=== PATIENT | male | born 1960 | race Caucasian/White ===

== ENCOUNTER 2018-11-06 14:12 | Inpatient (IN) | payer MEDICARE ==
[~2018-11-06] VITALS: Ht 177.8 cm; Wt 264.1 kg
[~2018-11-06 14:12] MED LIST: ACET650S PEG; ASPI-630 PEG; ATORVASTATIN CA80 MG PO; CEFEPIME HCL IVP; CHOL10003 PEG; DIPH25CA58 PO; FAMO20TA5 PO; FURO40TA4 PO; GABA250S6 PO; INSU500I SQ; IPRA3AMP29 NEB; LINE600I IV; MAG30ORA PO; METO25TA4 PO; MORP-16 PO; OXYC5TAB4 PO; TIZA4TAB2 PO; VENL37.56 PEG; WARF-31 PEG; WARF-78 PEG; WARF10TA45 PEG
--- NOTE | 2018-11-06 14:37 | PHYS DOC ---
Past Medical History Past Medical History: A-Fib, Cancer, Diabetes-Type I, Hypertension Additional Past Surgical Histo: TRACHEOSTOMY Alcohol Use: None Drug Use: None Adult General Chief Complaint Chief Complaint: SHORTNESS OF BREATH HPI HPI Patient is a 57-year-old male who presents to the emergency department for evalu ation of generalized weakness. The patient has a tracheostomy, and was hospitalized here for pneumonia, being discharged about a month ago. He was sent to [facility], [facility], and reportedly did very well there, and the day before yesterday was transferred to a nursing facility that was supposedly had capa bilities, including a bariatric bed, to help accommodate the patient. However, the patient states that the care at the facility was inadequate, so about a day after he arrived at the facility he signed himself out. He went home yesterday, but after walking into the house, was unable to continue to ambulate. He denies any pain, or any worsening shortness of breath compared to his baseline. He has not had any fevers or chills. He has had slightly more mucus production and he normally has in the past. However he has not had any fevers, or any new painful areas. There are no alleviating or exacerbating factors to his symptoms otherwise. Review of Systems Review of Systems Constitutional: Denies fever or chills [] Eyes: Denies change in visual acuity, redness, or eye pain [] HENT: Denies nasal congestion or sore throat [] Respiratory: Denies pleuritic pain or shortness of breath [] Cardiovascular: The patient denies any shortness of breath, chest pain, palpitations, or orthopnea [] GI: Denies abdominal pain, nausea, vomiting, bloody stools or diarrhea [] : Denies dysuria or hematuria [] Musculoskeletal: Denies back pain or joint pain [] Integument: Denies rash or skin lesions [] Neurologic: Denies headache, focal weakness or sensory changes . Reports generalized weakness.[] Endocrine: Denies polyuria or polydipsia [] All other systems were reviewed and found to be within normal limits, except as documented in this note. Current Medications Current Medications Current Medications Medications (Trade) Dose Ordered Sig/Cathy Start Time Stop Time Status Last Admin Dose Admin Ondansetron HCl (Zofran) 4 mg 1X ONCE 11/06/18 16:30 11/06/18 16:31 DC 11/06/18 16:37 4 MG Allergies Allergies Allergies Coded Allergies Type Severity Reaction Last Updated Verified Penicillins Allergy Intermediate 09/26/18 Yes allopurinol Allergy Intermediate 09/26/18 Yes azithromycin Allergy Intermediate 09/26/18 Yes I S O L A T I O N *CONTACT* Allergy Unknown 10/02/18 Yes Physical Exam Physical Exam PHYSICAL EXAM: CONSTITUTIONAL: Well developed, well nourished HEAD: normocephalic, atraumatic EENT: PERRL, EOMI. Conjunctivae normal color, sclerae non-icteric; moist mucous membranes. NECK: Supple, non-tender; no meningismus. There is a tracheostomy present. LUNGS: Lungs CTA, breathing even and unlabored. Normal air movement. HEART: Irregularly irregular rhythm, no murmur CHEST: No deformity; non-tender ABDOMEN: The abdomen is soft, and non-tender, no masses or bruits. EXTREM: Normal ROM; no deformity, no calf tenderness. Normal pulses palpable in all extremities. There is mild bilateral pedal edema. SKIN: No rash; no diaphoresis NEURO: Alert; normal speech and cognition; CN's grossly intact; strength grossly intact without focal deficit. BACK: No CVA TTP. Current Patient Data Vital Signs Vital Signs Date Time Temp Pulse Resp B/P (MAP) Pulse Ox O2 Delivery O2 Flow Rate FiO2 11/06/18 14:35 98.2 69 20 119/71 (87) Tracheal Collar 15.0 98.2 Lab Values Laboratory Tests Test 11/06/18 15:50 White Blood Count 5.2 x10^3/uL (4.0-11.0) Red Blood Count 3.70 x10^6/uL (4.30-5.70) L Hemoglobin 10.4 g/dL (13.0-17.5) L Hematocrit 31.2 % (39.0-53.0) L Mean Corpuscular Volume 84 fL (79-100) Mean Corpuscular Hemoglobin 28 pg (25-35) Mean Corpuscular Hemoglobin Concent 33 g/dL (31-37) Red Cell Distribution Width 15.6 % (11.5-14.5) H Platelet Count 219 x10^3/uL (140-400) Neutrophils (%) (Auto) 68 % (31-73) Lymphocytes (%) (Auto) 19 % (24-48) L Monocytes (%) (Auto) 8 % (0-9) Eosinophils (%) (Auto) 4 % (0-3) H Basophils (%) (Auto) 1 % (0-3) Neutrophils # (Auto) 3.5 x10^3/uL (1.8-7.7) Lymphocytes # (Auto) 1.0 x10^3/uL (1.0-4.8) Monocytes # (Auto) 0.4 x10^3/uL (0.0-1.1) Eosinophils # (Auto) 0.2 x10^3/uL (0.0-0.7) Basophils # (Auto) 0.0 x10^3/uL (0.0-0.2) Prothrombin Time 22.5 SEC (11.7-14.0) H Prothrombin Time INR 2.0 (0.8-1.1) H Sodium Level 143 mmol/L (136-145) Potassium Level 4.1 mmol/L (3.5-5.1) Chloride Level 103 mmol/L (98-107) Carbon Dioxide Level 32 mmol/L (21-32) Anion Gap 8 (6-14) Blood Urea Nitrogen 19 mg/dL (8-26) Creatinine 1.3 mg/dL (0.7-1.3) Estimated GFR (Cockcroft-Gault) 56.7 BUN/Creatinine Ratio 15 (6-20) Glucose Level 165 mg/dL (70-99) H Lactic Acid Level 1.5 mmol/L (0.4-2.0) Calcium Level 9.7 mg/dL (8.5-10.1) Magnesium Level 1.7 mg/dL (1.8-2.4) L Total Bilirubin 1.0 mg/dL (0.2-1.0) Aspartate Amino Transferase (AST) 16 U/L (15-37) Alanine Aminotransferase (ALT) 18 U/L (16-63) Alkaline Phosphatase 85 U/L (46-116) Troponin I Quantitative < 0.017 ng/mL (0.000-0.055) ZX-Dpn-F-Type Natriuretic Peptide 2580 pg/mL (0-124) H Total Protein 6.9 g/dL (6.4-8.2) Albumin 3.5 g/dL (3.4-5.0) Albumin/Globulin Ratio 1.0 (1.0-1.7) Laboratory Tests 11/06/18 15:50 Laboratory Tests 11/06/18 15:50 EKG EKG []Atrial fibrillation at a rate of 68 bpm, normal axis, normal intervals, low voltage, there are no acute ischemic ST/T changes noted. Radiology/Procedures Radiology/Procedures [PROCEDURE: PORTABLE CHEST 1V PORTABLE CHEST 1V History: Weakness Comparison: September 28, 2018 Findings: Cardiomegaly, unchanged. Low lung volumes. Unchanged tracheostomy tube. Patchy bibasilar opacities. Possible small right pleural effusion. Postop changes left lower neck. Impression: 1. Low lung volumes with patchy bibasilar opacities, may represent atelectasis or consolidations. PA and lateral view of the chest can better assess if clinically indicated. 2. Possible small right pleural effusion. 3. Cardiomegaly, unchanged. 4. Unchanged tracheostomy tube. ] Course & Med Decision Making Course & Med Decision Making Pertinent Labs and Imaging studies reviewed. (See chart for details) []3:00 PM: RT reported that after suctioning the patient, they did not remove any significant amount of sputum, but the patient did begin having some hemoptysis after the procedure, possibly related to local airway trauma from the suctioning, and anticoagulant use. The patient will continue to be monitored. 5:30 PM:The patient's condition remains stable. I spoke with the hospitalist, who accepted the patient to the hospital for further evaluation and treatment. The patient has not had any worsening dyspnea, or hemoptysis after her initial episode. Dragon Disclaimer Dragon Disclaimer This electronic medical record was generated, in whole or in part, using a voice recognition dictation system. Departure Departure Impression: Primary Impression: Weakness Additional Impression: Morbid obesity with BMI of 70 and over, adult Disposition: ADMITTED INPATIENT Admitting Physician: HIMS Condition: STABLE Referrals: PATRICK MALHOTRA MD (PCP) Problem Qualifiers BEE RANGEL MD Nov 06, 2018 14:37
--- NOTE | 2018-11-06 15:17 | RAD ---
PORTABLE CHEST 1V History: Weakness Comparison: September 28, 2018 Findings: Cardiomegaly, unchanged. Low lung volumes. Unchanged tracheostomy tube. Patchy bibasilar opacities. Possible small right pleural effusion. Postop changes left lower neck. Impression: 1. Low lung volumes with patchy bibasilar opacities, may represent atelectasis or consolidations. PA and lateral view of the chest can better assess if clinically indicated. 2. Possible small right pleural effusion. 3. Cardiomegaly, unchanged. 4. Unchanged tracheostomy tube. Electronically signed by: Anton Rosa DO (11/06/2018 3:15 PM) [id number]
[2018-11-06 16:07] LABS: BASO % 1 % (0-3); EOS # 0.2 x10^3/uL (0.0-0.7); EOS % 4 % (0-3); HEMATOCRIT 31.2 % (39.0-53.0); HEMOGLOBIN 10.4 g/dL (13.0-17.5); LYMPH % 19 % (24-48); MEAN CORPUSCULAR HEMOGLOBIN 28 pg (25-35); MEAN CORPUSCULAR HGB CONC 33 g/dL (31-37); MEAN CORPUSCULAR VOLUME 84 fL (79-100); MONO # 0.4 x10^3/uL (0.0-1.1); MONO % 8 % (0-9); NEUT # 3.5 x10^3/uL (1.8-7.7); NEUT % 68 % (31-73); PLATELET COUNT 219 x10^3/uL (140-400); RED CELL DISTRIBUTION WIDTH 15.6 % (11.5-14.5); WHITE BLOOD COUNT 5.2 x10^3/uL (4.0-11.0)
[2018-11-06 16:17] LABS: PROTHROMBIN TIME PATIENT 22.5 SEC (11.7-14.0)
[2018-11-06 16:21] LABS: CALCIUM 9.7 mg/dL (8.5-10.1); CREATININE 1.3 mg/dL (0.7-1.3); GFR 56.7; POTASSIUM 4.1 mmol/L (3.5-5.1)
[2018-11-06 16:25] LABS: ALBUMIN 3.5 g/dL (3.4-5.0); MAGNESIUM 1.7 mg/dL (1.8-2.4); TOTAL PROTEIN 6.9 g/dL (6.4-8.2)
[2018-11-06] MEDS ORDERED: ONDANSETRON PF 4 MG/2 ML VIAL. IV ONE (16:30)
[2018-11-06] MEDS ORDERED: oxyCODONE/APAP 10/325 1 TAB TABLET PO ONE (18:15)
--- NOTE | 2018-11-06 21:51 | PDOC1 ---
History and Physical Date of Admission Date of Admission DATE: 11/06/18 TIME: 21:51 Identification/Chief Complaint Chief Complaint back pain, no sleep, cant walk Source Source: Chart review, Patient History of Present Illness History of Present Illness Mr. Butler, is a 57-year-old male admit for back pain, and generalized weakness. The patient has a tracheostomy, and was hospitalized here for pneumonia, being discharged to [facility] about a month ago. DC from [facility] to SNU 3 days ago, he was not given a bariatric bed there, given a mattress, and was in severe pain, could not sleep, left AMA this Afternoon from SNU, and then at home was short of breath and chest and back pain. He was able to take his wifes car home, but EMS called to the home to bring him to the hospital. Mr. Butler, states that the care at the facility was inadequate, so about a day after he arrived at the facility he signed himself out. He has not had any fevers or chills. He has had slightly more mucus production and he normally has in the past. However he has not had any fevers, or any new painful areas. There are no alleviating or exacerbating factors to his symptoms otherwise. Past Medical History Heme/Onc: Anemia NOS, Cancer Past Surgical History Past Surgical History: Other Family History Family History: No Significant Social History ALCOHOL: none Drugs: None Current Problem List Problem List Problems Medical Problems: (1) Morbid obesity with BMI of 70 and over, adult Status: Chronic (2) Weakness Status: Acute Current Medications Current Medications Current Medications Ondansetron HCl (Zofran) 4 mg 1X ONCE IV Last administered on 11/06/18at 16:37; Start 11/06/18 at 16:30; Stop 11/06/18 at 16:31; Status DC Oxycodone/ Acetaminophen (Percocet 10/325) 1 tab 1X ONCE PO Last administered on 11/06/18at 17:59; Start 11/06/18 at 18:15; Stop 11/06/18 at 18:16; Status DC Acetaminophen (Tylenol) 1,000 mg PRN Q8HRS PRN PEG MILD PAIN / TEMP; Start 11/06/18 at 22:00; Status UNV Aspirin (Children'S Aspirin) 81 mg DAILY PEG ; Start 11/07/18 at 09:00; Status UNV Vitamin D (Vitamin D3) 2,000 unit DAILY PEG ; Start 11/07/18 at 09:00; Status UNV Diphenhydramine HCl (Benadryl) 25 mg PRN QHS PRN PO INSOMNIA; Start 11/06/18 at 22:00; Status UNV Famotidine (Pepcid) 20 mg BID PEG ; Start 11/07/18 at 09:00; Status UNV Furosemide (Lasix) 40 mg DAILY PEG ; Start 11/07/18 at 09:00; Status UNV Gabapentin (Neurontin Oral Soln) 600 mg TID PO ; Start 11/07/18 at 09:00; Status UNV Albuterol/ Ipratropium (Duoneb) 3 ml RTQID NEB ; Start 11/07/18 at 08:00; Status UNV Linezolid/Dextrose (Zyvox Premix) 600 mg BID IV ; Start 11/07/18 at 09:00; Status UNV Metoprolol Tartrate (Lopressor) 25 mg BID PO ; Start 11/07/18 at 09:00; Status UNV Oxycodone HCl (Roxicodone) 5 mg PRN Q3HRS PRN PO MODERATE TO SEVERE PAIN; Start 11/06/18 at 22:00; Status UNV Tizanidine HCl (Zanaflex) 4 mg Q8HRS PO ; Start 11/06/18 at 22:00; Status UNV Warfarin Sodium (Coumadin) 5 mg QM PEG ; Start 11/13/18 at 16:00; Status UNV Warfarin Sodium (Coumadin) 5 mg QWE PEG ; Start 11/08/18 at 16:00; Status UNV Non-Formulary Medication (Atorvastatin Calcium ) 1 tab DAILY PEG ; Start 11/07/18 at 09:00; Status UNV Non-Formulary Medication (Insulin Regular, Human (Humulin R U-500 Kwikpen)) 50 unit BID SQ ; Start 11/07/18 at 09:00; Status UNV Non-Formulary Medication (Mag Hydrox/Al Hydrox/Simeth (Mag-Al Plus Suspension)) 30 ml PRN Q4HRS PRN PO NAUSEA; Start 11/06/18 at 22:00; Status UNV Non-Formulary Medication (Venlafaxine Hcl ) 1 tab BID PEG ; Start 11/07/18 at 09:00; Status UNV Oxycodone/ Acetaminophen (Percocet 7.5/ 325) 1 tab PRN Q4HRS PRN PO PAIN; Start 11/06/18 at 22:00; Status UNV Fentanyl Citrate (Fentanyl 2ml Vial) 50 mcg PRN Q2HR PRN IV PAIN; Start 11/06/18 at 22:00; Status UNV Active Scripts Active Zyvox (Linezolid) 600 Mg/300 Ml Iv.soln 600 Mg IV BID 10 Days Oxycodone Hcl Immed.release (Oxycodone Hcl) 5 Mg Tablet 5 Mg PO PRN Q3HRS PRN Benadryl (Diphenhydramine Hcl) 25 Mg Capsule 25 Mg PO PRN QHS PRN Duoneb 0.5-3(2.5) Mg/3 Ml (Albuterol/Ipratropium) 3 Ml Ampul.neb 3 Ml NEB RTQID 30 Days [Cefepime Hcl] 1 GM Vial 1 Gm IVP Q12HR 10 Days Reported Metoprolol Tartrate 25 Mg Tablet 1 Tab PO BID Humulin R U-500 Kwikpen (Insulin Regular, Human) 500 Unit/1 Ml Insuln.pen 50 Unit SQ BID Mag-Al Plus Suspension (Mag Hydrox/Al Hydrox/Simeth) 30 Ml Oral.susp 30 Ml PO PRN Q4HRS PRN Coumadin (Warfarin Sodium) 10 Mg Tablet 1 Tab PEG QSASU Coumadin (Warfarin Sodium) 10 Mg Tablet 1 Tab PEG QFR Coumadin (Warfarin Sodium) 10 Mg Tablet 1 Tab PEG QTH Coumadin (Warfarin Sodium) 5 Mg Tablet 5 Mg PEG QWE Coumadin (Warfarin Sodium) 10 Mg Tablet 1 Tab PEG QTU Warfarin Sodium 5 Mg Tablet 5 Mg PEG QM Venlafaxine Hcl 37.5 Mg Tablet 1 Tab PEG BID Tizanidine Hcl 4 Mg Tablet 1 Tab PO Q8HRS Gabapentin Oral Solution (Gabapentin) 250 Mg/5 Ml Solution 12 Ml PO TID Furosemide 40 Mg Tablet 1 Tab PEG DAILY Famotidine 20 Mg Tablet 20 Mg PEG BID Vitamin D3 (Cholecalciferol (Vitamin D3)) 1,000 Unit Tablet 2 Tab PEG DAILY Atorvastatin Calcium 80 Mg Tablet 1 Tab PEG DAILY Aspirin 81 Mg Tab.chew 1 Tab PEG DAILY Acetaminophen Oral Liquid (Acetaminophen) 650 Mg/20.3 Ml Solution 1,000 Mg PEG PRN Q8HRS PRN Allergies Allergies: Coded Allergies: Penicillins (Verified Allergy, Intermediate, 09/26/18) allopurinol (Verified Allergy, Intermediate, 09/26/18) azithromycin (Verified Allergy, Intermediate, 09/26/18) I S O L A T I O N *CONTACT* (Verified Allergy, Unknown, 10/02/18) mrsa ROS General: No: Chills, Night Sweats, Fatigue, Malaise, Appetite, Other PSYCHOLOGICAL ROS: YES: Irritablity, Sleep disturbances; No: Anxiety, Behavioral Disorder, Concentration difficultie, Decreased libido, Depression, Disorientation, Hallucinations, Hostility, Memory difficulties, Mood Swings, Obsessive thoughts, Physical abuse, Sexual abuse, Suicidal ideation, Other Eyes: No Blurry vision, No Decreased vision, No Double vision, No Dry eyes, No Excessive tearing, No Eye Pain, No Itchy Eyes, No Loss of vision, No Photophobia, No Scotomata, No Uses contacts, No Uses glasses, No Other HEENT: No: Heacaches, Visual Changes, Hearing change, Nasal congestion, Nasal discharge, Oral lesions, Sinus pain, Sore Throat, Epistaxis, Sneezing, Snoring, Tinnitus, Vertigo, Vocal changes, Other Respiratory: No: Cough, Hemoptysis, Orthopnea, Pleuritic Pain, Shortness of breath, SOB with excertion, Sputum Changes, Stridor, Tachypnea, Wheezing, Other Cardiovascular: No Chest Pain, No Palpitations, No Orthopnea, No Paroxysmal Noc. Dyspnea, No Edema, No Lt Headedness, No Other Gastrointestinal: No Nausea, No Vomiting, No Abdominal Pain, No Diarrhea, No Constipation, No Melena, No Hematochezia, No Other Genitourinary: No Dysuria, No Frequency, No Incontinence, No Hematuria, No Retention, No Discharge, No Urgency, No Pain, No Flank Pain, No Other, No , No , No , No , No , No , No Musculoskeletal: Yes Gait Disturbance, Yes Joint Pain, Yes Joint Stiffness, Yes Muscle Pain, Yes Muscular Weakness, Yes Pain In: Neurological: Yes Gait Disturbance; No Behavorial Changes, No Bowel/Bladder ControlChng, No Confusion, No Dizziness, No Headaches, No Impaired Coord/balance, No Memory Loss, No Numbness/Tingling, No Seizures, No Speech Problems, No Tremors, No Visual Changes, No Weakness, No Other Skin: No Dry Skin, No Eczema, No Hair Changes, No Lumps, No Mole Changes, No Mottling, No Nail Changes, No Pruritus, No Rash, No Skin Lesion Changes, No Other, No Acne Physical Exam General: Alert, Oriented X3, Cooperative, moderate distress HEENT: EOMI Lungs: Clear to auscultation, Normal air movement Heart: no gallops, no murmurs Abdomen: Normal bowel sounds (very obese), Soft Extremities: No clubbing Skin: No breakdown Neuro: Normal speech, Sensation intact Psych/Mental Status: Mental status NL Vitals Vitals Vital Signs Date Time Temp Pulse Resp B/P (MAP) Pulse Ox O2 Delivery O2 Flow Rate FiO2 11/06/18 17:59 16 100 Room Air 11/06/18 14:35 98.2 69 119/71 (87) 15.0 98.2 Labs Labs Laboratory Tests Test 11/06/18 15:50 White Blood Count 5.2 x10^3/uL (4.0-11.0) Red Blood Count 3.70 x10^6/uL (4.30-5.70) Hemoglobin 10.4 g/dL (13.0-17.5) Hematocrit 31.2 % (39.0-53.0) Mean Corpuscular Volume 84 fL (79-100) Mean Corpuscular Hemoglobin 28 pg (25-35) Mean Corpuscular Hemoglobin Concent 33 g/dL (31-37) Red Cell Distribution Width 15.6 % (11.5-14.5) Platelet Count 219 x10^3/uL (140-400) Neutrophils (%) (Auto) 68 % (31-73) Lymphocytes (%) (Auto) 19 % (24-48) Monocytes (%) (Auto) 8 % (0-9) Eosinophils (%) (Auto) 4 % (0-3) Basophils (%) (Auto) 1 % (0-3) Neutrophils # (Auto) 3.5 x10^3/uL (1.8-7.7) Lymphocytes # (Auto) 1.0 x10^3/uL (1.0-4.8) Monocytes # (Auto) 0.4 x10^3/uL (0.0-1.1) Eosinophils # (Auto) 0.2 x10^3/uL (0.0-0.7) Basophils # (Auto) 0.0 x10^3/uL (0.0-0.2) Prothrombin Time 22.5 SEC (11.7-14.0) Prothromb Time International Ratio 2.0 (0.8-1.1) Sodium Level 143 mmol/L (136-145) Potassium Level 4.1 mmol/L (3.5-5.1) Chloride Level 103 mmol/L (98-107) Carbon Dioxide Level 32 mmol/L (21-32) Anion Gap 8 (6-14) Blood Urea Nitrogen 19 mg/dL (8-26) Creatinine 1.3 mg/dL (0.7-1.3) Estimated GFR (Cockcroft-Gault) 56.7 BUN/Creatinine Ratio 15 (6-20) Glucose Level 165 mg/dL (70-99) Lactic Acid Level 1.5 mmol/L (0.4-2.0) Calcium Level 9.7 mg/dL (8.5-10.1) Magnesium Level 1.7 mg/dL (1.8-2.4) Total Bilirubin 1.0 mg/dL (0.2-1.0) Aspartate Amino Transf (AST/SGOT) 16 U/L (15-37) Alanine Aminotransferase (ALT/SGPT) 18 U/L (16-63) Alkaline Phosphatase 85 U/L (46-116) Troponin I Quantitative < 0.017 ng/mL (0.000-0.055) FG-Uvb-S-Type Natriuretic Peptide 2580 pg/mL (0-124) Total Protein 6.9 g/dL (6.4-8.2) Albumin 3.5 g/dL (3.4-5.0) Albumin/Globulin Ratio 1.0 (1.0-1.7) Laboratory Tests Test 11/06/18 15:50 White Blood Count 5.2 x10^3/uL (4.0-11.0) Red Blood Count 3.70 x10^6/uL (4.30-5.70) Hemoglobin 10.4 g/dL (13.0-17.5) Hematocrit 31.2 % (39.0-53.0) Mean Corpuscular Volume 84 fL (79-100) Mean Corpuscular Hemoglobin 28 pg (25-35) Mean Corpuscular Hemoglobin Concent 33 g/dL (31-37) Red Cell Distribution Width 15.6 % (11.5-14.5) Platelet Count 219 x10^3/uL (140-400) Neutrophils (%) (Auto) 68 % (31-73) Lymphocytes (%) (Auto) 19 % (24-48) Monocytes (%) (Auto) 8 % (0-9) Eosinophils (%) (Auto) 4 % (0-3) Basophils (%) (Auto) 1 % (0-3) Neutrophils # (Auto) 3.5 x10^3/uL (1.8-7.7) Lymphocytes # (Auto) 1.0 x10^3/uL (1.0-4.8) Monocytes # (Auto) 0.4 x10^3/uL (0.0-1.1) Eosinophils # (Auto) 0.2 x10^3/uL (0.0-0.7) Basophils # (Auto) 0.0 x10^3/uL (0.0-0.2) Prothrombin Time 22.5 SEC (11.7-14.0) Prothromb Time International Ratio 2.0 (0.8-1.1) Sodium Level 143 mmol/L (136-145) Potassium Level 4.1 mmol/L (3.5-5.1) Chloride Level 103 mmol/L (98-107) Carbon Dioxide Level 32 mmol/L (21-32) Anion Gap 8 (6-14) Blood Urea Nitrogen 19 mg/dL (8-26) Creatinine 1.3 mg/dL (0.7-1.3) Estimated GFR (Cockcroft-Gault) 56.7 BUN/Creatinine Ratio 15 (6-20) Glucose Level 165 mg/dL (70-99) Lactic Acid Level 1.5 mmol/L (0.4-2.0) Calcium Level 9.7 mg/dL (8.5-10.1) Magnesium Level 1.7 mg/dL (1.8-2.4) Total Bilirubin 1.0 mg/dL (0.2-1.0) Aspartate Amino Transf (AST/SGOT) 16 U/L (15-37) Alanine Aminotransferase (ALT/SGPT) 18 U/L (16-63) Alkaline Phosphatase 85 U/L (46-116) Troponin I Quantitative < 0.017 ng/mL (0.000-0.055) IR-Ekj-T-Type Natriuretic Peptide 2580 pg/mL (0-124) Total Protein 6.9 g/dL (6.4-8.2) Albumin 3.5 g/dL (3.4-5.0) Albumin/Globulin Ratio 1.0 (1.0-1.7) VTE Prophylaxis Ordered VTE Prophylaxis Devices: Yes VTE Pharmacological Prophylaxi: Yes Assessment/Plan Assessment/Plan acute back pain, no bariatric bed given to him at SNU, just DC from LTAC 3 days ago Oropharyngeal cancer, recent reconstructive surgery KU-flap on the left side chest - just this week recent sepsis with HCAP and resp failure Hyperkalemia with no EKG changes Penicillin and erythromycin allergy - tolerated cefepime fine at ER Super morbidly obese BMI 83 still has trach weakness and debility, ICU myopathy PENG AVINA MD Nov 06, 2018 21:51
[2018-11-06] MEDS ORDERED: ANTI-COAG MONITOR BY PHARMACY. MC PRN (22:00)
[2018-11-06] MEDS ORDERED: MAG HYDROX/ALUMINUM HYD/SIMETH 30 ML ORAL.SUSP PO PRN (22:00)
[2018-11-06] MEDS ORDERED: oxyCODONE IR 5 MG TABLET PO PRN (22:00)
[2018-11-06] MEDS ORDERED: ACETAMINOPHEN 650 MG/20.3 ML SOLUTION. PEG PRN (22:00)
[2018-11-06] MEDS ORDERED: FAMOTIDINE 20 MG TABLET. PEG SCH (22:30)
[2018-11-06] MEDS ORDERED: ATORVASTATIN CALCIUM 40 MG TABLET. PEG SCH (22:30)
[2018-11-06] MEDS ORDERED: GABAPENTIN 250 MG/5 ML ORAL SOLUTION. PO SCH (22:30)
[2018-11-06] MEDS ORDERED: VENLAFAXINE 75 MG TABLET. PEG SCH (22:30)
[2018-11-06] MEDS ORDERED: fentaNYL PF VIAL 100 MCG/2 ML VIAL IV PRN (22:30)
[2018-11-06 23:10] VITALS: BP 122/69
[2018-11-07] MEDS ORDERED: ACETAMINOPHEN 650 MG/20.3 ML SOLUTION. PO PRN (00:17)
[2018-11-07] MEDS ORDERED: FAMOTIDINE 20 MG TABLET. PO SCH (00:19)
[2018-11-07] MEDS ORDERED: WARFARIN 5 MG TABLET. PO ONE (00:30)
[2018-11-07] MEDS ORDERED: ACET500T68 PO (00:36)
[2018-11-07] MEDS ORDERED: DULO60CA6 PO (00:36)
[2018-11-07] MEDS ORDERED: DICL100G18 TD (00:36)
[2018-11-07] MEDS ORDERED: OXYC5CAP PO (00:36)
[2018-11-07] MEDS ORDERED: GABA600T7 PO (00:36)
[2018-11-07] MEDS ORDERED: ASPI-630 PO (00:36)
[2018-11-07] MEDS ORDERED: INSU100V SQ (00:36)
[2018-11-07] MEDS ORDERED: FENT1PAT13 TD (00:36)
[2018-11-07] MEDS: GABAPENTIN 300 MG CAPSULE. PO SCH ×4 (01:01→21:44)
[2018-11-07] MEDS: tiZANidine 4 MG TABLET. PO SCH ×2 (01:01→06:53)
[2018-11-07] MEDS: METOPROLOL TART IMMED RELEASE 25 MG TABLET. PO SCH ×4 (01:02→21:39)
[2018-11-07] MEDS: diphenhydrAMINE HCL 25 MG CAPSULE PO PRN (01:12)
[2018-11-07] MEDS: oxyCODONE IR 5 MG TABLET PO PRN ×3 (01:14→11:23)
[2018-11-07 03:00] VITALS: BP 103/53
--- NOTE | 2018-11-07 03:40 | NUR ---
Pharmacy Warfarin Dosing Note S:Pharmacy consulted to assist with anticoagulation therapy started 11/06/18 with target INR: 2 -3 O:CANDE NELSON is a 57 year old M with DVT LABS: Last INR: 2.0 Last HGB: 10.4 Last HCT: 31.2 Last PLT: 219 Last dose of given on Tuesday10/29/18 PER SPEAKING WITH PATIENTS RN Previous Regimen: WARFARIN (SEE HOME LIST) Vitamin K given: Drug Interaction Changes: Ongoing Drug Interactions: A:INR of 2.0 is within desired range. Target range for this patient is: 2 -3 P: Warfarin dose: 11/07/18 0030 5MG X 1 DOSE Bridge Therapy: Next INR due 11/07/18 0500 Pharmacy anticoagulation service will continue to follow. RAIZA VASQUEZ RPH, 11/07/18 0340 Signed: 11/07/18 at 0344 by RAIZA VASQUEZ RPH PHA
--- NOTE | 2018-11-07 05:29 | EKG ---
[facility] [address] [place] [address] Test Date: 2018-11-06 Test Time: 15:33:01 Pat Name: CANDE NELSON Department: Room: Gender: M [employer]: : 1960 Requested By: BEE RANGEL Order Number: [id number] Reading MD: Measurements Intervals Dillon Rate: 68 P: [place]: QRS: 1 QRSD: 82 T: 12 QT: 424 QTc: 456 Interpretive Statements IRREGULAR RHYTHM, NO P-WAVE FOUND LOW LIMB LEAD VOLTAGE NO SPECIFIC ECG ABNORMALITIES RI6.01 Unconfirmed report No previous ECG available for comparison
[2018-11-07 07:00] VITALS: BP 110/60
[2018-11-07] MEDS ORDERED: ASPIRIN CHEWABLE 81 MG TABLET. PO SCH (08:00)
[2018-11-07 08:26] LABS: PROTHROMBIN TIME PATIENT 20.3 SEC (11.7-14.0)
[2018-11-07 08:27] LABS: BASO % 1 % (0-3); EOS # 0.4 x10^3/uL (0.0-0.7); EOS % 8 % (0-3); HEMOGLOBIN 9.3 g/dL (13.0-17.5); LYMPH # 1.2 x10^3/uL (1.0-4.8); LYMPH % 24 % (24-48); MEAN CORPUSCULAR HEMOGLOBIN 28 pg (25-35); MEAN CORPUSCULAR HGB CONC 33 g/dL (31-37); MEAN CORPUSCULAR VOLUME 85 fL (79-100); MONO # 0.5 x10^3/uL (0.0-1.1); MONO % 10 % (0-9); NEUT # 2.8 x10^3/uL (1.8-7.7); NEUT % 58 % (31-73); PLATELET COUNT 194 x10^3/uL (140-400); RED BLOOD COUNT 3.31 x10^6/uL (4.30-5.70); RED CELL DISTRIBUTION WIDTH 15.8 % (11.5-14.5); WHITE BLOOD COUNT 4.9 x10^3/uL (4.0-11.0)
[2018-11-07] MEDS: IPRATRPIUM/ALBUTEROL 0.5/2.5MG 3 ML NEBU. NEB SCH ×4 (08:27→19:10)
[2018-11-07 08:41] LABS: ALBUMIN 2.9 g/dL (3.4-5.0); ALBUMIN/GLOBULIN RATIO 0.8 (1.0-1.7); CALCIUM 9.4 mg/dL (8.5-10.1); CREATININE 1.3 mg/dL (0.7-1.3); GFR 56.7; TOTAL BILIRUBIN 0.9 mg/dL (0.2-1.0); TOTAL PROTEIN 6.4 g/dL (6.4-8.2)
[2018-11-07] MEDS ORDERED: DEXTROSE 50% 25 GM / 50ML DISP.SYRIN. IV PRN (08:45)
[2018-11-07] MEDS ORDERED: IV DEXTROSE 5% 250 ML BAG. IV PRN (08:45)
[2018-11-07] MEDS: FUROSEMIDE 40 MG TABLET. PO SCH (09:00)
[2018-11-07] MEDS: CHOLECALCIFEROL (VITAMIN D3) 1,000 UNIT TABLET PO SCH (09:00)
[2018-11-07] MEDS: ATORVASTATIN CALCIUM 40 MG TABLET. PO SCH (09:00)
[2018-11-07] MEDS ORDERED: INSULIN LISPRO 300 UNITS/3 ML VIAL. SQ SCH (09:00)
[2018-11-07] MEDS: VENLAFAXINE 75 MG TABLET. PO SCH ×2 (09:00→21:40)
[2018-11-07] MEDS ORDERED: LINEZOLID PREMIX 600 MG/300 ML BAG IV SCH (09:00)
[2018-11-07 09:28] LABS: POTASSIUM 3.7 mmol/L (3.5-5.1)
[2018-11-07 11:00] VITALS: BP 101/43
--- NOTE | 2018-11-07 11:07 | NUR ---
IP: Pt has a recent hx of + mrsa in sputum on 09/28/18. Pt to be in contact precautions until there are 2 negative screens and/or sputum cultures. Recommend Nozin/CHG decolonization post screen.
[2018-11-07 11:18] LABS: BILIRUBIN,URINE NEGATIVE (NEG); CLARITY,URINE CLEAR; COLOR,URINE YELLOW; NITRITE,URINE NEGATIVE (NEG); PH,URINE 7.5; PROTEIN,URINE NEGATIVE (NEG-TRACE)
[2018-11-07 11:31] LABS: SQUAMOUS EPITHELIAL CELL,UR OCC /LPF
[2018-11-07 11:32] LABS: BACTERIA,URINE FEW /HPF (0-FEW); RBC,URINE >40 /HPF (0-2)
[2018-11-07] MEDS: INSULIN LISPRO 300 UNITS/3 ML VIAL. SQ SCH ×3 (11:48→17:27)
--- NOTE | 2018-11-07 12:04 | PDOC ---
PROGRESS NOTES Chief Complaint Chief Complaint Oropharyngeal cancer, recent reconstructive surgery KU-flap on the left side chest - just this week recent sepsis with HCAP and resp failure Hyperkalemia with no EKG changes Penicillin and erythromycin allergy - tolerated cefepime fine at ER Super morbidly obese BMI 83 still has trach weakness and debility, ICU myopathy History of Present Illness History of Present Illness hated the SNU so came back to ER Was just dcd form [facility] 3 days ago CXR not impressive - no need for abx HE also looks good clinically INR therapeutic on warf NEeds updated home meds - dw RN Jaxson, on pureed diet at [facility] Good speaking voice unable to care for him at home PLAN: Ok to cont all UPDATED home meds Pureed diet SW NEw SNU dc zyvox pt/ot Vitals Vitals Vital Signs Date Time Temp Pulse Resp B/P (MAP) Pulse Ox O2 Delivery O2 Flow Rate FiO2 11/07/18 11:23 99 12.0 11/07/18 11:22 Tracheal Collar 11/07/18 11:00 97.9 63 18 101/43 (62) 97.9 Physical Exam General: Alert, Oriented X3, Cooperative, moderate distress Lungs: Crackles Abdomen: Normal bowel sounds (very obese), Soft Extremities: No clubbing Skin: No breakdown Labs LABS Laboratory Tests Test 11/06/18 15:50 11/07/18 07:35 11/07/18 08:20 11/07/18 10:58 White Blood Count 5.2 x10^3/uL (4.0-11.0) 4.9 x10^3/uL (4.0-11.0) Red Blood Count 3.70 x10^6/uL (4.30-5.70) 3.31 x10^6/uL (4.30-5.70) Hemoglobin 10.4 g/dL (13.0-17.5) 9.3 g/dL (13.0-17.5) Hematocrit 31.2 % (39.0-53.0) 28.0 % (39.0-53.0) Mean Corpuscular Volume 84 fL (79-100) 85 fL (79-100) Mean Corpuscular Hemoglobin 28 pg (25-35) 28 pg (25-35) Mean Corpuscular Hemoglobin Concent 33 g/dL (31-37) 33 g/dL (31-37) Red Cell Distribution Width 15.6 % (11.5-14.5) 15.8 % (11.5-14.5) Platelet Count 219 x10^3/uL (140-400) 194 x10^3/uL (140-400) Neutrophils (%) (Auto) 68 % (31-73) 58 % (31-73) Lymphocytes (%) (Auto) 19 % (24-48) 24 % (24-48) Monocytes (%) (Auto) 8 % (0-9) 10 % (0-9) Eosinophils (%) (Auto) 4 % (0-3) 8 % (0-3) Basophils (%) (Auto) 1 % (0-3) 1 % (0-3) Neutrophils # (Auto) 3.5 x10^3/uL (1.8-7.7) 2.8 x10^3/uL (1.8-7.7) Lymphocytes # (Auto) 1.0 x10^3/uL (1.0-4.8) 1.2 x10^3/uL (1.0-4.8) Monocytes # (Auto) 0.4 x10^3/uL (0.0-1.1) 0.5 x10^3/uL (0.0-1.1) Eosinophils # (Auto) 0.2 x10^3/uL (0.0-0.7) 0.4 x10^3/uL (0.0-0.7) Basophils # (Auto) 0.0 x10^3/uL (0.0-0.2) 0.0 x10^3/uL (0.0-0.2) Prothrombin Time 22.5 SEC (11.7-14.0) 20.3 SEC (11.7-14.0) Prothromb Time International Ratio 2.0 (0.8-1.1) 1.8 (0.8-1.1) Sodium Level 143 mmol/L (136-145) 142 mmol/L (136-145) Potassium Level 4.1 mmol/L (3.5-5.1) 3.7 mmol/L (3.5-5.1) Chloride Level 103 mmol/L (98-107) 103 mmol/L (98-107) Carbon Dioxide Level 32 mmol/L (21-32) 31 mmol/L (21-32) Anion Gap 8 (6-14) 8 (6-14) Blood Urea Nitrogen 19 mg/dL (8-26) 17 mg/dL (8-26) Creatinine 1.3 mg/dL (0.7-1.3) 1.3 mg/dL (0.7-1.3) Estimated GFR (Cockcroft-Gault) 56.7 56.7 BUN/Creatinine Ratio 15 (6-20) 13 (6-20) Glucose Level 165 mg/dL (70-99) 153 mg/dL (70-99) Lactic Acid Level 1.5 mmol/L (0.4-2.0) Calcium Level 9.7 mg/dL (8.5-10.1) 9.4 mg/dL (8.5-10.1) Magnesium Level 1.7 mg/dL (1.8-2.4) Total Bilirubin 1.0 mg/dL (0.2-1.0) 0.9 mg/dL (0.2-1.0) Aspartate Amino Transf (AST/SGOT) 16 U/L (15-37) 20 U/L (15-37) Alanine Aminotransferase (ALT/SGPT) 18 U/L (16-63) 18 U/L (16-63) Alkaline Phosphatase 85 U/L (46-116) 68 U/L (46-116) Troponin I Quantitative < 0.017 ng/mL (0.000-0.055) KM-Ooc-M-Type Natriuretic Peptide 2580 pg/mL (0-124) Total Protein 6.9 g/dL (6.4-8.2) 6.4 g/dL (6.4-8.2) Albumin 3.5 g/dL (3.4-5.0) 2.9 g/dL (3.4-5.0) Albumin/Globulin Ratio 1.0 (1.0-1.7) 0.8 (1.0-1.7) Glucose (Fingerstick) 148 mg/dL (70-99) 153 mg/dL (70-99) Test 11/07/18 11:00 Urine Collection Type Unknown Urine Color Yellow Urine Clarity Clear Urine pH 7.5 Urine Specific [place] 1.020 Urine Protein Negative mg/dL (NEG-TRACE) Urine Glucose (UA) Negative mg/dL (NEG) Urine Ketones (Stick) Trace mg/dL (NEG) Urine Blood Large (NEG) Urine Nitrite Negative (NEG) Urine Bilirubin Negative (NEG) Urine Urobilinogen Dipstick 1.0 mg/dL (0.2 mg/dL) Urine Leukocyte Esterase Small (NEG) Urine RBC >40 /HPF (0-2) Urine WBC 1-4 /HPF (0-4) Urine Squamous Epithelial Cells Occ /LPF Urine Bacteria Few /HPF (0-FEW) Review of Systems Review of Systems weak, cough chronic, no soa, no fevers, no cp, no depression Assessment and Plan Assessmemt and Plan Problems Medical Problems: (1) Morbid obesity with BMI of 70 and over, adult Status: Chronic (2) Weakness Status: Acute Comment Review of Relevant I have reviewed the following items bar (where applicable) has been applied. Labs Laboratory Tests Test 11/06/18 15:50 11/07/18 07:35 11/07/18 08:20 11/07/18 10:58 White Blood Count 5.2 x10^3/uL (4.0-11.0) 4.9 x10^3/uL (4.0-11.0) Red Blood Count 3.70 x10^6/uL (4.30-5.70) 3.31 x10^6/uL (4.30-5.70) Hemoglobin 10.4 g/dL (13.0-17.5) 9.3 g/dL (13.0-17.5) Hematocrit 31.2 % (39.0-53.0) 28.0 % (39.0-53.0) Mean Corpuscular Volume 84 fL (79-100) 85 fL (79-100) Mean Corpuscular Hemoglobin 28 pg (25-35) 28 pg (25-35) Mean Corpuscular Hemoglobin Concent 33 g/dL (31-37) 33 g/dL (31-37) Red Cell Distribution Width 15.6 % (11.5-14.5) 15.8 % (11.5-14.5) Platelet Count 219 x10^3/uL (140-400) 194 x10^3/uL (140-400) Neutrophils (%) (Auto) 68 % (31-73) 58 % (31-73) Lymphocytes (%) (Auto) 19 % (24-48) 24 % (24-48) Monocytes (%) (Auto) 8 % (0-9) 10 % (0-9) Eosinophils (%) (Auto) 4 % (0-3) 8 % (0-3) Basophils (%) (Auto) 1 % (0-3) 1 % (0-3) Neutrophils # (Auto) 3.5 x10^3/uL (1.8-7.7) 2.8 x10^3/uL (1.8-7.7) Lymphocytes # (Auto) 1.0 x10^3/uL (1.0-4.8) 1.2 x10^3/uL (1.0-4.8) Monocytes # (Auto) 0.4 x10^3/uL (0.0-1.1) 0.5 x10^3/uL (0.0-1.1) Eosinophils # (Auto) 0.2 x10^3/uL (0.0-0.7) 0.4 x10^3/uL (0.0-0.7) Basophils # (Auto) 0.0 x10^3/uL (0.0-0.2) 0.0 x10^3/uL (0.0-0.2) Prothrombin Time 22.5 SEC (11.7-14.0) 20.3 SEC (11.7-14.0) Prothromb Time International Ratio 2.0 (0.8-1.1) 1.8 (0.8-1.1) Sodium Level 143 mmol/L (136-145) 142 mmol/L (136-145) Potassium Level 4.1 mmol/L (3.5-5.1) 3.7 mmol/L (3.5-5.1) Chloride Level 103 mmol/L (98-107) 103 mmol/L (98-107) Carbon Dioxide Level 32 mmol/L (21-32) 31 mmol/L (21-32) Anion Gap 8 (6-14) 8 (6-14) Blood Urea Nitrogen 19 mg/dL (8-26) 17 mg/dL (8-26) Creatinine 1.3 mg/dL (0.7-1.3) 1.3 mg/dL (0.7-1.3) Estimated GFR (Cockcroft-Gault) 56.7 56.7 BUN/Creatinine Ratio 15 (6-20) 13 (6-20) Glucose Level 165 mg/dL (70-99) 153 mg/dL (70-99) Lactic Acid Level 1.5 mmol/L (0.4-2.0) Calcium Level 9.7 mg/dL (8.5-10.1) 9.4 mg/dL (8.5-10.1) Magnesium Level 1.7 mg/dL (1.8-2.4) Total Bilirubin 1.0 mg/dL (0.2-1.0) 0.9 mg/dL (0.2-1.0) Aspartate Amino Transf (AST/SGOT) 16 U/L (15-37) 20 U/L (15-37) Alanine Aminotransferase (ALT/SGPT) 18 U/L (16-63) 18 U/L (16-63) Alkaline Phosphatase 85 U/L (46-116) 68 U/L (46-116) Troponin I Quantitative < 0.017 ng/mL (0.000-0.055) NV-Kny-H-Type Natriuretic Peptide 2580 pg/mL (0-124) Total Protein 6.9 g/dL (6.4-8.2) 6.4 g/dL (6.4-8.2) Albumin 3.5 g/dL (3.4-5.0) 2.9 g/dL (3.4-5.0) Albumin/Globulin Ratio 1.0 (1.0-1.7) 0.8 (1.0-1.7) Glucose (Fingerstick) 148 mg/dL (70-99) 153 mg/dL (70-99) Test 11/07/18 11:00 Urine Collection Type Unknown Urine Color Yellow Urine Clarity Clear Urine pH 7.5 Urine Specific [place] 1.020 Urine Protein Negative mg/dL (NEG-TRACE) Urine Glucose (UA) Negative mg/dL (NEG) Urine Ketones (Stick) Trace mg/dL (NEG) Urine Blood Large (NEG) Urine Nitrite Negative (NEG) Urine Bilirubin Negative (NEG) Urine Urobilinogen Dipstick 1.0 mg/dL (0.2 mg/dL) Urine Leukocyte Esterase Small (NEG) Urine RBC >40 /HPF (0-2) Urine WBC 1-4 /HPF (0-4) Urine Squamous Epithelial Cells Occ /LPF Urine Bacteria Few /HPF (0-FEW) Laboratory Tests Test 11/06/18 15:50 11/07/18 07:35 11/07/18 08:20 11/07/18 10:58 White Blood Count 5.2 x10^3/uL (4.0-11.0) 4.9 x10^3/uL (4.0-11.0) Red Blood Count 3.70 x10^6/uL (4.30-5.70) 3.31 x10^6/uL (4.30-5.70) Hemoglobin 10.4 g/dL (13.0-17.5) 9.3 g/dL (13.0-17.5) Hematocrit 31.2 % (39.0-53.0) 28.0 % (39.0-53.0) Mean Corpuscular Volume 84 fL (79-100) 85 fL (79-100) Mean Corpuscular Hemoglobin 28 pg (25-35) 28 pg (25-35) Mean Corpuscular Hemoglobin Concent 33 g/dL (31-37) 33 g/dL (31-37) Red Cell Distribution Width 15.6 % (11.5-14.5) 15.8 % (11.5-14.5) Platelet Count 219 x10^3/uL (140-400) 194 x10^3/uL (140-400) Neutrophils (%) (Auto) 68 % (31-73) 58 % (31-73) Lymphocytes (%) (Auto) 19 % (24-48) 24 % (24-48) Monocytes (%) (Auto) 8 % (0-9) 10 % (0-9) Eosinophils (%) (Auto) 4 % (0-3) 8 % (0-3) Basophils (%) (Auto) 1 % (0-3) 1 % (0-3) Neutrophils # (Auto) 3.5 x10^3/uL (1.8-7.7) 2.8 x10^3/uL (1.8-7.7) Lymphocytes # (Auto) 1.0 x10^3/uL (1.0-4.8) 1.2 x10^3/uL (1.0-4.8) Monocytes # (Auto) 0.4 x10^3/uL (0.0-1.1) 0.5 x10^3/uL (0.0-1.1) Eosinophils # (Auto) 0.2 x10^3/uL (0.0-0.7) 0.4 x10^3/uL (0.0-0.7) Basophils # (Auto) 0.0 x10^3/uL (0.0-0.2) 0.0 x10^3/uL (0.0-0.2) Prothrombin Time 22.5 SEC (11.7-14.0) 20.3 SEC (11.7-14.0) Prothromb Time International Ratio 2.0 (0.8-1.1) 1.8 (0.8-1.1) Sodium Level 143 mmol/L (136-145) 142 mmol/L (136-145) Potassium Level 4.1 mmol/L (3.5-5.1) 3.7 mmol/L (3.5-5.1) Chloride Level 103 mmol/L (98-107) 103 mmol/L (98-107) Carbon Dioxide Level 32 mmol/L (21-32) 31 mmol/L (21-32) Anion Gap 8 (6-14) 8 (6-14) Blood Urea Nitrogen 19 mg/dL (8-26) 17 mg/dL (8-26) Creatinine 1.3 mg/dL (0.7-1.3) 1.3 mg/dL (0.7-1.3) Estimated GFR (Cockcroft-Gault) 56.7 56.7 BUN/Creatinine Ratio 15 (6-20) 13 (6-20) Glucose Level 165 mg/dL (70-99) 153 mg/dL (70-99) Lactic Acid Level 1.5 mmol/L (0.4-2.0) Calcium Level 9.7 mg/dL (8.5-10.1) 9.4 mg/dL (8.5-10.1) Magnesium Level 1.7 mg/dL (1.8-2.4) Total Bilirubin 1.0 mg/dL (0.2-1.0) 0.9 mg/dL (0.2-1.0) Aspartate Amino Transf (AST/SGOT) 16 U/L (15-37) 20 U/L (15-37) Alanine Aminotransferase (ALT/SGPT) 18 U/L (16-63) 18 U/L (16-63) Alkaline Phosphatase 85 U/L (46-116) 68 U/L (46-116) Troponin I Quantitative < 0.017 ng/mL (0.000-0.055) VR-Sya-I-Type Natriuretic Peptide 2580 pg/mL (0-124) Total Protein 6.9 g/dL (6.4-8.2) 6.4 g/dL (6.4-8.2) Albumin 3.5 g/dL (3.4-5.0) 2.9 g/dL (3.4-5.0) Albumin/Globulin Ratio 1.0 (1.0-1.7) 0.8 (1.0-1.7) Glucose (Fingerstick) 148 mg/dL (70-99) 153 mg/dL (70-99) Test 11/07/18 11:00 Urine Collection Type Unknown Urine Color Yellow Urine Clarity Clear Urine pH 7.5 Urine Specific [place] 1.020 Urine Protein Negative mg/dL (NEG-TRACE) Urine Glucose (UA) Negative mg/dL (NEG) Urine Ketones (Stick) Trace mg/dL (NEG) Urine Blood Large (NEG) Urine Nitrite Negative (NEG) Urine Bilirubin Negative (NEG) Urine Urobilinogen Dipstick 1.0 mg/dL (0.2 mg/dL) Urine Leukocyte Esterase Small (NEG) Urine RBC >40 /HPF (0-2) Urine WBC 1-4 /HPF (0-4) Urine Squamous Epithelial Cells Occ /LPF Urine Bacteria Few /HPF (0-FEW) Medications Current Medications Ondansetron HCl (Zofran) 4 mg 1X ONCE IV Last administered on 11/06/18at 16:37; Start 11/06/18 at 16:30; Stop 11/06/18 at 16:31; Status DC Oxycodone/ Acetaminophen (Percocet 10325) 1 tab 1X ONCE PO Last administered on 11/06/18at 17:59; Start 11/06/18 at 18:15; Stop 11/06/18 at 18:16; Status DC Acetaminophen (Tylenol) 1,000 mg PRN Q8HRS PRN PEG MILD PAIN / TEMP; Start 11/06/18 at 22:00; Stop 11/07/18 at 00:17; Status DC Aspirin (Children'S Aspirin) 81 mg DAILYWBKFT PO Last administered on 11/07/18at 09:13; Start 11/07/18 at 08:00 Vitamin D (Vitamin D3) 2,000 unit DAILY PO Last administered on 11/07/18at 09:13; Start 11/07/18 at 09:00 Diphenhydramine HCl (Benadryl) 25 mg PRN QHS PRN PO INSOMNIA Last administered on 11/07/18at 01:14; Start 11/06/18 at 22:30 Famotidine (Pepcid) 20 mg BID PEG ; Start 11/06/18 at 22:30; Stop 11/07/18 at 00:19; Status DC Furosemide (Lasix) 40 mg DAILY PO Last administered on 11/07/18at 09:13; Start 11/07/18 at 09:00 Gabapentin (Neurontin Oral Soln) 600 mg TID PO ; Start 11/06/18 at 22:30; Status Cancel Albuterol/ Ipratropium (Duoneb) 3 ml RTQID NEB Last administered on 11/07/18at 11:22; Start 11/07/18 at 08:00 Linezolid/Dextrose (Zyvox Premix) 600 mg BID IV ; Start 11/07/18 at 09:00; Status UNV Metoprolol Tartrate (Lopressor) 25 mg BID PO Last administered on 11/07/18at 09:13; Start 11/06/18 at 22:30 Oxycodone HCl (Roxicodone) 5 mg PRN Q3HRS PRN PO MODERATE TO SEVERE PAIN; Start 11/06/18 at 22:00; Stop 11/06/18 at 21:57; Status DC Tizanidine HCl (Zanaflex) 4 mg Q8HRS PO Last administered on 11/07/18at 06:53; Start 11/06/18 at 22:30 Warfarin Sodium (Coumadin) 5 mg QM PEG ; Start 11/13/18 at 16:00; Status UNV Warfarin Sodium (Coumadin) 5 mg QWE PEG ; Start 11/08/18 at 16:00; Status UNV Atorvastatin Calcium (Lipitor) 80 mg DAILY PEG ; Start 11/06/18 at 22:30; Stop 11/07/18 at 00:18; Status DC Insulin Human Lispro (HumaLOG) 50 units BID SQ Last administered on 11/07/18at 09:13; Start 11/07/18 at 09:00 Al Hydroxide/Mg Hydroxide (Mylanta Plus Xs) 30 ml PRN Q4HRS PRN PO NAUSEA; Start 11/06/18 at 22:00 Venlafaxine HCl (Effexor) 37.5 mg BID PEG ; Start 11/06/18 at 22:30; Stop 11/07/18 at 00:19; Status DC Oxycodone/ Acetaminophen (Percocet 7.5/ 325) 1 tab PRN Q4HRS PRN PO PAIN; Start 11/06/18 at 22:30 Fentanyl Citrate (Fentanyl 2ml Vial) 50 mcg PRN Q2HR PRN IV PAIN; Start 11/06/18 at 22:30 Warfarin Sodium (Coumadin Per Pharmacy) 1 each PRN DAILY PRN MC SEE COMMENTS Last administered on 11/07/18at 11:12; Start 11/06/18 at 22:00 Oxycodone HCl (Roxicodone) 10 mg PRN Q3HRS PRN PO MODERATE TO SEVERE PAIN Last administered on 11/07/18at 11:23; Start 11/06/18 at 22:30 Linezolid/Dextrose 300 ml @ 300 mls/hr Q12HR IV Last administered on 11/07/18at 09:13; Start 11/07/18 at 09:00; Stop 11/07/18 at 12:01; Status DC Warfarin Sodium (Coumadin) 5 mg 1X ONCE PO Last administered on 11/07/18at 01:02; Start 11/07/18 at 00:30; Stop 11/07/18 at 00:31; Status DC Acetaminophen (Tylenol) 1,000 mg PRN Q8HRS PRN PO MILD PAIN / TEMP Last administered on 11/07/18at 01:14; Start 11/07/18 at 00:17 Atorvastatin Calcium (Lipitor) 80 mg DAILY PO Last administered on 11/07/18at 09:13; Start 11/07/18 at 00:18 Venlafaxine HCl (Effexor) 37.5 mg BID PO Last administered on 11/07/18at 09:13; Start 11/07/18 at 00:19 Famotidine (Pepcid) 20 mg BID PO Last administered on 11/07/18at 09:13; Start 11/07/18 at 00:19 Gabapentin (Neurontin) 600 mg TID PO Last administered on 11/07/18at 09:13; Start 11/07/18 at 00:45 Info (Anti-Coagulation Monitoring By Pharmacy) 1 each PRN DAILY PRN MC SEE COMMENTS; Start 11/06/18 at 22:00 Insulin Human Lispro (HumaLOG) 0-9 UNITS TIDWMEALS SQ ; Start 11/07/18 at 12:00 Dextrose (Dextrose 50%-Water Syringe) 12.5 gm PRN Q15MIN PRN IV SEE COMMENTS; Start 11/07/18 at 08:45 Dextrose 250 ml PRN Q15MIN PRN IV SEE COMMENTS; Start 11/07/18 at 08:45; Status UNV Warfarin Sodium (Coumadin) 7.5 mg 1X WARF ONCE PO ; Start 11/07/18 at 16:00; Stop 11/07/18 at 16:01 Active Scripts Active Reported Cymbalta (Duloxetine Hcl) 60 Mg Capsule.dr 60 Mg PO DAILY Voltaren (Diclofenac Sodium) 100 Gm Gel..gram. 1 Vonda TD BID Humalog (Insulin Lispro) 100 Unit/1 Ml Vial 50 Unit SQ BID FENTANYL 12mcg/hr (Fentanyl) 1 Each Patch.td72 1 Patch TD Q72H Gabapentin 600 Mg Tablet 600 Mg PO TID Acetaminophen 500 Mg Tablet 500 Mg PO PRN Q8HRS PRN Oxycodone Hcl 5 Mg Capsule 10 Mg PO PRN Q3HRS PRN Aspirin 81 Mg Tab.chew 81 Mg PO DAILY Mag-Al Plus Suspension (Mag Hydrox/Al Hydrox/Simeth) 30 Ml Oral.susp 30 Ml PO PRN Q4HRS PRN Furosemide 40 Mg Tablet 1 Tab PO DAILY Famotidine 20 Mg Tablet 20 Mg PO BID Atorvastatin Calcium 80 Mg Tablet 1 Tab PO HS Vitals/I & O Vital Sign - Last 24 Hours 11/06/18 11/06/18 11/06/1819 14:35 15:30 16:30 17:30 Temp 98.2 98.2 Pulse 69 66 68 66 Resp 20 16 16 15 B/P (MAP) 119/71 (87) 112/52 (72) 131/56 (81) 116/63 (80) Pulse Ox 100 100 100 O2 Delivery Tracheal Collar Tracheal Collar Tracheal Collar Tracheal Collar O2 Flow Rate 15.0 15.0 15.0 15.0 11/06/18 11/06/18 11/06/18 11/06/18 17:59 18:30 19:30 20:30 Pulse 64 70 70 Resp 16 15 16 16 B/P (MAP) 111/67 (82) 131/69 (89) 119/78 (92) Pulse Ox 100 100 100 100 O2 Delivery Room Air Tracheal Collar Tracheal Collar Tracheal Collar O2 Flow Rate 15.0 15.0 15.0 11/06/18 11/06/18 11/07/18 11/07/18 21:30 23:10 00:45 01:02 Temp 97.4 97.4 Pulse 66 72 72 Resp 16 20 B/P (MAP) 126/76 (93) 122/69 (86) 122/69 Pulse Ox 100 100 O2 Delivery Tracheal Collar NonRebreather Mask Trach Collar O2 Flow Rate 15.0 15.0 11/07/18 11/07/18 11/07/18 11/07/18 03:00 06:53 07:00 07:57 Temp 97.9 97.7 97.9 97.7 Pulse 62 61 Resp 20 18 18 18 B/P (MAP) 103/53 (70) 110/60 (77) Pulse Ox 100 100 97 100 O2 Delivery Room Air Tracheal Collar O2 Flow Rate 15.0 10.0 15.0 11/07/18 11/07/18 11/07/18 11/07/18 08:00 08:27 09:13 11:00 Temp 97.9 97.9 Pulse 61 63 Resp 18 B/P (MAP) 110/60 101/43 (62) Pulse Ox 99 99 O2 Delivery Trach Collar Tracheal Collar Tracheal Collar O2 Flow Rate 10.0 12.0 10.0 11/07/18 11/07/18 11:22 11:23 Pulse Ox 99 99 O2 Delivery Tracheal Collar O2 Flow Rate 10.0 12.0 Intake and Output 11/06/18 11/06/18 11/07/18 15:00 23:00 07:00 Intake Total 400 ml Balance 400 ml NISHA NAJERA MD Nov 07, 2018 12:04
[2018-11-07] MEDS ORDERED: CHOL10003 PO (12:14)
[2018-11-07] MEDS ORDERED: LISI-334 PO (12:14)
[2018-11-07] MEDS ORDERED: PROB500T23 PO (12:14)
[2018-11-07] MEDS ORDERED: QUET25TA5 PO (12:14)
[2018-11-07] MEDS ORDERED: METO25TA4 PO (12:14)
[2018-11-07] MEDS ORDERED: INSU100V11 IJ ×2 (12:14)
[2018-11-07] MEDS ORDERED: METF500T16 PO (12:14)
[2018-11-07] MEDS ORDERED: NPH,100V5 SQ (12:14)
[2018-11-07] MEDS ORDERED: FAMO-63 PO (12:14)
[2018-11-07] MEDS ORDERED: SENN-82 PO (12:14)
[2018-11-07] MEDS ORDERED: TIZA4TAB2 PO (12:15)
[2018-11-07] MEDS ORDERED: OXYC1TAB15 PO (12:16)
[2018-11-07] MEDS ORDERED: tiZANidine 4 MG TABLET. PO PRN (12:30)
[2018-11-07] MEDS ORDERED: oxyCODONE/APAP 5/325 1 TAB TABLET PO PRN (12:30)
[2018-11-07] MEDS: ASPIRIN CHEWABLE 81 MG TABLET. PO SCH (12:56)
[2018-11-07] MEDS: FAMOTIDINE 20 MG TABLET. PO SCH ×2 (12:57→21:40)
[2018-11-07] MEDS ORDERED: CHOLECALCIFEROL (VITAMIN D3) 1,000 UNIT TABLET PO SCH (13:00)
[2018-11-07] MEDS: LISINOPRIL 20 MG TABLET PO SCH (13:00)
[2018-11-07] MEDS: DULoxetine HCL 30 MG CAPSULE.DR PO SCH (13:05)
[2018-11-07] MEDS: fentaNYL 12MCG/HR PATCH 1 PATCH PATCH.TD72 TD SCH (14:10)
[2018-11-07 15:00] VITALS: BP 110/51
[2018-11-07] MEDS: oxyCODONE/APAP 7.5/325 1 TAB TABLET PO PRN ×2 (15:38→21:42)
[2018-11-07] MEDS ORDERED: WARFARIN 7.5 MG TABLET. PO ONE (16:00)
[2018-11-07] MEDS: metFORMIN 500 MG TABLET PO SCH (17:18)
[2018-11-07 19:00] VITALS: BP 110/44
[2018-11-07] MEDS: PROBENECID 500 MG TABLET PO SCH (21:00)
[2018-11-07] MEDS: SENNOSIDES/DOCUSATE 8.6/50MG TABLET. PO SCH (21:40)
[2018-11-07] MEDS: QUEtiapine 25 MG TABLET. PO SCH (21:41)
[2018-11-07] MEDS: INSULIN GLARGINE SYRINGE. SQ SCH (21:53)
[2018-11-07 23:00] VITALS: BP 116/45
[2018-11-08 03:00] VITALS: BP 116/44
[2018-11-08 07:00] VITALS: BP 106/42
[2018-11-08] MEDS: IPRATRPIUM/ALBUTEROL 0.5/2.5MG 3 ML NEBU. NEB SCH ×4 (07:27→19:54)
[2018-11-08] MEDS: INSULIN LISPRO 300 UNITS/3 ML VIAL. SQ SCH ×5 (08:00→17:54)
[2018-11-08] MEDS: metFORMIN 500 MG TABLET PO SCH ×2 (08:51→17:23)
[2018-11-08] MEDS: oxyCODONE/APAP 7.5/325 1 TAB TABLET PO PRN ×3 (08:51→20:58)
[2018-11-08] MEDS: FAMOTIDINE 20 MG TABLET. PO SCH ×2 (08:52→20:42)
[2018-11-08] MEDS: QUEtiapine 25 MG TABLET. PO SCH ×2 (08:52→20:42)
[2018-11-08] MEDS: VENLAFAXINE 75 MG TABLET. PO SCH (08:52)
[2018-11-08] MEDS: CHOLECALCIFEROL (VITAMIN D3) 1,000 UNIT TABLET PO SCH (08:52)
[2018-11-08] MEDS: FUROSEMIDE 40 MG TABLET. PO SCH (08:52)
[2018-11-08] MEDS: GABAPENTIN 300 MG CAPSULE. PO SCH ×2 (08:52→20:42)
[2018-11-08] MEDS: ASPIRIN CHEWABLE 81 MG TABLET. PO SCH (08:52)
[2018-11-08] MEDS: DULoxetine HCL 30 MG CAPSULE.DR PO SCH (08:52)
[2018-11-08] MEDS: METOPROLOL TART IMMED RELEASE 25 MG TABLET. PO SCH ×3 (08:53→20:43)
[2018-11-08] MEDS: LISINOPRIL 20 MG TABLET PO SCH (08:53)
[2018-11-08 08:54] LABS: PROTHROMBIN TIME PATIENT 20.1 SEC (11.7-14.0)
[2018-11-08] MEDS: PROBENECID 500 MG TABLET PO SCH ×2 (08:54→20:43)
--- NOTE | 2018-11-08 10:18 | NUR ---
SW consulted for dc planning. Chart reviewed and pt is known to SW from previous admission. Pt has trach. Spoke with pt's , Zena, via phone. She reported she took pt out of SNU due to quality of care and pt was at home for less than 24hrs before coming to [facility]. Pt and reported pt was accepted at [facility] and would like to go there upon dc. Pt's aware about insurance approval process. Plan 1. [facility] phoned and faxed [facility], phone: [phone], fax: [phone]. Pt acceptance and admission pending. 2. SW will f/u for dc planning. D/w RN.
[2018-11-08] MEDS: ATORVASTATIN CALCIUM 40 MG TABLET. PO SCH (10:30)
--- NOTE | 2018-11-08 10:32 | PDOC ---
PROGRESS NOTES Chief Complaint Chief Complaint DC from [facility] to SNU 4 days ago, he was not given a bariatric bed there, given a mattress, and was in severe pain, could not sleep, left AMA from SNU, and then at home was short of breath and chest and back pain Oropharyngeal cancer, recent reconstructive surgery KU-flap on the left side chest - just this week recent sepsis with HCAP and resp failure Low lung volumes with patchy bibasilar opacities, may represent atelectasis or consolidations. PA and lateral view of the chest can better assess if clinically indicated. Hyperkalemia with no EKG changes Penicillin and erythromycin allergy - tolerated cefepime fine at ER Super morbidly obese BMI 83 still has trach weakness and debility, ICU myopathy History of Present Illness History of Present Illness hated the SNU so came back to ER Was just dcd form ltac 3 days ago CXR not impressive - no need for abx HE also looks good clinically INR therapeutic on warf NEeds updated home meds - dw RN Jaxson, on pureed diet at [facility] Good speaking voice unable to care for him at home PLAN: Ok to cont all UPDATED home meds Pureed diet SW NEw SNU dc zyvox pt/ot CT CHEST TODAY 37 MIN PT EXAM, CHART REVIEW, > 50% OF TIME SPENT WITH EXAM, CHART REVIEW, PT CARE COORDINATION Vitals Vitals Vital Signs Date Time Temp Pulse Resp B/P (MAP) Pulse Ox O2 Delivery O2 Flow Rate FiO2 11/08/18 09:02 98 8.0 11/08/18 08:00 Trach Collar 11/08/18 07:00 97.8 58 20 106/42 (63) 97.8 Physical Exam General: Alert, Oriented X3, Cooperative, moderate distress Heart: Regular rate Lungs: Crackles Abdomen: Normal bowel sounds (very obese), Soft Extremities: No clubbing Skin: No breakdown Labs LABS PORTABLE CHEST 1V History: Weakness Comparison: September 28, 2018 Findings: Cardiomegaly, unchanged. Low lung volumes. Unchanged tracheostomy tube. Patchy bibasilar opacities. Possible small right pleural effusion. Postop changes left lower neck. Impression: 1. Low lung volumes with patchy bibasilar opacities, may represent atelectasis or consolidations. PA and lateral view of the chest can better assess if clinically indicated. 2. Possible small right pleural effusion. 3. Cardiomegaly, unchanged. 4. Unchanged tracheostomy tube. Electronically signed by: Anton Rosa DO (11/06/2018 3:15 PM) [id number] Laboratory Tests Test 11/07/18 10:58 11/07/18 11:00 11/07/18 16:52 11/07/18 20:33 Glucose (Fingerstick) 153 mg/dL (70-99) 163 mg/dL (70-99) 136 mg/dL (70-99) Urine Collection Type Unknown Urine Color Yellow Urine Clarity Clear Urine pH 7.5 Urine Specific Kouts 1.020 Urine Protein Negative mg/dL (NEG-TRACE) Urine Glucose (UA) Negative mg/dL (NEG) Urine Ketones (Stick) Trace mg/dL (NEG) Urine Blood Large (NEG) Urine Nitrite Negative (NEG) Urine Bilirubin Negative (NEG) Urine Urobilinogen Dipstick 1.0 mg/dL (0.2 mg/dL) Urine Leukocyte Esterase Small (NEG) Urine RBC >40 /HPF (0-2) Urine WBC 1-4 /HPF (0-4) Urine Squamous Epithelial Cells Occ /LPF Urine Bacteria Few /HPF (0-FEW) Test 11/08/18 07:30 11/08/18 07:43 Glucose (Fingerstick) 95 mg/dL (70-99) Prothrombin Time 20.1 SEC (11.7-14.0) Prothromb Time International Ratio 1.7 (0.8-1.1) Assessment and Plan Assessmemt and Plan Problems Medical Problems: (1) Back pain Status: Acute (2) Morbid obesity with BMI of 70 and over, adult Status: Chronic (3) Weakness Status: Acute Comment Review of Relevant I have reviewed the following items bar (where applicable) has been applied. Labs Laboratory Tests Test 11/06/18 15:50 11/07/18 07:35 11/07/18 08:20 11/07/18 10:58 White Blood Count 5.2 x10^3/uL (4.0-11.0) 4.9 x10^3/uL (4.0-11.0) Red Blood Count 3.70 x10^6/uL (4.30-5.70) 3.31 x10^6/uL (4.30-5.70) Hemoglobin 10.4 g/dL (13.0-17.5) 9.3 g/dL (13.0-17.5) Hematocrit 31.2 % (39.0-53.0) 28.0 % (39.0-53.0) Mean Corpuscular Volume 84 fL (79-100) 85 fL (79-100) Mean Corpuscular Hemoglobin 28 pg (25-35) 28 pg (25-35) Mean Corpuscular Hemoglobin Concent 33 g/dL (31-37) 33 g/dL (31-37) Red Cell Distribution Width 15.6 % (11.5-14.5) 15.8 % (11.5-14.5) Platelet Count 219 x10^3/uL (140-400) 194 x10^3/uL (140-400) Neutrophils (%) (Auto) 68 % (31-73) 58 % (31-73) Lymphocytes (%) (Auto) 19 % (24-48) 24 % (24-48) Monocytes (%) (Auto) 8 % (0-9) 10 % (0-9) Eosinophils (%) (Auto) 4 % (0-3) 8 % (0-3) Basophils (%) (Auto) 1 % (0-3) 1 % (0-3) Neutrophils # (Auto) 3.5 x10^3/uL (1.8-7.7) 2.8 x10^3/uL (1.8-7.7) Lymphocytes # (Auto) 1.0 x10^3/uL (1.0-4.8) 1.2 x10^3/uL (1.0-4.8) Monocytes # (Auto) 0.4 x10^3/uL (0.0-1.1) 0.5 x10^3/uL (0.0-1.1) Eosinophils # (Auto) 0.2 x10^3/uL (0.0-0.7) 0.4 x10^3/uL (0.0-0.7) Basophils # (Auto) 0.0 x10^3/uL (0.0-0.2) 0.0 x10^3/uL (0.0-0.2) Prothrombin Time 22.5 SEC (11.7-14.0) 20.3 SEC (11.7-14.0) Prothromb Time International Ratio 2.0 (0.8-1.1) 1.8 (0.8-1.1) Sodium Level 143 mmol/L (136-145) 142 mmol/L (136-145) Potassium Level 4.1 mmol/L (3.5-5.1) 3.7 mmol/L (3.5-5.1) Chloride Level 103 mmol/L (98-107) 103 mmol/L (98-107) Carbon Dioxide Level 32 mmol/L (21-32) 31 mmol/L (21-32) Anion Gap 8 (6-14) 8 (6-14) Blood Urea Nitrogen 19 mg/dL (8-26) 17 mg/dL (8-26) Creatinine 1.3 mg/dL (0.7-1.3) 1.3 mg/dL (0.7-1.3) Estimated GFR (Cockcroft-Gault) 56.7 56.7 BUN/Creatinine Ratio 15 (6-20) 13 (6-20) Glucose Level 165 mg/dL (70-99) 153 mg/dL (70-99) Lactic Acid Level 1.5 mmol/L (0.4-2.0) Calcium Level 9.7 mg/dL (8.5-10.1) 9.4 mg/dL (8.5-10.1) Magnesium Level 1.7 mg/dL (1.8-2.4) Total Bilirubin 1.0 mg/dL (0.2-1.0) 0.9 mg/dL (0.2-1.0) Aspartate Amino Transf (AST/SGOT) 16 U/L (15-37) 20 U/L (15-37) Alanine Aminotransferase (ALT/SGPT) 18 U/L (16-63) 18 U/L (16-63) Alkaline Phosphatase 85 U/L (46-116) 68 U/L (46-116) Troponin I Quantitative < 0.017 ng/mL (0.000-0.055) [id number] Natriuretic Peptide 2580 pg/mL (0-124) Total Protein 6.9 g/dL (6.4-8.2) 6.4 g/dL (6.4-8.2) Albumin 3.5 g/dL (3.4-5.0) 2.9 g/dL (3.4-5.0) Albumin/Globulin Ratio 1.0 (1.0-1.7) 0.8 (1.0-1.7) Glucose (Fingerstick) 148 mg/dL (70-99) 153 mg/dL (70-99) Test 11/07/18 11:00 11/07/18 16:52 11/07/18 20:33 11/08/18 07:30 Urine Collection Type Unknown Urine Color Yellow Urine Clarity Clear Urine pH 7.5 Urine Specific Kouts 1.020 Urine Protein Negative mg/dL (NEG-TRACE) Urine Glucose (UA) Negative mg/dL (NEG) Urine Ketones (Stick) Trace mg/dL (NEG) Urine Blood Large (NEG) Urine Nitrite Negative (NEG) Urine Bilirubin Negative (NEG) Urine Urobilinogen Dipstick 1.0 mg/dL (0.2 mg/dL) Urine Leukocyte Esterase Small (NEG) Urine RBC >40 /HPF (0-2) Urine WBC 1-4 /HPF (0-4) Urine Squamous Epithelial Cells Occ /LPF Urine Bacteria Few /HPF (0-FEW) Glucose (Fingerstick) 163 mg/dL (70-99) 136 mg/dL (70-99) 95 mg/dL (70-99) Test 11/08/18 07:43 Prothrombin Time 20.1 SEC (11.7-14.0) Prothromb Time International Ratio 1.7 (0.8-1.1) Laboratory Tests Test 11/07/18 10:58 11/07/18 11:00 11/07/18 16:52 11/07/18 20:33 Glucose (Fingerstick) 153 mg/dL (70-99) 163 mg/dL (70-99) 136 mg/dL (70-99) Urine Collection Type Unknown Urine Color Yellow Urine Clarity Clear Urine pH 7.5 Urine Specific Kouts 1.020 Urine Protein Negative mg/dL (NEG-TRACE) Urine Glucose (UA) Negative mg/dL (NEG) Urine Ketones (Stick) Trace mg/dL (NEG) Urine Blood Large (NEG) Urine Nitrite Negative (NEG) Urine Bilirubin Negative (NEG) Urine Urobilinogen Dipstick 1.0 mg/dL (0.2 mg/dL) Urine Leukocyte Esterase Small (NEG) Urine RBC >40 /HPF (0-2) Urine WBC 1-4 /HPF (0-4) Urine Squamous Epithelial Cells Occ /LPF Urine Bacteria Few /HPF (0-FEW) Test 11/08/18 07:30 11/08/18 07:43 Glucose (Fingerstick) 95 mg/dL (70-99) Prothrombin Time 20.1 SEC (11.7-14.0) Prothromb Time International Ratio 1.7 (0.8-1.1) Medications Current Medications Ondansetron HCl (Zofran) 4 mg 1X ONCE IV Last administered on 11/06/18at 16:37; Start 11/06/18 at 16:30; Stop 11/06/18 at 16:31; Status DC Oxycodone/ Acetaminophen (Percocet 10/325) 1 tab 1X ONCE PO Last administered on 11/06/18at 17:59; Start 11/06/18 at 18:15; Stop 11/06/18 at 18:16; Status DC Acetaminophen (Tylenol) 1,000 mg PRN Q8HRS PRN PEG MILD PAIN / TEMP; Start 11/06/18 at 22:00; Stop 11/07/18 at 00:17; Status DC Aspirin (Children'S Aspirin) 81 mg DAILYWBKFT PO Last administered on 11/07/18at 09:13; Start 11/07/18 at 08:00; Stop 11/07/18 at 12:20; Status DC Vitamin D (Vitamin D3) 2,000 unit DAILY PO Last administered on 11/08/18at 09:02; Start 11/07/18 at 09:00 Diphenhydramine HCl (Benadryl) 25 mg PRN QHS PRN PO INSOMNIA Last administered on 11/07/18at 01:14; Start 11/06/18 at 22:30 Famotidine (Pepcid) 20 mg BID PEG ; Start 11/06/18 at 22:30; Stop 11/07/18 at 00:19; Status DC Furosemide (Lasix) 40 mg DAILY PO Last administered on 11/08/18at 09:02; Start 11/07/18 at 09:00 Gabapentin (Neurontin Oral Soln) 600 mg TID PO ; Start 11/06/18 at 22:30; Status Cancel Albuterol/ Ipratropium (Duoneb) 3 ml RTQID NEB Last administered on 11/08/18at 07:27; Start 11/07/18 at 08:00 Linezolid/Dextrose (Zyvox Premix) 600 mg BID IV ; Start 11/07/18 at 09:00; Status UNV Metoprolol Tartrate (Lopressor) 25 mg BID PO Last administered on 11/07/18at 21:39; Start 11/06/18 at 22:30 Oxycodone HCl (Roxicodone) 5 mg PRN Q3HRS PRN PO MODERATE TO SEVERE PAIN; Start 11/06/18 at 22:00; Stop 11/06/18 at 21:57; Status DC Tizanidine HCl (Zanaflex) 4 mg Q8HRS PO Last administered on 11/07/18at 06:53; Start 11/06/18 at 22:30; Stop 11/07/18 at 12:20; Status DC Warfarin Sodium (Coumadin) 5 mg QM PEG ; Start 11/13/18 at 16:00; Status UNV Warfarin Sodium (Coumadin) 5 mg QWE PEG ; Start 11/08/18 at 16:00; Status UNV Atorvastatin Calcium (Lipitor) 80 mg DAILY PEG ; Start 11/06/18 at 22:30; Stop 11/07/18 at 00:18; Status DC Insulin Human Lispro (HumaLOG) 50 units BID SQ Last administered on 11/07/18at 09:13; Start 11/07/18 at 09:00; Stop 11/07/18 at 12:20; Status DC Al Hydroxide/Mg Hydroxide (Mylanta Plus Xs) 30 ml PRN Q4HRS PRN PO NAUSEA; Start 11/06/18 at 22:00 Venlafaxine HCl (Effexor) 37.5 mg BID PEG ; Start 11/06/18 at 22:30; Stop 11/07 at 00:19; Status DC Oxycodone/ Acetaminophen (Percocet 7.5/ 325) 1 tab PRN Q4HRS PRN PO PAIN Last administered on 11/08/18at 09:02; Start 11/06/18 at 22:30 Fentanyl Citrate (Fentanyl 2ml Vial) 50 mcg PRN Q2HR PRN IV PAIN; Start 11/06/18 at 22:30 Warfarin Sodium (Coumadin Per Pharmacy) 1 each PRN DAILY PRN MC SEE COMMENTS Last administered on 11/07/18at 11:12; Start 11/06/18 at 22:00 Oxycodone HCl (Roxicodone) 10 mg PRN Q3HRS PRN PO MODERATE TO SEVERE PAIN Last administered on 11/07/18at 11:23; Start 11/06/18 at 22:30 Linezolid/Dextrose 300 ml @ 300 mls/hr Q12HR IV Last administered on 11/07/18at 09:13; Start 11/07/18 at 09:00; Stop 11/07/18 at 12:01; Status DC Warfarin Sodium (Coumadin) 5 mg 1X ONCE PO Last administered on 11/07/18at 01:02; Start 11/07/18 at 00:30; Stop 11/07/18 at 00:31; Status DC Acetaminophen (Tylenol) 1,000 mg PRN Q8HRS PRN PO MILD PAIN / TEMP Last adminis tered on 11/07/18at 01:14; Start 11/07/18 at 00:17 Atorvastatin Calcium (Lipitor) 80 mg DAILY PO Last administered on 11/08/18at 10:30; Start 11/07/18 at 00:18 Venlafaxine HCl (Effexor) 37.5 mg BID PO Last administered on 11/08/18at 09:02; Start 11/07/18 at 00:19 Famotidine (Pepcid) 20 mg BID PO Last administered on 11/07/18at 09:13; Start 11/07/18 at 00:19; Stop 11/07/18 at 12:20; Status DC Gabapentin (Neurontin) 600 mg TID PO Last administered on 11/07/18at 13:06; Start 11/07/18 at 00:45; Stop 11/07/18 at 16:14; Status DC Info (Anti-Coagulation Monitoring By Pharmacy) 1 each PRN DAILY PRN MC SEE COMMENTS; Start 11/06/18 at 22:00 Insulin Human Lispro (HumaLOG) 0-9 UNITS TIDWMEALS SQ Last administered on 11/07/18at 17:28; Start 11/07/18 at 12:00 Dextrose (Dextrose 50%-Water Syringe) 12.5 gm PRN Q15MIN PRN IV SEE COMMENTS; Start 11/07/18 at 08:45 Dextrose 250 ml PRN Q15MIN PRN IV SEE COMMENTS; Start 11/07/18 at 08:45; Status UNV Warfarin Sodium (Coumadin) 7.5 mg 1X WARF ONCE PO Last administered on at 17:28; Start 11/07/18 at 16:00; Stop 11/07/18 at 16:01; Status DC Aspirin (Children'S Aspirin) 81 mg DAILY PO Last administered on 11/08/18at 09:02; Start 11/07/18 at 13:00 Vitamin D (Vitamin D3) 2,000 unit DAILY PO ; Start 11/07/18 at 13:00; Stop at 16:05; Status DC Famotidine (Pepcid) 20 mg BID PO Last administered on 11/08/18at 09:02; Start 11/07/18 at 13:00 Fentanyl (Duragesic 12mcg/ Hr Patch) 1 patch Q72H TD Last administered on 11/07/18at 14:10; Start 11/07/18 at 12:30 Insulin Human Lispro (HumaLOG) 28 units DAILYWSUP SQ Last administered on 11/07/18at 17:28; Start 11/07/18 at 17:00 Insulin Human Lispro (HumaLOG) 36 units DAILYWBKFT SQ Last administered on 11/08/18at 09:02; Start 11/08/18 at 08:00 Lisinopril (Prinivil) 20 mg DAILY PO ; Start 11/07/18 at 13:00 Metformin HCl (Glucophage) 500 mg BIDWMEALS PO Last administered on 11/08/18at 09:02; Start 11/07/18 at 17:00 Metoprolol Tartrate (Lopressor) 25 mg BID PO ; Start 11/07/18 at 21:00 Oxycodone/ Acetaminophen (Percocet 5/325) 1 tab PRN Q6HRS PRN PO MODERATE TO SEVERE PAIN; Start 11/07/18 at 12:30 Probenecid (Benemid) 500 mg BID PO ; Start 11/07/18 at 21:00; Status UNV Quetiapine Fumarate (SEROquel) 25 mg BID PO Last administered on 11/08/18at 09:02; Start 11/07/18 at 21:00 Senna/Docusate Sodium (Senna Plus) 2 tab HS PO Last administered on 11/07/18at 21:42; Start 11/07/18 at 21:00 Tizanidine HCl (Zanaflex) 2 mg PRN TID PRN PO MUSCLE SPASMS; Start 11/07/18 at 12:30 Duloxetine HCl (Cymbalta) 120 mg DAILY PO Last administered on 11/08/18at 09:02; Start 11/07/18 at 13:00 Gabapentin (Neurontin) 300 mg BID PO Last administered on 11/08/18at 09:02; Start 11/07/18 at 21:00 Insulin Glargine (Lantus Syringe) 50 unit BID SQ Last administered on 11/07/18at 21:53; Start 11/07/18 at 21:00 Active Scripts Active Reported Percocet 5-325 Mg Tablet (Oxycodone/Acetaminophen) 1 Each Tablet 1 Tab PO PRN Q6HRS PRN Tizanidine Hcl 4 Mg Tablet 2 Mg PO PRN TID PRN Novolin R (Insulin Regular, Human) 100 Unit/1 Ml Vial 28 Unit IJ DAILYWSUP Novolin R (Insulin Regular, Human) 100 Unit/1 Ml Vial 36 Unit IJ DAILYWBKFT Novolin N (Nph, Human Insulin Isophane) 100 Unit/1 Ml Vial 50 Unit SQ BID Seroquel (Quetiapine Fumarate) 25 Mg Tablet 25 Mg PO BID Probenecid 500 Mg Tablet 500 Mg PO BID Metoprolol Tartrate 25 Mg Tablet 1 Tab PO BID Metformin Hcl 500 Mg Tablet 500 Mg PO BIDWMEALS Lisinopril 20 Mg Tablet 1 Tab PO DAILY Pepcid (Famotidine) 20 Mg Tablet 20 Mg PO BID Vitamin D3 (Cholecalciferol (Vitamin D3)) 1,000 Unit Tablet 2 Tab PO DAILY Senna S Tablet (Sennosides/Docusate Sodium) 1 Each Tablet 2 Tab PO HS Cymbalta (Duloxetine Hcl) 60 Mg Capsule.dr 120 Mg PO DAILY FENTANYL 12mcg/hr (Fentanyl) 1 Each Patch.td72 1 Patch TD Q72H Gabapentin 600 Mg Tablet 300 Mg PO BID Aspirin 81 Mg Tab.chew 81 Mg PO DAILY Furosemide 40 Mg Tablet 1 Tab PO DAILY Atorvastatin Calcium 80 Mg Tablet 1 Tab PO HS Vitals/I & O Vital Sign - Last 24 Hours 11/07/18 11/07/18 11/07/18 11/07/18 11:00 11:22 11:23 13:06 Temp 97.9 97.9 Pulse 63 63 Resp 18 B/P (MAP) 101/43 (62) 101/43 Pulse Ox 99 99 99 O2 Delivery Tracheal Collar Tracheal Collar O2 Flow Rate 10.0 10.0 12.0 11/07/18 11/07/18 11/07/18 11/07/18 15:00 15:28 19:00 19:11 Temp 97.5 97.9 97.5 97.9 Pulse 65 68 Resp 18 20 B/P (MAP) 110/51 (70) 110/44 (66) Pulse Ox 100 99 100 99 O2 Delivery Tracheal Collar Tracheal Collar Tracheal Collar Tracheal Collar O2 Flow Rate 10.0 8.0 10.0 8.0 11/07/18 11/07/18 11/07/18 11/07/18 20:00 21:39 21:42 23:00 Temp 97.6 97.6 Pulse 68 67 Resp 18 B/P (MAP) 110/44 116/45 (68) Pulse Ox 99 100 O2 Delivery Trach Collar Tracheal Collar O2 Flow Rate 10.0 8.0 10.0 11/08/18 11/08/18 11/08/18 11/08/18 03:00 04:03 07:00 07:29 Temp 97.7 97.8 97.7 97.8 Pulse 65 58 Resp 18 20 B/P (MAP) 116/44 (68) 106/42 (63) Pulse Ox 100 100 94 98 O2 Delivery Tracheal Collar Tracheal Collar Tracheal Collar O2 Flow Rate 10.0 10.0 10.0 8.0 11/08/18 11/08/18 08:00 09:02 Pulse Ox 98 O2 Delivery Trach Collar O2 Flow Rate 10.0 8.0 Intake and Output 11/07/18 11/07/18 11/08/18 15:00 23:00 07:00 Intake Total 300 ml 50 ml 100 ml Output Total 500 ml 200 ml Balance -200 ml 50 ml -100 ml LUIS JACQUES MD Nov 08, 2018 10:32
[2018-11-08 11:00] VITALS: BP 102/33
[2018-11-08] MEDS: INSULIN GLARGINE SYRINGE. SQ SCH ×2 (11:14→20:58)
--- NOTE | 2018-11-08 11:22 | NUR ---
Pharmacy Warfarin Dosing Note S:Pharmacy consulted to assist with anticoagulation therapy started 11/06/18 with target INR: 2 -3 O:CANDE NELSON is a 57 year old M with DVT/PE DVT LABS: Last INR: 1.7 Last HGB: 9.3 Last HCT: 28.0 Last PLT: 194 Last dose of 7.5 mg given on 11/07/18 at 1718 Previous Regimen: WARFARIN (SEE HOME LIST) Vitamin K given: N Drug Interaction Changes: Ongoing Drug Interactions: A:INR of 1.7 is below desired range. Target range for this patient is: 2 -3 P: Warfarin dose: 10 mg Today at 1600. Bridge Therapy: None Next INR due tomorrow. Pharmacy anticoagulation service will continue to follow. Kvng Friedman [facility], 11/08/18 [id number]
[2018-11-08 14:58] VITALS: BP 108/48
[2018-11-08] MEDS ORDERED: WARFARIN 5 MG TABLET. PEG SCH (16:00)
[2018-11-08] MEDS ORDERED: WARFARIN 5 MG TABLET. PO ONE (16:00)
--- NOTE | 2018-11-08 16:09 | NUR ---
CONOR spoke with Zaida at [facility]. She reported she was not in office but will check on referral when she returns to office.
--- NOTE | 2018-11-08 16:46 | RAD ---
Exam: CT of chest without contrast INDICATION: Pneumonia TECHNIQUE: Sequential axial images through the chest obtained without IV contrast. Sagittal and coronal reformatted images were reconstructed from the axial data and reviewed. Comparisons: Chest x-ray 11/06/2018 FINDINGS: Tracheostomy tube in appropriate position. Visualized portions of the thyroid are unremarkable. No enlarged mediastinal lymph nodes. Heart is enlarged. No pericardial effusion. Thoracic aorta has a normal course and caliber. Pulmonary artery is not enlarged. Airways are patent. No consolidation or pneumothorax. Linear bandlike opacities at the lung bases bilaterally likely representing atelectasis or scarring. No suspicious lung nodules. No pleural effusion or thickening. At the posterior inferior right hepatic lobe there is a 3.5 cm hypoattenuating lesion. No suspicious osseous lesions or acute fractures. IMPRESSION: 1. Mild bibasilar atelectasis. Tracheostomy tube in appropriate position. 2. A 3.5 cm hypoattenuating lesion at the inferior posterior right hepatic lobe. Further characterization with nonemergent liver protocol CT or MRI is recommended. MRI would likely be of more diagnostic value given intrinsic patient factors. Exposure: One or more of the following in the visualized dose reduction techniques were utilized for this examination: 1. Automated exposure control 2. Adjustment of the MA and/or KV according to patient size 3. Use of iterative of reconstructive technique Electronically signed by: Laureano Alegria MD (11/08/2018 4:44 PM) [id number]
[2018-11-08 19:00] VITALS: BP 103/59
[2018-11-08] MEDS: SENNOSIDES/DOCUSATE 8.6/50MG TABLET. PO SCH (20:42)
[2018-11-08 23:00] VITALS: BP 121/51
[2018-11-08] MEDS: diphenhydrAMINE HCL 25 MG CAPSULE PO PRN (23:31)
[2018-11-09 03:00] VITALS: BP 117/57
[2018-11-09 07:00] VITALS: BP 136/69
[2018-11-09 07:13] LABS: BASO % 1 % (0-3); EOS # 0.3 x10^3/uL (0.0-0.7); EOS % 7 % (0-3); HEMATOCRIT 29.2 % (39.0-53.0); HEMOGLOBIN 9.4 g/dL (13.0-17.5); LYMPH # 1.3 x10^3/uL (1.0-4.8); LYMPH % 28 % (24-48); MEAN CORPUSCULAR HEMOGLOBIN 28 pg (25-35); MEAN CORPUSCULAR HGB CONC 32 g/dL (31-37); MEAN CORPUSCULAR VOLUME 86 fL (79-100); MONO # 0.4 x10^3/uL (0.0-1.1); MONO % 9 % (0-9); NEUT # 2.7 x10^3/uL (1.8-7.7); NEUT % 56 % (31-73); PLATELET COUNT 200 x10^3/uL (140-400); RED BLOOD COUNT 3.41 x10^6/uL (4.30-5.70); WHITE BLOOD COUNT 4.8 x10^3/uL (4.0-11.0)
[2018-11-09 07:25] LABS: PROTHROMBIN TIME PATIENT 18.5 SEC (11.7-14.0)
[2018-11-09 07:37] LABS: CALCIUM 9.1 mg/dL (8.5-10.1); CREATININE 1.3 mg/dL (0.7-1.3); GFR 56.7
[2018-11-09] MEDS: IPRATRPIUM/ALBUTEROL 0.5/2.5MG 3 ML NEBU. NEB SCH ×4 (07:41→18:27)
[2018-11-09 08:00] LABS: POTASSIUM 3.7 mmol/L (3.5-5.1)
[2018-11-09] MEDS: INSULIN LISPRO 300 UNITS/3 ML VIAL. SQ SCH ×5 (08:00→17:32)
[2018-11-09] MEDS: GABAPENTIN 300 MG CAPSULE. PO SCH ×2 (09:17→20:24)
[2018-11-09] MEDS: FUROSEMIDE 40 MG TABLET. PO SCH (09:18)
[2018-11-09] MEDS: DULoxetine HCL 30 MG CAPSULE.DR PO SCH (09:18)
[2018-11-09] MEDS: oxyCODONE/APAP 7.5/325 1 TAB TABLET PO PRN ×3 (09:18→20:23)
[2018-11-09] MEDS: metFORMIN 500 MG TABLET PO SCH ×2 (09:18→17:25)
[2018-11-09] MEDS: ATORVASTATIN CALCIUM 40 MG TABLET. PO SCH (09:18)
[2018-11-09] MEDS: FAMOTIDINE 20 MG TABLET. PO SCH ×2 (09:19→20:23)
[2018-11-09] MEDS: QUEtiapine 25 MG TABLET. PO SCH ×2 (09:19→20:25)
[2018-11-09] MEDS: LISINOPRIL 20 MG TABLET PO SCH (09:21)
[2018-11-09] MEDS: PROBENECID 500 MG TABLET PO SCH ×2 (09:21→22:00)
[2018-11-09] MEDS: ASPIRIN CHEWABLE 81 MG TABLET. PO SCH (09:27)
[2018-11-09] MEDS: CHOLECALCIFEROL (VITAMIN D3) 1,000 UNIT TABLET PO SCH (09:27)
--- NOTE | 2018-11-09 09:31 | NUR ---
Left a voice mail to Zaida at [facility].
[2018-11-09] MEDS: INSULIN GLARGINE SYRINGE. SQ SCH ×2 (09:50→22:10)
--- NOTE | 2018-11-09 10:58 | PDOC ---
PROGRESS NOTES Chief Complaint Chief Complaint Oropharyngeal cancer, trached, recent reconstructive surgery KU-flap on the left side chest - just this week recent sepsis with HCAP and resp failure - CXR interval stable, off abx atelectasis Hyperkalemia with no EKG changes Penicillin and erythromycin allergy - tolerated cefepime fine at ER Super morbidly obese BMI [address] on [address], incidental weakness and debility, ICU myopathy History of Present Illness History of Present Illness hated the SNU so came back to ER Was just dcd form [facility] 3 days ago CXR not impressive - no need for abx HE also looks good clinically INR therapeutic on warf on pureed diet, tolerating well Good speaking voice unable to care for him at home CT chest ordered by colleage, stable lung findings but incidental hypoattenuating 1.8 cm liver lesion NO weight loss HE might not fit MRI to check that incidental liver lesion PLAN: check AFP Hold off MRI abd - he wont fit anyways Dw SW- might take time to place him (trach, bariatric bed etc) HE request physiatry for bilateral knee injections (last given at [facility]) Consult physiatry KEEP OFF abx Dw RN /Aide at bedside Vitals Vitals Vital Signs Date Time Temp Pulse Resp B/P (MAP) Pulse Ox O2 Delivery O2 Flow Rate FiO2 11/09/18 09:21 59 136/69 11/09/18 07:54 100 Tracheal Collar 8.0 11/09/18 07:00 97.9 17 97.9 Physical Exam General: Alert, Oriented X3, Cooperative, moderate distress Heart: Regular rate Lungs: Crackles Abdomen: Normal bowel sounds (very obese), Soft Extremities: No clubbing Skin: No breakdown Labs LABS Laboratory Tests Test 11/08/18 11:12 11/08/18 17:07 11/08/18 20:52 11/08/18 23:37 Glucose (Fingerstick) 102 mg/dL (70-99) 108 mg/dL (70-99) 74 mg/dL (70-99) 110 mg/dL (70-99) Test 11/09/18 05:40 11/09/18 06:58 White Blood Count 4.8 x10^3/uL (4.0-11.0) Red Blood Count 3.41 x10^6/uL (4.30-5.70) Hemoglobin 9.4 g/dL (13.0-17.5) Hematocrit 29.2 % (39.0-53.0) Mean Corpuscular Volume 86 fL (79-100) Mean Corpuscular Hemoglobin 28 pg (25-35) Mean Corpuscular Hemoglobin Concent 32 g/dL (31-37) Red Cell Distribution Width 16.0 % (11.5-14.5) Platelet Count 200 x10^3/uL (140-400) Neutrophils (%) (Auto) 56 % (31-73) Lymphocytes (%) (Auto) 28 % (24-48) Monocytes (%) (Auto) 9 % (0-9) Eosinophils (%) (Auto) 7 % (0-3) Basophils (%) (Auto) 1 % (0-3) Neutrophils # (Auto) 2.7 x10^3/uL (1.8-7.7) Lymphocytes # (Auto) 1.3 x10^3/uL (1.0-4.8) Monocytes # (Auto) 0.4 x10^3/uL (0.0-1.1) Eosinophils # (Auto) 0.3 x10^3/uL (0.0-0.7) Basophils # (Auto) 0.0 x10^3/uL (0.0-0.2) Prothrombin Time 18.5 SEC (11.7-14.0) Prothromb Time International Ratio 1.6 (0.8-1.1) Sodium Level 144 mmol/L (136-145) Potassium Level 3.7 mmol/L (3.5-5.1) Chloride Level 103 mmol/L (98-107) Carbon Dioxide Level 34 mmol/L (21-32) Anion Gap 7 (6-14) Blood Urea Nitrogen 22 mg/dL (8-26) Creatinine 1.3 mg/dL (0.7-1.3) Estimated GFR (Cockcroft-Gault) 56.7 Glucose Level 104 mg/dL (70-99) Calcium Level 9.1 mg/dL (8.5-10.1) Glucose (Fingerstick) 103 mg/dL (70-99) Review of Systems Review of Systems bilateral knees hurt, otherwise rest of ROS 14 pt neg Assessment and Plan Assessmemt and Plan Problems Medical Problems: (1) Back pain Status: Acute (2) Morbid obesity with BMI of 70 and over, adult Status: Chronic (3) Weakness Status: Acute Comment Review of Relevant I have reviewed the following items bar (where applicable) has been applied. Labs Laboratory Tests Test 11/07/18 10:58 11/07/18 11:00 11/07/18 16:52 11/07/18 20:33 Glucose (Fingerstick) 153 mg/dL (70-99) 163 mg/dL (70-99) 136 mg/dL (70-99) Urine Collection Type Unknown Urine Color Yellow Urine Clarity Clear Urine pH 7.5 Urine Specific Volant 1.020 Urine Protein Negative mg/dL (NEG-TRACE) Urine Glucose (UA) Negative mg/dL (NEG) Urine Ketones (Stick) Trace mg/dL (NEG) Urine Blood Large (NEG) Urine Nitrite Negative (NEG) Urine Bilirubin Negative (NEG) Urine Urobilinogen Dipstick 1.0 mg/dL (0.2 mg/dL) Urine Leukocyte Esterase Small (NEG) Urine RBC >40 /HPF (0-2) Urine WBC 1-4 /HPF (0-4) Urine Squamous Epithelial Cells Occ /LPF Urine Bacteria Few /HPF (0-FEW) Test 11/08/18 07:30 11/08/18 07:43 11/08/18 11:12 11/08/18 17:07 Glucose (Fingerstick) 95 mg/dL (70-99) 102 mg/dL (70-99) 108 mg/dL (70-99) Prothrombin Time 20.1 SEC (11.7-14.0) Prothromb Time International Ratio 1.7 (0.8-1.1) Test 11/08/18 20:52 11/08/18 23:37 11/09/18 05:40 11/09/18 06:58 Glucose (Fingerstick) 74 mg/dL (70-99) 110 mg/dL (70-99) 103 mg/dL (70-99) White Blood Count 4.8 x10^3/uL (4.0-11.0) Red Blood Count 3.41 x10^6/uL (4.30-5.70) Hemoglobin 9.4 g/dL (13.0-17.5) Hematocrit 29.2 % (39.0-53.0) Mean Corpuscular Volume 86 fL (79-100) Mean Corpuscular Hemoglobin 28 pg (25-35) Mean Corpuscular Hemoglobin Concent 32 g/dL (31-37) Red Cell Distribution Width 16.0 % (11.5-14.5) Platelet Count 200 x10^3/uL (140-400) Neutrophils (%) (Auto) 56 % (31-73) Lymphocytes (%) (Auto) 28 % (24-48) Monocytes (%) (Auto) 9 % (0-9) Eosinophils (%) (Auto) 7 % (0-3) Basophils (%) (Auto) 1 % (0-3) Neutrophils # (Auto) 2.7 x10^3/uL (1.8-7.7) Lymphocytes # (Auto) 1.3 x10^3/uL (1.0-4.8) Monocytes # (Auto) 0.4 x10^3/uL (0.0-1.1) Eosinophils # (Auto) 0.3 x10^3/uL (0.0-0.7) Basophils # (Auto) 0.0 x10^3/uL (0.0-0.2) Prothrombin Time 18.5 SEC (11.7-14.0) Prothromb Time International Ratio 1.6 (0.8-1.1) Sodium Level 144 mmol/L (136-145) Potassium Level 3.7 mmol/L (3.5-5.1) Chloride Level 103 mmol/L (98-107) Carbon Dioxide Level 34 mmol/L (21-32) Anion Gap 7 (6-14) Blood Urea Nitrogen 22 mg/dL (8-26) Creatinine 1.3 mg/dL (0.7-1.3) Estimated GFR (Cockcroft-Gault) 56.7 Glucose Level 104 mg/dL (70-99) Calcium Level 9.1 mg/dL (8.5-10.1) Laboratory Tests Test 11/08/18 11:12 11/08/18 17:07 11/08/18 20:52 11/08/18 23:37 Glucose (Fingerstick) 102 mg/dL (70-99) 108 mg/dL (70-99) 74 mg/dL (70-99) 110 mg/dL (70-99) Test 11/09/18 05:40 11/09/18 06:58 White Blood Count 4.8 x10^3/uL (4.0-11.0) Red Blood Count 3.41 x10^6/uL (4.30-5.70) Hemoglobin 9.4 g/dL (13.0-17.5) Hematocrit 29.2 % (39.0-53.0) Mean Corpuscular Volume 86 fL (79-100) Mean Corpuscular Hemoglobin 28 pg (25-35) Mean Corpuscular Hemoglobin Concent 32 g/dL (31-37) Red Cell Distribution Width 16.0 % (11.5-14.5) Platelet Count 200 x10^3/uL (140-400) Neutrophils (%) (Auto) 56 % (31-73) Lymphocytes (%) (Auto) 28 % (24-48) Monocytes (%) (Auto) 9 % (0-9) Eosinophils (%) (Auto) 7 % (0-3) Basophils (%) (Auto) 1 % (0-3) Neutrophils # (Auto) 2.7 x10^3/uL (1.8-7.7) Lymphocytes # (Auto) 1.3 x10^3/uL (1.0-4.8) Monocytes # (Auto) 0.4 x10^3/uL (0.0-1.1) Eosinophils # (Auto) 0.3 x10^3/uL (0.0-0.7) Basophils # (Auto) 0.0 x10^3/uL (0.0-0.2) Prothrombin Time 18.5 SEC (11.7-14.0) Prothromb Time International Ratio 1.6 (0.8-1.1) Sodium Level 144 mmol/L (136-145) Potassium Level 3.7 mmol/L (3.5-5.1) Chloride Level 103 mmol/L (98-107) Carbon Dioxide Level 34 mmol/L (21-32) Anion Gap 7 (6-14) Blood Urea Nitrogen 22 mg/dL (8-26) Creatinine 1.3 mg/dL (0.7-1.3) Estimated GFR (Cockcroft-Gault) 56.7 Glucose Level 104 mg/dL (70-99) Calcium Level 9.1 mg/dL (8.5-10.1) Glucose (Fingerstick) 103 mg/dL (70-99) Medications Current Medications Ondansetron HCl (Zofran) 4 mg 1X ONCE IV Last administered on 11/06/18at 16:37; Start 11/06/18 at 16:30; Stop 11/06/18 at 16:31; Status DC Oxycodone/ Acetaminophen (Percocet 10/325) 1 tab 1X ONCE PO Last administered on 11/06/18at 17:59; Start 11/06/18 at 18:15; Stop 11/06/18 at 18:16; Status DC Acetaminophen (Tylenol) 1,000 mg PRN Q8HRS PRN PEG MILD PAIN / TEMP; Start 11/06/18 at 22:00; Stop 11/07/18 at 00:17; Status DC Aspirin (Children'S Aspirin) 81 mg DAILYWBKFT PO Last administered on 11/07/18at 09:13; Start 11/07/18 at 08:00; Stop 11/07/18 at 12:20; Status DC Vitamin D (Vitamin D3) 2,000 unit DAILY PO Last administered on 11/09/18at 09:35; Start 11/07/18 at 09:00 Diphenhydramine HCl (Benadryl) 25 mg PRN QHS PRN PO INSOMNIA Last administered on 11/08/18at 23:31; Start 11/06/18 at 22:30 Famotidine (Pepcid) 20 mg BID PEG ; Start 11/06/18 at 22:30; Stop 11/07/18 at 00:19; Status DC Furosemide (Lasix) 40 mg DAILY PO Last administered on 11/09/18at 09:21; Start 11/07/18 at 09:00 Gabapentin (Neurontin Oral Soln) 600 mg TID PO ; Start 11/06/18 at 22:30; Status Cancel Albuterol/ Ipratropium (Duoneb) 3 ml RTQID NEB Last administered on 11/09/18at 07:41; Start 11/07/18 at 08:00 Linezolid/Dextrose (Zyvox Premix) 600 mg BID IV ; Start 11/07/18 at 09:00; Status UNV Metoprolol Tartrate (Lopressor) 25 mg BID PO Last administered on 11/07/18at 21:39; Start 11/06/18 at 22:30 Oxycodone HCl (Roxicodone) 5 mg PRN Q3HRS PRN PO MODERATE TO SEVERE PAIN; Start 11/06/18 at 22:00; Stop 11/06/18 at 21:57; Status DC Tizanidine HCl (Zanaflex) 4 mg Q8HRS PO Last administered on 11/07/18at 06:53; Start 11/06/18 at 22:30; Stop 11/07/18 at 12:20; Status DC Warfarin Sodium (Coumadin) 5 mg QM PEG ; Start 11/13/18 at 16:00; Status UNV Warfarin Sodium (Coumadin) 5 mg QWE PEG ; Start 11/08/18 at 16:00; Status UNV Atorvastatin Calcium (Lipitor) 80 mg DAILY PEG ; Start 11/06/18 at 22:30; Stop 11/07/18 at 00:18; Status DC Insulin Human Lispro (HumaLOG) 50 units BID SQ Last administered on 11/07/18at 09:13; Start 11/07/18 at 09:00; Stop 11/07/18 at 12:20; Status DC Al Hydroxide/Mg Hydroxide (Mylanta Plus Xs) 30 ml PRN Q4HRS PRN PO NAUSEA; Start 11/06/18 at 22:00 Venlafaxine HCl (Effexor) 37.5 mg BID PEG ; Start 11/06/18 at 22:30; Stop 11/07/18 at 00:19; Status DC Oxycodone/ Acetaminophen (Percocet 7.5/ 325) 1 tab PRN Q4HRS PRN PO SEVERE PAIN Last administered on 11/09/18at 09:21; Start 11/06/18 at 22:30 Fentanyl Citrate (Fentanyl 2ml Vial) 50 mcg PRN Q2HR PRN IV PAIN; Start 11/06/18 at 22:30 Warfarin Sodium (Coumadin Per Pharmacy) 1 each PRN DAILY PRN MC SEE COMMENTS Last administered on 11/08/18at 11:19; Start 11/06/18 at 22:00 Oxycodone HCl (Roxicodone) 10 mg PRN Q3HRS PRN PO SEVERE PAIN (2nd Choice) Last administered on 11/07/18at 11:23; Start 11/06/18 at 22:30 Linezolid/Dextrose 300 ml @ 300 mls/hr Q12HR IV Last administered on 11/07/18at 09:13; Start 11/07/18 at 09:00; Stop 11/07/18 at 12:01; Status DC Warfarin Sodium (Coumadin) 5 mg 1X ONCE PO Last administered on 11/07/18at 01:02; Start 11/07/18 at 00:30; Stop 11/07/18 at 00:31; Status DC Acetaminophen (Tylenol) 1,000 mg PRN Q8HRS PRN PO MILD PAIN / TEMP Last administered on 11/07/18at 01:14; Start 11/07/18 at 00:17 Atorvastatin Calcium (Lipitor) 80 mg DAILY PO Last administered on 11/09/18at 09:21; Start 11/07/18 at 00:18 Venlafaxine HCl (Effexor) 37.5 mg BID PO Last administered on 11/08/18at 09:02; Start 11/07/18 at 00:19; Stop 11/08/18 at 15:03; Status DC Famotidine (Pepcid) 20 mg BID PO Last administered on 11/07/18at 09:13; Start 11/07/18 at 00:19; Stop 11/07/18 at 12:20; Status DC Gabapentin (Neurontin) 600 mg TID PO Last administered on 11/07/18at 13:06; Start 11/07/18 at 00:45; Stop 11/07/18 at 16:14; Status DC Info (Anti-Coagulation Monitoring By Pharmacy) 1 each PRN DAILY PRN MC SEE COMMENTS; Start 11/06/18 at 22:00; Stop 11/08/18 at 13:12; Status DC Insulin Human Lispro (HumaLOG) 0-9 UNITS TIDWMEALS SQ Last administered on 11/07/18at 17:28; Start 11/07/18 at 12:00 Dextrose (Dextrose 50%-Water Syringe) 12.5 gm PRN Q15MIN PRN IV SEE COMMENTS; Start 11/07/18 at 08:45 Dextrose 250 ml PRN Q15MIN PRN IV SEE COMMENTS; Start 11/07/18 at 08:45; Status UNV Warfarin Sodium (Coumadin) 7.5 mg 1X WARF ONCE PO Last administered on 10/29 17:28; Start 11/07/18 at 16:00; Stop 11/07/18 at 16:01; Status DC Aspirin (Children'S Aspirin) 81 mg DAILY PO Last administered on 11/09/18 09:35; Start 11/07/18 at 13:00 Vitamin D (Vitamin D3) 2,000 unit DAILY PO ; Start 11/07/18 at 13:00; Stop 11/07/18 at 16:05; Status DC Famotidine (Pepcid) 20 mg BID PO Last administered on 11/09/18 09:21; Start 11/07/18 at 13:00 Fentanyl (Duragesic 12mcg/ Hr Patch) 1 patch Q72H TD Last administered on 11/07/18 14:10; Start 11/07/18 at 12:30 Insulin Human Lispro (HumaLOG) 28 units DAILYWSUP SQ Last administered on 11/08/18 17:54; Start 11/07/18 at 17:00 Insulin Human Lispro (HumaLOG) 36 units DAILYWBKFT SQ Last administered on 11/09/18 09:35; Start 11/08/18 at 08:00 Lisinopril (Prinivil) 20 mg DAILY PO Last administered on 11/09/18 09:21; Start 11/07/18 at 13:00 Metformin HCl (Glucophage) 500 mg BIDWMEALS PO Last administered on 11/09/18 09:21; Start 11/07/18 at 17:00 Metoprolol Tartrate (Lopressor) 25 mg BID PO ; Start 11/07/18 at 21:00; Stop 11/08/18 at 11:51; Status DC Oxycodone/ Acetaminophen (Percocet 5/325) 1 tab PRN Q6HRS PRN PO MODERATE PAIN; Start 11/07/18 at 12:30 Probenecid (Benemid) 500 mg BID PO Last administered on 11/09/18 09:21; Start 11/07/18 at 21:00 Quetiapine Fumarate (SEROquel) 25 mg BID PO Last administered on 11/09/18 09:21; Start 11/07/18 at 21:00 Senna/Docusate Sodium (Senna Plus) 2 tab HS PO Last administered on 11/08/18 20:44; Start 11/07/18 at 21:00 Tizanidine HCl (Zanaflex) 2 mg PRN TID PRN PO MUSCLE SPASMS Last administered on 11/08/18 23:31; Start 11/07/18 at 12:30 Duloxetine HCl (Cymbalta) 120 mg DAILY PO Last administered on 11/09/18 09:21; Start 11/07/18 at 13:00 Gabapentin (Neurontin) 300 mg BID PO Last administered on 11/09/18 09:21; Start 11/07/18 at 21:00 Insulin Glargine (Lantus Syringe) 50 unit BID SQ Last administered on 11/09/18 09:50; Start 11/07/18 at 21:00 Warfarin Sodium (Coumadin) 10 mg 1X WARF ONCE PO Last administered on 11/08/18 17:54; Start 11/08/18 at 16:00; Stop 11/08/18 at 16:01; Status DC Linezolid/Dextrose 300 ml @ 300 mls/hr Q12HR IV Last administered on 11/08/18 17:54; Start 11/08/18 at 16:00; Stop 11/08/18 at 20:43; Status DC Active Scripts Active Reported Percocet 5-325 Mg Tablet (Oxycodone/Acetaminophen) 1 Each Tablet 1 Tab PO PRN Q6HRS PRN Tizanidine Hcl 4 Mg Tablet 2 Mg PO PRN TID PRN Novolin R (Insulin Regular, Human) 100 Unit/1 Ml Vial 28 Unit IJ DAILYWSUP Novolin R (Insulin Regular, Human) 100 Unit/1 Ml Vial 36 Unit IJ DAILYWBKFT Novolin N (Nph, Human Insulin Isophane) 100 Unit/1 Ml Vial 50 Unit SQ BID Seroquel (Quetiapine Fumarate) 25 Mg Tablet 25 Mg PO BID Probenecid 500 Mg Tablet 500 Mg PO BID Metoprolol Tartrate 25 Mg Tablet 1 Tab PO BID Metformin Hcl 500 Mg Tablet 500 Mg PO BIDWMEALS Lisinopril 20 Mg Tablet 1 Tab PO DAILY Pepcid (Famotidine) 20 Mg Tablet 20 Mg PO BID Vitamin D3 (Cholecalciferol (Vitamin D3)) 1,000 Unit Tablet 2 Tab PO DAILY Senna S Tablet (Sennosides/Docusate Sodium) 1 Each Tablet 2 Tab PO HS Cymbalta (Duloxetine Hcl) 60 Mg Capsule.dr 120 Mg PO DAILY FENTANYL 12mcg/hr (Fentanyl) 1 Each Patch.td72 1 Patch TD Q72H Gabapentin 600 Mg Tablet 300 Mg PO BID Aspirin 81 Mg Tab.chew 81 Mg PO DAILY Furosemide 40 Mg Tablet 1 Tab PO DAILY Atorvastatin Calcium 80 Mg Tablet 1 Tab PO HS Vitals/I & O Vital Sign - Last 24 Hours 11/08/18 11/08/18 11/08/18 11/08/18 11:00 12:06 14:58 16:33 Temp 97.9 97.9 97.9 97.9 Pulse 69 70 Resp 21 19 B/P (MAP) 102/33 (56) 108/48 (68) Pulse Ox 96 98 98 98 O2 Delivery Tracheal Collar Tracheal Collar Tracheal Collar Tracheal Collar O2 Flow Rate 10.0 8.0 8.0 11/08/18 11/08/18 11/08/18 11/08/18 19:00 19:54 20:15 20:44 Temp 97.8 97.8 Pulse 80 80 Resp 18 B/P (MAP) 103/59 (74) 103/59 Pulse Ox 100 99 O2 Delivery Tracheal Collar Trach Collar O2 Flow Rate 8.0 8.0 11/08/18 11/08/18 11/08/18 11/09/18 20:58 22:31 23:00 03:00 Temp 98.9 98.0 98.9 98.0 Pulse 69 67 Resp 18 18 B/P (MAP) 121/51 (74) 117/57 (77) Pulse Ox 100 99 O2 Delivery Tracheal Collar Tracheal Collar O2 Flow Rate 8.0 8.0 11/09/18 11/09/18 11/09/18 07:00 07:54 09:21 Temp 97.9 97.9 Pulse 59 59 Resp 17 B/P (MAP) 136/69 (91) 136/69 Pulse Ox 98 100 O2 Delivery Room Air Tracheal Collar O2 Flow Rate 8.0 Intake and Output 11/08/18 11/08/18 11/09/18 14:59 22:59 06:59 Output Total 450 ml 1075 ml Balance -450 ml -1075 ml NISHA NAJERA MD Nov 09, 2018 10:57
[2018-11-09 11:00] VITALS: BP 106/43
--- NOTE | 2018-11-09 11:55 | NUR ---
Pharmacy Warfarin Dosing Note S:Pharmacy consulted to assist with anticoagulation therapy started 11/06/18 with target INR: 2 -3 O:CANDE NELSON is a 57 year old M with DVT/PE DVT LABS: Last INR: 1.6 Last HGB: 9.3 Last HCT: 28.0 Last PLT: 194 Last dose of 7.5 mg given on 11/08/18 at 1718 Previous Regimen: WARFARIN (SEE HOME LIST) Vitamin K given: N Drug Interaction Changes: Ongoing Drug Interactions: A:INR of 1.6 is below desired range. Target range for this patient is: 2 -3 P: Warfarin dose: 12 MG Today at 1600 Bridge Therapy: None Next INR due IN AM Pharmacy anticoagulation service will continue to follow. RODOLFO MALLOY [facility], 11/09/18 5000
[2018-11-09] MEDS: METOPROLOL TART IMMED RELEASE 25 MG TABLET. PO SCH ×2 (12:47→20:24)
[2018-11-09] MEDS ORDERED: BUPIVACAINE MPF 0.25% 10 ML VIAL. IJ ONE (13:00)
[2018-11-09] MEDS ORDERED: methylPREDNISolone ACETATE 40 MG/ML VIAL. IM ONE ×2 (13:00)
--- NOTE | 2018-11-09 14:31 | NUR ---
CONOR following pt. Pt has been accepted at [facility] pending insurance auth. Per Yessica they are also working on ordering equipment for pt and will submit for auth today. Will continue to follow. D/W JEFFERY.
[2018-11-09 15:00] VITALS: BP 106/45
[2018-11-09] MEDS ORDERED: WARFARIN 4 MG TABLET. PO ONE (16:00)
[2018-11-09 19:00] VITALS: BP 120/50
[2018-11-09] MEDS: diphenhydrAMINE HCL 25 MG CAPSULE PO PRN (20:23)
[2018-11-09] MEDS: SENNOSIDES/DOCUSATE 8.6/50MG TABLET. PO SCH (20:25)
--- NOTE | 2018-11-09 22:38 | NUR ---
Paged RT because the pt states that he changes his trach inner cannula BID and has not had it changed today. RT states they do not carry trach inner cannulas, nor do they recommend changing it daily due to increased risk for infection. RT recommends waiting to clean/change until day shift tomorrow so that the authorization manager can be consulted to see what further actions should be taken. Will pass along to day RN.
[2018-11-09 23:00] VITALS: BP 92/41
--- NOTE | 2018-11-09 23:04 | CONS ---
DATE OF CONSULTATION: 11/09/2018 ATTENDING PHYSICIAN: Carol Weinberg MD REASON FOR CONSULTATION: The patient was seen at the request of Dr. Whiteside for rehab evaluation. HISTORY OF PRESENT ILLNESS: This is a 57-year-old male known to me since his hospitalization at [facility] earlier this month and last month, the patient with respiratory failure, status post tracheostomy. The patient also had pneumonia. 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 The patient also had surgery done at [facility]. Postop period complicated by sepsis and respiratory failure. He was also treated for hyperkalemia. The patient with morbid obesity; KNOWN ALLERGIC TO PENICILLIN, ALLOPURINOL and AZITHROMYCIN; he also had painful degenerative joint disease of both knees and both shoulders with associated tendinitis and had a few capsulitis of left shoulder and I have injected his left knee and left shoulder twice and right knee once during his stay at [facility], last injection done to his left shoulder and left knee only in the last 2 weeks. The patient was transferred to [facility] to a residential care unit on 11/04/2018. He apparently like that facility, was sent home against medical advice and admitted back to the hospital on 11/06/2018 with increased shortness of breath. The patient is being considered for transfer to [facility]. He admits pain in his knees and left shoulder and would like to have them injected. He had physical therapy and occupational therapy working with him. The patient lived with his prior to the present hospitalization and he had a ramp for stairs. PHYSICAL EXAMINATION: GENERAL: Today, revealed a middle-aged male. He is alert and oriented to time, place, person and circumstance, and follows commands appropriately. EXTREMITIES: Moves all 4 extremities voluntarily where he had 4+/5 grade muscle strength with relatively increased weakness of left shoulder external rotators. He had pain on range of motion of left shoulder and both knees with crepitus on range of motion and diffuse tenderness to palpation at left shoulder and medial and lateral knee joint line. He had trach shield in place. The patient had overall 4+/5 grade muscle strength and deep tendon reflexes are decreased to absent overall. He had equal perception of touch and pinprick sensation bilaterally. I have not tested his transfers or ambulation skills at this time. ASSESSMENT: A middle-aged male with oropharyngeal carcinoma, status post surgery. Postop period complicated by respiratory failure requiring tracheostomy in a patient with known obstructive sleep apnea, morbid obesity, painful degenerative joints of both knees and both shoulders with adhesive capsulitis and tendinitis of left shoulder, clinical evidence of peripheral neuropathy. RECOMMENDATIONS: As I have injected his left shoulder and left knee only in the last 2 weeks to hold off injection until he goes to residential care unit or just before he go to residential care unit. Dr. Whiteside, appreciate asking me to participate in the care of this interesting patient. I will be glad to follow him with you as needed for the rehabilitation. ANNETTE LOO MD DR: SUHAIL/brie JOB#: [id number] / [id number]
[2018-11-10 03:00] VITALS: BP 92/41
[2018-11-10] MEDS: oxyCODONE/APAP 7.5/325 1 TAB TABLET PO PRN ×2 (04:14→10:47)
[2018-11-10 05:41] LABS: PROTHROMBIN TIME PATIENT 17.7 SEC (11.7-14.0)
[2018-11-10 07:00] VITALS: BP 122/74
[2018-11-10] MEDS: IPRATRPIUM/ALBUTEROL 0.5/2.5MG 3 ML NEBU. NEB SCH ×2 (07:23→11:15)
[2018-11-10] MEDS: INSULIN LISPRO 300 UNITS/3 ML VIAL. SQ SCH ×3 (08:00→11:33)
[2018-11-10] MEDS ORDERED: FENT1PAT13 TD (08:47)
[2018-11-10] MEDS ORDERED: OXYC1TAB15 PO (08:47)
[2018-11-10] MEDS ORDERED: WARF10TA45 MC (08:48)
[2018-11-10] MEDS ORDERED: IPRA3AMP29 NEB (08:48)
--- NOTE | 2018-11-10 08:49 | SNU/HH DC ---
DISCHARGE ORDERS DISCHARGE INFORMATION: DISCHARGE DATE: Nov 10, 2018 FINAL DIAGNOSIS Problems Medical Problems: (1) Back pain Status: Acute (2) Morbid obesity with BMI of 70 and over, adult Status: Chronic (3) Weakness Status: Acute CONDITION ON DISCHARGE: Stable CODE STATUS: Code Status: Full JAIL: SNF STAY <30 DAYS: Yes HOSPICE: HOSPICE: No HOSPICE EVAL & TREAT: No LTAC: ADMIT TO LTAC: No POST DISCHARGE ORDERS: ACTIVITY ORDERS: Activity as tolerated DIET AFTER DISCHARGE: dysphagia 1 pureed diet with thin liq CHECKS AFTER DISCHARGE: CHECKS AFTER DISCHARGE: Check blood press - daily, Check blood sugar, ac/hs TREATMENT/EQUIPMENT ORDERS: RESPIRATORY EQUIPMENT NEEDED: Oxygen Physical Therapy For: Evalulation/Treatment Occupational Therapy For: Evaluation/Treatment DISCHARGE MEDICATIONS: Home Meds Active Scripts Warfarin Sodium (COUMADIN) 10 Mg Tablet, 1 EACH MC PRN DAILY PRN for SEE COMMENTS, #60 TAB Prov:NISHA NAJERA MD 11/10/18 Ipratropium/Albuterol Sulfate (DUONEB 0.5-3(2.5) MG/3 ML) 3 Ml Ampul.neb, 3 ML NEB RTQID for soa, #120 EACH Prov:NISHA NAJERA MD 11/10/18 Oxycodone/Apap 5-325 (PERCOCET 5-325 MG TABLET ) 1 Each Tablet, 1 TAB PO PRN Q6HRS PRN for PAIN, #30 TAB 0 Refills Prov:NISHA NAJERA MD 11/10/18 Fentanyl (FENTANYL 12mcg/hr) 1 Each Patch.td72, 1 PATCH TD Q72H for pain, #10 PATCH Prov:NISHA NAJERA MD 11/10/18 Reported Medications Tizanidine Hcl (TIZANIDINE HCL) 4 Mg Tablet, 2 MG PO PRN TID PRN for MUSCLE SPASMS, #60 TAB 11/07/18 Insulin Regular, Human (NOVOLIN R) 100 Unit/1 Ml Vial, 28 UNIT IJ DAILYWSUP for DM, EACH 11/07/18 Insulin Regular, Human (NOVOLIN R) 100 Unit/1 Ml Vial, 36 UNIT IJ DAILYWBKFT for DM, EACH 11/07/18 Nph, Human Insulin Isophane (NOVOLIN N) 100 Unit/1 Ml Vial, 50 UNIT SQ BID for DM, VIAL 11/07/18 Quetiapine Fumarate (SEROQUEL) 25 Mg Tablet, 25 MG PO BID for mood , TAB 11/07/18 Probenecid (PROBENECID) 500 Mg Tablet, 500 MG PO BID for Gout, TAB 11/07/18 Metoprolol Tartrate (METOPROLOL TARTRATE) 25 Mg Tablet, 1 TAB PO BID for HTN, #180 TAB 1 Refill 11/07/18 Metformin Hcl (METFORMIN HCL) 500 Mg Tablet, 500 MG PO BIDWMEALS for ANTI- DIABETIC, TAB 0 Refills 11/07/18 Lisinopril (LISINOPRIL) 20 Mg Tablet, 1 TAB PO DAILY for HTN, #30 TAB 5 Refills 11/07/18 Famotidine (PEPCID) 20 Mg Tablet, 20 MG PO BID for GERD, TAB 11/07/18 Cholecalciferol (Vitamin D3) (VITAMIN D3) 1,000 Unit Tablet, 2 TAB PO DAILY for supplement, #30 TAB 5 Refills 11/07/18 Sennosides/Docusate Sodium (SENNA S TABLET) 1 Each Tablet, 2 TAB PO HS for constipation , TAB 11/07/18 Duloxetine Hcl (CYMBALTA) 60 Mg Capsule.dr, 120 MG PO DAILY for MDD, CAP 11/07/18 Gabapentin (GABAPENTIN) 600 Mg Tablet, 300 MG PO BID for NEUROGENIC PAIN, TAB 11/07/18 Aspirin (ASPIRIN) 81 Mg Tab.chew, 81 MG PO DAILY for hyperlipidemia, TAB.CHEW 11/07/18 Furosemide (FUROSEMIDE) 40 Mg Tablet, 1 TAB PO DAILY for CHF, TAB 09/27/18 Atorvastatin Calcium (ATORVASTATIN CALCIUM) 80 Mg Tablet, 1 TAB PO HS for Cholestoral, TAB 09/27/18 Discontinued Reported Medications Diclofenac Sodium (VOLTAREN) 100 Gm Gel..gram., 1 JOANA TD BID for pain to knees, back, Lshoulder, EACH 11/07/18 Insulin Lispro (HUMALOG) 100 Unit/1 Ml Vial, 50 UNIT SQ BID for hyperglycemia, VIAL 11/07/18 Acetaminophen (ACETAMINOPHEN) 500 Mg Tablet, 500 MG PO PRN Q8HRS PRN for PAIN, TAB 11/07/18 Oxycodone Hcl (OXYCODONE HCL) 5 Mg Capsule, 10 MG PO PRN Q3HRS PRN for PAIN, TAB 0 Refills 11/07/18 Mag Hydrox/Al Hydrox/Simeth (MAG-AL PLUS SUSPENSION) 30 Ml Oral.susp, 30 ML PO PRN Q4HRS PRN for NAUSEA, MISC 09/27/18 Famotidine (FAMOTIDINE) 20 Mg Tablet, 20 MG PO BID for See H&P, TAB 09/27/18 Aspirin (ASPIRIN) 81 Mg Tab.chew, 1 TAB PEG DAILY for See H&P, #30 TAB 3 Refills 09/27/18 NISHA NAJERA MD Nov 10, 2018 08:49
[2018-11-10] MEDS: PROBENECID 500 MG TABLET PO SCH (08:52)
[2018-11-10] MEDS: FUROSEMIDE 40 MG TABLET. PO SCH (08:53)
[2018-11-10] MEDS: ATORVASTATIN CALCIUM 40 MG TABLET. PO SCH (08:53)
[2018-11-10] MEDS: FAMOTIDINE 20 MG TABLET. PO SCH (08:53)
[2018-11-10] MEDS: ASPIRIN CHEWABLE 81 MG TABLET. PO SCH (08:53)
[2018-11-10] MEDS: QUEtiapine 25 MG TABLET. PO SCH (08:53)
[2018-11-10] MEDS: metFORMIN 500 MG TABLET PO SCH (08:53)
[2018-11-10] MEDS: CHOLECALCIFEROL (VITAMIN D3) 1,000 UNIT TABLET PO SCH (08:54)
[2018-11-10] MEDS: GABAPENTIN 300 MG CAPSULE. PO SCH (08:54)
[2018-11-10] MEDS: DULoxetine HCL 30 MG CAPSULE.DR PO SCH (08:54)
[2018-11-10] MEDS: LISINOPRIL 20 MG TABLET PO SCH (08:54)
[2018-11-10] MEDS: INSULIN GLARGINE SYRINGE. SQ SCH (09:09)
[2018-11-10] MEDS ORDERED: MAGNESIUM HYDROXIDE 2,400 MG/30 ML ORAL.SUSP. PO PRN (09:15)
--- NOTE | 2018-11-10 09:19 | NUR ---
CONOR following pt. CONOR Phoned and faxed Updates to Joanne Meza. Auth pending.
[2018-11-10 09:40] LABS: CALCIUM 9.3 mg/dL (8.5-10.1); CREATININE 1.4 mg/dL (0.7-1.3); GFR 52.1; POTASSIUM 3.9 mmol/L (3.5-5.1)
--- NOTE | 2018-11-10 09:40 | PDOC ---
PROGRESS NOTES Subjective Subjective He admits continued pain in his knees,low back and right shoulder. Objective Objective Vital Signs Date Time Temp Pulse Resp B/P (MAP) Pulse Ox O2 Delivery O2 Flow Rate FiO2 11/10/18 09:09 55 122/74 11/10/18 07:24 99 Tracheal Collar 8.0 11/10/18 07:00 98.1 19 98.1 Intake and Output 11/10/18 06:59 Intake Total 650 ml Output Total 1150 ml Balance -500 ml Intake Oral 650 ml Output Urine Total 1150 ml Physical Exam Physical Exam He is supine in bed and continues with painfully limited ROM of left shoulder,both knees and lumbar spine with tenderness to palpation over sacroiliac joints,left shoulder and medial knee joint line. Assessment Assessment Problems Medical Problems: (1) Back pain Status: Acute (2) Morbid obesity with BMI of 70 and over, adult Status: Chronic (3) Weakness Status: Acute Plan Plan of Care At his request,I have injected his left knee and shoulder joints under aseptic skin technique with alcohol skin prep,using 4 ml of 0.25% bupivacaine solution mixed with 2 ml of methylprednisone 40 mg/ 1 ml solution and he tolerated the procedures satisfactorily without any side effects. Comment Review of Relevant I have reviewed the following items bar (where applicable) has been applied. Labs Laboratory Tests Test 11/08/18 11:12 11/08/18 17:07 11/08/18 20:52 11/08/18 23:37 Glucose (Fingerstick) 102 mg/dL (70-99) 108 mg/dL (70-99) 74 mg/dL (70-99) 110 mg/dL (70-99) Test 11/09/18 05:40 11/09/18 06:58 11/09/18 10:59 11/09/18 16:49 White Blood Count 4.8 x10^3/uL (4.0-11.0) Red Blood Count 3.41 x10^6/uL (4.30-5.70) Hemoglobin 9.4 g/dL (13.0-17.5) Hematocrit 29.2 % (39.0-53.0) Mean Corpuscular Volume 86 fL (79-100) Mean Corpuscular Hemoglobin 28 pg (25-35) Mean Corpuscular Hemoglobin Concent 32 g/dL (31-37) Red Cell Distribution Width 16.0 % (11.5-14.5) Platelet Count 200 x10^3/uL (140-400) Neutrophils (%) (Auto) 56 % (31-73) Lymphocytes (%) (Auto) 28 % (24-48) Monocytes (%) (Auto) 9 % (0-9) Eosinophils (%) (Auto) 7 % (0-3) Basophils (%) (Auto) 1 % (0-3) Neutrophils # (Auto) 2.7 x10^3/uL (1.8-7.7) Lymphocytes # (Auto) 1.3 x10^3/uL (1.0-4.8) Monocytes # (Auto) 0.4 x10^3/uL (0.0-1.1) Eosinophils # (Auto) 0.3 x10^3/uL (0.0-0.7) Basophils # (Auto) 0.0 x10^3/uL (0.0-0.2) Prothrombin Time 18.5 SEC (11.7-14.0) Prothromb Time International Ratio 1.6 (0.8-1.1) Sodium Level 144 mmol/L (136-145) Potassium Level 3.7 mmol/L (3.5-5.1) Chloride Level 103 mmol/L (98-107) Carbon Dioxide Level 34 mmol/L (21-32) Anion Gap 7 (6-14) Blood Urea Nitrogen 22 mg/dL (8-26) Creatinine 1.3 mg/dL (0.7-1.3) Estimated GFR (Cockcroft-Gault) 56.7 Glucose Level 104 mg/dL (70-99) Calcium Level 9.1 mg/dL (8.5-10.1) Tumor Marker Alpha Fetoprotein 1.7 ng/mL (0.0-8.3) Glucose (Fingerstick) 103 mg/dL (70-99) 170 mg/dL (70-99) 118 mg/dL (70-99) Test 11/09/18 20:33 11/10/18 04:05 11/10/18 07:25 Glucose (Fingerstick) 87 mg/dL (70-99) 88 mg/dL (70-99) Prothrombin Time 17.7 SEC (11.7-14.0) Prothromb Time International Ratio 1.5 (0.8-1.1) Laboratory Tests Test 11/09/18 10:59 11/09/18 16:49 11/09/18 20:33 11/10/18 04:05 Glucose (Fingerstick) 170 mg/dL (70-99) 118 mg/dL (70-99) 87 mg/dL (70-99) Prothrombin Time 17.7 SEC (11.7-14.0) Prothromb Time International Ratio 1.5 (0.8-1.1) Test 11/10/18 07:25 Glucose (Fingerstick) 88 mg/dL (70-99) Microbiology 11/07/18 Urine Culture - Final, Complete 11/07/18 Urine Culture Result 1 (SHRUTHI) - Final, Complete Medications Current Medications Ondansetron HCl (Zofran) 4 mg 1X ONCE IV Last administered on 11/06/18at 16:37; Start 11/06/18 at 16:30; Stop 11/06/18 at 16:31; Status DC Oxycodone/ Acetaminophen (Percocet 10/325) 1 tab 1X ONCE PO Last administered on 11/06/18at 17:59; Start 11/06/18 at 18:15; Stop 11/06/18 at 18:16; Status DC Acetaminophen (Tylenol) 1,000 mg PRN Q8HRS PRN PEG MILD PAIN / TEMP; Start 11/06/18 at 22:00; Stop 11/07/18 at 00:17; Status DC Aspirin (Children'S Aspirin) 81 mg DAILYWBKFT PO Last administered on 11/07/18at 09:13; Start 11/07/18 at 08:00; Stop 11/07/18 at 12:20; Status DC Vitamin D (Vitamin D3) 2,000 unit DAILY PO Last administered on 11/10/18at 09:09; Start 11/07/18 at 09:00 Diphenhydramine HCl (Benadryl) 25 mg PRN QHS PRN PO INSOMNIA Last administered on 11/09/18at 20:27; Start 11/06/18 at 22:30 Famotidine (Pepcid) 20 mg BID PEG ; Start 11/06/18 at 22:30; Stop 11/07/18 at 00:19; Status DC Furosemide (Lasix) 40 mg DAILY PO Last administered on 11/10/18at 09:09; Start 11/07/18 at 09:00 Gabapentin (Neurontin Oral Soln) 600 mg TID PO ; Start 11/06/18 at 22:30; Status Cancel Albuterol/ Ipratropium (Duoneb) 3 ml RTQID NEB Last administered on 11/10/18at 07:23; Start 11/07/18 at 08:00 Linezolid/Dextrose (Zyvox Premix) 600 mg BID IV ; Start 11/07/18 at 09:00; Status UNV Metoprolol Tartrate (Lopressor) 25 mg BID PO Last administered on 11/09/18at 20:27; Start 11/06/18 at 22:30 Oxycodone HCl (Roxicodone) 5 mg PRN Q3HRS PRN PO MODERATE TO SEVERE PAIN; Start 11/06/18 at 22:00; Stop 11/06/18 at 21:57; Status DC Tizanidine HCl (Zanaflex) 4 mg Q8HRS PO Last administered on 11/07/18at 06:53; Start 11/06/18 at 22:30; Stop 11/07/18 at 12:20; Status DC Warfarin Sodium (Coumadin) 5 mg QM PEG ; Start 11/13/18 at 16:00; Status UNV Warfarin Sodium (Coumadin) 5 mg QWE PEG ; Start 11/08/18 at 16:00; Status UNV Atorvastatin Calcium (Lipitor) 80 mg DAILY PEG ; Start 11/06/18 at 22:30; Stop 11/07/18 at 00:18; Status DC Insulin Human Lispro (HumaLOG) 50 units BID SQ Last administered on 11/07/18at 09:13; Start 11/07/18 at 09:00; Stop 11/07/18 at 12:20; Status DC Al Hydroxide/Mg Hydroxide (Mylanta Plus Xs) 30 ml PRN Q4HRS PRN PO NAUSEA; Start 11/06/18 at 22:00 Venlafaxine HCl (Effexor) 37.5 mg BID PEG ; Start 11/06/18 at 22:30; Stop 11/07/18 at 00:19; Status DC Oxycodone/ Acetaminophen (Percocet 7.5/ 325) 1 tab PRN Q4HRS PRN PO SEVERE PAIN Last administered on 11/10/18 04:14; Start 11/06/18 at 22:30 Fentanyl Citrate (Fentanyl 2ml Vial) 50 mcg PRN Q2HR PRN IV PAIN; Start 11/06/18 at 22:30 Warfarin Sodium (Coumadin Per Pharmacy) 1 each PRN DAILY PRN MC SEE COMMENTS Last administered on 11/09/18 11:53; Start 11/06/18 at 22:00 Oxycodone HCl (Roxicodone) 10 mg PRN Q3HRS PRN PO SEVERE PAIN (2nd Choice) Last administered on 11/07/18 11:23; Start 11/06/18 at 22:30 Linezolid/Dextrose 300 ml @ 300 mls/hr Q12HR IV Last administered on 11/07/18 09:13; Start 11/07/18 at 09:00; Stop 11/07/18 at 12:01; Status DC Warfarin Sodium (Coumadin) 5 mg 1X ONCE PO Last administered on 11/07/18at 01:02; Start 11/07/18 at 00:30; Stop 11/07/18 at 00:31; Status DC Acetaminophen (Tylenol) 1,000 mg PRN Q8HRS PRN PO MILD PAIN / TEMP Last administered on 11/07/18at 01:14; Start 11/07/18 at 00:17 Atorvastatin Calcium (Lipitor) 80 mg DAILY PO Last administered on 11/10/18 09:09; Start 11/07/18 at 00:18 Venlafaxine HCl (Effexor) 37.5 mg BID PO Last administered on 11/08/18at 09:02; Start 11/07/18 at 00:19; Stop 11/08/18 at 15:03; Status DC Famotidine (Pepcid) 20 mg BID PO Last administered on 11/07/18 09:13; Start 11/07/18 at 00:19; Stop 11/07/18 at 12:20; Status DC Gabapentin (Neurontin) 600 mg TID PO Last administered on 11/07/18 13:06; Start 11/07/18 at 00:45; Stop 11/07/18 at 16:14; Status DC Info (Anti-Coagulation Monitoring By Pharmacy) 1 each PRN DAILY PRN MC SEE COMMENTS; Start 11/06/18 at 22:00; Stop 11/08/18 at 13:12; Status DC Insulin Human Lispro (HumaLOG) 0-9 UNITS TIDWMEALS SQ Last administered on 11/09/18at 12:52; Start 11/07/18 at 12:00 Dextrose (Dextrose 50%-Water Syringe) 12.5 gm PRN Q15MIN PRN IV SEE COMMENTS; Start 11/07/18 at 08:45 Dextrose 250 ml PRN Q15MIN PRN IV SEE COMMENTS; Start 11/07/18 at 08:45; Status UNV Warfarin Sodium (Coumadin) 7.5 mg 1X WARF ONCE PO Last administered on 11/07/18at 17:28; Start 11/07/18 at 16:00; Stop 11/07/18 at 16:01; Status DC Aspirin (Children'S Aspirin) 81 mg DAILY PO Last administered on 11/10/18at 09:09; Start 11/07/18 at 13:00 Vitamin D (Vitamin D3) 2,000 unit DAILY PO ; Start 11/07/18 at 13:00; Stop 11/07/18 at 16:05; Status DC Famotidine (Pepcid) 20 mg BID PO Last administered on 11/10/18 09:09; Start 11/07/18 at 13:00 Fentanyl (Duragesic 12mcg/ Hr Patch) 1 patch Q72H TD Last administered on 11/07/18at 14:10; Start 11/07/18 at 12:30 Insulin Human Lispro (HumaLOG) 28 units DAILYWSUP SQ Last administered on 11/09/18at 17:32; Start 11/07/18 at 17:00 Insulin Human Lispro (HumaLOG) 36 units DAILYWBKFT SQ Last administered on 11/10/18 09:09; Start 11/08/18 at 08:00 Lisinopril (Prinivil) 20 mg DAILY PO Last administered on 11/10/18 09:09; Start 11/07/18 at 13:00 Metformin HCl (Glucophage) 500 mg BIDWMEALS PO Last administered on 11/10/18at 09:09; Start 11/07/18 at 17:00 Metoprolol Tartrate (Lopressor) 25 mg BID PO ; Start 11/07/18 at 21:00; Stop 11/08/18 at 11:51; Status DC Oxycodone/ Acetaminophen (Percocet 5/325) 1 tab PRN Q6HRS PRN PO MODERATE PAIN; Start 11/07/18 at 12:30 Probenecid (Benemid) 500 mg BID PO Last administered on 11/10/18 09:09; Start 11/07/18 at 21:00 Quetiapine Fumarate (SEROquel) 25 mg BID PO Last administered on 11/10/18 09:09; Start 11/07/18 at 21:00 Senna/Docusate Sodium (Senna Plus) 2 tab HS PO Last administered on 11/08/18 20:44; Start 11/07/18 at 21:00 Tizanidine HCl (Zanaflex) 2 mg PRN TID PRN PO MUSCLE SPASMS Last administered on 11/08/18 23:31; Start 11/07/18 at 12:30 Duloxetine HCl (Cymbalta) 120 mg DAILY PO Last administered on 11/10/18 09:09; Start 11/07/18 at 13:00 Gabapentin (Neurontin) 300 mg BID PO Last administered on 11/10/18 09:09; Start 11/07/18 at 21:00 Insulin Glargine (Lantus Syringe) 50 unit BID SQ Last administered on 11/10/18 09:09; Start 11/07/18 at 21:00 Warfarin Sodium (Coumadin) 10 mg 1X WARF ONCE PO Last administered on 11/08/18 17:54; Start 11/08/18 at 16:00; Stop 11/08/18 at 16:01; Status DC Linezolid/Dextrose 300 ml @ 300 mls/hr Q12HR IV Last administered on 11/08/18 17:54; Start 11/08/18 at 16:00; Stop 11/08/18 at 20:43; Status DC Warfarin Sodium (Coumadin) 12 mg 1X WARF ONCE PO Last administered on 11/09/18 17:32; Start 11/09/18 at 16:00; Stop 11/09/18 at 16:01; Status DC Methylprednisolone Acetate (DEPO-Medrol 40MG VIAL) 40 mg 1X ONCE IM ; Start 11/09/18 at 13:00; Stop 11/09/18 at 13:01; Status DC Methylprednisolone Acetate (DEPO-Medrol 40MG VIAL) 40 mg 1X ONCE IM ; Start 11/09/18 at 13:00; Stop 11/09/18 at 13:01; Status DC Bupivacaine HCl (Sensorcaine-Mpf 0.25%) 10 ml 1X ONCE IJ ; Start 11/09/18 at 13:00; Stop 11/09/18 at 13:01; Status DC Docusate Sodium (Colace) 100 mg DAILY PO ; Start 11/10/18 at 10:00 Magnesium Hydroxide (Milk Of Magnesia) 2,400 mg PRN DAILY PRN PO CONSTIPATION; Start 11/10/18 at 09:15 Active Scripts Active Coumadin (Warfarin Sodium) 10 Mg Tablet 1 Each MC PRN DAILY PRN Duoneb 0.5-3(2.5) Mg/3 Ml (Albuterol/Ipratropium) 3 Ml Ampul.neb 3 Ml NEB RTQID Percocet 5-325 Mg Tablet (Oxycodone/Acetaminophen) 1 Each Tablet 1 Tab PO PRN Q6HRS PRN FENTANYL 12mcg/hr (Fentanyl) 1 Each Patch.td72 1 Patch TD Q72H Reported Tizanidine Hcl 4 Mg Tablet 2 Mg PO PRN TID PRN Novolin R (Insulin Regular, Human) 100 Unit/1 Ml Vial 28 Unit IJ DAILYWSUP Novolin R (Insulin Regular, Human) 100 Unit/1 Ml Vial 36 Unit IJ DAILYWBKFT Novolin N (Nph, Human Insulin Isophane) 100 Unit/1 Ml Vial 50 Unit SQ BID Probenecid 500 Mg Tablet 500 Mg PO BID Metoprolol Tartrate 25 Mg Tablet 1 Tab PO BID Metformin Hcl 500 Mg Tablet 500 Mg PO BIDWMEALS Lisinopril 20 Mg Tablet 1 Tab PO DAILY Pepcid (Famotidine) 20 Mg Tablet 20 Mg PO BID Vitamin D3 (Cholecalciferol (Vitamin D3)) 1,000 Unit Tablet 2 Tab PO DAILY Senna S Tablet (Sennosides/Docusate Sodium) 1 Each Tablet 2 Tab PO HS Cymbalta (Duloxetine Hcl) 60 Mg Capsule.dr 120 Mg PO DAILY Gabapentin 600 Mg Tablet 300 Mg PO BID Aspirin 81 Mg Tab.chew 81 Mg PO DAILY Furosemide 40 Mg Tablet 1 Tab PO DAILY Atorvastatin Calcium 80 Mg Tablet 1 Tab PO HS Vitals/I & O Vital Sign - Last 24 Hours 11/09/18 11/09/18 11/09/18 11/09/18 11:00 11:23 12:52 15:00 Temp 98.1 97.9 98.1 97.9 Pulse 67 67 74 Resp 18 19 B/P (MAP) 106/43 (64) 106/43 106/45 (65) Pulse Ox 97 100 97 O2 Delivery Tracheal Collar Tracheal Collar Tracheal Collar O2 Flow Rate 8.0 10.0 11/09/18 11/09/18 11/09/18 11/09/18 15:23 18:28 19:00 20:00 Temp 97.9 97.9 Pulse 67 Resp 19 B/P (MAP) 120/50 (73) Pulse Ox 97 O2 Delivery Tracheal Collar Tracheal Collar Tracheal Collar Trach Collar O2 Flow Rate 8.0 8.0 10.0 8.0 11/09/18 11/09/18 11/09/18 11/09/18 20:27 20:27 22:21 23:00 Temp 98.3 98.3 Pulse 67 56 Resp 19 B/P (MAP) 120/50 92/41 (58) Pulse Ox 98 O2 Delivery Nasal Cannula Nasal Cannula Tracheal Collar O2 Flow Rate 8.0 8.0 10.0 11/10/18 11/10/18 11/10/18 11/10/18 03:00 04:14 05:13 07:00 Temp 98.3 98.1 98.3 98.1 Pulse 56 55 Resp 19 19 B/P (MAP) 92/41 (58) 122/74 (90) Pulse Ox 98 97 O2 Delivery Tracheal Collar Nasal Cannula Nasal Cannula Room Air O2 Flow Rate 10.0 8.0 8.0 11/10/18 11/10/18 07:24 09:09 Pulse 55 B/P (MAP) 122/74 Pulse Ox 99 O2 Delivery Tracheal Collar O2 Flow Rate 8.0 Intake and Output 11/09/18 11/09/18 11/10/18 14:59 22:59 06:59 Intake Total 300 ml 350 ml Output Total 0 ml 1150 ml Balance 0 ml -850 ml 350 ml ANNETTE LOO MD Nov 10, 2018 09:39
[2018-11-10] MEDS ORDERED: DOCUSATE SODIUM 100 MG CAPSULE. PO SCH (10:00)
--- NOTE | 2018-11-10 10:44 | PDOC3 ---
Discharge Summary Visit Information Date of Admission: Nov 06, 2018 Date of Discharge: Nov 10, 2018 Admitting Diagnosis Comment: Oropharyngeal cancer, trached, recent reconstructive surgery KU-flap on the left side chest - just this week recent sepsis with HCAP and resp failure - CXR interval stable, off abx atelectasis Hyperkalemia with no EKG changes Penicillin and erythromycin allergy - tolerated cefepime fine at ER Super morbidly obese BMI 83 [address] on [address], incidental weakness and debility, ICU myopathy Final Diagnosis Problems Medical Problems: (1) Back pain Status: Acute (2) Morbid obesity with BMI of 70 and over, adult Status: Chronic (3) Weakness Status: Acute Brief Hospital Course Allergies Allergies Coded Allergies Type Severity Reaction Last Updated Verified Penicillins Allergy Intermediate 09/26/18 Yes allopurinol Allergy Intermediate 09/26/18 Yes azithromycin Allergy Intermediate 09/26/18 Yes I S O L A T I O N *CONTACT* Allergy Unknown 10/02/18 Yes Vital Signs Vital Signs Date Time Temp Pulse Resp B/P (MAP) Pulse Ox O2 Delivery O2 Flow Rate FiO2 11/10/18 09:09 55 122/74 11/10/18 07:24 99 Tracheal Collar 8.0 11/10/18 07:00 98.1 19 98.1 Lab Results Laboratory Tests Test 11/08/18 11:12 11/08/18 17:07 11/08/18 20:52 11/08/18 23:37 Glucose (Fingerstick) 102 mg/dL (70-99) 108 mg/dL (70-99) 74 mg/dL (70-99) 110 mg/dL (70-99) Test 11/09/18 05:40 11/09/18 06:58 11/09/18 10:59 11/09/18 16:49 White Blood Count 4.8 x10^3/uL (4.0-11.0) Red Blood Count 3.41 x10^6/uL (4.30-5.70) Hemoglobin 9.4 g/dL (13.0-17.5) Hematocrit 29.2 % (39.0-53.0) Mean Corpuscular Volume 86 fL (79-100) Mean Corpuscular Hemoglobin 28 pg (25-35) Mean Corpuscular Hemoglobin Concent 32 g/dL (31-37) Red Cell Distribution Width 16.0 % (11.5-14.5) Platelet Count 200 x10^3/uL (140-400) Neutrophils (%) (Auto) 56 % (31-73) Lymphocytes (%) (Auto) 28 % (24-48) Monocytes (%) (Auto) 9 % (0-9) Eosinophils (%) (Auto) 7 % (0-3) Basophils (%) (Auto) 1 % (0-3) Neutrophils # (Auto) 2.7 x10^3/uL (1.8-7.7) Lymphocytes # (Auto) 1.3 x10^3/uL (1.0-4.8) Monocytes # (Auto) 0.4 x10^3/uL (0.0-1.1) Eosinophils # (Auto) 0.3 x10^3/uL (0.0-0.7) Basophils # (Auto) 0.0 x10^3/uL (0.0-0.2) Prothrombin Time 18.5 SEC (11.7-14.0) Prothromb Time International Ratio 1.6 (0.8-1.1) Sodium Level 144 mmol/L (136-145) Potassium Level 3.7 mmol/L (3.5-5.1) Chloride Level 103 mmol/L (98-107) Carbon Dioxide Level 34 mmol/L (21-32) Anion Gap 7 (6-14) Blood Urea Nitrogen 22 mg/dL (8-26) Creatinine 1.3 mg/dL (0.7-1.3) Estimated GFR (Cockcroft-Gault) 56.7 Glucose Level 104 mg/dL (70-99) Calcium Level 9.1 mg/dL (8.5-10.1) Tumor Marker Alpha Fetoprotein 1.7 ng/mL (0.0-8.3) Glucose (Fingerstick) 103 mg/dL (70-99) 170 mg/dL (70-99) 118 mg/dL (70-99) Test 11/09/18 20:33 11/10/18 04:05 11/10/18 07:25 Glucose (Fingerstick) 87 mg/dL (70-99) 88 mg/dL (70-99) Prothrombin Time 17.7 SEC (11.7-14.0) Prothromb Time International Ratio 1.5 (0.8-1.1) Sodium Level 144 mmol/L (136-145) Potassium Level 3.9 mmol/L (3.5-5.1) Chloride Level 105 mmol/L (98-107) Carbon Dioxide Level 34 mmol/L (21-32) Anion Gap 5 (6-14) Blood Urea Nitrogen 21 mg/dL (8-26) Creatinine 1.4 mg/dL (0.7-1.3) Estimated GFR (Cockcroft-Gault) 52.1 Glucose Level 73 mg/dL (70-99) Calcium Level 9.3 mg/dL (8.5-10.1) Laboratory Tests Test 11/09/18 10:59 11/09/18 16:49 11/09/18 20:33 11/10/18 04:05 Glucose (Fingerstick) 170 mg/dL (70-99) 118 mg/dL (70-99) 87 mg/dL (70-99) Prothrombin Time 17.7 SEC (11.7-14.0) Prothromb Time International Ratio 1.5 (0.8-1.1) Sodium Level 144 mmol/L (136-145) Potassium Level 3.9 mmol/L (3.5-5.1) Chloride Level 105 mmol/L (98-107) Carbon Dioxide Level 34 mmol/L (21-32) Anion Gap 5 (6-14) Blood Urea Nitrogen 21 mg/dL (8-26) Creatinine 1.4 mg/dL (0.7-1.3) Estimated GFR (Cockcroft-Gault) 52.1 Glucose Level 73 mg/dL (70-99) Calcium Level 9.3 mg/dL (8.5-10.1) Test 11/10/18 07:25 Glucose (Fingerstick) 88 mg/dL (70-99) Brief Hospital Course Mr. Butler is a 57 old morbidly obesem, bariatric bed, BMI 84, was a readmission after disliking snu that he was dcd to (stayed 1 william nd signed AMA), We just took care of him at [facility] 3-4 week course, for a fib RVR, controlled onow on warf with goal INR 2-3, started by ELLEN since he had that oropharyngeal cancer and flap reconstruction by Ellen. HE is off sky, tolerating pureed with thin liq and also off abx, Prev on zyvox by ID etc HE is doing medically well, he is intersted in bariatric sx MEanwhile his cant care for him so SNU for now DispO; SNU Full code OFF abx COnt warf goal 2-3 Discharge Information Condition at Discharge: Improved, Stable Disposition/Orders: Other (snu) Scheduled Aspirin (Aspirin) 81 Mg Tab.chew, 81 MG PO DAILY for hyperlipidemia, (Reported) Entered as Reported by: FANNIE HARDING on 11/07/1835 Last Taken: Unknown Dose on 11/04/18 Last Action: Continued on 11/07/181218 by NISHA NAJERA Atorvastatin Calcium (Atorvastatin Calcium) 80 Mg Tablet, 1 TAB PO HS for Cholestoral, (Reported) Entered as Reported by: UBALDO BOWEN RN on 09/27/18132 Last Taken: Unknown Dose on 11/04/18 Last Action: Edited on 11/07/1835 by FANNIE HARDING Cholecalciferol (Vitamin D3) (Vitamin D3) 1,000 Unit Tablet, 2 TAB PO DAILY for supplement, #30 Ref 5 (Reported) Entered as Reported by: WILBER OLIVIER on 11/07/181213 Last Action: Continued on 11/07/181218 by NISHA NAJERA Duloxetine Hcl (Cymbalta) 60 Mg Capsule.dr, 120 MG PO DAILY for MDD, (Reported) Entered as Reported by: FANNIE HARDING on 11/07/1835 Last Taken: Unknown Dose on 11/05/18 Last Action: Converted on 11/07/181218 by NISHA NAJERA Famotidine (Pepcid) 20 Mg Tablet, 20 MG PO BID for GERD, (Reported) Entered as Reported by: WILBER OLIVIER on 11/07/181213 Last Action: Continued on 11/07/181218 by NISHA NAJERA Fentanyl (FENTANYL 12mcg/hr) 1 Each Patch.td72, 1 PATCH TD Q72H for pain, #10 Prescribed by: NISHA NAJERA on 11/10/18 0847 Furosemide (Furosemide) 40 Mg Tablet, 1 TAB PO DAILY for CHF, (Reported) Entered as Reported by: UBADLO BOWEN RN on 09/27/18132 Last Action: Edited on 11/07/1835 by FANNIE HARDING Gabapentin (Gabapentin) 600 Mg Tablet, 300 MG PO BID for NEUROGENIC PAIN, (Reported) Entered as Reported by: FANNIE HARDING on 11/07/1835 Last Taken: Unknown Dose on 11/04/18 Last Action: Converted on 11/07/181218 by NISHA NAJERA Insulin Regular, Human (Novolin R) 100 Unit/1 Ml Vial, 36 UNIT IJ DAILYWBKFT for DM, (Reported) Entered as Reported by: WILBER OLIVIER on 11/07/181213 Last Action: Continued on 11/07/181218 by NISHA NAJERA Insulin Regular, Human (Novolin R) 100 Unit/1 Ml Vial, 28 UNIT IJ DAILYWSUP for DM, (Reported) Entered as Reported by: WILBER OLIVIER on 11/07/181213 Last Action: Continued on 11/07/181218 by NISHA NAJERA Ipratropium/Albuterol Sulfate (Duoneb 0.5-3(2.5) Mg/3 Ml) 3 Ml Ampul.neb, 3 ML NEB RTQID for soa, #120 Prescribed by: NISHA NAJERA on 11/10/18 0848 Lisinopril (Lisinopril) 20 Mg Tablet, 1 TAB PO DAILY for HTN, #30 Ref 5 (Reported) Entered as Reported by: WILBER OLIVIER on 11/07/181213 Last Action: Continued on 11/07/181218 by NISHA NAJERA Metformin Hcl (Metformin Hcl) 500 Mg Tablet, 500 MG PO BIDWMEALS for ANTI- DIABETIC, Ref 0 (Reported) Entered as Reported by: WILBER OLIVIER on 11/07/181213 Last Action: Continued on 11/07/181218 by NISHA NAJERA Metoprolol Tartrate (Metoprolol Tartrate) 25 Mg Tablet, 1 TAB PO BID for HTN, #180 Ref 1 (Reported) Entered as Reported by: WILBER OLIVIER on 11/07/181213 Last Action: Continued on 11/07/181218 by NISHA NAJERA Nph, Human Insulin Isophane (Novolin N) 100 Unit/1 Ml Vial, 50 UNIT SQ BID for DM, (Reported) Entered as Reported by: WILBER OLIVIER on 11/07/181213 Last Action: Converted on 11/07/181218 by NISHA NAJERA Probenecid (Probenecid) 500 Mg Tablet, 500 MG PO BID for Gout, (Reported) Entered as Reported by: WILBER OLIVIER on 11/07/181213 Last Action: Continued on 11/07/181218 by NISHA NAJERA Quetiapine Fumarate (Seroquel) 25 Mg Tablet, 25 MG PO BID for mood , (Reported) Entered as Reported by: WILBER OLIVIER on 11/07/181213 Last Action: Continued on 11/07/181218 by NISHA NAJERA Sennosides/Docusate Sodium (Senna S Tablet) 1 Each Tablet, 2 TAB PO HS for constipation , (Reported) Entered as Reported by: WILBER OLIVIER on 11/07/181213 Last Action: Continued on 11/07/181218 by NISHA NAJERA Scheduled PRN Oxycodone/Apap 5-325 (Percocet 5-325 Mg Tablet ) 1 Each Tablet, 1 TAB PO PRN Q6HRS PRN for PAIN, #30 Ref 0 Prescribed by: NISHA NAJERA on 11/10/18 0847 Tizanidine Hcl (Tizanidine Hcl) 4 Mg Tablet, 2 MG PO PRN TID PRN for MUSCLE SPASMS, #60 (Reported) Entered as Reported by: WILBER OLIVIER on 11/07/181214 Last Action: Continued on 11/07/181218 by NISHA NAJERA Warfarin Sodium (Coumadin) 10 Mg Tablet, 1 EACH MC PRN DAILY PRN for SEE COMMENTS, #60 Prescribed by: NISHA NAJERA on 11/10/18 0848 Discontinued Medications Acetaminophen (Acetaminophen) 500 Mg Tablet, 500 MG PO PRN Q8HRS PRN for PAIN, (Reported) Entered as Reported by: FANNIE HARDING on 11/07/18 0036 Last Taken: Unknown Dose on Unknown Date & Time Last Action: Discontinued on 11/07/181213 by WILBER OLIVIER Aspirin (Aspirin) 81 Mg Tab.chew, 1 TAB PEG DAILY for See H&P, #30 Ref 3 (Reported) Entered as Reported by: UBALDO BOWEN RN on 09/27/18132 Last Action: Discontinued on 11/07/1835 by FANNIE HARDING Diclofenac Sodium (Voltaren) 100 Gm Gel..gram., 1 JOANA TD BID for pain to knees, back, Lshoulder, (Reported) Entered as Reported by: FANNIE HARDING on 11/07/1835 Last Action: Discontinued on 11/07/181213 by WILBER OLIVIER Famotidine (Famotidine) 20 Mg Tablet, 20 MG PO BID for See H&P, (Reported) Entered as Reported by: UBALDO BOWEN RN on 09/27/18132 Last Taken: Unknown Dose on 11/04/18 Last Action: Discontinued on 11/07/181213 by WILBER OLIVIER Insulin Lispro (Humalog) 100 Unit/1 Ml Vial, 50 UNIT SQ BID for hyperglycemia, (Reported) Entered as Reported by: FANNIE HARDING on 11/07/1835 Last Taken: Unknown Dose on 11/05/18 Last Action: Discontinued on 11/07/181213 by WILBER OLIVIER Mag Hydrox/Al Hydrox/Simeth (Mag-Al Plus Suspension) 30 Ml Oral.susp, 30 ML PO PRN Q4HRS PRN for NAUSEA, (Reported) Entered as Reported by: UBALDO BOWEN RN on 09/27/18202 Last Taken: Unknown Dose on Unknown Date & Time Last Action: Discontinued on 11/07/181213 by WILBER OLIVIER Oxycodone Hcl (Oxycodone Hcl) 5 Mg Capsule, 10 MG PO PRN Q3HRS PRN for PAIN, Ref 0 (Reported) Entered as Reported by: FANNIE HARDING on 11/07/1835 Last Taken: Unknown Dose on Unknown Date & Time Last Action: Discontinued on 11/07/181215 by NISHA BAH MD Nov 10, 2018 10:44
[2018-11-10 11:00] VITALS: BP 114/65
--- NOTE | 2018-11-10 12:07 | NUR ---
SW following pt. Insurance has approved SNU. Orders faxed to [facility] and SW arranged transport via [facility] at 1330. Pt's choice and rights forms consented by pt's , Zena via phone, on chart. Pt and pt's RN notified. Packet on chart.
[2018-11-10 12:09] VITALS: BP 114/65
[2018-11-10] MEDS: METOPROLOL TART IMMED RELEASE 25 MG TABLET. PO SCH (12:09)
[2018-11-10] MEDS: fentaNYL 12MCG/HR PATCH 1 PATCH PATCH.TD72 TD SCH (13:39)
--- NOTE | 2018-11-10 14:38 | NUR ---
Pt left unit today at approx 1430 by nabeel via EMS. Pt IV removed and is stable upon discharge. Information sent with pt.
[2018-11-10] MEDS ORDERED: WARFARIN 5 MG TABLET. PO ONE (16:00)
[2018-11-10] MEDS ORDERED: IRON POLYSACCHARIDE COMPLEX 150 MG CAPSULE PO SCH (21:00)
[2018-11-13] MEDS ORDERED: WARFARIN 5 MG TABLET. PEG SCH (16:00)
== END 2018-11-10 14:45 | DRG 558 ==
LOC: ER 14:12 → 5 NORTH 17:25 → 5 SOUTH 19:32
PROVIDERS: ADMIT Internal Medicine; ATTEND Internal Medicine
PROC: 3E0U33Z Introduction of Anti-inflammatory into Joints, Percutaneous Approach (ICD-10-PCS; principal; 2018-11-10)
PROC: 3E0U3BZ Introduction of Anesthetic Agent into Joints, Percutaneous Approach (ICD-10-PCS; 2018-11-10)
DX: M75.02 Adhesive capsulitis of left shoulder (principal); Z68.45 Body mass index [BMI] 70 or greater, adult; G72.81 Critical illness myopathy; J98.11 Atelectasis; M54.9 Dorsalgia, unspecified; C10.9 Malignant neoplasm of oropharynx, unspecified; E66.01 Morbid (severe) obesity due to excess calories; E78.5 Hyperlipidemia, unspecified; F32.9 Major depressive disorder, single episode, unspecified; G47.33 Obstructive sleep apnea (adult) (pediatric); G62.9 Polyneuropathy, unspecified; I11.0 Hypertensive heart disease with heart failure; I48.91 Unspecified atrial fibrillation; I50.9 Heart failure, unspecified; K21.9 Gastro-esophageal reflux disease without esophagitis; K59.00 Constipation, unspecified; K76.9 Liver disease, unspecified; M10.9 Gout, unspecified; M17.0 Bilateral primary osteoarthritis of knee; M75.92 Shoulder lesion, unspecified, left shoulder; M77.9 Enthesopathy, unspecified; Z79.01 Long term (current) use of anticoagulants; Z79.4 Long term (current) use of insulin; Z79.82 Long term (current) use of aspirin; Z79.899 Other long term (current) drug therapy; Z88.0 Allergy status to penicillin; Z88.1 Allergy status to other antibiotic agents; Z93.0 Tracheostomy status; Z88.8 Allergy status to other drugs, medicaments and biological substances
CPT/HCPCS: 36415; 71045; 71250; 80048; 80053; 81001; 82105; 82962; 83605; 83735; 83880; 84484; 85025; 85610; 87086; 93005; 94640; 94760; J1815; J2020; J2405; J7620; Q0163; 97110; 99285-25; G0378

== ENCOUNTER 2018-11-25 18:58 | Inpatient (IN) | payer MEDICARE ==
[~2018-11-25] VITALS: Ht 177.8 cm; Wt 269.9 kg
[~2018-11-25 18:58] MED LIST changes: +ACET500T68 PO; +ASPI-630 PO; +CHOL10003 PO; +DICL100G18 TD; +DULO60CA6 PO; +FAMO-63 PO; +FENT1PAT13 TD; +GABA600T7 PO; +INSU100V11 IJ; +INSU100V6 SQ; +LISI-334 PO; +METF500T16 PO; +NPH,100V5 SQ; +OXYC1TAB15 PO; +OXYC5CAP PO; +PROB500T23 PO; +QUET25TA5 PO; +SENN-82 PO; +WARF10TA45 MC
[2018-11-25 22:15] VITALS: BP 77/59
[2018-11-25 22:30] VITALS: BP 131/52
--- NOTE | 2018-11-25 22:38 | RAD ---
EXAM: CT HEAD WITHOUT CONTRAST. HISTORY: Status post arrest. TECHNIQUE: Computed tomography of the head was performed without intravenous contrast. COMPARISON: None. FINDINGS: There is no intracranial hemorrhage. Hypoattenuation within the periventricular white matter indicates mild chronic microangiopathic change. The ventricles are normal in size and position. The visualized paranasal sinuses appear clear. The orbits are unremarkable. The temporal bones are unremarkable. The calvarium reveals no suspicious lesions. Postoperative changes are noted within the upper neck. IMPRESSION: 1. No acute intracranial findings. MRI is more sensitive for acute ischemia if there is persistent concern. 2. Mild chronic microangiopathic white matter change. *One or more of the following individualized dose reduction techniques were utilized for this examination: 1. Automated exposure control. 2. Adjustment of the mA and/or kV according to patient size. 3. Use of iterative reconstruction technique. Electronically signed by: Kb Harris MD (11/25/2018 10:35 PM) [facility]
[2018-11-25 22:45] VITALS: BP 91/71
[2018-11-25 22:59] LABS: CALCIUM 8.7 mg/dL (8.5-10.1); CREATININE 7.4 mg/dL (0.7-1.3); GFR 7.6
[2018-11-25 23:00] VITALS: BP 101/74
[2018-11-25 23:02] LABS: POTASSIUM 7.1 mmol/L (3.5-5.1)
[2018-11-25] MEDS ORDERED: WARF-31 PO (23:03)
[2018-11-25] MEDS ORDERED: WARF10TA40 PO (23:03)
[2018-11-25] MEDS ORDERED: OXYC5CAP PO (23:03)
[2018-11-25 23:15] VITALS: BP 126/51
[2018-11-26] VITALS (23 sets, daily range): BP systolic 91–164; BP diastolic 40–72
[2018-11-26] MEDS ORDERED: INSULIN REGULAR 100 UNIT/ML 3ML VIAL. IV ONE ×2 (02:00→06:30)
[2018-11-26] MEDS ORDERED: DEXTROSE 50% 25 GM / 50ML DISP.SYRIN. IV ONE ×2 (02:00→06:30)
[2018-11-26] MEDS: IV NORMAL SALINE 1000ML BAG 1,000 ML IV SCH ×2 (02:48→14:39)
[2018-11-26] MEDS: NOREPINEPHRIN 8MG/250ML PREMIX 250 ML IV PRN ×4 (02:49→20:20)
[2018-11-26] MEDS ORDERED: FUROSEMIDE 40 MG/4 ML VIAL. IVP ONE (03:00)
[2018-11-26] MEDS ORDERED: SODIUM POLYSTYRENE SULFON/SORB 15 GM/60 ML ORAL.SUSP PO ONE (03:00)
[2018-11-26] MEDS ORDERED: metOLazone 2.5 MG TABLET PO ONE (03:00)
--- NOTE | 2018-11-26 04:36 | NUR ---
Pt. admitted from [place] [facility] ED. Met [facility] in ED at ~[address] prior to arrival in ICU, after CT completed pt. transferred to ICU bed and transported to ICU room 114. Stat BMP obtained on pt's arrival to unit. Family including at bedside shortly after admission, updated on pt. condition and current POC. Initial assessment shows pt. alert to person with general confusion, frequently restarting sentences from beginning multiple times when answering questions. In sinus rhythm with bundle branch block. Pt. had one large bowel movement on arrival. Initially placed on 15L trach shield, pt. with O2 sats in high 90's, titrated to 6L with pt. maintaining saturations, lungs clear but diminished due to body habitus. Pt. placed on bariatric bed @ ~0000 when available. Critical K+ - At ~[address] Hays on his cell phone per his previous request, no answer, left message. Phoned Dr. Hays again at ~2325, no answer, called answering service, page sent. ~2350 called answering service, attempted to patch through, no answer, page sent. At this time asked answering service if back up provider was available, answering service stated they would call back to unit in 10 minutes to check for return call. Return call received from answering service, stated they would reach out to back up provider. Return call received from Dr. Enrique (?), orders received. Unfortunately Dr. Enrique does not have privileges at our facility. Dr. Luo paged through [employer] (automaticall repages every 15 minutes) at 0030, answering service phoned unit and connected to Dr. Luo at 0140, orders received. Dr. Hays phoned at 0215, updated on pt. condition, orders received.
--- NOTE | 2018-11-26 05:15 | EKG ---
[facility] [address] [place] [address] Test Date: 2018-11-26 Test Time: 05:17:29 Pat Name: CANDE NELSON Department: Room: 114 1 Gender: M Fire Controlman: : 1960 Requested By: SHRUTHI WAN Order Number: [id number] Reading MD: Keith Taylor MD Measurements Intervals Hayden Rate: 126 P: [place]: QRS: -24 QRSD: 58 T: 25 QT: 296 QTc: 435 Interpretive Statements CONSIDER VT VERSUS SUPRAVENTRICULAR TACHYCARDIA WITH ABERRANCY Electronically Signed On 12-05-2018 10:29:04 CDT by Keith Taylor MD
[2018-11-26 05:45] LABS: CALCIUM 8.2 mg/dL (8.5-10.1); CREATININE 7.6 mg/dL (0.7-1.3); GFR 7.4
[2018-11-26 05:48] LABS: POTASSIUM 7.4 mmol/L (3.5-5.1)
[2018-11-26] MEDS ORDERED: SODIUM BICARB ADULT 8.4% 50 MEQ/50 ML DISP.SYRIN. IV ONE (06:30)
[2018-11-26] MEDS ORDERED: CALCIUM GLUCONATE 1,000 MG/10 ML VIAL. IVP ONE (06:30)
[2018-11-26] MEDS ORDERED: LIDOCAINE WITH 8.4% SOD BICARB 3 ML DISP.SYRIN. INJ ONE (07:30)
--- NOTE | 2018-11-26 08:21 | NUR ---
IR IN PT ROOM AT THIS TIME TO START TRIALYSIS CATH.
[2018-11-26] MEDS ORDERED: IV NORMAL SALINE 1000ML BAG 1,000 ML IV PRN ×2 (08:29)
[2018-11-26] MEDS ORDERED: ACETAMINOPHEN 500 MG TABLET PO PRN (08:30)
[2018-11-26] MEDS ORDERED: diphenhydrAMINE 50 MG/ML VIAL IV PRN ×2 (08:30)
[2018-11-26] MEDS ORDERED: DIALYSIS PATIENT. MC PRN (08:30)
[2018-11-26] MEDS ORDERED: ALBUMIN HUMAN 25% 200 ML IV PRN (08:30)
--- NOTE | 2018-11-26 08:49 | PDOC ---
Exam Instructor Tap Dancing Instructor Tap Dancing chely Crop Picker Crop Picker n/a Pre-Procedure Diagnosis Pre-Procedure Diagnosis renal failure Post-Procedure Diagnosis Post-Procedure Diagnosis same Procedure Performed Procedure Performed hd catheter placement Type of Anesthesia Type of Anesthesia local Estimated Blood Loss EBL: trace Specimens Specimans n/a Drain/Tubes Drains/Tubes 14 fr x 20 cm HD catehter Condition of Patient Condition of Patient no change Disposition Disposition same HIEN CHACON MD Nov 26, 2018 08:49
--- NOTE | 2018-11-26 09:11 | RAD ---
EXAM: Chest, single view. HISTORY: Dialysis catheter placement. COMPARISON: CT dated 11/08/2018. FINDINGS: A frontal view of the chest is obtained. There is a tracheostomy device in expected position. There is a right internal jugular dialysis catheter with the tip likely overlying the superior cavoatrial junction. Evaluation is limited due to oblique patient positioning. There is no convincing pneumothorax. There is diffuse central predominant infiltrate likely due to pulmonary congestion. There is a suspected small right pleural effusion. There is cardiomegaly. IMPRESSION: 1. Limited evaluation due to oblique patient positioning. There is a right internal jugular catheter likely terminating at the superior cavoatrial junction. No pneumothorax is seen. 2. Pulmonary congestion with suspected small right pleural effusion. 3. Cardiomegaly. Electronically signed by: Sandra Huynh MD (11/26/2018 9:08 AM) [facility]
--- NOTE | 2018-11-26 09:35 | NUR ---
PT RECEIVING BEDSIDE DIALYSIS AT THIS TIME.
[2018-11-26 11:07] LABS: CREATININE 5.8 mg/dL (0.7-1.3); GFR 10.1
[2018-11-26 11:17] LABS: ALBUMIN 3.1 g/dL (3.4-5.0); ALBUMIN/GLOBULIN RATIO 0.8 (1.0-1.7); TOTAL BILIRUBIN 0.6 mg/dL (0.2-1.0); TOTAL PROTEIN 7.2 g/dL (6.4-8.2)
[2018-11-26 11:30] LABS: POTASSIUM 5.6 mmol/L (3.5-5.1)
--- NOTE | 2018-11-26 12:17 | HP ---
ADMIT DATE: 11/25/2018 CHIEF COMPLAINT: Cardiac arrest. HISTORY OF PRESENT ILLNESS: The patient is a pleasant, morbidly obese male who is well known to my service. I was taking care of him at the [facility] for the past month or two. We did get him transferred to a rehab facility. Apparently he left AMA from there. Last night, he reported to [facility]. Apparently, he developed cardiac arrest. He was briefly coded there. Then there ER doctor called me, we transferred him here to our ICU where he is currently being examined in room 114. It should be noted he had hyperkalemia last night of 7.4. PAST MEDICAL HISTORY: Severe morbid obesity. I think he is greater than 500 pounds, hyperlipidemia, hypertension, right leg wound, respiratory failure. He has a chronic trach, depression, anxiety, GERD, constipation, gout. ALLERGIES: PENICILLIN, ALLOPURINOL AND AZITHROMYCIN. FAMILY HISTORY: Coronary artery disease. SOCIAL HISTORY: He does not drink, smoke or take drugs. MEDICATIONS: Reviewed, please refer to the MRAD. REVIEW OF SYSTEMS: Unable to obtain. The patient is sedated. PHYSICAL EXAMINATION: VITALS: Within normal limits and are stable. GENERAL: He is morbidly obese. No apparent distress. Alert and oriented. HEENT: He has chronic trach. NECK: Supple, no JVD, no thyromegaly was noted. LUNGS: Clear to auscultation in all lung eisenberg without rhonchi or wheezing. HEART: RRR, S1, S2 present. Peripheral pulses intact, no obvious murmurs were noted. ABDOMEN: Soft, nontender. Positive bowel sounds no organomegaly, normal bowel sounds. EXTREMITIES: Has a right foot wound. NEUROLOGIC: Normal speech, normal tone. A & O x3, moves all extremities, no obvious focal deficits. PSYCHIATRIC: Normal affect, normal mood. Stable. SKIN: No ulcerations or rashes, good skin turgor, no jaundice. VASCULAR: Good capillary refill, neurovascular bundle appears to be intact. LABORATORY DATA: Potassium was 7.1. We have it down to 5.6 now. Hepatitis B surface antigen was negative. ASSESSMENT AND PLAN: Cardiac arrest, possibly secondary to hyperkalemia. The patient has been admitted in the ICU. We are trending his potassium. Consult Cardiology, consult Nephrology. Home meds, DVT prophylaxis. Full code. PROGNOSIS: Guarded. SHRUTHI WAN DO DR: Radha JOB#: [id number] / [id number]
--- NOTE | 2018-11-26 13:22 | NUR ---
CONSULT CALLED TO DR. JEFFERY
[2018-11-26 14:04] LABS: BASE EXCESS ABG -8 mmol/L (-3-3); HCO3 ABG 22 mmol/L (21-28); PO2 ABG 80 mmHg (75-108); SAT O2 ABG 93 % (92-99)
[2018-11-26 14:06] LABS: FIO2 ABG 40; PCO2 ABG 65 mmHg (35-46)
--- NOTE | 2018-11-26 15:30 | CONS ---
DATE OF CONSULTATION: REQUESTING PHYSICIAN: Hospitalist. REASON FOR CONSULTATION: Renal failure. HISTORY OF PRESENT ILLNESS: A 57-year-old gentleman who presents to [facility] Emergency Department, status post VFib, cardiopulmonary arrest. This was followed by pulseless electrical activity. He had 4 rounds of CPR. He returned to spontaneous circulation. The patient has chronic trach. He is now at [facility] with acute renal failure and in this setting, has hyperkalemia and needs urgent dialysis. PAST MEDICAL HISTORY: Morbid obesity, chronic tracheostomy. ALLERGIES: PENICILLIN, ALLOPURINOL, AZITHROMYCIN. MEDICATIONS: Reviewed per medication list. FAMILY HISTORY: Noncontributory. SOCIAL HISTORY: and resides with . REVIEW OF SYSTEMS: Unobtainable from the patient. PHYSICAL EXAMINATION: GENERAL APPEARANCE: The patient is morbidly obese. HEENT: Full facies. NECK: Tracheostomy in place. LUNGS: Clear. CARDIAC: Without S3 or rub. ABDOMEN: Morbidly obese with large pannus. EXTREMITIES: Diffuse changes of obesity. NEUROLOGIC: Sedated. PSYCHIATRIC: Sedated. LABORATORY DATA: Sodium 135, potassium 7.4, chloride 98, CO2 of 22, BUN 105, creatinine 7.6, glucose 298, hepatitis B surface antigen nonreactive. IMPRESSION: Renal failure, acute -- following cardiopulmonary arrest. Likely had progressive decline in renal function prior to his cardiac arrest. RECOMMENDATIONS: 1. Proceed with dialysis for management of hyperkalemia and metabolic acidosis. 2. We will follow. SEAN ARELLANO MD DR: SHINE/brie JOB#: [id number] / [id number]
[2018-11-26] MEDS: IPRATRPIUM/ALBUTEROL 0.5/2.5MG 3 ML NEBU. NEB SCH ×2 (16:30→21:00)
--- NOTE | 2018-11-26 18:09 | NUR ---
PT RECEIVED A TRIALYSIS CATH AND DIALYSIS TODAY. PT NOW ON BIPAP AT 35% FI02 VIA TRACH. CONTINUE WITH Q 2 HOUR TURNS. PT REMAINS ON LEVOPHED IV. WILL CONTINUE TO ASSESS.
[2018-11-26 18:38] LABS: BASE EXCESS ABG -6 mmol/L (-3-3); HCO3 ABG 23 mmol/L (21-28); PO2 ABG 68 mmHg (75-108); SAT O2 ABG 90 % (92-99)
[2018-11-26 18:40] LABS: PCO2 ABG 65 mmHg (35-46)
--- NOTE | 2018-11-26 19:40 | NUR ---
Dr. Ford paged at 193. Dr. Ford paged back 193. RT Gabriel took phone and updated laundry housekeeper on respiratory status of pt, and also intervention of changing from 8 Shiley proximal XLT non- cuffed trach to 7 Shiley XLT proximal cuffed. Gabriel also updated provider on bipap settings of 18/6 rate of 20 and 35% FIO2. Provider advised if no blood gas improvement is observed after tonight ABG draw, place pt on Ventilator. Will continue to assess and monitor pt.
[2018-11-26] MEDS: BUDESONIDE 0.5 MG/2 ML NEBU. NEB SCH (21:00)
[2018-11-26 21:56] LABS: BASE EXCESS ABG -8 mmol/L (-3-3); HCO3 ABG 19 mmol/L (21-28); PCO2 ABG 43 mmHg (35-46); PO2 ABG 87 mmHg (75-108); SAT O2 ABG 96 % (92-99)
[2018-11-26 22:00] LABS: FIO2 ABG 35
[2018-11-27] VITALS (26 sets, daily range): BP systolic 117–160; BP diastolic 54–94
[2018-11-27] MEDS: IV NORMAL SALINE 1000ML BAG 1,000 ML IV SCH ×3 (00:27→21:53)
[2018-11-27] MEDS: NOREPINEPHRIN 8MG/250ML PREMIX 250 ML IV PRN ×2 (01:52→07:37)
--- NOTE | 2018-11-27 02:05 | NUR ---
Provider paged at [phone]. Provider answering service paged back at [phone]. Connected to provider. Provider updated on pt condition. Provider ordered Ativan 2mg IVP Q4H PRN for anxiety episodes.
[2018-11-27 06:57] LABS: ALBUMIN 2.7 g/dL (3.4-5.0); ALBUMIN/GLOBULIN RATIO 0.8 (1.0-1.7); CALCIUM 8.5 mg/dL (8.5-10.1); CREATININE 5.5 mg/dL (0.7-1.3); GFR 10.7; POTASSIUM 5.4 mmol/L (3.5-5.1); TOTAL BILIRUBIN 0.5 mg/dL (0.2-1.0); TOTAL PROTEIN 6.3 g/dL (6.4-8.2)
[2018-11-27 07:26] LABS: BASO % 0 % (0-3); EOS % 0 % (0-3); HEMATOCRIT 31.1 % (39.0-53.0); HEMOGLOBIN 10.1 g/dL (13.0-17.5); LYMPH # 0.4 x10^3/uL (1.0-4.8); LYMPH % 6 % (24-48); MEAN CORPUSCULAR HEMOGLOBIN 27 pg (25-35); MEAN CORPUSCULAR HGB CONC 32 g/dL (31-37); MEAN CORPUSCULAR VOLUME 84 fL (79-100); MONO # 0.6 x10^3/uL (0.0-1.1); MONO % 9 % (0-9); NEUT % 85 % (31-73); PLATELET COUNT 202 x10^3/uL (140-400); RED BLOOD COUNT 3.73 x10^6/uL (4.30-5.70); RED CELL DISTRIBUTION WIDTH 16.8 % (11.5-14.5)
[2018-11-27] MEDS ORDERED: DIALYSIS PATIENT. MC PRN ×2 (07:45)
[2018-11-27] MEDS ORDERED: IV NORMAL SALINE 1000ML BAG 1,000 ML IV PRN ×2 (07:45)
[2018-11-27] MEDS ORDERED: LIDOCAINE 1% PF 30 ML VIAL. INJ ONE (08:30)
[2018-11-27] MEDS: IPRATRPIUM/ALBUTEROL 0.5/2.5MG 3 ML NEBU. NEB SCH ×4 (08:50→19:40)
[2018-11-27] MEDS: BUDESONIDE 0.5 MG/2 ML NEBU. NEB SCH ×2 (08:51→19:40)
[2018-11-27 09:33] LABS: % BANDS 2 % (0-9); % LYMPHS 8 % (24-48); % MONOS 10 % (0-10); % SEGS 80 % (35-66); PLT ESTIMATE ADEQUATE (ADEQUATE)
[2018-11-27 09:33] LABS: BASE EXCESS ABG -5 mmol/L (-3-3); HCO3 ABG 21 mmol/L (21-28); PCO2 ABG 39 mmHg (35-46); PO2 ABG 88 mmHg (75-108); SAT O2 ABG 96 % (92-99)
[2018-11-27 09:34] LABS: FIO2 ABG 30
--- NOTE | 2018-11-27 09:48 | PDOC ---
SUBJECTIVE ROS Has a Trach, On MV , Just came off [facility] OBJECTIVE Vital Signs Vital Signs Date Time Temp Pulse Resp B/P (MAP) Pulse Ox O2 Delivery O2 Flow Rate FiO2 11/27/18 08:51 97 BiPAP/CPAP 11/27/18 06:00 97 22 126/58 (80) 11/27/18 04:00 98.9 98.9 11/26/18 15:00 6.0 I & 0 Intake and Output 11/27/18 07:00 Intake Total 583 ml Output Total 1695 ml Balance -1112 ml Intake IV Total 583 ml Output Urine Total 1695 ml PHYSICAL EXAM Physical Exam GENERAL: morbidly obese. No apparent distress HEENT: chronic trach. NECK: Supple LUNGS: Clear to auscultation, decreased at bases HEART: RRR, S1, S2 present. ABDOMEN: Soft, Obese EXTREMITIES: right foot wound. NEUROLOGIC: Grossly normal SKIN: No rashes Dukes + DIAGNOSIS/ASSESSMENT Assessment & Plan GUSTAVO - ATN Required emergent HD on 11/26 for Hyperkalemia Has Good UOP Seen on HD , Tolerating well, Continue as ordered , Sharif Chahal Hyperkalemia- Mild HD as ordered VTach/Sp CP arrest - left AMA last from Rehab facility Resp Failure- Per Chart notes chronic Trach Anemia- Hgb stable Hypotension- off Pressors Discussed with family at bedside COMMENT/RELEVANT DATA Meds Current Medications Medications (Trade) Dose Ordered Sig/Cathy Start Time Stop Time Status Last Admin Dose Admin Acetaminophen (Tylenol) 500 mg 1X PRN PRN 11/26/18 08:30 11/27/18 08:29 DC Albumin Human 200 ml @ 200 mls/hr 1X PRN PRN 11/26/18 08:30 11/26/18 14:29 DC Albuterol/ Ipratropium (Duoneb) 3 ml RTQID 11/26/18 16:00 11/27/18 08:50 3 ML Budesonide (Pulmicort) 0.5 mg RTBID 11/26/18 20:00 11/27/18 08:51 0.5 MG Calcium Gluconate (Calcium Gluconate) 1,000 mg 1X ONCE 11/26/18 06:30 11/26/18 06:31 DC 11/26/18 06:28 1,000 MG Dextrose (Dextrose 50%-Water Syringe) 25 gm 1X ONCE 11/26/18 06:30 11/26/18 06:31 DC 11/26/18 06:28 25 GM Diphenhydramine HCl (Benadryl) 25 mg 1X PRN PRN 11/26/18 08:30 11/27/18 08:29 DC Furosemide (Lasix) 40 mg 1X ONCE 11/26/18 03:00 11/26/18 03:01 DC 11/26/18 02:48 40 MG Info (PHARMACY MONITORING -- do not chart) 1 each PRN DAILY PRN 11/27/18 07:45 Insulin Human Regular (HumuLIN R VIAL) 5 unit 1X ONCE 11/26/18 06:30 11/26/18 06:31 DC 11/26/18 06:24 5 UNIT Lidocaine HCl (Xylocaine 1% Pf 30ml Vial) 30 ml 1X ONCE 11/27/18 08:30 11/27/18 08:31 DC Lidocaine/Sodium Bicarbonate (Buffered Lidocaine 1%) 6 ml 1X ONCE 11/26/18 07:30 11/26/18 07:31 DC 11/26/18 08:51 6 ML Lorazepam (Ativan Inj) 2 mg PRN Q4HRS PRN 11/27/18 02:00 11/27/18 02:47 2 MG Metolazone (Zaroxolyn) 10 mg 1X ONCE 11/26/18 03:00 11/26/18 03:01 DC 11/26/18 02:47 10 MG Norepinephrine Bitartrate 250 ml @ 48.75 mls/ hr CONT PRN 11/26/18 00:15 11/27/18 07:37 42.9 MLS/HR Sodium Polystyrene Sulfonate (Kayexalate) 30 gm 1X ONCE 11/26/18 03:00 11/26/18 03:01 DC 11/26/18 02:47 30 GM Sodium Bicarbonate (Sodium Bicarb Adult 8.4% Syr) 100 meq 1X ONCE 11/26/18 06:30 11/26/18 06:31 DC 11/26/18 06:28 100 MEQ Sodium Chloride 1,000 ml @ 400 mls/hr Q2H30M PRN 11/27/18 07:45 11/27/18 19:44 Lab Laboratory Tests Test 11/26/18 10:36 11/26/18 13:50 11/26/18 15:56 11/26/18 18:35 Sodium Level 137 mmol/L (136-145) Potassium Level 5.6 mmol/L (3.5-5.1) Chloride Level 98 mmol/L (98-107) Carbon Dioxide Level 26 mmol/L (21-32) Anion Gap 13 (6-14) Blood Urea Nitrogen 79 mg/dL (8-26) Creatinine 5.8 mg/dL (0.7-1.3) Estimated GFR (Cockcroft-Gault) 10.1 BUN/Creatinine Ratio 14 (6-20) Glucose Level 275 mg/dL (70-99) Calcium Level 8.0 mg/dL (8.5-10.1) Total Bilirubin 0.6 mg/dL (0.2-1.0) Aspartate Amino Transf (AST/SGOT) 2562 U/L (15-37) Alanine Aminotransferase (ALT/SGPT) 1757 U/L (16-63) Alkaline Phosphatase 139 U/L (46-116) Total Protein 7.2 g/dL (6.4-8.2) Albumin 3.1 g/dL (3.4-5.0) Albumin/Globulin Ratio 0.8 (1.0-1.7) Hepatitis B Surface Antibody, Quant <3.1 mIU/mL (Immunity>9.9) O2 Saturation 93 % (92-99) 90 % (92-99) Arterial Blood pH 7.15 (7.35-7.45) 7.17 (7.35-7.45) Arterial Blood pCO2 at Patient Temp 65 mmHg (35-46) 65 mmHg (35-46) Arterial Blood pO2 at Patient Temp 80 mmHg (75-108) 68 mmHg (75-108) Arterial Blood HCO3 22 mmol/L (21-28) 23 mmol/L (21-28) Arterial Blood Base Excess -8 mmol/L (-3-3) -6 mmol/L (-3-3) FiO2 40 Glucose (Fingerstick) 225 mg/dL (70-99) Test 11/26/18 22:00 11/27/18 06:25 O2 Saturation 96 % (92-99) Arterial Blood pH 7.26 (7.35-7.45) Arterial Blood pCO2 at Patient Temp 43 mmHg (35-46) Arterial Blood pO2 at Patient Temp 87 mmHg (75-108) Arterial Blood HCO3 19 mmol/L (21-28) Arterial Blood Base Excess -8 mmol/L (-3-3) FiO2 35 White Blood Count 7.0 x10^3/uL (4.0-11.0) Red Blood Count 3.73 x10^6/uL (4.30-5.70) Hemoglobin 10.1 g/dL (13.0-17.5) Hematocrit 31.1 % (39.0-53.0) Mean Corpuscular Volume 84 fL (79-100) Mean Corpuscular Hemoglobin 27 pg (25-35) Mean Corpuscular Hemoglobin Concent 32 g/dL (31-37) Red Cell Distribution Width 16.8 % (11.5-14.5) Platelet Count 202 x10^3/uL (140-400) Neutrophils (%) (Auto) 85 % (31-73) Lymphocytes (%) (Auto) 6 % (24-48) Monocytes (%) (Auto) 9 % (0-9) Eosinophils (%) (Auto) 0 % (0-3) Basophils (%) (Auto) 0 % (0-3) Neutrophils # (Auto) 6.0 x10^3/uL (1.8-7.7) Lymphocytes # (Auto) 0.4 x10^3/uL (1.0-4.8) Monocytes # (Auto) 0.6 x10^3/uL (0.0-1.1) Eosinophils # (Auto) 0.0 x10^3/uL (0.0-0.7) Basophils # (Auto) 0.0 x10^3/uL (0.0-0.2) Sodium Level 139 mmol/L (136-145) Potassium Level 5.4 mmol/L (3.5-5.1) Chloride Level 100 mmol/L (98-107) Carbon Dioxide Level 22 mmol/L (21-32) Anion Gap 17 (6-14) Blood Urea Nitrogen 74 mg/dL (8-26) Creatinine 5.5 mg/dL (0.7-1.3) Estimated GFR (Cockcroft-Gault) 10.7 BUN/Creatinine Ratio 13 (6-20) Glucose Level 289 mg/dL (70-99) Calcium Level 8.5 mg/dL (8.5-10.1) Total Bilirubin 0.5 mg/dL (0.2-1.0) Aspartate Amino Transf (AST/SGOT) 828 U/L (15-37) Alanine Aminotransferase (ALT/SGPT) 1237 U/L (16-63) Alkaline Phosphatase 112 U/L (46-116) Total Protein 6.3 g/dL (6.4-8.2) Albumin 2.7 g/dL (3.4-5.0) Albumin/Globulin Ratio 0.8 (1.0-1.7) Results All relevant outside records, renal labs, imaging studies, telemetry/EKG's were reviewed. SARMAD STOCKTON MD Nov 27, 2018 09:48
--- NOTE | 2018-11-27 11:00 | NUR ---
IP: Pt has a recent hx of mrsa in sputum. Pt has a chronic trach. Pt to be in contact precautions. Nozin/CHG has been initiated.
--- NOTE | 2018-11-27 11:29 | CONS ---
DATE OF CONSULTATION: PULMONARY CONSULTATION ATTENDING PHYSICIAN: Dr. Luo. REASON FOR CONSULTATION: Respiratory failure. HISTORY OF PRESENT ILLNESS: The patient is a 57-year-old morbidly obese male with a BMI of 81. The patient has a history of pharyngeal cancer and has chronic tracheostomy. The states that he is pretty much bedbound. He has sleep apnea and was using CPAP in the past, but since he had the trach, he no longer uses it. He was brought into the hospital after his noticed him to be less responsive. She thought that there were some mucus secretions, which she suctioned and did not improve his condition. She called 911. The patient's states that when the EMS arrived, they did a brief CPR. The patient was noted to be in V-tach. He did spontaneously convert. He was noted to have hyperkalemia with potassium of 7.4. He is undergoing dialysis. I have reviewed the patient's chest x-ray, was markedly rotated. There may be mild vascular congestion. His arterial blood gases revealed a pH of 7.15, pCO2 of 65, pO2 80 and a bicarbonate of 22. Latest ABGs with a pH of 7.34, pCO2 of 39, a pO2 of 88. On 30% FiO2. The states there was no chest pain. No headaches, no nausea, vomiting, no diarrhea. PAST MEDICAL HISTORY: Severe morbid obesity with a BMI of 81. History of SUNITHA, OHS. History of hyperlipidemia, hypertension, right leg wounds, respiratory failure, has pharyngeal cancer, has chronic trach for that. PAST SURGICAL HISTORY: Tracheostomy. ALLERGIES: PENICILLIN, ALLOPURINOL AND ZITHROMAX. MEDICATIONS: Reviewed as listed in the MRAD including bronchodilators. REVIEW OF SYSTEMS: Limited and unable to obtain from the patient. SOCIAL HISTORY: Minimal history of tobacco use in the past. PHYSICAL EXAMINATION: VITAL SIGNS: Reviewed. His T-max of 99.5. Blood pressure is 136/65, pulse ox 98%. HEENT: Sclerae nonicteric. NECK: Supple. Trach in place. LUNGS: With diminished breath sounds. CARDIOVASCULAR: With S1. ABDOMEN: Markedly obese. EXTREMITIES: With bilateral pitting edema. LABORATORY DATA: Reviewed. BUN 74, creatinine 5.5. His potassium was 7.1, now is 5.4. White cell count 7.0, hemoglobin 10.1 and platelets are 202. IMPRESSION: 1. [id number] hypercapnic respiratory failure, status post ventricular tachycardia with arrest. 2. Status post cardiac arrest related to combination of V-tach and hypoxia. 3. The patient with chronic trach and developed acute on chronic hypercapnia, it could be related to transient mucous plug. He does have a low-grade fever and lower respiratory tract infection cannot be ruled out. 4. Underlying severe morbid obesity with a BMI of 81 and underlying chronic hypercapnia. 5. End-stage renal disease, on hemodialysis and has combined metabolic and respiratory acidosis. 6. Moderate protein-calorie malnutrition. 7. Abnormal liver function tests related to hypoperfusion. 8. Hyperkalemia, being corrected with hemodialysis. RECOMMENDATIONS: 1. Continue present BiPAP with a trach. 2. Follow ABGs and make necessary adjustments. 3. Increase bicarb bath with hemodialysis. 4. Add empiric antibiotic. 5. Obtain trach secretion for C and S. 6. Follow LFTs. 7. Close eye on potassium. 8. Improve nutritional status. 9. Discussed with RN, discussed with RT and we will follow along with you. Discussed with . Critical care time 39 minutes. TRES GOMEZ MD DR: AMIRA/brie JOB#: [id number] / [id number] DARYL
--- NOTE | 2018-11-27 11:57 | NUR ---
SS following for discharge planning. SS reviewed pt chart. Pt is from home with spouse and is currently on BIPAP. SS will continue to follow for discharge planning.
[2018-11-27] MEDS: INSULIN LISPRO 300 UNITS/3 ML VIAL. SQ SCH ×2 (12:02→17:27)
--- NOTE | 2018-11-27 12:02 | PDOC ---
[employer] PROGRESS NOTE Chief Complaint Chief Complaint Renal failure History of Present Illness History of Present Illness 11/27/18 Pt seen and examined at bedside On BiPAP via trach Currently on dialysis pH = 7.34, Glucose = 289 HD catheter placed by IR on 11/26 DW RN Vitals/I&O Vitals/I&O: Vital Signs Date Time Temp Pulse Resp B/P (MAP) Pulse Ox O2 Delivery O2 Flow Rate FiO2 11/27/18 09:45 104 21 136/65 (88) 98 11/27/18 08:51 BiPAP/CPAP 11/27/18 08:00 99.5 99.5 11/26/18 15:00 6.0 I & O 11/26/18 11/26/18 11/27/18 15:00 23:00 07:00 Intake Total 583 ml Output Total 350 ml 715 ml 630 ml Balance -350 ml -715 ml -47 ml Physical Exam General: No acute distress Lungs: Crackles Extremities: No clubbing, No cyanosis Skin: No rashes, No breakdown, No significant lesion Labs Labs: Laboratory Tests Test 11/26/18 13:50 11/26/18 15:56 11/26/18 18:35 11/26/18 22:00 O2 Saturation 93 % (92-99) 90 % (92-99) 96 % (92-99) Arterial Blood pH 7.15 (7.35-7.45) 7.17 (7.35-7.45) 7.26 (7.35-7.45) Arterial Blood pCO2 at Patient Temp 65 mmHg (35-46) 65 mmHg (35-46) 43 mmHg (35-46) Arterial Blood pO2 at Patient Temp 80 mmHg (75-108) 68 mmHg (75-108) 87 mmHg (75-108) Arterial Blood HCO3 22 mmol/L (21-28) 23 mmol/L (21-28) 19 mmol/L (21-28) Arterial Blood Base Excess -8 mmol/L (-3-3) -6 mmol/L (-3-3) -8 mmol/L (-3-3) FiO2 40 35 Glucose (Fingerstick) 225 mg/dL (70-99) Test 11/27/18 06:25 11/27/18 08:50 White Blood Count 7.0 x10^3/uL (4.0-11.0) Red Blood Count 3.73 x10^6/uL (4.30-5.70) Hemoglobin 10.1 g/dL (13.0-17.5) Hematocrit 31.1 % (39.0-53.0) Mean Corpuscular Volume 84 fL (79-100) Mean Corpuscular Hemoglobin 27 pg (25-35) Mean Corpuscular Hemoglobin Concent 32 g/dL (31-37) Red Cell Distribution Width 16.8 % (11.5-14.5) Platelet Count 202 x10^3/uL (140-400) Neutrophils (%) (Auto) 85 % (31-73) Lymphocytes (%) (Auto) 6 % (24-48) Monocytes (%) (Auto) 9 % (0-9) Eosinophils (%) (Auto) 0 % (0-3) Basophils (%) (Auto) 0 % (0-3) Neutrophils # (Auto) 6.0 x10^3/uL (1.8-7.7) Lymphocytes # (Auto) 0.4 x10^3/uL (1.0-4.8) Monocytes # (Auto) 0.6 x10^3/uL (0.0-1.1) Eosinophils # (Auto) 0.0 x10^3/uL (0.0-0.7) Basophils # (Auto) 0.0 x10^3/uL (0.0-0.2) Segmented Neutrophils % 80 % (35-66) Band Neutrophils % 2 % (0-9) Lymphocytes % 8 % (24-48) Monocytes % 10 % (0-10) Platelet Estimate Adequate (ADEQUATE) Sodium Level 139 mmol/L (136-145) Potassium Level 5.4 mmol/L (3.5-5.1) Chloride Level 100 mmol/L (98-107) Carbon Dioxide Level 22 mmol/L (21-32) Anion Gap 17 (6-14) Blood Urea Nitrogen 74 mg/dL (8-26) Creatinine 5.5 mg/dL (0.7-1.3) Estimated GFR (Cockcroft-Gault) 10.7 BUN/Creatinine Ratio 13 (6-20) Glucose Level 289 mg/dL (70-99) Calcium Level 8.5 mg/dL (8.5-10.1) Total Bilirubin 0.5 mg/dL (0.2-1.0) Aspartate Amino Transf (AST/SGOT) 828 U/L (15-37) Alanine Aminotransferase (ALT/SGPT) 1237 U/L (16-63) Alkaline Phosphatase 112 U/L (46-116) Total Protein 6.3 g/dL (6.4-8.2) Albumin 2.7 g/dL (3.4-5.0) Albumin/Globulin Ratio 0.8 (1.0-1.7) O2 Saturation 96 % (92-99) Arterial Blood pH 7.34 (7.35-7.45) Arterial Blood pCO2 at Patient Temp 39 mmHg (35-46) Arterial Blood pO2 at Patient Temp 88 mmHg (75-108) Arterial Blood HCO3 21 mmol/L (21-28) Arterial Blood Base Excess -5 mmol/L (-3-3) FiO2 30 Review of Systems Review of Systems: No nausea, no vomiting No chest pain, no palpitations Assessment and Plan Assessmemt and Plan Assessment Renal failure Hyperglycemia Hyperkalemia Plan ICU monitoring Continue HD Labs PT/OT DVT prophylaxis Dukes to BSD Trend labs Sliding scale insulin Humalog 10 units Full code Total time 33 min Comment Review of Relevant I have reviewed the following items bar (where applicable) has been applied. Medications: Current Medications Medications (Trade) Dose Ordered Sig/Cathy Route PRN Reason Start Time Stop Time Status Last Admin Dose Admin Albuterol/ Ipratropium (Duoneb) 3 ml RTQID NEB 11/26/18 16:00 11/27/18 08:50 Budesonide (Pulmicort) 0.5 mg RTBID NEB 11/26/18 20:00 11/27/18 08:51 Lorazepam (Ativan Inj) 2 mg PRN Q4HRS PRN IV ANXIETY / AGITATION 11/27/18 02:00 11/27/18 02:47 SHRUTHI WAN III DO Nov 27, 2018 12:02
[2018-11-27] MEDS: DOXYCYCLINE HYCLATE 100 MG in IV DEXTROSE 5% 100ML 100 ML IV SCH (14:28)
[2018-11-27] MEDS: HEPARIN for SUB-Q USE 5,000 UNIT/ML VIAL. SQ SCH ×2 (14:34→22:10)
[2018-11-27] MEDS ORDERED: IV NORMAL SALINE 500ML BAG 500 ML IV PRN (17:00)
[2018-11-27] MEDS ORDERED: ATROPINE 0.5 MG/5 ML DISP.SYRINGE. IV PRN (17:00)
[2018-11-27] MEDS: DEXMEDETOMIDINE 400 MCG in IV NORMAL SALINE 100ML 96 ML IV PRN ×3 (17:06→22:08)
[2018-11-28] VITALS (14 sets, daily range): BP systolic 114–189; BP diastolic 54–93
[2018-11-28] MEDS: DOXYCYCLINE HYCLATE 100 MG in IV DEXTROSE 5% 100ML 100 ML IV SCH ×2 (02:03→14:52)
[2018-11-28] MEDS: DEXMEDETOMIDINE 400 MCG in IV NORMAL SALINE 100ML 96 ML IV PRN ×2 (03:29→04:58)
[2018-11-28] MEDS: IV NORMAL SALINE 1000ML BAG 1,000 ML IV SCH ×2 (05:00→21:15)
[2018-11-28] MEDS: HEPARIN for SUB-Q USE 5,000 UNIT/ML VIAL. SQ SCH ×3 (06:11→21:19)
[2018-11-28 06:39] LABS: ALBUMIN 2.4 g/dL (3.4-5.0); ALBUMIN/GLOBULIN RATIO 0.8 (1.0-1.7); CALCIUM 8.9 mg/dL (8.5-10.1); CREATININE 3.8 mg/dL (0.7-1.3); GFR 16.4; POTASSIUM 4.5 mmol/L (3.5-5.1); TOTAL BILIRUBIN 0.5 mg/dL (0.2-1.0); TOTAL PROTEIN 5.6 g/dL (6.4-8.2)
[2018-11-28 06:47] LABS: BASO % 0 % (0-3); EOS % 0 % (0-3); HEMATOCRIT 26.6 % (39.0-53.0); HEMOGLOBIN 8.8 g/dL (13.0-17.5); LYMPH # 0.6 x10^3/uL (1.0-4.8); LYMPH % 16 % (24-48); MEAN CORPUSCULAR HEMOGLOBIN 27 pg (25-35); MEAN CORPUSCULAR HGB CONC 33 g/dL (31-37); MEAN CORPUSCULAR VOLUME 83 fL (79-100); MONO # 0.5 x10^3/uL (0.0-1.1); MONO % 13 % (0-9); NEUT # 2.7 x10^3/uL (1.8-7.7); NEUT % 71 % (31-73); PLATELET COUNT 160 x10^3/uL (140-400); RED BLOOD COUNT 3.21 x10^6/uL (4.30-5.70); RED CELL DISTRIBUTION WIDTH 16.7 % (11.5-14.5); WHITE BLOOD COUNT 3.8 x10^3/uL (4.0-11.0)
[2018-11-28] MEDS: INSULIN LISPRO 300 UNITS/3 ML VIAL. SQ SCH ×3 (08:03→17:31)
[2018-11-28] MEDS: IPRATRPIUM/ALBUTEROL 0.5/2.5MG 3 ML NEBU. NEB SCH ×4 (08:23→19:39)
[2018-11-28] MEDS: BUDESONIDE 0.5 MG/2 ML NEBU. NEB SCH ×2 (08:23→19:39)
[2018-11-28 08:42] LABS: BASE EXCESS ABG 1 mmol/L (-3-3); HCO3 ABG 25 mmol/L (21-28); PCO2 ABG 34 mmHg (35-46); PO2 ABG 72 mmHg (75-108); SAT O2 ABG 93 % (92-99)
[2018-11-28 08:46] LABS: FIO2 ABG 30
--- NOTE | 2018-11-28 09:27 | PDOC ---
SUBJECTIVE ROS Has a Trach OBJECTIVE Vital Signs Vital Signs Date Time Temp Pulse Resp B/P (MAP) Pulse Ox O2 Delivery O2 Flow Rate FiO2 11/28/18 09:00 59 14 187/92 (123) 98 trach shield 11/28/18 04:00 99.0 99.0 I & 0 Intake and Output 11/28/18 07:00 Intake Total 1344 ml Output Total 1080 ml Balance 264 ml Intake IV Total 1344 ml Output Urine Total 1080 ml PHYSICAL EXAM Physical Exam GENERAL: morbidly obese. No apparent distress HEENT: chronic trach. NECK: Supple LUNGS: Clear to auscultation, decreased at bases HEART: RRR, S1, S2 present. ABDOMEN: Soft, Obese EXTREMITIES: right foot wound. NEUROLOGIC: Grossly normal SKIN: No rashes Dukes + DIAGNOSIS/ASSESSMENT Assessment & Plan GUSTAVO - ATN Required emergent HD on 11/26 for Hyperkalemia , 2nd Tx 11/27 Has Good UOP. Labs stable, Vol status stable , currently no indication for HD Re-eval in am Hyperkalemia- Normal K VTach/Sp CP arrest - left AMA last from Rehab facility Resp Failure- Per Chart notes chronic Trach Anemia COMMENT/RELEVANT DATA Meds Current Medications Medications (Trade) Dose Ordered Sig/Cathy Start Time Stop Time Status Last Admin Dose Admin Acetaminophen (Tylenol) 500 mg 1X PRN PRN 11/26/18 08:30 11/27/18 08:29 DC Albumin Human 200 ml @ 200 mls/hr 1X PRN PRN 11/26/18 08:30 11/26/18 14:29 DC Albuterol/ Ipratropium (Duoneb) 3 ml RTQID 11/26/18 16:00 11/28/18 08:23 3 ML Atropine Sulfate (ATROPINE 0.5mg SYRINGE) 0.5 mg PRN Q5MIN PRN 11/27/18 17:00 Budesonide (Pulmicort) 0.5 mg RTBID 11/26/18 20:00 11/28/18 08:23 0.5 MG Calcium Gluconate (Calcium Gluconate) 1,000 mg 1X ONCE 11/26/18 06:30 11/26/18 06:31 DC 11/26/18 06:28 1,000 MG Dexmedetomidine HCl 400 mcg/ Sodium Chloride 100 ml @ 0 mls/hr CONT PRN 11/27/18 17:00 11/28/18 04:58 13 MLS/HR Dextrose (Dextrose 50%-Water Syringe) 25 gm 1X ONCE 11/26/18 06:30 11/26/18 06:31 DC 11/26/18 06:28 25 GM Diphenhydramine HCl (Benadryl) 25 mg 1X PRN PRN 11/26/18 08:30 11/27/18 08:29 DC Doxycycline Hyclate 100 mg/ Dextrose 100 ml @ 50 mls/hr Q12H 11/27/18 14:00 11/28/18 02:03 50 MLS/HR Furosemide (Lasix) 40 mg 1X ONCE 11/26/18 03:00 11/26/18 03:01 DC 11/26/18 02:48 40 MG Heparin Sodium (Porcine) (Heparin Sodium) 5,000 unit Q8HRS 11/27/18 14:00 11/28/18 06:11 5,000 UNIT Info (PHARMACY MONITORING -- do not chart) 1 each PRN DAILY PRN 11/27/18 07:45 Insulin Human Lispro (HumaLOG) 10 units TIDAC 11/27/18 12:02 11/28/18 08:03 10 UNITS Insulin Human Regular (HumuLIN R VIAL) 5 unit 1X ONCE 11/26/18 06:30 11/26/18 06:31 DC 11/26/18 06:24 5 UNIT Lidocaine HCl (Xylocaine 1% Pf 30ml Vial) 30 ml 1X ONCE 11/27/18 08:30 11/27/18 08:31 DC Lidocaine/Sodium Bicarbonate (Buffered Lidocaine 1%) 6 ml 1X ONCE 11/26/18 07:30 11/26/18 07:31 DC 11/26/18 08:51 6 ML Lorazepam (Ativan Inj) 2 mg PRN Q4HRS PRN 11/27/18 02:00 11/28/18 08:56 2 MG Metolazone (Zaroxolyn) 10 mg 1X ONCE 11/26/18 03:00 11/26/18 03:01 DC 11/26/18 02:47 10 MG Norepinephrine Bitartrate 250 ml @ 48.75 mls/ hr CONT PRN 11/26/18 00:15 11/27/18 07:37 42.9 MLS/HR Sodium Polystyrene Sulfonate (Kayexalate) 30 gm 1X ONCE 11/26/18 03:00 11/26/18 03:01 DC 11/26/18 02:47 30 GM Sodium Bicarbonate (Sodium Bicarb Adult 8.4% Syr) 100 meq 1X ONCE 11/26/18 06:30 11/26/18 06:31 DC 11/26/18 06:28 100 MEQ Sodium Chloride 500 ml @ 500 mls/hr 1X PRN PRN 11/27/18 17:00 Lab Laboratory Tests Test 11/27/18 12:00 11/27/18 17:22 11/28/18 06:10 11/28/18 06:20 Glucose (Fingerstick) 173 mg/dL (70-99) 252 mg/dL (70-99) 301 mg/dL (70-99) White Blood Count 3.8 x10^3/uL (4.0-11.0) Red Blood Count 3.21 x10^6/uL (4.30-5.70) Hemoglobin 8.8 g/dL (13.0-17.5) Hematocrit 26.6 % (39.0-53.0) Mean Corpuscular Volume 83 fL (79-100) Mean Corpuscular Hemoglobin 27 pg (25-35) Mean Corpuscular Hemoglobin Concent 33 g/dL (31-37) Red Cell Distribution Width 16.7 % (11.5-14.5) Platelet Count 160 x10^3/uL (140-400) Neutrophils (%) (Auto) 71 % (31-73) Lymphocytes (%) (Auto) 16 % (24-48) Monocytes (%) (Auto) 13 % (0-9) Eosinophils (%) (Auto) 0 % (0-3) Basophils (%) (Auto) 0 % (0-3) Neutrophils # (Auto) 2.7 x10^3/uL (1.8-7.7) Lymphocytes # (Auto) 0.6 x10^3/uL (1.0-4.8) Monocytes # (Auto) 0.5 x10^3/uL (0.0-1.1) Eosinophils # (Auto) 0.0 x10^3/uL (0.0-0.7) Basophils # (Auto) 0.0 x10^3/uL (0.0-0.2) Sodium Level 140 mmol/L (136-145) Potassium Level 4.5 mmol/L (3.5-5.1) Chloride Level 101 mmol/L (98-107) Carbon Dioxide Level 30 mmol/L (21-32) Anion Gap 9 (6-14) Blood Urea Nitrogen 49 mg/dL (8-26) Creatinine 3.8 mg/dL (0.7-1.3) Estimated GFR (Cockcroft-Gault) 16.4 BUN/Creatinine Ratio 13 (6-20) Glucose Level 297 mg/dL (70-99) Calcium Level 8.9 mg/dL (8.5-10.1) Total Bilirubin 0.5 mg/dL (0.2-1.0) Aspartate Amino Transf (AST/SGOT) 278 U/L (15-37) Alanine Aminotransferase (ALT/SGPT) 726 U/L (16-63) Alkaline Phosphatase 88 U/L (46-116) Total Protein 5.6 g/dL (6.4-8.2) Albumin 2.4 g/dL (3.4-5.0) Albumin/Globulin Ratio 0.8 (1.0-1.7) Test 11/28/18 08:00 O2 Saturation 93 % (92-99) Arterial Blood pH 7.47 (7.35-7.45) Arterial Blood pCO2 at Patient Temp 34 mmHg (35-46) Arterial Blood pO2 at Patient Temp 72 mmHg (75-108) Arterial Blood HCO3 25 mmol/L (21-28) Arterial Blood Base Excess 1 mmol/L (-3-3) FiO2 30 Results All relevant outside records, renal labs, imaging studies, telemetry/EKG's were reviewed. SARMAD STOCKTON MD Nov 28, 2018 09:27
--- NOTE | 2018-11-28 10:01 | PDOC ---
PULMONARY PROGRESS NOTES Subjective remains on TS Vitals Vital Signs Date Time Temp Pulse Resp B/P (MAP) Pulse Ox O2 Delivery O2 Flow Rate FiO2 11/28/18 09:00 59 14 187/92 (123) 98 trach shield 11/28/18 04:00 99.0 99.0 General: Lethargic Lungs: Other (decrease bases) Cardiovascular: S1, S2 Abdomen: Soft, Other (obese) Extremities: Other (2+edema) Skin: Warm Labs Laboratory Tests Test 11/26/18 10:36 11/26/18 13:50 11/26/18 14:00 11/26/18 15:56 Sodium Level 137 mmol/L (136-145) Potassium Level 5.6 mmol/L (3.5-5.1) Chloride Level 98 mmol/L (98-107) Carbon Dioxide Level 26 mmol/L (21-32) Anion Gap 13 (6-14) Blood Urea Nitrogen 79 mg/dL (8-26) Creatinine 5.8 mg/dL (0.7-1.3) Estimated GFR (Cockcroft-Gault) 10.1 BUN/Creatinine Ratio 14 (6-20) Glucose Level 275 mg/dL (70-99) Calcium Level 8.0 mg/dL (8.5-10.1) Total Bilirubin 0.6 mg/dL (0.2-1.0) Aspartate Amino Transf (AST/SGOT) 2562 U/L (15-37) Alanine Aminotransferase (ALT/SGPT) 1757 U/L (16-63) Alkaline Phosphatase 139 U/L (46-116) Total Protein 7.2 g/dL (6.4-8.2) Albumin 3.1 g/dL (3.4-5.0) Albumin/Globulin Ratio 0.8 (1.0-1.7) Hepatitis B Surface Antibody, Quant <3.1 mIU/mL (Immunity>9.9) O2 Saturation 93 % (92-99) Arterial Blood pH 7.15 (7.35-7.45) Arterial Blood pCO2 at Patient Temp 65 mmHg (35-46) Arterial Blood pO2 at Patient Temp 80 mmHg (75-108) Arterial Blood HCO3 22 mmol/L (21-28) Arterial Blood Base Excess -8 mmol/L (-3-3) FiO2 40 Nasal Screen MRSA (PCR) Positive (Negative) Glucose (Fingerstick) 225 mg/dL (70-99) Test 11/26/18 18:35 11/26/18 22:00 11/27/18 06:25 11/27/18 08:50 O2 Saturation 90 % (92-99) 96 % (92-99) 96 % (92-99) Arterial Blood pH 7.17 (7.35-7.45) 7.26 (7.35-7.45) 7.34 (7.35-7.45) Arterial Blood pCO2 at Patient Temp 65 mmHg (35-46) 43 mmHg (35-46) 39 mmHg (35-46) Arterial Blood pO2 at Patient Temp 68 mmHg (75-108) 87 mmHg (75-108) 88 mmHg (75-108) Arterial Blood HCO3 23 mmol/L (21-28) 19 mmol/L (21-28) 21 mmol/L (21-28) Arterial Blood Base Excess -6 mmol/L (-3-3) -8 mmol/L (-3-3) -5 mmol/L (-3-3) FiO2 35 30 White Blood Count 7.0 x10^3/uL (4.0-11.0) Red Blood Count 3.73 x10^6/uL (4.30-5.70) Hemoglobin 10.1 g/dL (13.0-17.5) Hematocrit 31.1 % (39.0-53.0) Mean Corpuscular Volume 84 fL (79-100) Mean Corpuscular Hemoglobin 27 pg (25-35) Mean Corpuscular Hemoglobin Concent 32 g/dL (31-37) Red Cell Distribution Width 16.8 % (11.5-14.5) Platelet Count 202 x10^3/uL (140-400) Neutrophils (%) (Auto) 85 % (31-73) Lymphocytes (%) (Auto) 6 % (24-48) Monocytes (%) (Auto) 9 % (0-9) Eosinophils (%) (Auto) 0 % (0-3) Basophils (%) (Auto) 0 % (0-3) Neutrophils # (Auto) 6.0 x10^3/uL (1.8-7.7) Lymphocytes # (Auto) 0.4 x10^3/uL (1.0-4.8) Monocytes # (Auto) 0.6 x10^3/uL (0.0-1.1) Eosinophils # (Auto) 0.0 x10^3/uL (0.0-0.7) Basophils # (Auto) 0.0 x10^3/uL (0.0-0.2) Segmented Neutrophils % 80 % (35-66) Band Neutrophils % 2 % (0-9) Lymphocytes % 8 % (24-48) Monocytes % 10 % (0-10) Platelet Estimate Adequate (ADEQUATE) Sodium Level 139 mmol/L (136-145) Potassium Level 5.4 mmol/L (3.5-5.1) Chloride Level 100 mmol/L (98-107) Carbon Dioxide Level 22 mmol/L (21-32) Anion Gap 17 (6-14) Blood Urea Nitrogen 74 mg/dL (8-26) Creatinine 5.5 mg/dL (0.7-1.3) Estimated GFR (Cockcroft-Gault) 10.7 BUN/Creatinine Ratio 13 (6-20) Glucose Level 289 mg/dL (70-99) Calcium Level 8.5 mg/dL (8.5-10.1) Total Bilirubin 0.5 mg/dL (0.2-1.0) Aspartate Amino Transf (AST/SGOT) 828 U/L (15-37) Alanine Aminotransferase (ALT/SGPT) 1237 U/L (16-63) Alkaline Phosphatase 112 U/L (46-116) Total Protein 6.3 g/dL (6.4-8.2) Albumin 2.7 g/dL (3.4-5.0) Albumin/Globulin Ratio 0.8 (1.0-1.7) Hepatitis B Core Total Antibody Nonreactive (Nonreactive) Test 11/27/18 12:00 11/27/18 17:22 11/28/18 06:10 11/28/18 06:20 Glucose (Fingerstick) 173 mg/dL (70-99) 252 mg/dL (70-99) 301 mg/dL (70-99) White Blood Count 3.8 x10^3/uL (4.0-11.0) Red Blood Count 3.21 x10^6/uL (4.30-5.70) Hemoglobin 8.8 g/dL (13.0-17.5) Hematocrit 26.6 % (39.0-53.0) Mean Corpuscular Volume 83 fL (79-100) Mean Corpuscular Hemoglobin 27 pg (25-35) Mean Corpuscular Hemoglobin Concent 33 g/dL (31-37) Red Cell Distribution Width 16.7 % (11.5-14.5) Platelet Count 160 x10^3/uL (140-400) Neutrophils (%) (Auto) 71 % (31-73) Lymphocytes (%) (Auto) 16 % (24-48) Monocytes (%) (Auto) 13 % (0-9) Eosinophils (%) (Auto) 0 % (0-3) Basophils (%) (Auto) 0 % (0-3) Neutrophils # (Auto) 2.7 x10^3/uL (1.8-7.7) Lymphocytes # (Auto) 0.6 x10^3/uL (1.0-4.8) Monocytes # (Auto) 0.5 x10^3/uL (0.0-1.1) Eosinophils # (Auto) 0.0 x10^3/uL (0.0-0.7) Basophils # (Auto) 0.0 x10^3/uL (0.0-0.2) Sodium Level 140 mmol/L (136-145) Potassium Level 4.5 mmol/L (3.5-5.1) Chloride Level 101 mmol/L (98-107) Carbon Dioxide Level 30 mmol/L (21-32) Anion Gap 9 (6-14) Blood Urea Nitrogen 49 mg/dL (8-26) Creatinine 3.8 mg/dL (0.7-1.3) Estimated GFR (Cockcroft-Gault) 16.4 BUN/Creatinine Ratio 13 (6-20) Glucose Level 297 mg/dL (70-99) Calcium Level 8.9 mg/dL (8.5-10.1) Total Bilirubin 0.5 mg/dL (0.2-1.0) Aspartate Amino Transf (AST/SGOT) 278 U/L (15-37) Alanine Aminotransferase (ALT/SGPT) 726 U/L (16-63) Alkaline Phosphatase 88 U/L (46-116) Total Protein 5.6 g/dL (6.4-8.2) Albumin 2.4 g/dL (3.4-5.0) Albumin/Globulin Ratio 0.8 (1.0-1.7) Test 11/28/18 08:00 O2 Saturation 93 % (92-99) Arterial Blood pH 7.47 (7.35-7.45) Arterial Blood pCO2 at Patient Temp 34 mmHg (35-46) Arterial Blood pO2 at Patient Temp 72 mmHg (75-108) Arterial Blood HCO3 25 mmol/L (21-28) Arterial Blood Base Excess 1 mmol/L (-3-3) FiO2 30 Laboratory Tests Test 11/27/18 12:00 11/27/18 17:22 11/28/18 06:10 11/28/18 06:20 Glucose (Fingerstick) 173 mg/dL (70-99) 252 mg/dL (70-99) 301 mg/dL (70-99) White Blood Count 3.8 x10^3/uL (4.0-11.0) Red Blood Count 3.21 x10^6/uL (4.30-5.70) Hemoglobin 8.8 g/dL (13.0-17.5) Hematocrit 26.6 % (39.0-53.0) Mean Corpuscular Volume 83 fL (79-100) Mean Corpuscular Hemoglobin 27 pg (25-35) Mean Corpuscular Hemoglobin Concent 33 g/dL (31-37) Red Cell Distribution Width 16.7 % (11.5-14.5) Platelet Count 160 x10^3/uL (140-400) Neutrophils (%) (Auto) 71 % (31-73) Lymphocytes (%) (Auto) 16 % (24-48) Monocytes (%) (Auto) 13 % (0-9) Eosinophils (%) (Auto) 0 % (0-3) Basophils (%) (Auto) 0 % (0-3) Neutrophils # (Auto) 2.7 x10^3/uL (1.8-7.7) Lymphocytes # (Auto) 0.6 x10^3/uL (1.0-4.8) Monocytes # (Auto) 0.5 x10^3/uL (0.0-1.1) Eosinophils # (Auto) 0.0 x10^3/uL (0.0-0.7) Basophils # (Auto) 0.0 x10^3/uL (0.0-0.2) Sodium Level 140 mmol/L (136-145) Potassium Level 4.5 mmol/L (3.5-5.1) Chloride Level 101 mmol/L (98-107) Carbon Dioxide Level 30 mmol/L (21-32) Anion Gap 9 (6-14) Blood Urea Nitrogen 49 mg/dL (8-26) Creatinine 3.8 mg/dL (0.7-1.3) Estimated GFR (Cockcroft-Gault) 16.4 BUN/Creatinine Ratio 13 (6-20) Glucose Level 297 mg/dL (70-99) Calcium Level 8.9 mg/dL (8.5-10.1) Total Bilirubin 0.5 mg/dL (0.2-1.0) Aspartate Amino Transf (AST/SGOT) 278 U/L (15-37) Alanine Aminotransferase (ALT/SGPT) 726 U/L (16-63) Alkaline Phosphatase 88 U/L (46-116) Total Protein 5.6 g/dL (6.4-8.2) Albumin 2.4 g/dL (3.4-5.0) Albumin/Globulin Ratio 0.8 (1.0-1.7) Test 11/28/18 08:00 O2 Saturation 93 % (92-99) Arterial Blood pH 7.47 (7.35-7.45) Arterial Blood pCO2 at Patient Temp 34 mmHg (35-46) Arterial Blood pO2 at Patient Temp 72 mmHg (75-108) Arterial Blood HCO3 25 mmol/L (21-28) Arterial Blood Base Excess 1 mmol/L (-3-3) FiO2 30 Medications Active Scripts Medications Dose Route/Sig Max Daily Dose Days Date Category Dose Instructions Oxycodone Hcl 5 Mg Capsule 5 Mg PO PRN Q6HRS PRN 11/25/18 Reported Warfarin Sodium 5 Mg Tablet 5 Mg PO DAILY 11/25/18 Reported Mondays and Wednesdays Warfarin Sodium 10 Mg Tablet 10 Mg PO DAILY 11/25/18 Reported 5 days per week, T, Th, F, Sat, Sun Tizanidine Hcl 4 Mg Tablet 2 Mg PO PRN TID PRN 11/07/18 Reported Novolin R (Insulin Regular, Human) 100 Unit/1 Ml Vial 28 Unit IJ [id number] 11/07/18 Reported Novolin R (Insulin Regular, Human) 100 Unit/1 Ml Vial 36 Unit IJ [id number] 11/07/18 Reported Novolin N (Nph, Human Insulin Isophane) 100 Unit/1 Ml Vial 50 Unit SQ BID 11/07/18 Reported Seroquel (Quetiapine Fumarate) 25 Mg Tablet 25 Mg PO DAILY 11/07/18 Reported Probenecid 500 Mg Tablet 500 Mg PO BID 11/07/18 Reported Metoprolol Tartrate 25 Mg Tablet 1 Tab PO BID 11/07/18 Reported Lisinopril 20 Mg Tablet 1 Tab PO DAILY 11/07/18 Reported Pepcid (Famotidine) 20 Mg Tablet 20 Mg PO BID 11/07/18 Reported Vitamin D3 (Cholecalciferol (Vitamin D3)) 1,000 Unit Tablet 2 Tab PO DAILY 11/07/18 Reported Senna S Tablet (Sennosides/Docusate Sodium) 1 Each Tablet 2 Tab PO HS 11/07/18 Reported Cymbalta (Duloxetine Hcl) 60 Mg Capsule.dr 120 Mg PO DAILY 11/07/18 Reported Gabapentin 600 Mg Tablet 300 Mg PO BID 11/07/18 Reported Aspirin 81 Mg Tab.chew 81 Mg PO DAILY 11/07/18 Reported Furosemide 40 Mg Tablet 1 Tab PO DAILY 09/27/18 Reported Atorvastatin Calcium 80 Mg Tablet 1 Tab PO HS 09/27/18 Reported Impression . 1. [id number] hypercapnic respiratory failure, status post ventricular tachycardia with arrest. 2. Status post cardiac arrest related to combination of V-tach and hypoxia. 3. The patient with chronic trach and developed acute on chronic hypercapnia, it could be related to transient mucous plug. He does have a low-grade fever and lower respiratory tract infection cannot be ruled out. 4. Underlying severe morbid obesity with a BMI of 81 and underlying chronic hypercapnia. 5. End-stage renal disease, on hemodialysis and has combined metabolic and respiratory acidosis. 6. Moderate protein-calorie malnutrition. 7. Abnormal liver function tests related to hypoperfusion. 8. Hyperkalemia, corrected with hemodialysis. Plan . 1. Continue present TS 2. Follow ABGs stable 3. s/p bicarb with hemodialysis. 4. empiric antibiotic. 5. Obtain trach secretion for C and S. 6. Follow LFTs. 7. Close eye on potassium. 8. Improve nutritional status. 9. Discussed with RN, Does not need BIPAP. TS 24 hr transfer to floor TRES GOMEZ MD Nov 28, 2018 10:01
--- NOTE | 2018-11-28 11:30 | PDOC ---
[facility] [facility] PROGRESS NOTE Chief Complaint Chief Complaint Renal failure History of Present Illness History of Present Illness 11/28/18 Pt seen and examined in ICU Pt has trach shield No acute distress Pt eyes open and responsive but unable to talk pH 7.47, Glucose =297 DW RN 11/27/18 Pt seen and examined at bedside On BiPAP via trach Currently on dialysis pH = 7.34, Glucose = 289 HD catheter placed by IR on 11/26 EDUARDO RN Vitals/I&O Vitals/I&O: Vital Signs Date Time Temp Pulse Resp B/P (MAP) Pulse Ox O2 Delivery O2 Flow Rate FiO2 11/28/18 10:00 61 141/66 (91) 98 trach shield 11/28/18 09:00 14 11/28/18 08:00 98.6 98.6 I & O 11/27/18 11/27/18 11/28/18 15:00 23:00 07:00 Intake Total 47 ml 1297 ml Output Total 480 ml 340 ml 265 ml Balance -433 ml 957 ml -265 ml Physical Exam General: No acute distress Lungs: Other (decrease bases) Extremities: No clubbing, No cyanosis Skin: No rashes, No breakdown, No significant lesion Labs Labs: Laboratory Tests Test 11/27/18 12:00 11/27/18 17:22 11/28/18 06:10 11/28/18 06:20 Glucose (Fingerstick) 173 mg/dL (70-99) 252 mg/dL (70-99) 301 mg/dL (70-99) White Blood Count 3.8 x10^3/uL (4.0-11.0) Red Blood Count 3.21 x10^6/uL (4.30-5.70) Hemoglobin 8.8 g/dL (13.0-17.5) Hematocrit 26.6 % (39.0-53.0) Mean Corpuscular Volume 83 fL (79-100) Mean Corpuscular Hemoglobin 27 pg (25-35) Mean Corpuscular Hemoglobin Concent 33 g/dL (31-37) Red Cell Distribution Width 16.7 % (11.5-14.5) Platelet Count 160 x10^3/uL (140-400) Neutrophils (%) (Auto) 71 % (31-73) Lymphocytes (%) (Auto) 16 % (24-48) Monocytes (%) (Auto) 13 % (0-9) Eosinophils (%) (Auto) 0 % (0-3) Basophils (%) (Auto) 0 % (0-3) Neutrophils # (Auto) 2.7 x10^3/uL (1.8-7.7) Lymphocytes # (Auto) 0.6 x10^3/uL (1.0-4.8) Monocytes # (Auto) 0.5 x10^3/uL (0.0-1.1) Eosinophils # (Auto) 0.0 x10^3/uL (0.0-0.7) Basophils # (Auto) 0.0 x10^3/uL (0.0-0.2) Sodium Level 140 mmol/L (136-145) Potassium Level 4.5 mmol/L (3.5-5.1) Chloride Level 101 mmol/L (98-107) Carbon Dioxide Level 30 mmol/L (21-32) Anion Gap 9 (6-14) Blood Urea Nitrogen 49 mg/dL (8-26) Creatinine 3.8 mg/dL (0.7-1.3) Estimated GFR (Cockcroft-Gault) 16.4 BUN/Creatinine Ratio 13 (6-20) Glucose Level 297 mg/dL (70-99) Calcium Level 8.9 mg/dL (8.5-10.1) Total Bilirubin 0.5 mg/dL (0.2-1.0) Aspartate Amino Transf (AST/SGOT) 278 U/L (15-37) Alanine Aminotransferase (ALT/SGPT) 726 U/L (16-63) Alkaline Phosphatase 88 U/L (46-116) Total Protein 5.6 g/dL (6.4-8.2) Albumin 2.4 g/dL (3.4-5.0) Albumin/Globulin Ratio 0.8 (1.0-1.7) Test 11/28/18 08:00 11/28/18 08:01 O2 Saturation 93 % (92-99) Arterial Blood pH 7.47 (7.35-7.45) Arterial Blood pCO2 at Patient Temp 34 mmHg (35-46) Arterial Blood pO2 at Patient Temp 72 mmHg (75-108) Arterial Blood HCO3 25 mmol/L (21-28) Arterial Blood Base Excess 1 mmol/L (-3-3) FiO2 30 Glucose (Fingerstick) 294 mg/dL (70-99) Review of Systems Review of Systems: Denies pain Co weakness Assessment and Plan Assessmemt and Plan Assessment Resp failure Obesity Renal failure Hyperglycemia Hyperkalemia Plan ICU monitoring Wean Levophed MRSA precautions Trach shield Doxycycline IV fluids Wound care Labs PT/OT Dukes to BSD Sliding scale insulin Humalog 10 units Full code Total time 32 min Comment Review of Relevant I have reviewed the following items bar (where applicable) has been applied. Medications: Current Medications Medications (Trade) Dose Ordered Sig/Cathy Route PRN Reason Start Time Stop Time Status Last Admin Dose Admin Insulin Human Lispro (HumaLOG) 10 units TIDAC SQ 11/27/18 12:02 11/28/18 08:03 Heparin Sodium (Porcine) (Heparin Sodium) 5,000 unit Q8HRS SQ 11/27/18 14:00 11/28/18 06:11 Doxycycline Hyclate 100 mg/ Dextrose 100 ml @ 50 mls/hr Q12H IV 11/27/18 14:00 11/28/18 02:03 Dexmedetomidine HCl 400 mcg/ Sodium Chloride 100 ml @ 0 mls/hr CONT PRN IV AGITATION 11/27/18 17:00 11/28/18 04:58 SHRUTHI WAN III DO Nov 28, 2018 11:30
--- NOTE | 2018-11-28 15:32 | NUR ---
SS following up with discharge planning. SS phoned and faxed referral to [facility], ; fax [phone]. SS will continue to follow for discharge planning.
[2018-11-28] MEDS: PATCH REMOVAL. MC SCH (21:00)
[2018-11-28] MEDS: ACETAMINOPHEN 650 MG/20.3 ML SOLUTION. PO PRN (21:15)
[2018-11-28] MEDS: LIDOCAINE (700MG/PATCH) PATCH. TD SCH (21:18)
[2018-11-29] VITALS (8 sets, daily range): BP systolic 122–196; BP diastolic 59–88
[2018-11-29] MEDS: oxyCODONE IR 5 MG TABLET PO PRN ×4 (02:29→22:54)
[2018-11-29] MEDS: DOXYCYCLINE HYCLATE 100 MG in IV DEXTROSE 5% 100ML 100 ML IV SCH ×2 (02:29→16:43)
[2018-11-29] MEDS ORDERED: METOPROLOL TART IMMED RELEASE 25 MG TABLET. PO ONE (02:30)
[2018-11-29] MEDS: HEPARIN for SUB-Q USE 5,000 UNIT/ML VIAL. SQ SCH ×3 (06:11→23:02)
[2018-11-29 06:33] LABS: BASO % 1 % (0-3); EOS % 0 % (0-3); HEMATOCRIT 27.5 % (39.0-53.0); LYMPH # 1.1 x10^3/uL (1.0-4.8); LYMPH % 21 % (24-48); MEAN CORPUSCULAR HEMOGLOBIN 27 pg (25-35); MEAN CORPUSCULAR HGB CONC 33 g/dL (31-37); MEAN CORPUSCULAR VOLUME 83 fL (79-100); MONO # 0.7 x10^3/uL (0.0-1.1); MONO % 13 % (0-9); NEUT # 3.4 x10^3/uL (1.8-7.7); NEUT % 65 % (31-73); PLATELET COUNT 173 x10^3/uL (140-400); RED BLOOD COUNT 3.34 x10^6/uL (4.30-5.70); RED CELL DISTRIBUTION WIDTH 16.8 % (11.5-14.5); WHITE BLOOD COUNT 5.2 x10^3/uL (4.0-11.0)
[2018-11-29 07:02] LABS: ALBUMIN 2.7 g/dL (3.4-5.0); ALBUMIN/GLOBULIN RATIO 0.8 (1.0-1.7); CALCIUM 9.4 mg/dL (8.5-10.1); CREATININE 3.5 mg/dL (0.7-1.3); GFR 18.1; POTASSIUM 3.5 mmol/L (3.5-5.1); TOTAL BILIRUBIN 0.7 mg/dL (0.2-1.0)
[2018-11-29] MEDS ORDERED: ONDANSETRON PF 4 MG/2 ML VIAL. IVP PRN (07:30)
[2018-11-29] MEDS: LIDOCAINE (700MG/PATCH) PATCH. TD SCH (08:08)
[2018-11-29] MEDS: BUDESONIDE 0.5 MG/2 ML NEBU. NEB SCH ×2 (08:09→20:24)
[2018-11-29] MEDS: IPRATRPIUM/ALBUTEROL 0.5/2.5MG 3 ML NEBU. NEB SCH ×4 (08:09→20:24)
[2018-11-29] MEDS: METOPROLOL TART IMMED RELEASE 25 MG TABLET. PO SCH ×2 (08:25→22:55)
[2018-11-29] MEDS: LACTOBACILLUS RHAMNOSUS GG 1 CAPSULE. PO SCH ×2 (08:35→22:53)
[2018-11-29] MEDS: INSULIN LISPRO 300 UNITS/3 ML VIAL. SQ SCH ×3 (08:42→16:58)
[2018-11-29] MEDS: IV NORMAL SALINE 1000ML BAG 1,000 ML IV SCH ×3 (08:46→23:52)
--- NOTE | 2018-11-29 09:24 | PDOC ---
SUBJECTIVE ROS Awake, alert, chronic Trach Wants to know [facility] can [facility] and asking for pain meds as well OBJECTIVE Vital Signs Vital Signs Date Time Temp Pulse Resp B/P (MAP) Pulse Ox O2 Delivery O2 Flow Rate FiO2 11/29/18 08:26 29 97 8.0 11/29/18 08:25 85 187/99 11/29/18 08:12 Tracheal Collar 11/29/18 04:00 99.0 99.0 I & 0 Intake and Output 11/29/18 07:00 Intake Total 2046.7 ml Output Total 885 ml Balance 1161.7 ml Intake IV Total 2046.7 ml Output Urine Total 885 ml # Bowel Movements 1 PHYSICAL EXAM Physical Exam GENERAL: morbidly obese. No apparent distress HEENT: chronic trach. NECK: Supple LUNGS: Clear to auscultation, decreased at bases HEART: RRR, S1, S2 present. ABDOMEN: Soft, Obese EXTREMITIES: right foot wound. NEUROLOGIC: awake and alert SKIN: No rashes Dukes + DIAGNOSIS/ASSESSMENT Assessment & Plan GUSTAVO - ATN Required emergent HD on 11/26 , 2 nd Tx on 11/27 Has Good UOP, Labs stable,Stable Rsp status , Currently no indication for HD today Supportive care , Monitor Hyperkalemia- Resolved VTach/Sp CP arrest - left AMA last from Rehab facility Resp Failure- P chronic Trach Anemia- Hgb stable Discussed with Pt and at bedside COMMENT/RELEVANT DATA Meds Current Medications Medications (Trade) Dose Ordered Sig/Cathy Start Time Stop Time Status Last Admin Dose Admin Acetaminophen (Tylenol) 650 mg PRN Q6HRS PRN 11/28/18 20:30 11/28/18 21:15 650 MG Albumin Human 200 ml @ 200 mls/hr 1X PRN PRN 11/26/18 08:30 11/26/18 14:29 DC Albuterol/ Ipratropium (Duoneb) 3 ml RTQID 11/26/18 16:00 11/29/18 08:09 3 ML Atropine Sulfate (ATROPINE 0.5mg SYRINGE) 0.5 mg PRN Q5MIN PRN 11/27/18 17:00 Budesonide (Pulmicort) 0.5 mg RTBID 11/26/18 20:00 11/29/18 08:09 0.5 MG Calcium Gluconate (Calcium Gluconate) 1,000 mg 1X ONCE 11/26/18 06:30 11/26/18 06:31 DC 11/26/18 06:28 1,000 MG Dexmedetomidine HCl 400 mcg/ Sodium Chloride 100 ml @ 0 mls/hr CONT PRN 11/27/18 17:00 11/28/18 04:58 13 MLS/HR Dextrose (Dextrose 50%-Water Syringe) 25 gm 1X ONCE 11/26/18 06:30 11/26/18 06:31 DC 11/26/18 06:28 25 GM Diphenhydramine HCl (Benadryl) 25 mg 1X PRN PRN 11/26/18 08:30 11/27/18 08:29 DC Doxycycline Hyclate 100 mg/ Dextrose 100 ml @ 50 mls/hr Q12H 11/27/18 14:00 11/29/18 02:29 50 MLS/HR Furosemide (Lasix) 40 mg 1X ONCE 11/26/18 03:00 11/26/18 03:01 DC 11/26/18 02:48 40 MG Heparin Sodium (Porcine) (Heparin Sodium) 5,000 unit Q8HRS 11/27/18 14:00 11/29/18 06:11 5,000 UNIT Info (PHARMACY MONITORING -- do not chart) 1 each PRN DAILY PRN 11/27/18 07:45 Insulin Human Lispro (HumaLOG) 10 units TIDAC 11/27/18 12:02 11/29/18 08:42 10 UNITS Insulin Human Regular (HumuLIN R VIAL) 5 unit 1X ONCE 11/26/18 06:30 11/26/18 06:31 DC 11/26/18 06:24 5 UNIT Lactobacillus Rhamnosus (Culturelle) 1 cap BID 11/29/18 09:00 11/29/18 08:35 1 CAP Lidocaine (Lidoderm) 1 patch DAILY 11/28/18 21:00 11/29/18 08:08 1 PATCH Lidocaine HCl (Xylocaine 1% Pf 30ml Vial) 30 ml 1X ONCE 11/27/18 08:30 11/27/18 08:31 DC Lidocaine/Sodium Bicarbonate (Buffered Lidocaine 1%) 6 ml 1X ONCE 11/26/18 07:30 11/26/18 07:31 DC 11/26/18 08:51 6 ML Lorazepam (Ativan Inj) 2 mg PRN Q4HRS PRN 11/27/18 02:00 11/29/18 02:30 2 MG Metolazone (Zaroxolyn) 10 mg 1X ONCE 11/26/18 03:00 11/26/18 03:01 DC 11/26/18 02:47 10 MG Metoprolol Tartrate (Lopressor) 25 mg 1X ONCE 11/29/18 02:30 11/29/18 02:31 DC 11/29/18 02:30 25 MG Miscellaneous (Lidoderm Patch Removal) 1 ea QHS 11/28/18 21:00 Norepinephrine Bitartrate 250 ml @ 48.75 mls/ hr CONT PRN 11/26/18 00:15 11/27/18 07:37 42.9 MLS/HR Ondansetron HCl (Zofran) 4 mg PRN Q6HRS PRN 11/29/18 07:30 11/29/18 08:07 4 MG Oxycodone HCl (Roxicodone) 5 mg PRN Q6HRS PRN 11/29/18 02:15 11/29/18 08:26 5 MG Sodium Polystyrene Sulfonate (Kayexalate) 30 gm 1X ONCE 11/26/18 03:00 11/26/18 03:01 DC 11/26/18 02:47 30 GM Sodium Bicarbonate (Sodium Bicarb Adult 8.4% Syr) 100 meq 1X ONCE 11/26/18 06:30 11/26/18 06:31 DC 11/26/18 06:28 100 MEQ Sodium Chloride 500 ml @ 500 mls/hr 1X PRN PRN 11/27/18 17:00 Lab Laboratory Tests Test 11/28/18 11:23 11/28/18 17:09 11/29/18 06:15 11/29/18 08:33 Glucose (Fingerstick) 272 mg/dL (70-99) 243 mg/dL (70-99) 146 mg/dL (70-99) White Blood Count 5.2 x10^3/uL (4.0-11.0) Red Blood Count 3.34 x10^6/uL (4.30-5.70) Hemoglobin 9.0 g/dL (13.0-17.5) Hematocrit 27.5 % (39.0-53.0) Mean Corpuscular Volume 83 fL (79-100) Mean Corpuscular Hemoglobin 27 pg (25-35) Mean Corpuscular Hemoglobin Concent 33 g/dL (31-37) Red Cell Distribution Width 16.8 % (11.5-14.5) Platelet Count 173 x10^3/uL (140-400) Neutrophils (%) (Auto) 65 % (31-73) Lymphocytes (%) (Auto) 21 % (24-48) Monocytes (%) (Auto) 13 % (0-9) Eosinophils (%) (Auto) 0 % (0-3) Basophils (%) (Auto) 1 % (0-3) Neutrophils # (Auto) 3.4 x10^3/uL (1.8-7.7) Lymphocytes # (Auto) 1.1 x10^3/uL (1.0-4.8) Monocytes # (Auto) 0.7 x10^3/uL (0.0-1.1) Eosinophils # (Auto) 0.0 x10^3/uL (0.0-0.7) Basophils # (Auto) 0.0 x10^3/uL (0.0-0.2) Sodium Level 141 mmol/L (136-145) Potassium Level 3.5 mmol/L (3.5-5.1) Chloride Level 103 mmol/L (98-107) Carbon Dioxide Level 29 mmol/L (21-32) Anion Gap 9 (6-14) Blood Urea Nitrogen 54 mg/dL (8-26) Creatinine 3.5 mg/dL (0.7-1.3) Estimated GFR (Cockcroft-Gault) 18.1 BUN/Creatinine Ratio 15 (6-20) Glucose Level 186 mg/dL (70-99) Calcium Level 9.4 mg/dL (8.5-10.1) Total Bilirubin 0.7 mg/dL (0.2-1.0) Aspartate Amino Transf (AST/SGOT) 148 U/L (15-37) Alanine Aminotransferase (ALT/SGPT) 487 U/L (16-63) Alkaline Phosphatase 84 U/L (46-116) Total Protein 6.0 g/dL (6.4-8.2) Albumin 2.7 g/dL (3.4-5.0) Albumin/Globulin Ratio 0.8 (1.0-1.7) Results All relevant outside records, renal labs, imaging studies, telemetry/EKG's were reviewed. SARMAD STOCKTON MD Nov 29, 2018 09:24
--- NOTE | 2018-11-29 10:11 | PDOC ---
PULMONARY PROGRESS NOTES Subjective remains on TS Vitals Vital Signs Date Time Temp Pulse Resp B/P (MAP) Pulse Ox O2 Delivery O2 Flow Rate FiO2 11/29/18 08:26 29 97 8.0 11/29/18 08:25 85 187/99 11/29/18 08:12 Tracheal Collar 11/29/18 04:00 99.0 99.0 General: Lethargic Lungs: Other (decrease bases) Cardiovascular: S1, S2 Abdomen: Soft, Other (obese) Extremities: Other (2+edema) Skin: Warm Labs Laboratory Tests Test 11/27/18 12:00 11/27/18 17:22 11/28/18 06:10 11/28/18 06:20 Glucose (Fingerstick) 173 mg/dL (70-99) 252 mg/dL (70-99) 301 mg/dL (70-99) White Blood Count 3.8 x10^3/uL (4.0-11.0) Red Blood Count 3.21 x10^6/uL (4.30-5.70) Hemoglobin 8.8 g/dL (13.0-17.5) Hematocrit 26.6 % (39.0-53.0) Mean Corpuscular Volume 83 fL (79-100) Mean Corpuscular Hemoglobin 27 pg (25-35) Mean Corpuscular Hemoglobin Concent 33 g/dL (31-37) Red Cell Distribution Width 16.7 % (11.5-14.5) Platelet Count 160 x10^3/uL (140-400) Neutrophils (%) (Auto) 71 % (31-73) Lymphocytes (%) (Auto) 16 % (24-48) Monocytes (%) (Auto) 13 % (0-9) Eosinophils (%) (Auto) 0 % (0-3) Basophils (%) (Auto) 0 % (0-3) Neutrophils # (Auto) 2.7 x10^3/uL (1.8-7.7) Lymphocytes # (Auto) 0.6 x10^3/uL (1.0-4.8) Monocytes # (Auto) 0.5 x10^3/uL (0.0-1.1) Eosinophils # (Auto) 0.0 x10^3/uL (0.0-0.7) Basophils # (Auto) 0.0 x10^3/uL (0.0-0.2) Sodium Level 140 mmol/L (136-145) Potassium Level 4.5 mmol/L (3.5-5.1) Chloride Level 101 mmol/L (98-107) Carbon Dioxide Level 30 mmol/L (21-32) Anion Gap 9 (6-14) Blood Urea Nitrogen 49 mg/dL (8-26) Creatinine 3.8 mg/dL (0.7-1.3) Estimated GFR (Cockcroft-Gault) 16.4 BUN/Creatinine Ratio 13 (6-20) Glucose Level 297 mg/dL (70-99) Calcium Level 8.9 mg/dL (8.5-10.1) Total Bilirubin 0.5 mg/dL (0.2-1.0) Aspartate Amino Transf (AST/SGOT) 278 U/L (15-37) Alanine Aminotransferase (ALT/SGPT) 726 U/L (16-63) Alkaline Phosphatase 88 U/L (46-116) Total Protein 5.6 g/dL (6.4-8.2) Albumin 2.4 g/dL (3.4-5.0) Albumin/Globulin Ratio 0.8 (1.0-1.7) Test 11/28/18 08:00 11/28/18 08:01 11/28/18 11:23 11/28/18 17:09 O2 Saturation 93 % (92-99) Arterial Blood pH 7.47 (7.35-7.45) Arterial Blood pCO2 at Patient Temp 34 mmHg (35-46) Arterial Blood pO2 at Patient Temp 72 mmHg (75-108) Arterial Blood HCO3 25 mmol/L (21-28) Arterial Blood Base Excess 1 mmol/L (-3-3) FiO2 30 Glucose (Fingerstick) 294 mg/dL (70-99) 272 mg/dL (70-99) 243 mg/dL (70-99) Test 11/29/18 06:15 11/29/18 08:33 White Blood Count 5.2 x10^3/uL (4.0-11.0) Red Blood Count 3.34 x10^6/uL (4.30-5.70) Hemoglobin 9.0 g/dL (13.0-17.5) Hematocrit 27.5 % (39.0-53.0) Mean Corpuscular Volume 83 fL (79-100) Mean Corpuscular Hemoglobin 27 pg (25-35) Mean Corpuscular Hemoglobin Concent 33 g/dL (31-37) Red Cell Distribution Width 16.8 % (11.5-14.5) Platelet Count 173 x10^3/uL (140-400) Neutrophils (%) (Auto) 65 % (31-73) Lymphocytes (%) (Auto) 21 % (24-48) Monocytes (%) (Auto) 13 % (0-9) Eosinophils (%) (Auto) 0 % (0-3) Basophils (%) (Auto) 1 % (0-3) Neutrophils # (Auto) 3.4 x10^3/uL (1.8-7.7) Lymphocytes # (Auto) 1.1 x10^3/uL (1.0-4.8) Monocytes # (Auto) 0.7 x10^3/uL (0.0-1.1) Eosinophils # (Auto) 0.0 x10^3/uL (0.0-0.7) Basophils # (Auto) 0.0 x10^3/uL (0.0-0.2) Sodium Level 141 mmol/L (136-145) Potassium Level 3.5 mmol/L (3.5-5.1) Chloride Level 103 mmol/L (98-107) Carbon Dioxide Level 29 mmol/L (21-32) Anion Gap 9 (6-14) Blood Urea Nitrogen 54 mg/dL (8-26) Creatinine 3.5 mg/dL (0.7-1.3) Estimated GFR (Cockcroft-Gault) 18.1 BUN/Creatinine Ratio 15 (6-20) Glucose Level 186 mg/dL (70-99) Calcium Level 9.4 mg/dL (8.5-10.1) Total Bilirubin 0.7 mg/dL (0.2-1.0) Aspartate Amino Transf (AST/SGOT) 148 U/L (15-37) Alanine Aminotransferase (ALT/SGPT) 487 U/L (16-63) Alkaline Phosphatase 84 U/L (46-116) Total Protein 6.0 g/dL (6.4-8.2) Albumin 2.7 g/dL (3.4-5.0) Albumin/Globulin Ratio 0.8 (1.0-1.7) Glucose (Fingerstick) 146 mg/dL (70-99) Laboratory Tests Test 11/28/18 11:23 11/28/18 17:09 11/29/18 06:15 11/29/18 08:33 Glucose (Fingerstick) 272 mg/dL (70-99) 243 mg/dL (70-99) 146 mg/dL (70-99) White Blood Count 5.2 x10^3/uL (4.0-11.0) Red Blood Count 3.34 x10^6/uL (4.30-5.70) Hemoglobin 9.0 g/dL (13.0-17.5) Hematocrit 27.5 % (39.0-53.0) Mean Corpuscular Volume 83 fL (79-100) Mean Corpuscular Hemoglobin 27 pg (25-35) Mean Corpuscular Hemoglobin Concent 33 g/dL (31-37) Red Cell Distribution Width 16.8 % (11.5-14.5) Platelet Count 173 x10^3/uL (140-400) Neutrophils (%) (Auto) 65 % (31-73) Lymphocytes (%) (Auto) 21 % (24-48) Monocytes (%) (Auto) 13 % (0-9) Eosinophils (%) (Auto) 0 % (0-3) Basophils (%) (Auto) 1 % (0-3) Neutrophils # (Auto) 3.4 x10^3/uL (1.8-7.7) Lymphocytes # (Auto) 1.1 x10^3/uL (1.0-4.8) Monocytes # (Auto) 0.7 x10^3/uL (0.0-1.1) Eosinophils # (Auto) 0.0 x10^3/uL (0.0-0.7) Basophils # (Auto) 0.0 x10^3/uL (0.0-0.2) Sodium Level 141 mmol/L (136-145) Potassium Level 3.5 mmol/L (3.5-5.1) Chloride Level 103 mmol/L (98-107) Carbon Dioxide Level 29 mmol/L (21-32) Anion Gap 9 (6-14) Blood Urea Nitrogen 54 mg/dL (8-26) Creatinine 3.5 mg/dL (0.7-1.3) Estimated GFR (Cockcroft-Gault) 18.1 BUN/Creatinine Ratio 15 (6-20) Glucose Level 186 mg/dL (70-99) Calcium Level 9.4 mg/dL (8.5-10.1) Total Bilirubin 0.7 mg/dL (0.2-1.0) Aspartate Amino Transf (AST/SGOT) 148 U/L (15-37) Alanine Aminotransferase (ALT/SGPT) 487 U/L (16-63) Alkaline Phosphatase 84 U/L (46-116) Total Protein 6.0 g/dL (6.4-8.2) Albumin 2.7 g/dL (3.4-5.0) Albumin/Globulin Ratio 0.8 (1.0-1.7) Medications Active Scripts Medications Dose Route/Sig Max Daily Dose Days Date Category Dose Instructions Oxycodone Hcl 5 Mg Capsule 5 Mg PO PRN Q6HRS PRN 11/25/18 Reported Warfarin Sodium 5 Mg Tablet 5 Mg PO DAILY 11/25/18 Reported Mondays and Wednesdays Warfarin Sodium 10 Mg Tablet 10 Mg PO DAILY 11/25/18 Reported 5 days per week, T, Th, F, Sat, Sun Tizanidine Hcl 4 Mg Tablet 2 Mg PO PRN TID PRN 11/07/18 Reported Novolin R (Insulin Regular, Human) 100 Unit/1 Ml Vial 28 Unit IJ [id number] 11/07/18 Reported Novolin R (Insulin Regular, Human) 100 Unit/1 Ml Vial 36 Unit IJ [id number] 11/07/18 Reported Novolin N (Nph, Human Insulin Isophane) 100 Unit/1 Ml Vial 50 Unit SQ BID 11/07/18 Reported Seroquel (Quetiapine Fumarate) 25 Mg Tablet 25 Mg PO DAILY 11/07/18 Reported Probenecid 500 Mg Tablet 500 Mg PO BID 11/07/18 Reported Metoprolol Tartrate 25 Mg Tablet 1 Tab PO BID 11/07/18 Reported Lisinopril 20 Mg Tablet 1 Tab PO DAILY 11/07/18 Reported Pepcid (Famotidine) 20 Mg Tablet 20 Mg PO BID 11/07/18 Reported Vitamin D3 (Cholecalciferol (Vitamin D3)) 1,000 Unit Tablet 2 Tab PO DAILY 11/07/18 Reported Senna S Tablet (Sennosides/Docusate Sodium) 1 Each Tablet 2 Tab PO HS 11/07/18 Reported Cymbalta (Duloxetine Hcl) 60 Mg Capsule.dr 120 Mg PO DAILY 11/07/18 Reported Gabapentin 600 Mg Tablet 300 Mg PO BID 11/07/18 Reported Aspirin 81 Mg Tab.chew 81 Mg PO DAILY 11/07/18 Reported Furosemide 40 Mg Tablet 1 Tab PO DAILY 09/27/18 Reported Atorvastatin Calcium 80 Mg Tablet 1 Tab PO HS 09/27/18 Reported Impression . 1. [id number] hypercapnic respiratory failure, status post ventricular tachycardia with arrest. 2. Status post cardiac arrest related to combination of V-tach and hypoxia. 3. The patient with chronic trach and developed acute on chronic hypercapnia, it could be related to transient mucous plug. He does have a low-grade fever and lower respiratory tract infection cannot be ruled out. 4. Underlying severe morbid obesity with a BMI of 81 and underlying chronic hypercapnia. 5. End-stage renal disease, on hemodialysis and has combined metabolic and respiratory acidosis. 6. Moderate protein-calorie malnutrition. 7. Abnormal liver function tests related to hypoperfusion. 8. Hyperkalemia, corrected with hemodialysis. Plan . 1. Continue present TS 2. Follow ABGs stable 3. hemodialysis.on hold 4. empiric antibiotic. 5. Obtain trach secretion for C and S. 6. Follow LFTs. 7. Close eye on potassium. 8. Improve nutritional status. 9. Discussed with RN, Does not need BIPAP. TS 24 hr transfer to floor TRES GOMEZ MD Nov 29, 2018 10:11
[2018-11-29] MEDS ORDERED: FLU VAX QS 2019-20 (36MOS+)/PF 0.5 ML SYRINGE. VAX IM ONE (10:30)
--- NOTE | 2018-11-29 11:51 | PDOC ---
[facility] [facility] PROGRESS NOTE Chief Complaint Chief Complaint Renal failure History of Present Illness History of Present Illness 11/29/18 Pt seen and examined in ICU Pt has galina conner president Not in acute distress Pt eyes open and responsive Reports weakness in his right arm that has been developing Pt wants to go back to [facility] as soon as possible Accompanied by Charts and labs reviewed Potassium was 3.5, down from 4.5 BUN was 54, up from 49 Cr was 3.5, down from 3.8 pH 7.47, up from 7.34 Glucose was 186, down from 297 D/w RN 11/28/18 Pt seen and examined in ICU Pt has galina conner No acute distress Pt eyes open and responsive but unable to talk pH 7.47, Glucose =297 DW RN 11/27/18 Pt seen and examined at bedside On BiPAP via trach Currently on dialysis pH = 7.34, Glucose = 289 HD catheter placed by IR on 11/26 EDUARDO RN Vitals/I&O Vitals/I&O: Vital Signs Date Time Temp Pulse Resp B/P (MAP) Pulse Ox O2 Delivery O2 Flow Rate FiO2 11/29/18 08:26 29 97 8.0 11/29/18 08:25 85 187/99 11/29/18 08:12 Tracheal Collar 11/29/18 04:00 99.0 99.0 I & O 11/28/18 11/28/18 11/29/18 15:00 23:00 07:00 Intake Total 226 ml 797 ml 1023.7 ml Output Total 285 ml 300 ml 300 ml Balance -59 ml 497 ml 723.7 ml Physical Exam General: No acute distress Lungs: Other (decrease bases) Extremities: No clubbing, No cyanosis Skin: No rashes, No breakdown, No significant lesion Labs Labs: Laboratory Tests Test 11/28/18 17:09 11/29/18 06:15 11/29/18 08:33 Glucose (Fingerstick) 243 mg/dL (70-99) 146 mg/dL (70-99) White Blood Count 5.2 x10^3/uL (4.0-11.0) Red Blood Count 3.34 x10^6/uL (4.30-5.70) Hemoglobin 9.0 g/dL (13.0-17.5) Hematocrit 27.5 % (39.0-53.0) Mean Corpuscular Volume 83 fL (79-100) Mean Corpuscular Hemoglobin 27 pg (25-35) Mean Corpuscular Hemoglobin Concent 33 g/dL (31-37) Red Cell Distribution Width 16.8 % (11.5-14.5) Platelet Count 173 x10^3/uL (140-400) Neutrophils (%) (Auto) 65 % (31-73) Lymphocytes (%) (Auto) 21 % (24-48) Monocytes (%) (Auto) 13 % (0-9) Eosinophils (%) (Auto) 0 % (0-3) Basophils (%) (Auto) 1 % (0-3) Neutrophils # (Auto) 3.4 x10^3/uL (1.8-7.7) Lymphocytes # (Auto) 1.1 x10^3/uL (1.0-4.8) Monocytes # (Auto) 0.7 x10^3/uL (0.0-1.1) Eosinophils # (Auto) 0.0 x10^3/uL (0.0-0.7) Basophils # (Auto) 0.0 x10^3/uL (0.0-0.2) Sodium Level 141 mmol/L (136-145) Potassium Level 3.5 mmol/L (3.5-5.1) Chloride Level 103 mmol/L (98-107) Carbon Dioxide Level 29 mmol/L (21-32) Anion Gap 9 (6-14) Blood Urea Nitrogen 54 mg/dL (8-26) Creatinine 3.5 mg/dL (0.7-1.3) Estimated GFR (Cockcroft-Gault) 18.1 BUN/Creatinine Ratio 15 (6-20) Glucose Level 186 mg/dL (70-99) Calcium Level 9.4 mg/dL (8.5-10.1) Total Bilirubin 0.7 mg/dL (0.2-1.0) Aspartate Amino Transf (AST/SGOT) 148 U/L (15-37) Alanine Aminotransferase (ALT/SGPT) 487 U/L (16-63) Alkaline Phosphatase 84 U/L (46-116) Total Protein 6.0 g/dL (6.4-8.2) Albumin 2.7 g/dL (3.4-5.0) Albumin/Globulin Ratio 0.8 (1.0-1.7) Review of Systems Review of Systems: Pt co weakness in his right arm Pt denies fever Assessment and Plan Assessmemt and Plan Assessment Resp failure Obesity Renal failure Hyperglycemia Hyperkalemia Plan ICU monitoring LTAC eval in progress Wean off levophed MRSA precautions Trach shield Wound care Doxycycline IV fluids PT/OT Dukes to BSD Sliding scale insulin Humalog 10 units tid Full code Total time 31 min Comment Review of Relevant I have reviewed the following items bar (where applicable) has been applied. Medications: Current Medications Medications (Trade) Dose Ordered Sig/Cathy Route PRN Reason Start Time Stop Time Status Last Admin Dose Admin Acetaminophen (Tylenol) 650 mg PRN Q6HRS PRN PO MILD PAIN / TEMP 11/28/18 20:30 11/28/18 21:15 Lidocaine (Lidoderm) 1 patch DAILY TD 11/28/18 21:00 11/29/18 08:08 Metoprolol Tartrate (Lopressor) 25 mg BID PO 11/29/18 09:00 11/29/18 08:25 Oxycodone HCl (Roxicodone) 5 mg PRN Q6HRS PRN PO SEVERE PAIN 7-10 11/29/18 02:15 11/29/18 08:26 Metoprolol Tartrate (Lopressor) 25 mg 1X ONCE PO 11/29/18 02:30 11/29/18 02:31 DC 11/29/18 02:30 Ondansetron HCl (Zofran) 4 mg PRN Q6HRS PRN IVP NAUSEA/VOMITING 11/29/18 07:30 11/29/18 08:07 Lactobacillus Rhamnosus (Culturelle) 1 cap BID PO 11/29/18 09:00 11/29/18 08:35 SHRUTHI WAN III DO Nov 29, 2018 11:51
--- NOTE | 2018-11-29 18:35 | NUR ---
Patient was transported from the ICU to room 404 via bed. VSS, afebrile, and pain rated a 7/10. RN performed a head to toe assessment at that time. Bed is in lowest locked position and call light is within reach. RN will continue to monitor patient closely.
--- NOTE | 2018-11-29 19:10 | NUR ---
Difficulty w "comfort " in the bed . Assist reposition as needed. Worked w PT/OT and able to dangle but not bear weight to get OOB. Anxious to leave but Dr Rubio wants to monitor renal function x 24-48 more H. Condition improved. Overt cough w expectoration via trach. Transfer per bed to 404.
[2018-11-29] MEDS: ACETAMINOPHEN 650 MG/20.3 ML SOLUTION. PO PRN (19:53)
[2018-11-29] MEDS: PATCH REMOVAL. MC SCH (21:00)
[2018-11-29] MEDS ORDERED: BENZOCAINE/MENTHOL LOZENGE. PO PRN (22:15)
[2018-11-30] MEDS: DOXYCYCLINE HYCLATE 100 MG in IV DEXTROSE 5% 100ML 100 ML IV SCH ×2 (02:03→13:30)
[2018-11-30 03:00] VITALS: BP 122/65
--- NOTE | 2018-11-30 04:03 | NUR ---
Difficulty w "comfort " in the bed . Assist with reposition as needed. RN has tried turning the patient every two hours, patient won't stay on his right or left side long and wants to go to his back.
[2018-11-30] MEDS: oxyCODONE IR 5 MG TABLET PO PRN ×6 (04:49→21:34)
[2018-11-30 04:51] LABS: BASO % 1 % (0-3); EOS # 0.1 x10^3/uL (0.0-0.7); EOS % 3 % (0-3); HEMATOCRIT 28.2 % (39.0-53.0); HEMOGLOBIN 9.3 g/dL (13.0-17.5); LYMPH # 1.4 x10^3/uL (1.0-4.8); LYMPH % 29 % (24-48); MEAN CORPUSCULAR HEMOGLOBIN 27 pg (25-35); MEAN CORPUSCULAR HGB CONC 33 g/dL (31-37); MEAN CORPUSCULAR VOLUME 83 fL (79-100); MONO # 0.6 x10^3/uL (0.0-1.1); MONO % 12 % (0-9); NEUT # 2.7 x10^3/uL (1.8-7.7); NEUT % 56 % (31-73); PLATELET COUNT 167 x10^3/uL (140-400); RED CELL DISTRIBUTION WIDTH 16.7 % (11.5-14.5); WHITE BLOOD COUNT 4.8 x10^3/uL (4.0-11.0)
[2018-11-30 05:07] LABS: ALBUMIN 2.4 g/dL (3.4-5.0); ALBUMIN/GLOBULIN RATIO 0.8 (1.0-1.7); CREATININE 2.8 mg/dL (0.7-1.3); GFR 23.4; POTASSIUM 3.8 mmol/L (3.5-5.1); TOTAL BILIRUBIN 0.7 mg/dL (0.2-1.0); TOTAL PROTEIN 5.6 g/dL (6.4-8.2)
--- NOTE | 2018-11-30 05:53 | NUR ---
Patient stated to the aide "I'm having suicidal thoughts", when asked patient said there is no plan. Suicide Risk Lethality Assessment completed and scored a 4, low risk. Nursing supervisor cap and hat production notified. RN will continue to monitor patient closely.
[2018-11-30] MEDS: HEPARIN for SUB-Q USE 5,000 UNIT/ML VIAL. SQ SCH ×3 (06:08→21:42)
[2018-11-30 07:00] VITALS: BP 144/80
[2018-11-30] MEDS: BUDESONIDE 0.5 MG/2 ML NEBU. NEB SCH ×2 (07:19→20:00)
[2018-11-30] MEDS: IPRATRPIUM/ALBUTEROL 0.5/2.5MG 3 ML NEBU. NEB SCH ×4 (07:19→20:00)
[2018-11-30] MEDS: INSULIN LISPRO 300 UNITS/3 ML VIAL. SQ SCH ×3 (07:30→17:07)
[2018-11-30] MEDS: IV NORMAL SALINE 1000ML BAG 1,000 ML IV SCH ×2 (08:31→17:03)
[2018-11-30] MEDS: ACETAMINOPHEN 650 MG/20.3 ML SOLUTION. PO PRN (08:32)
[2018-11-30] MEDS: LACTOBACILLUS RHAMNOSUS GG 1 CAPSULE. PO SCH ×2 (08:32→21:34)
[2018-11-30] MEDS: METOPROLOL TART IMMED RELEASE 25 MG TABLET. PO SCH ×2 (08:32→21:33)
[2018-11-30] MEDS: LIDOCAINE (700MG/PATCH) PATCH. TD SCH (08:32)
--- NOTE | 2018-11-30 09:51 | PDOC ---
[facility] [facility] PROGRESS NOTE Chief Complaint Chief Complaint Renal failure History of Present Illness History of Present Illness 11/30/18 Pt seen and examined on 4th medical floor Pt has galina conner present Pt was resting in bed No acute distress Accompanied by Charts and labs reviewed BUN 53 Cr was 2.8, down from 3.5 Potassium is 3.8 EDUARDO RN 11/29/18 Pt seen and examined in ICU Pt has galina conner president Not in acute distress Pt eyes open and responsive Reports weakness in his right arm that has been developing Pt wants to go back to [facility] as soon as possible Accompanied by Charts and labs reviewed Potassium was 3.5, down from 4.5 BUN was 54, up from 49 Cr was 3.5, down from 3.8 pH 7.47, up from 7.34 Glucose was 186, down from 297 D/w RN 11/28/18 Pt seen and examined in ICU Pt has galina conner No acute distress Pt eyes open and responsive but unable to talk pH 7.47, Glucose =297 EDUARDO RN 11/27/18 Pt seen and examined at bedside On BiPAP via trach Currently on dialysis pH = 7.34, Glucose = 289 HD catheter placed by IR on 11/26 EDUARDO RN Vitals/I&O Vitals/I&O: Vital Signs Date Time Temp Pulse Resp B/P (MAP) Pulse Ox O2 Delivery O2 Flow Rate FiO2 11/30/18 08:32 86 144/80 11/30/18 07:35 8.0 11/30/18 07:29 99 Tracheal Collar 11/30/18 07:00 98.2 16 98.2 I & O 11/29/18 11/30/18 11/30/18 17:00 01:00 09:00 Intake Total 425 ml Output Total 550 ml 100 ml 750 ml Balance -125 ml -100 ml -750 ml Physical Exam General: Alert, Oriented X3, Cooperative, No acute distress Lungs: Clear, Other (decrease bases) Extremities: No clubbing, No cyanosis Skin: No rashes, No breakdown, No significant lesion Labs Labs: Laboratory Tests Test 11/29/18 12:13 11/29/18 16:52 11/29/18 20:35 11/30/18 04:40 Glucose (Fingerstick) 148 mg/dL (70-99) 178 mg/dL (70-99) 186 mg/dL (70-99) White Blood Count 4.8 x10^3/uL (4.0-11.0) Red Blood Count 3.40 x10^6/uL (4.30-5.70) Hemoglobin 9.3 g/dL (13.0-17.5) Hematocrit 28.2 % (39.0-53.0) Mean Corpuscular Volume 83 fL (79-100) Mean Corpuscular Hemoglobin 27 pg (25-35) Mean Corpuscular Hemoglobin Concent 33 g/dL (31-37) Red Cell Distribution Width 16.7 % (11.5-14.5) Platelet Count 167 x10^3/uL (140-400) Neutrophils (%) (Auto) 56 % (31-73) Lymphocytes (%) (Auto) 29 % (24-48) Monocytes (%) (Auto) 12 % (0-9) Eosinophils (%) (Auto) 3 % (0-3) Basophils (%) (Auto) 1 % (0-3) Neutrophils # (Auto) 2.7 x10^3/uL (1.8-7.7) Lymphocytes # (Auto) 1.4 x10^3/uL (1.0-4.8) Monocytes # (Auto) 0.6 x10^3/uL (0.0-1.1) Eosinophils # (Auto) 0.1 x10^3/uL (0.0-0.7) Basophils # (Auto) 0.0 x10^3/uL (0.0-0.2) Sodium Level 140 mmol/L (136-145) Potassium Level 3.8 mmol/L (3.5-5.1) Chloride Level 103 mmol/L (98-107) Carbon Dioxide Level 31 mmol/L (21-32) Anion Gap 6 (6-14) Blood Urea Nitrogen 53 mg/dL (8-26) Creatinine 2.8 mg/dL (0.7-1.3) Estimated GFR (Cockcroft-Gault) 23.4 BUN/Creatinine Ratio 19 (6-20) Glucose Level 167 mg/dL (70-99) Calcium Level 9.0 mg/dL (8.5-10.1) Total Bilirubin 0.7 mg/dL (0.2-1.0) Aspartate Amino Transf (AST/SGOT) 100 U/L (15-37) Alanine Aminotransferase (ALT/SGPT) 318 U/L (16-63) Alkaline Phosphatase 78 U/L (46-116) Total Protein 5.6 g/dL (6.4-8.2) Albumin 2.4 g/dL (3.4-5.0) Albumin/Globulin Ratio 0.8 (1.0-1.7) Test 11/30/18 07:58 Glucose (Fingerstick) 143 mg/dL (70-99) Review of Systems Review of Systems: No nausea, no vomiting No chest pain, no palpitations Assessment and Plan Assessmemt and Plan Assessment Acute on chronic hypercapnic respiratory failure Renal failure Obesity Post code sepsis Hyperkalemia Plan O2 via TS Await C & S from trach IV abx Trach care Full code HD on hold Follow LFTs DVT prophylaxis PT/OT Comment Review of Relevant I have reviewed the following items bar (where applicable) has been applied. Medications: Current Medications Medications (Trade) Dose Ordered Sig/Cathy Route PRN Reason Start Time Stop Time Status Last Admin Dose Admin Metoprolol Tartrate (Lopressor) 25 mg BID PO 11/29/18 09:00 11/30/18 08:32 Lactobacillus Rhamnosus (Culturelle) 1 cap BID PO 11/29/18 09:00 11/30/18 08:32 Influenza Virus Vaccine Quadrival (Afluria Quad 2018- (3yr Up) Syringe) 0.5 ml ONCE ONCE VAX IM 11/29/18 10:30 11/29/18 10:31 DC 11/30/18 08:34 Throat Lozenges (Cepacol Sore Throat Lozenge) 1 chiquita PRN Q2HRS PRN PO SORE THROAT 11/29/18 22:15 11/29/18 22:53 SHRUTHI WAN III DO Nov 30, 2018 09:51
--- NOTE | 2018-11-30 10:42 | NUR ---
During brief change magazine writer observed 2 open areas on left buttock. Area cleansed, measured, and pictured, nurse wound care consult entered, will continue to monitor.
[2018-11-30 11:00] VITALS: BP 150/71
--- NOTE | 2018-11-30 11:28 | PDOC ---
PULMONARY PROGRESS NOTES Subjective remains on TS Vitals Vital Signs Date Time Temp Pulse Resp B/P (MAP) Pulse Ox O2 Delivery O2 Flow Rate FiO2 11/30/18 11:17 Tracheal Collar 8.0 11/30/18 10:12 99 11/30/18 08:32 86 144/80 11/30/18 07:00 98.2 16 98.2 General: Alert Lungs: Other (decrease bases) Cardiovascular: S1, S2 Abdomen: Soft, Other (obese) Extremities: Other (2+edema) Skin: Warm Labs Laboratory Tests Test 11/28/18 17:09 11/29/18 06:15 11/29/18 08:33 11/29/18 12:13 Glucose (Fingerstick) 243 mg/dL (70-99) 146 mg/dL (70-99) 148 mg/dL (70-99) White Blood Count 5.2 x10^3/uL (4.0-11.0) Red Blood Count 3.34 x10^6/uL (4.30-5.70) Hemoglobin 9.0 g/dL (13.0-17.5) Hematocrit 27.5 % (39.0-53.0) Mean Corpuscular Volume 83 fL (79-100) Mean Corpuscular Hemoglobin 27 pg (25-35) Mean Corpuscular Hemoglobin Concent 33 g/dL (31-37) Red Cell Distribution Width 16.8 % (11.5-14.5) Platelet Count 173 x10^3/uL (140-400) Neutrophils (%) (Auto) 65 % (31-73) Lymphocytes (%) (Auto) 21 % (24-48) Monocytes (%) (Auto) 13 % (0-9) Eosinophils (%) (Auto) 0 % (0-3) Basophils (%) (Auto) 1 % (0-3) Neutrophils # (Auto) 3.4 x10^3/uL (1.8-7.7) Lymphocytes # (Auto) 1.1 x10^3/uL (1.0-4.8) Monocytes # (Auto) 0.7 x10^3/uL (0.0-1.1) Eosinophils # (Auto) 0.0 x10^3/uL (0.0-0.7) Basophils # (Auto) 0.0 x10^3/uL (0.0-0.2) Sodium Level 141 mmol/L (136-145) Potassium Level 3.5 mmol/L (3.5-5.1) Chloride Level 103 mmol/L (98-107) Carbon Dioxide Level 29 mmol/L (21-32) Anion Gap 9 (6-14) Blood Urea Nitrogen 54 mg/dL (8-26) Creatinine 3.5 mg/dL (0.7-1.3) Estimated GFR (Cockcroft-Gault) 18.1 BUN/Creatinine Ratio 15 (6-20) Glucose Level 186 mg/dL (70-99) Calcium Level 9.4 mg/dL (8.5-10.1) Total Bilirubin 0.7 mg/dL (0.2-1.0) Aspartate Amino Transf (AST/SGOT) 148 U/L (15-37) Alanine Aminotransferase (ALT/SGPT) 487 U/L (16-63) Alkaline Phosphatase 84 U/L (46-116) Total Protein 6.0 g/dL (6.4-8.2) Albumin 2.7 g/dL (3.4-5.0) Albumin/Globulin Ratio 0.8 (1.0-1.7) Test 11/29/18 16:52 11/29/18 20:35 11/30/18 04:40 11/30/18 07:58 Glucose (Fingerstick) 178 mg/dL (70-99) 186 mg/dL (70-99) 143 mg/dL (70-99) White Blood Count 4.8 x10^3/uL (4.0-11.0) Red Blood Count 3.40 x10^6/uL (4.30-5.70) Hemoglobin 9.3 g/dL (13.0-17.5) Hematocrit 28.2 % (39.0-53.0) Mean Corpuscular Volume 83 fL (79-100) Mean Corpuscular Hemoglobin 27 pg (25-35) Mean Corpuscular Hemoglobin Concent 33 g/dL (31-37) Red Cell Distribution Width 16.7 % (11.5-14.5) Platelet Count 167 x10^3/uL (140-400) Neutrophils (%) (Auto) 56 % (31-73) Lymphocytes (%) (Auto) 29 % (24-48) Monocytes (%) (Auto) 12 % (0-9) Eosinophils (%) (Auto) 3 % (0-3) Basophils (%) (Auto) 1 % (0-3) Neutrophils # (Auto) 2.7 x10^3/uL (1.8-7.7) Lymphocytes # (Auto) 1.4 x10^3/uL (1.0-4.8) Monocytes # (Auto) 0.6 x10^3/uL (0.0-1.1) Eosinophils # (Auto) 0.1 x10^3/uL (0.0-0.7) Basophils # (Auto) 0.0 x10^3/uL (0.0-0.2) Sodium Level 140 mmol/L (136-145) Potassium Level 3.8 mmol/L (3.5-5.1) Chloride Level 103 mmol/L (98-107) Carbon Dioxide Level 31 mmol/L (21-32) Anion Gap 6 (6-14) Blood Urea Nitrogen 53 mg/dL (8-26) Creatinine 2.8 mg/dL (0.7-1.3) Estimated GFR (Cockcroft-Gault) 23.4 BUN/Creatinine Ratio 19 (6-20) Glucose Level 167 mg/dL (70-99) Calcium Level 9.0 mg/dL (8.5-10.1) Total Bilirubin 0.7 mg/dL (0.2-1.0) Aspartate Amino Transf (AST/SGOT) 100 U/L (15-37) Alanine Aminotransferase (ALT/SGPT) 318 U/L (16-63) Alkaline Phosphatase 78 U/L (46-116) Total Protein 5.6 g/dL (6.4-8.2) Albumin 2.4 g/dL (3.4-5.0) Albumin/Globulin Ratio 0.8 (1.0-1.7) Laboratory Tests Test 11/29/18 12:13 11/29/18 16:52 11/29/18 20:35 11/30/18 04:40 Glucose (Fingerstick) 148 mg/dL (70-99) 178 mg/dL (70-99) 186 mg/dL (70-99) White Blood Count 4.8 x10^3/uL (4.0-11.0) Red Blood Count 3.40 x10^6/uL (4.30-5.70) Hemoglobin 9.3 g/dL (13.0-17.5) Hematocrit 28.2 % (39.0-53.0) Mean Corpuscular Volume 83 fL (79-100) Mean Corpuscular Hemoglobin 27 pg (25-35) Mean Corpuscular Hemoglobin Concent 33 g/dL (31-37) Red Cell Distribution Width 16.7 % (11.5-14.5) Platelet Count 167 x10^3/uL (140-400) Neutrophils (%) (Auto) 56 % (31-73) Lymphocytes (%) (Auto) 29 % (24-48) Monocytes (%) (Auto) 12 % (0-9) Eosinophils (%) (Auto) 3 % (0-3) Basophils (%) (Auto) 1 % (0-3) Neutrophils # (Auto) 2.7 x10^3/uL (1.8-7.7) Lymphocytes # (Auto) 1.4 x10^3/uL (1.0-4.8) Monocytes # (Auto) 0.6 x10^3/uL (0.0-1.1) Eosinophils # (Auto) 0.1 x10^3/uL (0.0-0.7) Basophils # (Auto) 0.0 x10^3/uL (0.0-0.2) Sodium Level 140 mmol/L (136-145) Potassium Level 3.8 mmol/L (3.5-5.1) Chloride Level 103 mmol/L (98-107) Carbon Dioxide Level 31 mmol/L (21-32) Anion Gap 6 (6-14) Blood Urea Nitrogen 53 mg/dL (8-26) Creatinine 2.8 mg/dL (0.7-1.3) Estimated GFR (Cockcroft-Gault) 23.4 BUN/Creatinine Ratio 19 (6-20) Glucose Level 167 mg/dL (70-99) Calcium Level 9.0 mg/dL (8.5-10.1) Total Bilirubin 0.7 mg/dL (0.2-1.0) Aspartate Amino Transf (AST/SGOT) 100 U/L (15-37) Alanine Aminotransferase (ALT/SGPT) 318 U/L (16-63) Alkaline Phosphatase 78 U/L (46-116) Total Protein 5.6 g/dL (6.4-8.2) Albumin 2.4 g/dL (3.4-5.0) Albumin/Globulin Ratio 0.8 (1.0-1.7) Test 11/30/18 07:58 Glucose (Fingerstick) 143 mg/dL (70-99) Medications Active Scripts Medications Dose Route/Sig Max Daily Dose Days Date Category Dose Instructions Oxycodone Hcl 5 Mg Capsule 5 Mg PO PRN Q6HRS PRN 11/25/18 Reported Warfarin Sodium 5 Mg Tablet 5 Mg PO DAILY 11/25/18 Reported Mondays and Wednesdays Warfarin Sodium 10 Mg Tablet 10 Mg PO DAILY 11/25/18 Reported 5 days per week, T, , F, Sat, Sun Tizanidine Hcl 4 Mg Tablet 2 Mg PO PRN TID PRN 11/07/18 Reported Novolin R (Insulin Regular, Human) 100 Unit/1 Ml Vial 28 Unit IJ [id number] 11/07/18 Reported Novolin R (Insulin Regular, Human) 100 Unit/1 Ml Vial 36 Unit IJ [id number] 11/07/18 Reported Novolin N (Nph, Human Insulin Isophane) 100 Unit/1 Ml Vial 50 Unit SQ BID 11/07/18 Reported Seroquel (Quetiapine Fumarate) 25 Mg Tablet 25 Mg PO DAILY 11/07/18 Reported Probenecid 500 Mg Tablet 500 Mg PO BID 11/07/18 Reported Metoprolol Tartrate 25 Mg Tablet 1 Tab PO BID 11/07/18 Reported Lisinopril 20 Mg Tablet 1 Tab PO DAILY 11/07/18 Reported Pepcid (Famotidine) 20 Mg Tablet 20 Mg PO BID 11/07/18 Reported Vitamin D3 (Cholecalciferol (Vitamin D3)) 1,000 Unit Tablet 2 Tab PO DAILY 11/07/18 Reported Senna S Tablet (Sennosides/Docusate Sodium) 1 Each Tablet 2 Tab PO HS 11/07/18 Reported Cymbalta (Duloxetine Hcl) 60 Mg Capsule.dr 120 Mg PO DAILY 11/07/18 Reported Gabapentin 600 Mg Tablet 300 Mg PO BID 11/07/18 Reported Aspirin 81 Mg Tab.chew 81 Mg PO DAILY 11/07/18 Reported Furosemide 40 Mg Tablet 1 Tab PO DAILY 09/27/18 Reported Atorvastatin Calcium 80 Mg Tablet 1 Tab PO HS 09/27/18 Reported Impression . 1. Riwbu-ge-ikwxhrw hypercapnic respiratory failure, status post ventricular tachycardia with arrest. 2. Status post cardiac arrest related to combination of V-tach and hypoxia. 3. The patient with chronic trach and developed acute on chronic hypercapnia, it could be related to transient mucous plug. He does have a low-grade fever and lower respiratory tract infection cannot be ruled out. 4. Underlying severe morbid obesity with a BMI of 81 and underlying chronic hypercapnia. 5. End-stage renal disease, on hemodialysis and has combined metabolic and respiratory acidosis. 6. Moderate protein-calorie malnutrition. 7. Abnormal liver function tests related to hypoperfusion. 8. Hyperkalemia, corrected with hemodialysis. Plan . 1. Continue present TS 2. Follow ABGs stable 3. hemodialysis per renal 4. empiric antibiotic. 5. Not a candidate for decanulation 6. Follow up LFTs.improved 7. Discussed with RN, Does not need BIPAP. TS 24 hr transfer to [facility] TRES GOMEZ MD Nov 30, 2018 11:28
[2018-11-30] MEDS: MAG HYDROX/ALUMINUM HYD/SIMETH 30 ML ORAL.SUSP PO PRN (11:33)
--- NOTE | 2018-11-30 13:26 | PDOC ---
SUBJECTIVE ROS No complaints this am OBJECTIVE Vital Signs Vital Signs Date Time Temp Pulse Resp B/P (MAP) Pulse Ox O2 Delivery O2 Flow Rate FiO2 11/30/18 11:17 Tracheal Collar 8.0 11/30/18 11:00 97.8 89 16 150/71 (97) 98 97.8 I & 0 Intake and Output 11/30/18 07:00 Intake Total 625 ml Output Total 1675 ml Balance -1050 ml Intake Oral 625 ml Output Urine Total 1675 ml PHYSICAL EXAM Physical Exam GENERAL: morbidly obese. No apparent distress HEENT: chronic trach. NECK: Supple LUNGS: Clear to auscultation, decreased at bases HEART: RRR, S1, S2 present. ABDOMEN: Soft, Obese EXTREMITIES: right foot wound. NEUROLOGIC: awake and alert SKIN: No rashes Dukes + DIAGNOSIS/ASSESSMENT Assessment & Plan GUSTAVO - ATN Required emergent HD on 11/26 , 2 nd Tx on 11/27 Has Good UOP, Labs stable,Stable Resp status no indication for HD today Supportive care , Monitor Remove HD catheter prior to dc if Renal function stays improving/Stable Hyperkalemia- Resolved VTach/Sp CP arrest - left AMA last from Rehab facility [id number] hypercapnic respiratory failure, status post ventricular tachycardia with arrest Resolved . Chronic trach and developed acute on chronic hypercapnia Severe morbid obesity with a BMI of 81 Anemia- Per primary Discussed with Pt and RN COMMENT/RELEVANT DATA Meds Current Medications Medications (Trade) Dose Ordered Sig/Cathy Start Time Stop Time Status Last Admin Dose Admin Acetaminophen (Tylenol) 650 mg PRN Q6HRS PRN 11/28/18 20:30 11/30/18 08:32 650 MG Al Hydroxide/Mg Hydroxide (Mylanta Plus Xs) 30 ml PRN Q6HRS PRN 11/29/18 18:30 11/30/18 11:33 30 ML Albumin Human 200 ml @ 200 mls/hr 1X PRN PRN 11/26/18 08:30 11/26/18 14:29 DC Albuterol/ Ipratropium (Duoneb) 3 ml RTQID 11/26/18 16:00 11/30/18 11:14 3 ML Atropine Sulfate (ATROPINE 0.5mg SYRINGE) 0.5 mg PRN Q5MIN PRN 11/27/18 17:00 Budesonide (Pulmicort) 0.5 mg RTBID 11/26/18 20:00 11/30/18 07:19 0.5 MG Calcium Gluconate (Calcium Gluconate) 1,000 mg 1X ONCE 11/26/18 06:30 11/26/18 06:31 DC 11/26/18 06:28 1,000 MG Dexmedetomidine HCl 400 mcg/ Sodium Chloride 100 ml @ 0 mls/hr CONT PRN 11/27/18 17:00 11/28/18 04:58 13 MLS/HR Dextrose (Dextrose 50%-Water Syringe) 25 gm 1X ONCE 11/26/18 06:30 11/26/18 06:31 DC 11/26/18 06:28 25 GM Diphenhydramine HCl (Benadryl) 25 mg 1X PRN PRN 11/26/18 08:30 11/27/18 08:29 DC Doxycycline Hyclate 100 mg/ Dextrose 100 ml @ 50 mls/hr Q12H 11/27/18 14:00 11/30/18 02:03 50 MLS/HR Furosemide (Lasix) 40 mg 1X ONCE 11/26/18 03:00 11/26/18 03:01 DC 11/26/18 02:48 40 MG Heparin Sodium (Porcine) (Heparin Sodium) 5,000 unit Q8HRS 11/27/18 14:00 11/30/18 06:08 5,000 UNIT Influenza Virus Vaccine Quadrival (Afluria Quad 2019-20 (3yr Up) Syringe) 0.5 ml ONCE ONCE 11/29/18 10:30 11/29/18 10:31 DC 11/30/18 08:34 0.5 ML Info (PHARMACY MONITORING -- do not chart) 1 each PRN DAILY PRN 11/27/18 07:45 Insulin Human Lispro (HumaLOG) 10 units TIDAC 11/27/18 12:02 11/30/18 12:18 10 UNITS Insulin Human Regular (HumuLIN R VIAL) 5 unit 1X ONCE 11/26/18 06:30 11/26/18 06:31 DC 11/26/18 06:24 5 UNIT Lactobacillus Rhamnosus (Culturelle) 1 cap BID 11/29/18 09:00 11/30/18 08:32 1 CAP Lidocaine (Lidoderm) 1 patch DAILY 11/28/18 21:00 11/30/18 08:32 1 PATCH Lidocaine HCl (Xylocaine 1% Pf 30ml Vial) 30 ml 1X ONCE 11/27/18 08:30 11/27/18 08:31 DC Lidocaine/Sodium Bicarbonate (Buffered Lidocaine 1%) 6 ml 1X ONCE 11/26/18 07:30 11/26/18 07:31 DC 11/26/18 08:51 6 ML Lorazepam (Ativan Inj) 2 mg PRN Q4HRS PRN 11/27/18 02:00 11/30/18 02:02 2 MG Metolazone (Zaroxolyn) 10 mg 1X ONCE 11/26/18 03:00 11/26/18 03:01 DC 11/26/18 02:47 10 MG Metoprolol Tartrate (Lopressor) 25 mg 1X ONCE 11/29/18 02:30 11/29/18 02:31 DC 11/29/18 02:30 25 MG Miscellaneous (Lidoderm Patch Removal) 1 ea QHS 11/28/18 21:00 11/29/18 21:00 1 EA Norepinephrine Bitartrate 250 ml @ 48.75 mls/ hr CONT PRN 11/26/18 00:15 11/29/18 19:39 DC 11/27/18 07:37 42.9 MLS/HR Ondansetron HCl (Zofran) 4 mg PRN Q6HRS PRN 11/29/18 07:30 11/29/18 08:07 4 MG Oxycodone HCl (Roxicodone) 5 mg PRN Q4HRS PRN 11/30/18 09:15 11/30/18 10:12 5 MG Sodium Polystyrene Sulfonate (Kayexalate) 30 gm 1X ONCE 11/26/18 03:00 11/26/18 03:01 DC 11/26/18 02:47 30 GM Sodium Bicarbonate (Sodium Bicarb Adult 8.4% Syr) 100 meq 1X ONCE 11/26/18 06:30 11/26/18 06:31 DC 11/26/18 06:28 100 MEQ Sodium Chloride 500 ml @ 500 mls/hr 1X PRN PRN 11/27/18 17:00 Throat Lozenges (Cepacol Sore Throat Lozenge) 1 génesis PRN Q2HRS PRN 11/29/18 22:15 11/29/18 22:53 1 GÉNESIS Lab Laboratory Tests Test 11/29/18 16:52 11/29/18 20:35 11/30/18 04:40 11/30/18 07:58 Glucose (Fingerstick) 178 mg/dL (70-99) 186 mg/dL (70-99) 143 mg/dL (70-99) White Blood Count 4.8 x10^3/uL (4.0-11.0) Red Blood Count 3.40 x10^6/uL (4.30-5.70) Hemoglobin 9.3 g/dL (13.0-17.5) Hematocrit 28.2 % (39.0-53.0) Mean Corpuscular Volume 83 fL (79-100) Mean Corpuscular Hemoglobin 27 pg (25-35) Mean Corpuscular Hemoglobin Concent 33 g/dL (31-37) Red Cell Distribution Width 16.7 % (11.5-14.5) Platelet Count 167 x10^3/uL (140-400) Neutrophils (%) (Auto) 56 % (31-73) Lymphocytes (%) (Auto) 29 % (24-48) Monocytes (%) (Auto) 12 % (0-9) Eosinophils (%) (Auto) 3 % (0-3) Basophils (%) (Auto) 1 % (0-3) Neutrophils # (Auto) 2.7 x10^3/uL (1.8-7.7) Lymphocytes # (Auto) 1.4 x10^3/uL (1.0-4.8) Monocytes # (Auto) 0.6 x10^3/uL (0.0-1.1) Eosinophils # (Auto) 0.1 x10^3/uL (0.0-0.7) Basophils # (Auto) 0.0 x10^3/uL (0.0-0.2) Sodium Level 140 mmol/L (136-145) Potassium Level 3.8 mmol/L (3.5-5.1) Chloride Level 103 mmol/L (98-107) Carbon Dioxide Level 31 mmol/L (21-32) Anion Gap 6 (6-14) Blood Urea Nitrogen 53 mg/dL (8-26) Creatinine 2.8 mg/dL (0.7-1.3) Estimated GFR (Cockcroft-Gault) 23.4 BUN/Creatinine Ratio 19 (6-20) Glucose Level 167 mg/dL (70-99) Calcium Level 9.0 mg/dL (8.5-10.1) Total Bilirubin 0.7 mg/dL (0.2-1.0) Aspartate Amino Transf (AST/SGOT) 100 U/L (15-37) Alanine Aminotransferase (ALT/SGPT) 318 U/L (16-63) Alkaline Phosphatase 78 U/L (46-116) Total Protein 5.6 g/dL (6.4-8.2) Albumin 2.4 g/dL (3.4-5.0) Albumin/Globulin Ratio 0.8 (1.0-1.7) Test 11/30/18 11:50 Glucose (Fingerstick) 222 mg/dL (70-99) Results All relevant outside records, renal labs, imaging studies, telemetry/EKG's were reviewed. SARMAD STOCKTON MD Nov 30, 2018 13:26
--- NOTE | 2018-11-30 14:04 | NUR ---
Patient c/o nerve pain and numbness in feet. Notified Dr. Luo, new order received.
[2018-11-30] MEDS: GABAPENTIN 300 MG CAPSULE. PO SCH ×2 (14:10→21:34)
--- NOTE | 2018-11-30 14:15 | NUR ---
SS following up with discharge planning. SS phoned and faxed clinical updates to [facility], ; fax [phone]. Pt accepted pending insurance authorization. SS currently awaiting insurance authorization at this time. SS will continue to follow for discharge planning.
--- NOTE | 2018-11-30 14:49 | NUR ---
Wound care: Patient seen per wound care consult. See wound assessment. Patient has stage II pressure ulcer to Midline back and to left buttock. Wounds cleansed, assessed, measured, and pictured. Recommendations for contact layer and foam dressing. Dressing applied and patient tolerated well. Patient assists with turning. Dressing change instructions left in room. No other wounds noted upon complete head to toe assessment. patient refused to turn to side at this time. Bed lowered and call light in reach. Will follow patient regarding wound care.
[2018-11-30 15:00] VITALS: BP 137/81
--- NOTE | 2018-11-30 16:41 | NUR ---
SS following up with discharge planning. [facility] declined LTAC. Peer to peer information provided to Dr. Luo. Dr. Luo reported that he would complete the peer to peer. Glenis from [facility] reported that she would provide AIR form to Dr. Luo in the morning to complete.
[2018-11-30] MEDS: NYSTATIN TOPICAL POWDER 15GM BOTTLE. TP SCH ×2 (17:03→21:34)
[2018-11-30 19:03] VITALS: BP 127/72
[2018-11-30] MEDS: PATCH REMOVAL. MC SCH (21:00)
[2018-11-30 22:55] VITALS: BP 147/83
[2018-12-01] MEDS: oxyCODONE IR 5 MG TABLET PO PRN ×4 (01:35→16:47)
[2018-12-01] MEDS: DOXYCYCLINE HYCLATE 100 MG in IV DEXTROSE 5% 100ML 100 ML IV SCH ×2 (01:36→13:14)
[2018-12-01 03:04] VITALS: BP 144/80
[2018-12-01 04:38] LABS: BASO % 1 % (0-3); EOS # 0.4 x10^3/uL (0.0-0.7); EOS % 7 % (0-3); HEMATOCRIT 29.7 % (39.0-53.0); HEMOGLOBIN 9.8 g/dL (13.0-17.5); LYMPH # 1.3 x10^3/uL (1.0-4.8); LYMPH % 26 % (24-48); MEAN CORPUSCULAR HEMOGLOBIN 28 pg (25-35); MEAN CORPUSCULAR HGB CONC 33 g/dL (31-37); MEAN CORPUSCULAR VOLUME 84 fL (79-100); MONO # 0.5 x10^3/uL (0.0-1.1); MONO % 11 % (0-9); NEUT # 2.8 x10^3/uL (1.8-7.7); NEUT % 56 % (31-73); PLATELET COUNT 166 x10^3/uL (140-400); RED BLOOD COUNT 3.55 x10^6/uL (4.30-5.70); RED CELL DISTRIBUTION WIDTH 16.8 % (11.5-14.5); WHITE BLOOD COUNT 5.1 x10^3/uL (4.0-11.0)
[2018-12-01 05:19] LABS: ALBUMIN 2.4 g/dL (3.4-5.0); ALBUMIN/GLOBULIN RATIO 0.8 (1.0-1.7); CALCIUM 8.9 mg/dL (8.5-10.1); CREATININE 2.3 mg/dL (0.7-1.3); GFR 29.4; TOTAL BILIRUBIN 0.6 mg/dL (0.2-1.0); TOTAL PROTEIN 5.4 g/dL (6.4-8.2)
[2018-12-01] MEDS: HEPARIN for SUB-Q USE 5,000 UNIT/ML VIAL. SQ SCH ×3 (06:07→21:17)
[2018-12-01] MEDS: IV NORMAL SALINE 1000ML BAG 1,000 ML IV SCH ×3 (06:08→23:00)
[2018-12-01 07:00] VITALS: BP 120/59
[2018-12-01] MEDS: BUDESONIDE 0.5 MG/2 ML NEBU. NEB SCH ×2 (07:14→19:34)
[2018-12-01] MEDS: IPRATRPIUM/ALBUTEROL 0.5/2.5MG 3 ML NEBU. NEB SCH ×4 (07:14→19:34)
[2018-12-01] MEDS: LACTOBACILLUS RHAMNOSUS GG 1 CAPSULE. PO SCH ×2 (07:51→21:16)
[2018-12-01] MEDS: LIDOCAINE (700MG/PATCH) PATCH. TD SCH (07:51)
[2018-12-01] MEDS: GABAPENTIN 300 MG CAPSULE. PO SCH ×3 (07:51→21:17)
[2018-12-01] MEDS: METOPROLOL TART IMMED RELEASE 25 MG TABLET. PO SCH ×2 (07:56→21:17)
[2018-12-01] MEDS: NYSTATIN TOPICAL POWDER 15GM BOTTLE. TP SCH ×2 (07:57→21:00)
[2018-12-01] MEDS: INSULIN LISPRO 300 UNITS/3 ML VIAL. SQ SCH ×3 (08:00→16:50)
[2018-12-01 11:00] VITALS: BP 125/78
[2018-12-01] MEDS: MULTIVITAMIN with MINERAL TABLET. PO SCH (11:36)
[2018-12-01] MEDS: ASCORBIC ACID 500 MG TABLET PO SCH (11:37)
--- NOTE | 2018-12-01 13:31 | NUR ---
SS following up with discharge planning. Dr. Weinberg here today and agreeable to do peer to peer. AIR form signed by Dr. Weinberg and pt and faxed to [facility]. SS will await peer to peer and appeal decision and will proceed accordingly with discharge planning.
--- NOTE | 2018-12-01 13:47 | PDOC ---
SUBJECTIVE ROS No complaints this am, states he is ready to go to [facility] OBJECTIVE Vital Signs Vital Signs Date Time Temp Pulse Resp B/P (MAP) Pulse Ox O2 Delivery O2 Flow Rate FiO2 12/01/18 12:23 99 8.0 12/01/18 11:09 Tracheal Collar 12/01/18 11:00 98.1 92 16 125/78 (94) 98.1 I & 0 Intake and Output 12/01/18 07:00 Intake Total 200 ml Output Total 2500 ml Balance -2300 ml Intake Oral 200 ml Output Urine Total 2500 ml PHYSICAL EXAM Physical Exam GENERAL: morbidly obese. No apparent distress HEENT: chronic trach. NECK: Supple LUNGS: Clear to auscultation, decreased at bases HEART: RRR, S1, S2 present. ABDOMEN: Soft, Obese EXTREMITIES: right foot wound. NEUROLOGIC: awake and alert SKIN: No rashes Dukes + DIAGNOSIS/ASSESSMENT Assessment & Plan GUSTAVO - ATN post cardiac arrest Required emergent HD on 11/26 , 2 nd Tx on 11/27 Has Good UOP, renal function improving ,Stable Resp status no indication for HD Supportive care , Monitor Remove HD catheter prior to dc - dw DRn (currently being used for IV per RN ) Hyperkalemia- Resolved VTach/Sp CP arrest - left AMA last from Rehab facility Pfwri-rf-wfhjpka hypercapnic respiratory failure, status post ventricular tachycardia with arrest Resolved . Chronic trach and developed acute on chronic hypercapnia Elevated LFT's at presentation- Improving Severe morbid obesity with a BMI of 81 Anemia- Per primary COMMENT/RELEVANT DATA Meds Current Medications Medications (Trade) Dose Ordered Sig/Cathy Start Time Stop Time Status Last Admin Dose Admin Acetaminophen (Tylenol) 650 mg PRN Q6HRS PRN 11/28/18 20:30 11/30/18 08:32 650 MG Al Hydroxide/Mg Hydroxide (Mylanta Plus Xs) 30 ml PRN Q6HRS PRN 11/29/18 18:30 11/30/18 11:33 30 ML Albumin Human 200 ml @ 200 mls/hr 1X PRN PRN 11/26/18 08:30 11/26/18 14:29 DC Albuterol/ Ipratropium (Duoneb) 3 ml RTQID 11/26/18 16:00 12/01/18 11:07 3 ML Ascorbic Acid (Vitamin C) 500 mg DAILY 12/01/18 11:00 10/4/19 11:37 500 MG Atropine Sulfate (ATROPINE 0.5mg SYRINGE) 0.5 mg PRN Q5MIN PRN 11/27/18 17:00 11/30/18 16:19 DC Budesonide (Pulmicort) 0.5 mg RTBID 11/26/18 20:00 12/01/18 07:14 0.5 MG Calcium Gluconate (Calcium Gluconate) 1,000 mg 1X ONCE 11/26/18 06:30 11/26/18 06:31 DC 11/26/18 06:28 1,000 MG Dexmedetomidine HCl 400 mcg/ Sodium Chloride 100 ml @ 0 mls/hr CONT PRN 11/27/18 17:00 11/30/18 16:18 DC 11/28/18 04:58 13 MLS/HR Dextrose (Dextrose 50%-Water Syringe) 25 gm 1X ONCE 11/26/18 06:30 11/26/18 06:31 DC 11/26/18 06:28 25 GM Diphenhydramine HCl (Benadryl) 25 mg 1X PRN PRN 11/26/18 08:30 11/27/18 08:29 DC Doxycycline Hyclate 100 mg/ Dextrose 100 ml @ 50 mls/hr Q12H 11/27/18 14:00 12/01/18 13:14 50 MLS/HR Furosemide (Lasix) 40 mg 1X ONCE 11/26/18 03:00 11/26/18 03:01 DC 11/26/18 02:48 40 MG Gabapentin (Neurontin) 600 mg TID 11/30/18 14:15 12/01/18 13:14 600 MG Heparin Sodium (Porcine) (Heparin Sodium) 5,000 unit Q8HRS 11/27/18 14:00 12/01/18 13:19 5,000 UNIT Influenza Virus Vaccine Quadrival (Afluria Quad 2019-20 (3yr Up) Syringe) 0.5 ml ONCE ONCE 11/29/18 10:30 11/29/18 10:31 DC 11/30/18 08:34 0.5 ML Info (PHARMACY MONITORING -- do not chart) 1 each PRN DAILY PRN 11/27/18 07:45 Insulin Human Lispro (HumaLOG) 10 units TIDAC 11/27/18 12:02 12/01/18 11:43 10 UNITS Insulin Human Regular (HumuLIN R VIAL) 5 unit 1X ONCE 11/26/18 06:30 11/26/18 06:31 DC 11/26/18 06:24 5 UNIT Lactobacillus Rhamnosus (Culturelle) 1 cap BID 11/29/18 09:00 12/01/18 07:51 1 CAP Lidocaine (Lidoderm) 1 patch DAILY 11/28/18 21:00 12/01/18 07:51 1 PATCH Lidocaine HCl (Xylocaine 1% Pf 30ml Vial) 30 ml 1X ONCE 11/27/18 08:30 11/27/18 08:31 DC Lidocaine/Sodium Bicarbonate (Buffered Lidocaine 1%) 6 ml 1X ONCE 11/26/18 07:30 11/26/18 07:31 DC 11/26/18 08:51 6 ML Lorazepam (Ativan Inj) 2 mg PRN Q4HRS PRN 11/27/18 02:00 11/30/18 02:02 2 MG Metolazone (Zaroxolyn) 10 mg 1X ONCE 11/26/18 03:00 11/26/18 03:01 DC 11/26/18 02:47 10 MG Metoprolol Tartrate (Lopressor) 25 mg 1X ONCE 11/29/18 02:30 11/29/18 02:31 DC 11/29/18 02:30 25 MG Miscellaneous (Lidoderm Patch Removal) 1 ea QHS 11/28/18 21:00 11/30/18 21:00 1 EA Multivitamins (Thera M Plus) 1 tab DAILY 12/01/18 11:00 12/01/18 11:36 1 TAB Norepinephrine Bitartrate 250 ml @ 48.75 mls/ hr CONT PRN 11/26/18 00:15 11/29/18 19:39 DC 11/27/18 07:37 42.9 MLS/HR Nystatin (Nystop) 1 jermain BID 11/30/18 15:00 12/01/18 07:57 1 JERMAIN Ondansetron HCl (Zofran) 4 mg PRN Q6HRS PRN 11/29/18 07:30 11/29/18 08:07 4 MG Oxycodone HCl (Roxicodone) 5 mg PRN Q4HRS PRN 11/30/18 09:15 12/01/18 11:37 5 MG Sodium Polystyrene Sulfonate (Kayexalate) 30 gm 1X ONCE 11/26/18 03:00 11/26/18 03:01 DC 11/26/18 02:47 30 GM Sodium Bicarbonate (Sodium Bicarb Adult 8.4% Syr) 100 meq 1X ONCE 11/26/18 06:30 11/26/18 06:31 DC 11/26/18 06:28 100 MEQ Sodium Chloride 500 ml @ 500 mls/hr 1X PRN PRN 11/27/18 17:00 11/30/18 16:19 DC Throat Lozenges (Cepacol Sore Throat Lozenge) 1 génesis PRN Q2HRS PRN 11/29/18 22:15 11/29/18 22:53 1 GÉNESIS Lab Laboratory Tests Test 11/30/18 17:02 11/30/18 21:09 12/01/18 04:30 12/01/18 07:57 Glucose (Fingerstick) 176 mg/dL (70-99) 166 mg/dL (70-99) 143 mg/dL (70-99) White Blood Count 5.1 x10^3/uL (4.0-11.0) Red Blood Count 3.55 x10^6/uL (4.30-5.70) Hemoglobin 9.8 g/dL (13.0-17.5) Hematocrit 29.7 % (39.0-53.0) Mean Corpuscular Volume 84 fL (79-100) Mean Corpuscular Hemoglobin 28 pg (25-35) Mean Corpuscular Hemoglobin Concent 33 g/dL (31-37) Red Cell Distribution Width 16.8 % (11.5-14.5) Platelet Count 166 x10^3/uL (140-400) Neutrophils (%) (Auto) 56 % (31-73) Lymphocytes (%) (Auto) 26 % (24-48) Monocytes (%) (Auto) 11 % (0-9) Eosinophils (%) (Auto) 7 % (0-3) Basophils (%) (Auto) 1 % (0-3) Neutrophils # (Auto) 2.8 x10^3/uL (1.8-7.7) Lymphocytes # (Auto) 1.3 x10^3/uL (1.0-4.8) Monocytes # (Auto) 0.5 x10^3/uL (0.0-1.1) Eosinophils # (Auto) 0.4 x10^3/uL (0.0-0.7) Basophils # (Auto) 0.0 x10^3/uL (0.0-0.2) Sodium Level 140 mmol/L (136-145) Potassium Level 4.0 mmol/L (3.5-5.1) Chloride Level 104 mmol/L (98-107) Carbon Dioxide Level 31 mmol/L (21-32) Anion Gap 5 (6-14) Blood Urea Nitrogen 51 mg/dL (8-26) Creatinine 2.3 mg/dL (0.7-1.3) Estimated GFR (Cockcroft-Gault) 29.4 BUN/Creatinine Ratio 22 (6-20) Glucose Level 169 mg/dL (70-99) Calcium Level 8.9 mg/dL (8.5-10.1) Total Bilirubin 0.6 mg/dL (0.2-1.0) Aspartate Amino Transf (AST/SGOT) 56 U/L (15-37) Alanine Aminotransferase (ALT/SGPT) 205 U/L (16-63) Alkaline Phosphatase 73 U/L (46-116) Total Protein 5.4 g/dL (6.4-8.2) Albumin 2.4 g/dL (3.4-5.0) Albumin/Globulin Ratio 0.8 (1.0-1.7) Test 12/01/18 10:55 Glucose (Fingerstick) 142 mg/dL (70-99) Results All relevant outside records, renal labs, imaging studies, telemetry/EKG's were reviewed. SARMAD STOCKTON MD Dec 01, 2018 13:47
[2018-12-01 15:00] VITALS: BP 120/69
--- NOTE | 2018-12-01 18:15 | PDOC ---
PROGRESS NOTES Chief Complaint Chief Complaint acute Renal failure chronic resp failuer morbid obesity, BMI 83 severe malnutrition, hypoalbumin oral cancer History of Present Illness History of Present Illness 12/01/18 Pt seen and examined on 4th medical floor Pt has trach shield present, some sputum No acute distress Charts and labs reviewed BUN 53 Cr better Vitals Vitals Vital Signs Date Time Temp Pulse Resp B/P (MAP) Pulse Ox O2 Delivery O2 Flow Rate FiO2 12/01/18 17:32 99 8.0 12/01/18 16:38 Tracheal Collar 12/01/18 15:00 97.9 95 16 120/69 (86) 97.9 Physical Exam General: Alert, Oriented X3, Cooperative, No acute distress Lungs: Clear, Other (decrease bases) Extremities: No clubbing, No cyanosis Skin: No rashes, No breakdown, No significant lesion Labs LABS Laboratory Tests Test 11/30/18 21:09 12/01/18 04:30 12/01/18 07:57 12/01/18 10:55 Glucose (Fingerstick) 166 mg/dL (70-99) 143 mg/dL (70-99) 142 mg/dL (70-99) White Blood Count 5.1 x10^3/uL (4.0-11.0) Red Blood Count 3.55 x10^6/uL (4.30-5.70) Hemoglobin 9.8 g/dL (13.0-17.5) Hematocrit 29.7 % (39.0-53.0) Mean Corpuscular Volume 84 fL (79-100) Mean Corpuscular Hemoglobin 28 pg (25-35) Mean Corpuscular Hemoglobin Concent 33 g/dL (31-37) Red Cell Distribution Width 16.8 % (11.5-14.5) Platelet Count 166 x10^3/uL (140-400) Neutrophils (%) (Auto) 56 % (31-73) Lymphocytes (%) (Auto) 26 % (24-48) Monocytes (%) (Auto) 11 % (0-9) Eosinophils (%) (Auto) 7 % (0-3) Basophils (%) (Auto) 1 % (0-3) Neutrophils # (Auto) 2.8 x10^3/uL (1.8-7.7) Lymphocytes # (Auto) 1.3 x10^3/uL (1.0-4.8) Monocytes # (Auto) 0.5 x10^3/uL (0.0-1.1) Eosinophils # (Auto) 0.4 x10^3/uL (0.0-0.7) Basophils # (Auto) 0.0 x10^3/uL (0.0-0.2) Sodium Level 140 mmol/L (136-145) Potassium Level 4.0 mmol/L (3.5-5.1) Chloride Level 104 mmol/L (98-107) Carbon Dioxide Level 31 mmol/L (21-32) Anion Gap 5 (6-14) Blood Urea Nitrogen 51 mg/dL (8-26) Creatinine 2.3 mg/dL (0.7-1.3) Estimated GFR (Cockcroft-Gault) 29.4 BUN/Creatinine Ratio 22 (6-20) Glucose Level 169 mg/dL (70-99) Calcium Level 8.9 mg/dL (8.5-10.1) Total Bilirubin 0.6 mg/dL (0.2-1.0) Aspartate Amino Transf (AST/SGOT) 56 U/L (15-37) Alanine Aminotransferase (ALT/SGPT) 205 U/L (16-63) Alkaline Phosphatase 73 U/L (46-116) Total Protein 5.4 g/dL (6.4-8.2) Albumin 2.4 g/dL (3.4-5.0) Albumin/Globulin Ratio 0.8 (1.0-1.7) Test 12/01/18 16:37 Glucose (Fingerstick) 153 mg/dL (70-99) Assessment and Plan Assessmemt and Plan plan was return to [facility], appeal denied, does not make criteria, needs SNU Comment Review of Relevant I have reviewed the following items bar (where applicable) has been applied. Labs Laboratory Tests Test 11/29/18 20:35 11/30/18 04:40 11/30/18 07:58 11/30/18 11:50 Glucose (Fingerstick) 186 mg/dL (70-99) 143 mg/dL (70-99) 222 mg/dL (70-99) White Blood Count 4.8 x10^3/uL (4.0-11.0) Red Blood Count 3.40 x10^6/uL (4.30-5.70) Hemoglobin 9.3 g/dL (13.0-17.5) Hematocrit 28.2 % (39.0-53.0) Mean Corpuscular Volume 83 fL (79-100) Mean Corpuscular Hemoglobin 27 pg (25-35) Mean Corpuscular Hemoglobin Concent 33 g/dL (31-37) Red Cell Distribution Width 16.7 % (11.5-14.5) Platelet Count 167 x10^3/uL (140-400) Neutrophils (%) (Auto) 56 % (31-73) Lymphocytes (%) (Auto) 29 % (24-48) Monocytes (%) (Auto) 12 % (0-9) Eosinophils (%) (Auto) 3 % (0-3) Basophils (%) (Auto) 1 % (0-3) Neutrophils # (Auto) 2.7 x10^3/uL (1.8-7.7) Lymphocytes # (Auto) 1.4 x10^3/uL (1.0-4.8) Monocytes # (Auto) 0.6 x10^3/uL (0.0-1.1) Eosinophils # (Auto) 0.1 x10^3/uL (0.0-0.7) Basophils # (Auto) 0.0 x10^3/uL (0.0-0.2) Sodium Level 140 mmol/L (136-145) Potassium Level 3.8 mmol/L (3.5-5.1) Chloride Level 103 mmol/L (98-107) Carbon Dioxide Level 31 mmol/L (21-32) Anion Gap 6 (6-14) Blood Urea Nitrogen 53 mg/dL (8-26) Creatinine 2.8 mg/dL (0.7-1.3) Estimated GFR (Cockcroft-Gault) 23.4 BUN/Creatinine Ratio 19 (6-20) Glucose Level 167 mg/dL (70-99) Calcium Level 9.0 mg/dL (8.5-10.1) Total Bilirubin 0.7 mg/dL (0.2-1.0) Aspartate Amino Transf (AST/SGOT) 100 U/L (15-37) Alanine Aminotransferase (ALT/SGPT) 318 U/L (16-63) Alkaline Phosphatase 78 U/L (46-116) Total Protein 5.6 g/dL (6.4-8.2) Albumin 2.4 g/dL (3.4-5.0) Albumin/Globulin Ratio 0.8 (1.0-1.7) Test 11/30/18 17:02 11/30/18 21:09 12/01/18 04:30 12/01/18 07:57 Glucose (Fingerstick) 176 mg/dL (70-99) 166 mg/dL (70-99) 143 mg/dL (70-99) White Blood Count 5.1 x10^3/uL (4.0-11.0) Red Blood Count 3.55 x10^6/uL (4.30-5.70) Hemoglobin 9.8 g/dL (13.0-17.5) Hematocrit 29.7 % (39.0-53.0) Mean Corpuscular Volume 84 fL (79-100) Mean Corpuscular Hemoglobin 28 pg (25-35) Mean Corpuscular Hemoglobin Concent 33 g/dL (31-37) Red Cell Distribution Width 16.8 % (11.5-14.5) Platelet Count 166 x10^3/uL (140-400) Neutrophils (%) (Auto) 56 % (31-73) Lymphocytes (%) (Auto) 26 % (24-48) Monocytes (%) (Auto) 11 % (0-9) Eosinophils (%) (Auto) 7 % (0-3) Basophils (%) (Auto) 1 % (0-3) Neutrophils # (Auto) 2.8 x10^3/uL (1.8-7.7) Lymphocytes # (Auto) 1.3 x10^3/uL (1.0-4.8) Monocytes # (Auto) 0.5 x10^3/uL (0.0-1.1) Eosinophils # (Auto) 0.4 x10^3/uL (0.0-0.7) Basophils # (Auto) 0.0 x10^3/uL (0.0-0.2) Sodium Level 140 mmol/L (136-145) Potassium Level 4.0 mmol/L (3.5-5.1) Chloride Level 104 mmol/L (98-107) Carbon Dioxide Level 31 mmol/L (21-32) Anion Gap 5 (6-14) Blood Urea Nitrogen 51 mg/dL (8-26) Creatinine 2.3 mg/dL (0.7-1.3) Estimated GFR (Cockcroft-Gault) 29.4 BUN/Creatinine Ratio 22 (6-20) Glucose Level 169 mg/dL (70-99) Calcium Level 8.9 mg/dL (8.5-10.1) Total Bilirubin 0.6 mg/dL (0.2-1.0) Aspartate Amino Transf (AST/SGOT) 56 U/L (15-37) Alanine Aminotransferase (ALT/SGPT) 205 U/L (16-63) Alkaline Phosphatase 73 U/L (46-116) Total Protein 5.4 g/dL (6.4-8.2) Albumin 2.4 g/dL (3.4-5.0) Albumin/Globulin Ratio 0.8 (1.0-1.7) Test 12/01/18 10:55 12/01/18 16:37 Glucose (Fingerstick) 142 mg/dL (70-99) 153 mg/dL (70-99) Laboratory Tests Test 11/30/18 21:09 12/01/18 04:30 12/01/18 07:57 12/01/18 10:55 Glucose (Fingerstick) 166 mg/dL (70-99) 143 mg/dL (70-99) 142 mg/dL (70-99) White Blood Count 5.1 x10^3/uL (4.0-11.0) Red Blood Count 3.55 x10^6/uL (4.30-5.70) Hemoglobin 9.8 g/dL (13.0-17.5) Hematocrit 29.7 % (39.0-53.0) Mean Corpuscular Volume 84 fL (79-100) Mean Corpuscular Hemoglobin 28 pg (25-35) Mean Corpuscular Hemoglobin Concent 33 g/dL (31-37) Red Cell Distribution Width 16.8 % (11.5-14.5) Platelet Count 166 x10^3/uL (140-400) Neutrophils (%) (Auto) 56 % (31-73) Lymphocytes (%) (Auto) 26 % (24-48) Monocytes (%) (Auto) 11 % (0-9) Eosinophils (%) (Auto) 7 % (0-3) Basophils (%) (Auto) 1 % (0-3) Neutrophils # (Auto) 2.8 x10^3/uL (1.8-7.7) Lymphocytes # (Auto) 1.3 x10^3/uL (1.0-4.8) Monocytes # (Auto) 0.5 x10^3/uL (0.0-1.1) Eosinophils # (Auto) 0.4 x10^3/uL (0.0-0.7) Basophils # (Auto) 0.0 x10^3/uL (0.0-0.2) Sodium Level 140 mmol/L (136-145) Potassium Level 4.0 mmol/L (3.5-5.1) Chloride Level 104 mmol/L (98-107) Carbon Dioxide Level 31 mmol/L (21-32) Anion Gap 5 (6-14) Blood Urea Nitrogen 51 mg/dL (8-26) Creatinine 2.3 mg/dL (0.7-1.3) Estimated GFR (Cockcroft-Gault) 29.4 BUN/Creatinine Ratio 22 (6-20) Glucose Level 169 mg/dL (70-99) Calcium Level 8.9 mg/dL (8.5-10.1) Total Bilirubin 0.6 mg/dL (0.2-1.0) Aspartate Amino Transf (AST/SGOT) 56 U/L (15-37) Alanine Aminotransferase (ALT/SGPT) 205 U/L (16-63) Alkaline Phosphatase 73 U/L (46-116) Total Protein 5.4 g/dL (6.4-8.2) Albumin 2.4 g/dL (3.4-5.0) Albumin/Globulin Ratio 0.8 (1.0-1.7) Test 12/01/18 16:37 Glucose (Fingerstick) 153 mg/dL (70-99) Microbiology 11/27/18 - Final, Complete 11/27/18 - Final, Complete 11/27/18 Gram Stain Evaluation - Final, Complete 11/27/18 Sputum Culture - Final, Complete 11/27/18 Sputum Result 1 - Final, Complete Medications Current Medications Norepinephrine Bitartrate 250 ml @ 48.75 mls/ hr CONT PRN IV SEE I/O RECORD Last administered on 11/27/18at 07:37; Start 11/26/18 at 00:15; Stop 11/29/18 at 19:39; Status DC Dextrose (Dextrose 50%-Water Syringe) 25 gm 1X ONCE IV Last administered on 11/26/18 02:00; Start 11/26/18 at 02:00; Stop 11/26/18 at 02:01; Status DC Insulin Human Regular (HumuLIN R VIAL) 10 unit 1X ONCE IV Last administered on 11/26/18 02:01; Start 11/26/18 at 02:00; Stop 11/26/18 at 02:01; Status DC Sodium Chloride 1,000 ml @ 100 mls/hr Q10H IV Last administered on 12/01/18 11:38; Start 11/26/18 at 03:00 Metolazone (Zaroxolyn) 10 mg 1X ONCE PO Last administered on 11/26/18 02:47; Start 11/26/18 at 03:00; Stop 11/26/18 at 03:01; Status DC Furosemide (Lasix) 40 mg 1X ONCE IVP Last administered on 11/26/18 02:48; Start 11/26/18 at 03:00; Stop 11/26/18 at 03:01; Status DC Sodium Polystyrene Sulfonate (Kayexalate) 30 gm 1X ONCE PO Last administered on 11/26/18 02:47; Start 11/26/18 at 03:00; Stop 11/26/18 at 03:01; Status DC Dextrose (Dextrose 50%-Water Syringe) 25 gm 1X ONCE IV Last administered on 11/26/18 06:28; Start 11/26/18 at 06:30; Stop 11/26/18 at 06:31; Status DC Insulin Human Regular (HumuLIN R VIAL) 5 unit 1X ONCE IV Last administered on 11/26/18 06:24; Start 11/26/18 at 06:30; Stop 11/26/18 at 06:31; Status DC Calcium Gluconate (Calcium Gluconate) 1,000 mg 1X ONCE IVP Last administered on 11/26/18 06:28; Start 11/26/18 at 06:30; Stop 11/26/18 at 06:31; Status DC Sodium Bicarbonate (Sodium Bicarb Adult 8.4% Syr) 100 meq 1X ONCE IV Last administered on 9/29/19at 06:28; Start 11/26/18 at 06:30; Stop 11/26/18 at 06:31; Status DC Lidocaine/Sodium Bicarbonate (Buffered Lidocaine 1%) 6 ml 1X ONCE INJ Last administered on 11/26/18at 08:51; Start 11/26/18 at 07:30; Stop 11/26/18 at 07:31; Status DC Sodium Chloride 1,000 ml @ 1,000 mls/hr Q1H PRN IV hypotension; Start 11/26/18 at 08:29; Stop 11/26/18 at 14:28; Status DC Albumin Human 200 ml @ 200 mls/hr 1X PRN PRN IV Hypotension; Start 11/26/18 at 08:30; Stop 11/26/18 at 14:29; Status DC Acetaminophen (Tylenol) 500 mg 1X PRN PRN PO MILD PAIN / TEMP; Start 11/26/18 at 08:30; Stop 11/27/18 at 08:29; Status DC Diphenhydramine HCl (Benadryl) 25 mg 1X PRN PRN IV ITCHING; Start 11/26/18 at 08:30; Stop 11/27/18 at 08:29; Status DC Diphenhydramine HCl (Benadryl) 25 mg 1X PRN PRN IV ITCHING; Start 11/26/18 at 08:30; Stop 11/27/18 at 08:29; Status DC Sodium Chloride 1,000 ml @ 400 mls/hr Q2H30M PRN IV PATENCY; Start 11/26/18 at 08:29; Stop 11/26/18 at 20:28; Status DC Info (PHARMACY MONITORING -- do not chart) 1 each PRN DAILY PRN MC SEE COMMENTS; Start 11/26/18 at 08:30; Stop 11/27/18 at 07:51; Status DC Albuterol/ Ipratropium (Duoneb) 3 ml RTQID NEB Last administered on 12/01/18at 16:37; Start 11/26/18 at 16:00 Budesonide (Pulmicort) 0.5 mg RTBID NEB Last administered on 12/01/18at 07:14; Start 11/26/18 at 20:00 Lorazepam (Ativan Inj) 2 mg PRN Q4HRS PRN IV ANXIETY / AGITATION Last administered on 11/30/18at 02:02; Start 11/27/18 at 02:00 Sodium Chloride 1,000 ml @ 1,000 mls/hr Q1H PRN IV hypotension; Start 11/27/18 at 07:45; Stop 11/27/18 at 13:44; Status DC Sodium Chloride 1,000 ml @ 400 mls/hr Q2H30M PRN IV PATENCY; Start 11/27/18 at 07:45; Stop 11/27/18 at 19:44; Status DC Info (PHARMACY MONITORING -- do not chart) 1 each PRN DAILY PRN MC SEE COMMENTS; Start 11/27/18 at 07:45; Stop 11/27/18 at 07:51; Status DC Info (PHARMACY MONITORING -- do not chart) 1 each PRN DAILY PRN MC SEE COMMENTS; Start 11/27/18 at 07:45 Lidocaine HCl (Xylocaine 1% Pf 30ml Vial) 30 ml 1X ONCE INJ ; Start 11/27/18 at 08:30; Stop 11/27/18 at 08:31; Status DC Insulin Human Lispro (HumaLOG) 10 units TIDAC SQ Last administered on 12/01/18at 16:50; Start 11/27/18 at 12:02 Heparin Sodium (Porcine) (Heparin Sodium) 5,000 unit Q8HRS SQ Last administered on 12/01/18at 13:19; Start 11/27/18 at 14:00 Doxycycline Hyclate 100 mg/ Dextrose 100 ml @ 50 mls/hr Q12H IV Last administered on 12/01/18at 13:14; Start 11/27/18 at 14:00 Dexmedetomidine HCl 400 mcg/ Sodium Chloride 100 ml @ 0 mls/hr CONT PRN IV AGITATION Last administered on 11/28/18at 04:58; Start 11/27/18 at 17:00; Stop 11/30/18 at 16:18; Status DC Sodium Chloride 500 ml @ 500 mls/hr 1X PRN PRN IV HYPOTENSION; Start 11/27/18 at 17:00; Stop 11/30/18 at 16:19; Status DC Atropine Sulfate (ATROPINE 0.5mg SYRINGE) 0.5 mg PRN Q5MIN PRN IV SEE COMMENTS; Start 11/27/18 at 17:00; Stop 11/30/18 at 16:19; Status DC Acetaminophen (Tylenol) 650 mg PRN Q6HRS PRN PO MILD PAIN / TEMP Last administered on 11/30/18 08:32; Start 11/28/18 at 20:30 Lidocaine (Lidoderm) 1 patch DAILY TD Last administered on 12/01/18 07:51; Start 11/28/18 at 21:00 Miscellaneous (Lidoderm Patch Removal) 1 ea QHS MC Last administered on 11/30/18 21:00; Start 11/28/18 at 21:00 Metoprolol Tartrate (Lopressor) 25 mg BID PO Last administered on 12/01/18 07:56; Start 11/29/18 at 09:00 Oxycodone HCl (Roxicodone) 5 mg PRN Q6HRS PRN PO SEVERE PAIN 7-10 Last administered on 11/30/18 04:54; Start 11/29/18 at 02:15; Stop 11/30/18 at 09:15; Status DC Metoprolol Tartrate (Lopressor) 25 mg 1X ONCE PO Last administered on 11/29/18 02:30; Start 11/29/18 at 02:30; Stop 11/29/18 at 02:31; Status DC Ondansetron HCl (Zofran) 4 mg PRN Q6HRS PRN IVP NAUSEA/VOMITING Last administered on 11/29/18 08:07; Start 11/29/18 at 07:30 Lactobacillus Rhamnosus (Culturelle) 1 cap BID PO Last administered on 12/01/18 07:51; Start 11/29/18 at 09:00 Influenza Virus Vaccine Quadrival (Afluria Quad 2019-20 (3yr Up) Syringe) 0.5 ml ONCE ONCE VAX IM Last administered on 11/30/18 08:34; Start 11/29/18 at 10:30; Stop 11/29/18 at 10:31; Status DC Al Hydroxide/Mg Hydroxide (Mylanta Plus Xs) 30 ml PRN Q6HRS PRN PO DYSPEPSIA Last administered on 11/30/18 11:33; Start 11/29/18 at 18:30 Throat Lozenges (Cepacol Sore Throat Lozenge) 1 chiquita PRN Q2HRS PRN PO SORE THROAT Last administered on 11/29/18 22:53; Start 11/29/18 at 22:15 Oxycodone HCl (Roxicodone) 5 mg PRN Q4HRS PRN PO SEVERE PAIN 7-10 Last administered on 12/01/18 16:47; Start 11/30/18 at 09:15 Gabapentin (Neurontin) 600 mg TID PO Last administered on 12/01/18 13:14; Start 11/30/18 at 14:15 Nystatin (Nystop) 1 jermain BID TP Last administered on 12/01/18 07:57; Start 11/30/18 at 15:00 Multivitamins (Thera M Plus) 1 tab DAILY PO Last administered on 12/01/18 11:36; Start 12/01/18 at 11:00 Ascorbic Acid (Vitamin C) 500 mg DAILY PO Last administered on 12/01/18 11:37; Start 12/01/18 at 11:00 Active Scripts Active Reported Oxycodone Hcl 5 Mg Capsule 5 Mg PO PRN Q6HRS PRN Warfarin Sodium 5 Mg Tablet 5 Mg PO DAILY Mondays and Wednesdays Warfarin Sodium 10 Mg Tablet 10 Mg PO DAILY 5 days per week, T, Th, F, Sat, Sun Tizanidine Hcl 4 Mg Tablet 2 Mg PO PRN TID PRN Novolin R (Insulin Regular, Human) 100 Unit/1 Ml Vial 28 Unit IJ [id number] Novolin R (Insulin Regular, Human) 100 Unit/1 Ml Vial 36 Unit IJ [id number] Novolin N (Nph, Human Insulin Isophane) 100 Unit/1 Ml Vial 50 Unit SQ BID Seroquel (Quetiapine Fumarate) 25 Mg Tablet 25 Mg PO DAILY Probenecid 500 Mg Tablet 500 Mg PO BID Metoprolol Tartrate 25 Mg Tablet 1 Tab PO BID Lisinopril 20 Mg Tablet 1 Tab PO DAILY Pepcid (Famotidine) 20 Mg Tablet 20 Mg PO BID Vitamin D3 (Cholecalciferol (Vitamin D3)) 1,000 Unit Tablet 2 Tab PO DAILY Senna S Tablet (Sennosides/Docusate Sodium) 1 Each Tablet 2 Tab PO HS Cymbalta (Duloxetine Hcl) 60 Mg Capsule.dr 120 Mg PO DAILY Gabapentin 600 Mg Tablet 300 Mg PO BID Aspirin 81 Mg Tab.chew 81 Mg PO DAILY Furosemide 40 Mg Tablet 1 Tab PO DAILY Atorvastatin Calcium 80 Mg Tablet 1 Tab PO HS Vitals/I & O Vital Sign - Last 24 Hours 11/30/18 11/30/18 11/30/18 11/30/18 19:03 19:30 21:33 21:34 Temp 98.5 98.5 Pulse 94 94 Resp 20 B/P (MAP) 127/72 (90) 127/72 Pulse Ox 100 O2 Delivery Nasal Cannula Trach Collar O2 Flow Rate 8.0 8.0 8.0 11/30/18 11/30/18 12/01/18 12/01/18 22:33 22:55 01:35 02:35 Temp 98.4 98.4 Pulse 85 Resp 20 B/P (MAP) 147/83 (104) Pulse Ox 100 O2 Delivery Tracheal Collar Tracheal Collar Tracheal Collar Tracheal Collar O2 Flow Rate 8.0 8.0 8.0 12/01/18 12/01/18 12/01/18 12/01/18 03:04 07:00 07:14 07:20 Temp 98.6 97.8 98.6 97.8 Pulse 81 103 Resp 20 18 B/P (MAP) 144/80 (101) 120/59 (79) Pulse Ox 98 98 96 O2 Delivery Tracheal Collar Room Air Tracheal Collar O2 Flow Rate 8.0 8.0 12/01/18 12/01/18 12/01/18 12/01/18 07:22 07:51 07:56 08:36 Pulse 93 B/P (MAP) 120/59 Pulse Ox 96 96 96 O2 Delivery Tracheal Collar Tracheal Collar O2 Flow Rate 8.0 8.0 8.0 12/01/18 12/01/18 12/01/18 12/01/18 11:00 11:09 11:37 12:23 Temp 98.1 98.1 Pulse 92 Resp 16 B/P (MAP) 125/78 (94) Pulse Ox 94 99 99 99 O2 Delivery Room Air Tracheal Collar O2 Flow Rate 8.0 8.0 8.0 12/01/18 12/01/18 12/01/18 12/01/18 15:00 16:38 16:47 17:32 Temp 97.9 97.9 Pulse 95 Resp 16 B/P (MAP) 120/69 (86) Pulse Ox 98 99 99 99 O2 Delivery Room Air Tracheal Collar O2 Flow Rate 5.0 7.0 8.0 Intake and Output 11/30/18 11/30/18 12/01/18 15:00 23:00 07:00 Intake Total 200 ml Output Total 1900 ml 600 ml Balance -1900 ml -400 ml PENG AVINA MD Dec 01, 2018 18:15
[2018-12-01 19:00] VITALS: BP 121/58
[2018-12-01] MEDS: PATCH REMOVAL. MC SCH (21:00)
[2018-12-01 23:00] VITALS: BP 122/57
[2018-12-02] MEDS: MAG HYDROX/ALUMINUM HYD/SIMETH 30 ML ORAL.SUSP PO PRN ×2 (01:21→11:19)
[2018-12-02] MEDS: oxyCODONE IR 5 MG TABLET PO PRN ×5 (01:23→20:34)
[2018-12-02] MEDS: DOXYCYCLINE HYCLATE 100 MG in IV DEXTROSE 5% 100ML 100 ML IV SCH (02:14)
[2018-12-02 03:00] VITALS: BP 108/56
[2018-12-02] MEDS: HEPARIN for SUB-Q USE 5,000 UNIT/ML VIAL. SQ SCH (05:45)
[2018-12-02 06:00] LABS: BASO % 0 % (0-3); EOS # 0.4 x10^3/uL (0.0-0.7); EOS % 7 % (0-3); HEMATOCRIT 30.4 % (39.0-53.0); HEMOGLOBIN 9.9 g/dL (13.0-17.5); LYMPH # 1.5 x10^3/uL (1.0-4.8); LYMPH % 27 % (24-48); MEAN CORPUSCULAR HEMOGLOBIN 27 pg (25-35); MEAN CORPUSCULAR HGB CONC 33 g/dL (31-37); MEAN CORPUSCULAR VOLUME 84 fL (79-100); MONO # 0.5 x10^3/uL (0.0-1.1); MONO % 10 % (0-9); NEUT # 3.1 x10^3/uL (1.8-7.7); NEUT % 56 % (31-73); PLATELET COUNT 169 x10^3/uL (140-400); RED BLOOD COUNT 3.63 x10^6/uL (4.30-5.70); RED CELL DISTRIBUTION WIDTH 17.1 % (11.5-14.5); WHITE BLOOD COUNT 5.6 x10^3/uL (4.0-11.0)
[2018-12-02 06:22] LABS: ALBUMIN 2.5 g/dL (3.4-5.0); ALBUMIN/GLOBULIN RATIO 0.8 (1.0-1.7); CALCIUM 8.9 mg/dL (8.5-10.1); CREATININE 1.9 mg/dL (0.7-1.3); GFR 36.6; TOTAL BILIRUBIN 0.6 mg/dL (0.2-1.0); TOTAL PROTEIN 5.5 g/dL (6.4-8.2)
[2018-12-02 07:00] VITALS: BP 122/60
[2018-12-02] MEDS: IPRATRPIUM/ALBUTEROL 0.5/2.5MG 3 ML NEBU. NEB SCH ×4 (07:13→19:32)
[2018-12-02] MEDS: BUDESONIDE 0.5 MG/2 ML NEBU. NEB SCH ×2 (07:13→19:32)
[2018-12-02] MEDS: MULTIVITAMIN with MINERAL TABLET. PO SCH (09:10)
[2018-12-02] MEDS: METOPROLOL TART IMMED RELEASE 25 MG TABLET. PO SCH ×2 (09:10→20:33)
[2018-12-02] MEDS: GABAPENTIN 300 MG CAPSULE. PO SCH ×3 (09:10→20:32)
[2018-12-02] MEDS: ASCORBIC ACID 500 MG TABLET PO SCH (09:10)
[2018-12-02] MEDS: LACTOBACILLUS RHAMNOSUS GG 1 CAPSULE. PO SCH ×2 (09:10→20:33)
[2018-12-02] MEDS: IV NORMAL SALINE 1000ML BAG 1,000 ML IV SCH ×2 (09:11→20:32)
[2018-12-02] MEDS: NYSTATIN TOPICAL POWDER 15GM BOTTLE. TP SCH ×2 (09:11→20:45)
[2018-12-02] MEDS: LIDOCAINE (700MG/PATCH) PATCH. TD SCH (09:11)
[2018-12-02] MEDS: ACETAMINOPHEN 650 MG/20.3 ML SOLUTION. PO PRN (09:12)
[2018-12-02] MEDS: INSULIN LISPRO 300 UNITS/3 ML VIAL. SQ SCH ×3 (09:16→18:02)
--- NOTE | 2018-12-02 10:38 | PDOC ---
Renal-Progress Notes Subjective Notes Notes LEFT ARM SWOLLEN History of Present Illness Hx of present illness STABLE Vitals Vitals Vital Signs Date Time Temp Pulse Resp B/P (MAP) Pulse Ox O2 Delivery O2 Flow Rate FiO2 12/02/18 10:23 100 Tracheal Collar 5.0 12/02/18 09:10 93 122/60 12/02/18 07:00 99.0 22 99.0 Weight Weight [ ] I.O. Intake and Output Intake and Output 12/02/18 07:00 Output Total 4800 ml Balance -4800 ml Output Urine Total 4800 ml Labs Labs Laboratory Tests Test 12/01/18 10:55 12/01/18 16:37 12/01/18 20:34 12/02/18 05:55 Glucose (Fingerstick) 142 mg/dL (70-99) 153 mg/dL (70-99) 142 mg/dL (70-99) White Blood Count 5.6 x10^3/uL (4.0-11.0) Red Blood Count 3.63 x10^6/uL (4.30-5.70) Hemoglobin 9.9 g/dL (13.0-17.5) Hematocrit 30.4 % (39.0-53.0) Mean Corpuscular Volume 84 fL (79-100) Mean Corpuscular Hemoglobin 27 pg (25-35) Mean Corpuscular Hemoglobin Concent 33 g/dL (31-37) Red Cell Distribution Width 17.1 % (11.5-14.5) Platelet Count 169 x10^3/uL (140-400) Neutrophils (%) (Auto) 56 % (31-73) Lymphocytes (%) (Auto) 27 % (24-48) Monocytes (%) (Auto) 10 % (0-9) Eosinophils (%) (Auto) 7 % (0-3) Basophils (%) (Auto) 0 % (0-3) Neutrophils # (Auto) 3.1 x10^3/uL (1.8-7.7) Lymphocytes # (Auto) 1.5 x10^3/uL (1.0-4.8) Monocytes # (Auto) 0.5 x10^3/uL (0.0-1.1) Eosinophils # (Auto) 0.4 x10^3/uL (0.0-0.7) Basophils # (Auto) 0.0 x10^3/uL (0.0-0.2) Sodium Level 142 mmol/L (136-145) Potassium Level 4.0 mmol/L (3.5-5.1) Chloride Level 106 mmol/L (98-107) Carbon Dioxide Level 31 mmol/L (21-32) Anion Gap 5 (6-14) Blood Urea Nitrogen 44 mg/dL (8-26) Creatinine 1.9 mg/dL (0.7-1.3) Estimated GFR (Cockcroft-Gault) 36.6 BUN/Creatinine Ratio 23 (6-20) Glucose Level 147 mg/dL (70-99) Calcium Level 8.9 mg/dL (8.5-10.1) Total Bilirubin 0.6 mg/dL (0.2-1.0) Aspartate Amino Transf (AST/SGOT) 40 U/L (15-37) Alanine Aminotransferase (ALT/SGPT) 150 U/L (16-63) Alkaline Phosphatase 70 U/L (46-116) Total Protein 5.5 g/dL (6.4-8.2) Albumin 2.5 g/dL (3.4-5.0) Albumin/Globulin Ratio 0.8 (1.0-1.7) Test 12/02/18 07:31 Glucose (Fingerstick) 131 mg/dL (70-99) Micro Micro Microbiology 11/27/18 - Final, Complete 11/27/18 - Final, Complete 11/27/18 Gram Stain Evaluation - Final, Complete 11/27/18 Sputum Culture - Final, Complete 11/27/18 Sputum Result 1 - Final, Complete Review of Systems Constitutional: yes: weakness, alert, oriented Ears/Nose/Throat: Yes: no symptom reported Eyes: Yes: no symptom reported Pulmonary: Yes dyspnea Cardiovascular: Yes edema Gastrointestional: Yes: constipation Genitourinary: Yes: no symptom reported Musculoskeletal: Yes: muscle stiffness Skin: Yes no symptom reported Psychiatric/Neurological: Yes: no symptom reported Endocrine: Yes: no symptom reported Physical Exam General Appearance: no apparent distress Skin: warm Respiratory: decreased breath sounds Heart: S1S2 Abdomen: soft, bowel sounds present Genitourinary: bladder flat Extremities: pulses present Neurology: alert, oriented Assessment Assessment IMP GUSTAVO-IMPROVED WITH GOOD UO AND CR STABLE AT 1.9-LAST HD ON 11-27 CARDIAC ARRHYTHMIA MORBID OBESITY CHRONIC TRACH AND HYPERCAPNEA ELEVATED LFTS-BETTER LEFT ARM EDEMA PLAN CONSIDER DOPPLER LEFT ARM CONT TO HOLD OFF HD ADD PO DIURETICS ALO RAYMOND MD Dec 02, 2018 10:38
[2018-12-02 11:00] VITALS: BP 109/68
[2018-12-02] MEDS: FUROSEMIDE 40 MG TABLET. PO SCH ×2 (11:19→14:23)
--- NOTE | 2018-12-02 11:20 | RAD ---
VENOUS UPPER EXTREMITY LEFT History: Pain. Edema. Comparison: None. Procedure: Color flow Doppler, Doppler spectral analysis, and 2D images are obtained with and without compression in the jugular vein, subclavian vein, axillary vein, brachial vein, radial vein, ulnar vein, and basilic and cephalic veins. Findings: Occlusive thrombus within the left distal cephalic vein. There is left forearm subcutaneous edema. Otherwise, there is normal color flow, augmentation, and compressibility within the left IJ, subclavian, axillary, brachial, radial and ulnar veins. Patent basilic vein.. No evidence of deep venous thrombus is present. IMPRESSION: 1. Superficial vein thrombosis involving the distal left cephalic vein. FOR INTERNAL CODING PURPOSES Critical result: Findings discussed with patient's nurse at 12/02/2018 11:16 AM. RESULT CODE: (C) Electronically signed by: Anton Rosa DO (12/02/2018 11:16 AM) [facility]
[2018-12-02] MEDS ORDERED: APIXABAN 5 MG TABLET. PO SCH (11:30)
[2018-12-02] MEDS ORDERED: DOCUSATE SODIUM 100 MG CAPSULE. PO PRN (11:30)
[2018-12-02] MEDS: POLYETHYLENE GLYCOL 3350 17 GM PACKET. PO SCH (12:00)
--- NOTE | 2018-12-02 12:11 | PDOC ---
PROGRESS NOTES Chief Complaint Chief Complaint acute Renal failure chronic resp failuer morbid obesity, BMI 83 severe malnutrition, hypoalbumin oral cancer History of Present Illness History of Present Illness 12/02, new left arm swelling, US showed superficial vein thrombosis. discussed at length with pharmcy, options discussed, heparin gtt considered, will do eliquis, as clot is not life threatening, but will treat as he has left arm pain and swelling, Pt seen and examined on 4th medical floor Pt has trach shield present, some sputum still, needs suctioning No acute distress Vitals Vitals Vital Signs Date Time Temp Pulse Resp B/P (MAP) Pulse Ox O2 Delivery O2 Flow Rate FiO2 12/02/18 11:16 97 Tracheal Collar 5.0 12/02/18 09:10 93 122/60 12/02/18 07:00 99.0 22 99.0 Physical Exam General: Alert, Oriented X3, Cooperative, No acute distress Lungs: Clear, Other (decrease bases) Extremities: No clubbing, No cyanosis Skin: No rashes, No breakdown, No significant lesion Labs LABS Laboratory Tests Test 12/01/18 16:37 12/01/18 20:34 12/02/18 05:55 12/02/18 07:31 Glucose (Fingerstick) 153 mg/dL (70-99) 142 mg/dL (70-99) 131 mg/dL (70-99) White Blood Count 5.6 x10^3/uL (4.0-11.0) Red Blood Count 3.63 x10^6/uL (4.30-5.70) Hemoglobin 9.9 g/dL (13.0-17.5) Hematocrit 30.4 % (39.0-53.0) Mean Corpuscular Volume 84 fL (79-100) Mean Corpuscular Hemoglobin 27 pg (25-35) Mean Corpuscular Hemoglobin Concent 33 g/dL (31-37) Red Cell Distribution Width 17.1 % (11.5-14.5) Platelet Count 169 x10^3/uL (140-400) Neutrophils (%) (Auto) 56 % (31-73) Lymphocytes (%) (Auto) 27 % (24-48) Monocytes (%) (Auto) 10 % (0-9) Eosinophils (%) (Auto) 7 % (0-3) Basophils (%) (Auto) 0 % (0-3) Neutrophils # (Auto) 3.1 x10^3/uL (1.8-7.7) Lymphocytes # (Auto) 1.5 x10^3/uL (1.0-4.8) Monocytes # (Auto) 0.5 x10^3/uL (0.0-1.1) Eosinophils # (Auto) 0.4 x10^3/uL (0.0-0.7) Basophils # (Auto) 0.0 x10^3/uL (0.0-0.2) Sodium Level 142 mmol/L (136-145) Potassium Level 4.0 mmol/L (3.5-5.1) Chloride Level 106 mmol/L (98-107) Carbon Dioxide Level 31 mmol/L (21-32) Anion Gap 5 (6-14) Blood Urea Nitrogen 44 mg/dL (8-26) Creatinine 1.9 mg/dL (0.7-1.3) Estimated GFR (Cockcroft-Gault) 36.6 BUN/Creatinine Ratio 23 (6-20) Glucose Level 147 mg/dL (70-99) Calcium Level 8.9 mg/dL (8.5-10.1) Total Bilirubin 0.6 mg/dL (0.2-1.0) Aspartate Amino Transf (AST/SGOT) 40 U/L (15-37) Alanine Aminotransferase (ALT/SGPT) 150 U/L (16-63) Alkaline Phosphatase 70 U/L (46-116) Total Protein 5.5 g/dL (6.4-8.2) Albumin 2.5 g/dL (3.4-5.0) Albumin/Globulin Ratio 0.8 (1.0-1.7) Comment Review of Relevant I have reviewed the following items bar (where applicable) has been applied. Labs Laboratory Tests Test 11/30/18 17:02 11/30/18 21:09 12/01/18 04:30 12/01/18 07:57 Glucose (Fingerstick) 176 mg/dL (70-99) 166 mg/dL (70-99) 143 mg/dL (70-99) White Blood Count 5.1 x10^3/uL (4.0-11.0) Red Blood Count 3.55 x10^6/uL (4.30-5.70) Hemoglobin 9.8 g/dL (13.0-17.5) Hematocrit 29.7 % (39.0-53.0) Mean Corpuscular Volume 84 fL (79-100) Mean Corpuscular Hemoglobin 28 pg (25-35) Mean Corpuscular Hemoglobin Concent 33 g/dL (31-37) Red Cell Distribution Width 16.8 % (11.5-14.5) Platelet Count 166 x10^3/uL (140-400) Neutrophils (%) (Auto) 56 % (31-73) Lymphocytes (%) (Auto) 26 % (24-48) Monocytes (%) (Auto) 11 % (0-9) Eosinophils (%) (Auto) 7 % (0-3) Basophils (%) (Auto) 1 % (0-3) Neutrophils # (Auto) 2.8 x10^3/uL (1.8-7.7) Lymphocytes # (Auto) 1.3 x10^3/uL (1.0-4.8) Monocytes # (Auto) 0.5 x10^3/uL (0.0-1.1) Eosinophils # (Auto) 0.4 x10^3/uL (0.0-0.7) Basophils # (Auto) 0.0 x10^3/uL (0.0-0.2) Sodium Level 140 mmol/L (136-145) Potassium Level 4.0 mmol/L (3.5-5.1) Chloride Level 104 mmol/L (98-107) Carbon Dioxide Level 31 mmol/L (21-32) Anion Gap 5 (6-14) Blood Urea Nitrogen 51 mg/dL (8-26) Creatinine 2.3 mg/dL (0.7-1.3) Estimated GFR (Cockcroft-Gault) 29.4 BUN/Creatinine Ratio 22 (6-20) Glucose Level 169 mg/dL (70-99) Calcium Level 8.9 mg/dL (8.5-10.1) Total Bilirubin 0.6 mg/dL (0.2-1.0) Aspartate Amino Transf (AST/SGOT) 56 U/L (15-37) Alanine Aminotransferase (ALT/SGPT) 205 U/L (16-63) Alkaline Phosphatase 73 U/L (46-116) Total Protein 5.4 g/dL (6.4-8.2) Albumin 2.4 g/dL (3.4-5.0) Albumin/Globulin Ratio 0.8 (1.0-1.7) Test 12/01/18 10:55 12/01/18 16:37 12/01/18 20:34 12/02/18 05:55 Glucose (Fingerstick) 142 mg/dL (70-99) 153 mg/dL (70-99) 142 mg/dL (70-99) White Blood Count 5.6 x10^3/uL (4.0-11.0) Red Blood Count 3.63 x10^6/uL (4.30-5.70) Hemoglobin 9.9 g/dL (13.0-17.5) Hematocrit 30.4 % (39.0-53.0) Mean Corpuscular Volume 84 fL (79-100) Mean Corpuscular Hemoglobin 27 pg (25-35) Mean Corpuscular Hemoglobin Concent 33 g/dL (31-37) Red Cell Distribution Width 17.1 % (11.5-14.5) Platelet Count 169 x10^3/uL (140-400) Neutrophils (%) (Auto) 56 % (31-73) Lymphocytes (%) (Auto) 27 % (24-48) Monocytes (%) (Auto) 10 % (0-9) Eosinophils (%) (Auto) 7 % (0-3) Basophils (%) (Auto) 0 % (0-3) Neutrophils # (Auto) 3.1 x10^3/uL (1.8-7.7) Lymphocytes # (Auto) 1.5 x10^3/uL (1.0-4.8) Monocytes # (Auto) 0.5 x10^3/uL (0.0-1.1) Eosinophils # (Auto) 0.4 x10^3/uL (0.0-0.7) Basophils # (Auto) 0.0 x10^3/uL (0.0-0.2) Sodium Level 142 mmol/L (136-145) Potassium Level 4.0 mmol/L (3.5-5.1) Chloride Level 106 mmol/L (98-107) Carbon Dioxide Level 31 mmol/L (21-32) Anion Gap 5 (6-14) Blood Urea Nitrogen 44 mg/dL (8-26) Creatinine 1.9 mg/dL (0.7-1.3) Estimated GFR (Cockcroft-Gault) 36.6 BUN/Creatinine Ratio 23 (6-20) Glucose Level 147 mg/dL (70-99) Calcium Level 8.9 mg/dL (8.5-10.1) Total Bilirubin 0.6 mg/dL (0.2-1.0) Aspartate Amino Transf (AST/SGOT) 40 U/L (15-37) Alanine Aminotransferase (ALT/SGPT) 150 U/L (16-63) Alkaline Phosphatase 70 U/L (46-116) Total Protein 5.5 g/dL (6.4-8.2) Albumin 2.5 g/dL (3.4-5.0) Albumin/Globulin Ratio 0.8 (1.0-1.7) Test 12/02/18 07:31 Glucose (Fingerstick) 131 mg/dL (70-99) Laboratory Tests Test 12/01/18 16:37 12/01/18 20:34 12/02/18 05:55 12/02/18 07:31 Glucose (Fingerstick) 153 mg/dL (70-99) 142 mg/dL (70-99) 131 mg/dL (70-99) White Blood Count 5.6 x10^3/uL (4.0-11.0) Red Blood Count 3.63 x10^6/uL (4.30-5.70) Hemoglobin 9.9 g/dL (13.0-17.5) Hematocrit 30.4 % (39.0-53.0) Mean Corpuscular Volume 84 fL (79-100) Mean Corpuscular Hemoglobin 27 pg (25-35) Mean Corpuscular Hemoglobin Concent 33 g/dL (31-37) Red Cell Distribution Width 17.1 % (11.5-14.5) Platelet Count 169 x10^3/uL (140-400) Neutrophils (%) (Auto) 56 % (31-73) Lymphocytes (%) (Auto) 27 % (24-48) Monocytes (%) (Auto) 10 % (0-9) Eosinophils (%) (Auto) 7 % (0-3) Basophils (%) (Auto) 0 % (0-3) Neutrophils # (Auto) 3.1 x10^3/uL (1.8-7.7) Lymphocytes # (Auto) 1.5 x10^3/uL (1.0-4.8) Monocytes # (Auto) 0.5 x10^3/uL (0.0-1.1) Eosinophils # (Auto) 0.4 x10^3/uL (0.0-0.7) Basophils # (Auto) 0.0 x10^3/uL (0.0-0.2) Sodium Level 142 mmol/L (136-145) Potassium Level 4.0 mmol/L (3.5-5.1) Chloride Level 106 mmol/L (98-107) Carbon Dioxide Level 31 mmol/L (21-32) Anion Gap 5 (6-14) Blood Urea Nitrogen 44 mg/dL (8-26) Creatinine 1.9 mg/dL (0.7-1.3) Estimated GFR (Cockcroft-Gault) 36.6 BUN/Creatinine Ratio 23 (6-20) Glucose Level 147 mg/dL (70-99) Calcium Level 8.9 mg/dL (8.5-10.1) Total Bilirubin 0.6 mg/dL (0.2-1.0) Aspartate Amino Transf (AST/SGOT) 40 U/L (15-37) Alanine Aminotransferase (ALT/SGPT) 150 U/L (16-63) Alkaline Phosphatase 70 U/L (46-116) Total Protein 5.5 g/dL (6.4-8.2) Albumin 2.5 g/dL (3.4-5.0) Albumin/Globulin Ratio 0.8 (1.0-1.7) Microbiology 11/27/18 - Final, Complete 11/27/18 - Final, Complete 11/27/18 Gram Stain Evaluation - Final, Complete 11/27/18 Sputum Culture - Final, Complete 11/27/18 Sputum Result 1 - Final, Complete Medications Current Medications Norepinephrine Bitartrate 250 ml @ 48.75 mls/ hr CONT PRN IV SEE I/O RECORD Last administered on 11/27/18at 07:37; Start 11/26/18 at 00:15; Stop 11/29/18 at 19:39; Status DC Dextrose (Dextrose 50%-Water Syringe) 25 gm 1X ONCE IV Last administered on 11/26/18 02:00; Start 11/26/18 at 02:00; Stop 11/26/18 at 02:01; Status DC Insulin Human Regular (HumuLIN R VIAL) 10 unit 1X ONCE IV Last administered on 11/26/18 02:01; Start 11/26/18 at 02:00; Stop 11/26/18 at 02:01; Status DC Sodium Chloride 1,000 ml @ 100 mls/hr Q10H IV Last administered on 12/02/18at 09:11; Start 11/26/18 at 03:00 Metolazone (Zaroxolyn) 10 mg 1X ONCE PO Last administered on 11/26/18 02:47; Start 11/26/18 at 03:00; Stop 11/26/18 at 03:01; Status DC Furosemide (Lasix) 40 mg 1X ONCE IVP Last administered on 11/26/18 02:48; Start 11/26/18 at 03:00; Stop 11/26/18 at 03:01; Status DC Sodium Polystyrene Sulfonate (Kayexalate) 30 gm 1X ONCE PO Last administered on 11/26/18at 02:47; Start 11/26/18 at 03:00; Stop 11/26/18 at 03:01; Status DC Dextrose (Dextrose 50%-Water Syringe) 25 gm 1X ONCE IV Last administered on 06:28; Start 11/26/18 at 06:30; Stop 11/26/18 at 06:31; Status DC Insulin Human Regular (HumuLIN R VIAL) 5 unit 1X ONCE IV Last administered on 11/26/18 06:24; Start 11/26/18 at 06:30; Stop 11/26/18 at 06:31; Status DC Calcium Gluconate (Calcium Gluconate) 1,000 mg 1X ONCE IVP Last administered on 11/26/18 06:28; Start 11/26/18 at 06:30; Stop 11/26/18 at 06:31; Status DC Sodium Bicarbonate (Sodium Bicarb Adult 8.4% Syr) 100 meq 1X ONCE IV Last administered on 11/26/18at 06:28; Start 11/26/18 at 06:30; Stop 11/26/18 at 06:31; Status DC Lidocaine/Sodium Bicarbonate (Buffered Lidocaine 1%) 6 ml 1X ONCE INJ Last ad ministered on 11/26/18at 08:51; Start 11/26/18 at 07:30; Stop 11/26/18 at 07:31; Status DC Sodium Chloride 1,000 ml @ 1,000 mls/hr Q1H PRN IV hypotension; Start 11/26/18 at 08:29; Stop 11/26/18 at 14:28; Status DC Albumin Human 200 ml @ 200 mls/hr 1X PRN PRN IV Hypotension; Start 11/26/18 at 08:30; Stop 11/26/18 at 14:29; Status DC Acetaminophen (Tylenol) 500 mg 1X PRN PRN PO MILD PAIN / TEMP; Start 11/26/18 at 08:30; Stop 11/27/18 at 08:29; Status DC Diphenhydramine HCl (Benadryl) 25 mg 1X PRN PRN IV ITCHING; Start 11/26/18 at 08:30; Stop 11/27/18 at 08:29; Status DC Diphenhydramine HCl (Benadryl) 25 mg 1X PRN PRN IV ITCHING; Start 11/26/18 at 08:30; Stop 11/27/18 at 08:29; Status DC Sodium Chloride 1,000 ml @ 400 mls/hr Q2H30M PRN IV PATENCY; Start 11/26/18 at 08:29; Stop 11/26/18 at 20:28; Status DC Info (PHARMACY MONITORING -- do not chart) 1 each PRN DAILY PRN MC SEE COMMENTS; Start 11/26/18 at 08:30; Stop 11/27/18 at 07:51; Status DC Albuterol/ Ipratropium (Duoneb) 3 ml RTQID NEB Last administered on 12/02/18at 11:15; Start 11/26/18 at 16:00 Budesonide (Pulmicort) 0.5 mg RTBID NEB Last administered on 12/02/18at 07:13; Start 11/26/18 at 20:00 Lorazepam (Ativan Inj) 2 mg PRN Q4HRS PRN IV ANXIETY / AGITATION Last administered on 12/02/18at 02:49; Start 11/27/18 at 02:00 Sodium Chloride 1,000 ml @ 1,000 mls/hr Q1H PRN IV hypotension; Start 11/27/18 at 07:45; Stop 11/27/18 at 13:44; Status DC Sodium Chloride 1,000 ml @ 400 mls/hr Q2H30M PRN IV PATENCY; Start 11/27/18 at 07:45; Stop 11/27/18 at 19:44; Status DC Info (PHARMACY MONITORING -- do not chart) 1 each PRN DAILY PRN MC SEE COMMENTS; Start 11/27/18 at 07:45; Stop 11/27/18 at 07:51; Status DC Info (PHARMACY MONITORING -- do not chart) 1 each PRN DAILY PRN MC SEE COMMENTS; Start 11/27/18 at 07:45 Lidocaine HCl (Xylocaine 1% Pf 30ml Vial) 30 ml 1X ONCE INJ ; Start 11/27/18 at 08:30; Stop 11/27/18 at 08:31; Status DC Insulin Human Lispro (HumaLOG) 10 units TIDAC SQ Last administered on 12/02/18at 09:16; Start 11/27/18 at 12:02 Heparin Sodium (Porcine) (Heparin Sodium) 5,000 unit Q8HRS SQ Last administered on 12/02/18at 05:45; Start 11/27/18 at 14:00; Stop 12/02/18 at 11:08; Status DC Doxycycline Hyclate 100 mg/ Dextrose 100 ml @ 50 mls/hr Q12H IV Last administered on 12/02/18at 02:14; Start 11/27/18 at 14:00; Stop 12/02/18 at 11:26; Status DC Dexmedetomidine HCl 400 mcg/ Sodium Chloride 100 ml @ 0 mls/hr CONT PRN IV AGITATION Last administered on 11/28/18at 04:58; Start 11/27/18 at 17:00; Stop 11/30/18 at 16:18; Status DC Sodium Chloride 500 ml @ 500 mls/hr 1X PRN PRN IV HYPOTENSION; Start 11/27/18 at 17:00; Stop 11/30/18 at 16:19; Status DC Atropine Sulfate (ATROPINE 0.5mg SYRINGE) 0.5 mg PRN Q5MIN PRN IV SEE COMMENTS; Start 11/27/18 at 17:00; Stop 11/30/18 at 16:19; Status DC Acetaminophen (Tylenol) 650 mg PRN Q6HRS PRN PO MILD PAIN / TEMP Last administered on 12/02/18 09:12; Start 11/28/18 at 20:30 Lidocaine (Lidoderm) 1 patch DAILY TD Last administered on 12/02/18 09:11; Start 11/28/18 at 21:00 Miscellaneous (Lidoderm Patch Removal) 1 ea QHS MC Last administered on 12/01/18 21:00; Start 11/28/18 at 21:00 Metoprolol Tartrate (Lopressor) 25 mg BID PO Last administered on 12/02/18 09:10; Start 11/29/18 at 09:00 Oxycodone HCl (Roxicodone) 5 mg PRN Q6HRS PRN PO SEVERE PAIN 7-10 Last administered on 11/30/18 04:54; Start 11/29/18 at 02:15; Stop 11/30/18 at 09:15; Status DC Metoprolol Tartrate (Lopressor) 25 mg 1X ONCE PO Last administered on 11/29/18 02:30; Start 11/29/18 at 02:30; Stop 11/29/18 at 02:31; Status DC Ondansetron HCl (Zofran) 4 mg PRN Q6HRS PRN IVP NAUSEA/VOMITING Last administered on 11/29/18 08:07; Start 11/29/18 at 07:30 Lactobacillus Rhamnosus (Culturelle) 1 cap BID PO Last administered on 12/02/18 09:10; Start 11/29/18 at 09:00 Influenza Virus Vaccine Quadrival (Afluria Quad 2019-20 (3yr Up) Syringe) 0.5 ml ONCE ONCE VAX IM Last administered on 11/30/18 08:34; Start 11/29/18 at 10:30; Stop 11/29/18 at 10:31; Status DC Al Hydroxide/Mg Hydroxide (Mylanta Plus Xs) 30 ml PRN Q6HRS PRN PO DYSPEPSIA L ast administered on 12/02/18 11:19; Start 11/29/18 at 18:30 Throat Lozenges (Cepacol Sore Throat Lozenge) 1 chiquita PRN Q2HRS PRN PO SORE THROAT Last administered on 11/29/18 22:53; Start 11/29/18 at 22:15 Oxycodone HCl (Roxicodone) 5 mg PRN Q4HRS PRN PO SEVERE PAIN 7-10 Last administered on 12/02/18at 10:23; Start 11/30/18 at 09:15 Gabapentin (Neurontin) 600 mg TID PO Last administered on 12/02/18at 09:10; Start 11/30/18 at 14:15 Nystatin (Nystop) 1 jermain BID TP Last administered on 12/02/18at 09:11; Start 1 at 15:00 Multivitamins (Thera M Plus) 1 tab DAILY PO Last administered on 12/02/18 09:10; Start 12/01/18 at 11:00 Ascorbic Acid (Vitamin C) 500 mg DAILY PO Last administered on 12/02/18at 09:10; Start 12/01/18 at 11:00 Furosemide (Lasix) 40 mg [id number] PO Last administered on 12/02/18at 11:19; Start 12/02/18 at 11:00 Enoxaparin Sodium (Lovenox Per Pharmacy Treatment Dosing) 1 each PRN DAILY PRN MC SEE COMMENTS; Start 12/02/18 at 11:15; Status UNV Apixaban (Eliquis) 10 mg BID PO ; Start 12/02/18 at 11:30; Stop 12/08/18 at 21:01 Apixaban (Eliquis) 5 mg BID PO ; Start 12/09/18 at 09:00 Doxycycline Hyclate (Vibra-Tab) 100 mg BID PO ; Start 12/02/18 at 21:00 Apixaban (Eliquis) 10 mg BID PO ; Start 12/02/18 at 11:30; Status UNV Docusate Sodium (Colace) 100 mg DAILY PO ; Start 12/02/18 at 12:00 Docusate Sodium (Colace) 100 mg PRN DAILY PRN PO CONSTIPATION; Start 12/02/18 at 11:30 Polyethylene Glycol (miraLAX PACKET) 17 gm DAILY PO ; Start 12/02/18 at 12:00 Active Scripts Active Reported Oxycodone Hcl 5 Mg Capsule 5 Mg PO PRN Q6HRS PRN Warfarin Sodium 5 Mg Tablet 5 Mg PO DAILY Mondays and Wednesdays Warfarin Sodium 10 Mg Tablet 10 Mg PO DAILY 5 days per week, T, Th, F, Sat, Sun Tizanidine Hcl 4 Mg Tablet 2 Mg PO PRN TID PRN Novolin R (Insulin Regular, Human) 100 Unit/1 Ml Vial 28 Unit IJ [id number] Novolin R (Insulin Regular, Human) 100 Unit/1 Ml Vial 36 Unit IJ [id number] Novolin N (Nph, Human Insulin Isophane) 100 Unit/1 Ml Vial 50 Unit SQ BID Seroquel (Quetiapine Fumarate) 25 Mg Tablet 25 Mg PO DAILY Probenecid 500 Mg Tablet 500 Mg PO BID Metoprolol Tartrate 25 Mg Tablet 1 Tab PO BID Lisinopril 20 Mg Tablet 1 Tab PO DAILY Pepcid (Famotidine) 20 Mg Tablet 20 Mg PO BID Vitamin D3 (Cholecalciferol (Vitamin D3)) 1,000 Unit Tablet 2 Tab PO DAILY Senna S Tablet (Sennosides/Docusate Sodium) 1 Each Tablet 2 Tab PO HS Cymbalta (Duloxetine Hcl) 60 Mg Capsule.dr 120 Mg PO DAILY Gabapentin 600 Mg Tablet 300 Mg PO BID Aspirin 81 Mg Tab.chew 81 Mg PO DAILY Furosemide 40 Mg Tablet 1 Tab PO DAILY Atorvastatin Calcium 80 Mg Tablet 1 Tab PO HS Vitals/I & O Vital Sign - Last 24 Hours 12/01/18 12/01/18 12/01/18 12/01/18 12:23 15:00 16:38 16:47 Temp 97.9 97.9 Pulse 95 Resp 16 B/P (MAP) 120/69 (86) Pulse Ox 99 98 99 99 O2 Delivery Room Air Tracheal Collar O2 Flow Rate 8.0 5.0 7.0 12/01/18 12/01/18 12/01/18 12/01/18 17:32 19:00 19:44 19:45 Temp 98.1 98.1 Pulse 75 Resp 20 B/P (MAP) 121/58 (79) Pulse Ox 99 99 100 100 O2 Delivery Tracheal Collar Tracheal Collar Tracheal Collar O2 Flow Rate 8.0 5.0 5.0 12/01/18 12/01/18 12/01/18 12/02/18 20:00 21:17 23:00 01:23 Temp 98.2 98.2 Pulse 75 59 Resp 20 B/P (MAP) 121/58 122/57 (78) Pulse Ox 100 100 O2 Delivery Tracheal Collar O2 Flow Rate 8.0 5.0 12/02/18 12/02/18 12/02/18 12/02/18 02:23 03:00 05:44 06:44 Temp 98.2 98.2 Pulse 89 Resp 20 B/P (MAP) 108/56 (73) Pulse Ox 100 99 99 99 O2 Delivery Tracheal Collar O2 Flow Rate 5.0 5.0 5.0 12/02/18 12/02/18 12/02/18 12/02/18 07:00 07:14 09:10 10:23 Temp 99.0 99.0 Pulse 93 93 Resp 22 B/P (MAP) 122/60 (80) 122/60 Pulse Ox 97 100 100 O2 Delivery Tracheal Collar Tracheal Collar Tracheal Collar O2 Flow Rate 6.0 5.0 5.0 12/02/18 11:16 Pulse Ox 97 O2 Delivery Tracheal Collar O2 Flow Rate 5.0 Intake and Output 12/01/18 12/01/18 12/02/18 15:00 23:00 07:00 Output Total 2900 ml 1900 ml Balance -2900 ml -1900 ml PENG AVINA MD Dec 02, 2018 12:11
[2018-12-02] MEDS ORDERED: ZOLPIDEM 5 MG TABLET. PO PRN (12:15)
[2018-12-02] MEDS: APIXABAN 5 MG TABLET. PO SCH ×2 (12:30→20:33)
[2018-12-02] MEDS: DOCUSATE SODIUM 100 MG CAPSULE. PO SCH (12:31)
[2018-12-02 15:00] VITALS: BP 109/59
--- NOTE | 2018-12-02 16:13 | NUR ---
Pt. c/o buring when he urinates. Pt. has a loomis with clear yellow urine. Text page sent to Dr. Weinberg. No new orders received at this time.
--- NOTE | 2018-12-02 17:00 | NUR ---
Dr. Weinberg returned call, notified of pt c/o burning with urination, orders received.
[2018-12-02 19:00] VITALS: BP 124/58
[2018-12-02 19:13] LABS: BILIRUBIN,URINE NEGATIVE (NEG); CLARITY,URINE CLEAR; COLOR,URINE YELLOW; NITRITE,URINE NEGATIVE (NEG); PH,URINE 6.5; PROTEIN,URINE NEGATIVE (NEG-TRACE); UROBILINOGEN,URINE 0.2 mg/dL (0.2 mg/dL)
[2018-12-02 19:31] LABS: BACTERIA,URINE 0 /HPF (0-FEW); RBC,URINE 0 /HPF (0-2); SQUAMOUS EPITHELIAL CELL,UR OCC /LPF
[2018-12-02 19:32] LABS: YEAST,URINE PRESENT /HPF
[2018-12-02] MEDS: DOXYCYCLINE HYCLATE 100 MG TABLET PO SCH (20:32)
[2018-12-02] MEDS: PATCH REMOVAL. MC SCH (21:00)
[2018-12-02] MEDS ORDERED: traZODone 100 MG TABLET. PO SCH (21:00)
[2018-12-02 23:00] VITALS: BP 125/51
[2018-12-03] MEDS: oxyCODONE IR 5 MG TABLET PO PRN ×5 (01:04→17:04)
[2018-12-03 03:00] VITALS: BP 122/61
[2018-12-03 05:45] LABS: ALBUMIN 2.7 g/dL (3.4-5.0); ALBUMIN/GLOBULIN RATIO 0.9 (1.0-1.7); CALCIUM 9.1 mg/dL (8.5-10.1); CREATININE 1.7 mg/dL (0.7-1.3); GFR 41.6; POTASSIUM 4.3 mmol/L (3.5-5.1); TOTAL BILIRUBIN 0.6 mg/dL (0.2-1.0); TOTAL PROTEIN 5.8 g/dL (6.4-8.2)
[2018-12-03 05:50] LABS: BASO % 1 % (0-3); EOS # 0.3 x10^3/uL (0.0-0.7); EOS % 6 % (0-3); HEMATOCRIT 29.5 % (39.0-53.0); HEMOGLOBIN 9.8 g/dL (13.0-17.5); LYMPH # 1.6 x10^3/uL (1.0-4.8); LYMPH % 27 % (24-48); MEAN CORPUSCULAR HEMOGLOBIN 28 pg (25-35); MEAN CORPUSCULAR HGB CONC 33 g/dL (31-37); MEAN CORPUSCULAR VOLUME 83 fL (79-100); MONO # 0.6 x10^3/uL (0.0-1.1); MONO % 10 % (0-9); NEUT # 3.5 x10^3/uL (1.8-7.7); NEUT % 58 % (31-73); PLATELET COUNT 179 x10^3/uL (140-400); RED BLOOD COUNT 3.54 x10^6/uL (4.30-5.70); RED CELL DISTRIBUTION WIDTH 17.3 % (11.5-14.5); WHITE BLOOD COUNT 6.1 x10^3/uL (4.0-11.0)
[2018-12-03] MEDS: IV NORMAL SALINE 1000ML BAG 1,000 ML IV SCH ×2 (06:13→15:00)
[2018-12-03] MEDS: ACETAMINOPHEN 650 MG/20.3 ML SOLUTION. PO PRN (06:30)
[2018-12-03 07:00] VITALS: BP 125/66
[2018-12-03] MEDS: BUDESONIDE 0.5 MG/2 ML NEBU. NEB SCH ×2 (07:35→19:06)
[2018-12-03] MEDS: IPRATRPIUM/ALBUTEROL 0.5/2.5MG 3 ML NEBU. NEB SCH ×4 (07:35→19:05)
[2018-12-03] MEDS: POLYETHYLENE GLYCOL 3350 17 GM PACKET. PO SCH (09:00)
[2018-12-03] MEDS: DOCUSATE SODIUM 100 MG CAPSULE. PO SCH (09:00)
[2018-12-03] MEDS: ASCORBIC ACID 500 MG TABLET PO SCH (09:14)
[2018-12-03] MEDS: MULTIVITAMIN with MINERAL TABLET. PO SCH (09:14)
[2018-12-03] MEDS: LACTOBACILLUS RHAMNOSUS GG 1 CAPSULE. PO SCH ×2 (09:14→21:35)
[2018-12-03] MEDS: GABAPENTIN 300 MG CAPSULE. PO SCH ×3 (09:15→21:34)
[2018-12-03] MEDS: APIXABAN 5 MG TABLET. PO SCH ×2 (09:15→21:34)
[2018-12-03] MEDS: METOPROLOL TART IMMED RELEASE 25 MG TABLET. PO SCH ×2 (09:15→21:36)
[2018-12-03] MEDS: DOXYCYCLINE HYCLATE 100 MG TABLET PO SCH ×2 (09:16→21:35)
[2018-12-03] MEDS: FUROSEMIDE 40 MG TABLET. PO SCH ×2 (09:16→13:59)
[2018-12-03] MEDS: LIDOCAINE (700MG/PATCH) PATCH. TD SCH (09:17)
[2018-12-03] MEDS: NYSTATIN TOPICAL POWDER 15GM BOTTLE. TP SCH ×2 (09:17→21:41)
[2018-12-03] MEDS: INSULIN LISPRO 300 UNITS/3 ML VIAL. SQ SCH ×3 (09:19→17:08)
--- NOTE | 2018-12-03 09:39 | PDOC ---
Renal-Progress Notes Subjective Notes Notes NO NEW COMPLAINTS History of Present Illness Hx of present illness NO CHANGES Vitals Vitals Vital Signs Date Time Temp Pulse Resp B/P (MAP) Pulse Ox O2 Delivery O2 Flow Rate FiO2 12/03/18 09:16 Tracheal Collar 12/03/18 09:15 87 125/66 12/03/18 07:37 97 5.0 12/03/18 07:00 98.2 14 98.2 Weight Weight [ ] I.O. Intake and Output Intake and Output 12/03/18 07:00 Intake Total 400 ml Output Total 7500 ml Balance -7100 ml Intake Oral 400 ml Output Urine Total 7500 ml # Bowel Movements 2 Labs Labs Laboratory Tests Test 12/02/18 12:12 12/02/18 16:59 12/02/18 18:00 12/02/18 21:00 Glucose (Fingerstick) 169 mg/dL (70-99) 134 mg/dL (70-99) 148 mg/dL (70-99) Urine Collection Type U cath Urine Color Yellow Urine Clarity Clear Urine pH 6.5 Urine Specific [place] <=1.005 Urine Protein Negative mg/dL (NEG-TRACE) Urine Glucose (UA) Negative mg/dL (NEG) Urine Ketones (Stick) Negative mg/dL (NEG) Urine Blood Negative (NEG) Urine Nitrite Negative (NEG) Urine Bilirubin Negative (NEG) Urine Urobilinogen Dipstick 0.2 mg/dL (0.2 mg/dL) Urine Leukocyte Esterase Small (NEG) Urine RBC 0 /HPF (0-2) Urine WBC 5-10 /HPF (0-4) Urine Squamous Epithelial Cells Occ /LPF Urine Bacteria 0 /HPF (0-FEW) Urine Mucus Slight /LPF Urine Yeast Present /HPF Test 12/03/18 05:00 12/03/18 07:54 White Blood Count 6.1 x10^3/uL (4.0-11.0) Red Blood Count 3.54 x10^6/uL (4.30-5.70) Hemoglobin 9.8 g/dL (13.0-17.5) Hematocrit 29.5 % (39.0-53.0) Mean Corpuscular Volume 83 fL (79-100) Mean Corpuscular Hemoglobin 28 pg (25-35) Mean Corpuscular Hemoglobin Concent 33 g/dL (31-37) Red Cell Distribution Width 17.3 % (11.5-14.5) Platelet Count 179 x10^3/uL (140-400) Neutrophils (%) (Auto) 58 % (31-73) Lymphocytes (%) (Auto) 27 % (24-48) Monocytes (%) (Auto) 10 % (0-9) Eosinophils (%) (Auto) 6 % (0-3) Basophils (%) (Auto) 1 % (0-3) Neutrophils # (Auto) 3.5 x10^3/uL (1.8-7.7) Lymphocytes # (Auto) 1.6 x10^3/uL (1.0-4.8) Monocytes # (Auto) 0.6 x10^3/uL (0.0-1.1) Eosinophils # (Auto) 0.3 x10^3/uL (0.0-0.7) Basophils # (Auto) 0.0 x10^3/uL (0.0-0.2) Sodium Level 143 mmol/L (136-145) Potassium Level 4.3 mmol/L (3.5-5.1) Chloride Level 103 mmol/L (98-107) Carbon Dioxide Level 33 mmol/L (21-32) Anion Gap 7 (6-14) Blood Urea Nitrogen 38 mg/dL (8-26) Creatinine 1.7 mg/dL (0.7-1.3) Estimated GFR (Cockcroft-Gault) 41.6 BUN/Creatinine Ratio 22 (6-20) Glucose Level 153 mg/dL (70-99) Calcium Level 9.1 mg/dL (8.5-10.1) Total Bilirubin 0.6 mg/dL (0.2-1.0) Aspartate Amino Transf (AST/SGOT) 41 U/L (15-37) Alanine Aminotransferase (ALT/SGPT) 116 U/L (16-63) Alkaline Phosphatase 70 U/L (46-116) Total Protein 5.8 g/dL (6.4-8.2) Albumin 2.7 g/dL (3.4-5.0) Albumin/Globulin Ratio 0.9 (1.0-1.7) Glucose (Fingerstick) 191 mg/dL (70-99) Micro Micro Microbiology 11/27/18 - Final, Complete 11/27/18 - Final, Complete 11/27/18 Gram Stain Evaluation - Final, Complete 11/27/18 Sputum Culture - Final, Complete 11/27/18 Sputum Result 1 - Final, Complete Review of Systems Constitutional: yes: weakness, alert, oriented Ears/Nose/Throat: Yes: no symptom reported Eyes: Yes: no symptom reported Pulmonary: Yes dyspnea Cardiovascular: Yes edema Gastrointestional: Yes: constipation Genitourinary: Yes: no symptom reported Musculoskeletal: Yes: muscle stiffness Skin: Yes no symptom reported Psychiatric/Neurological: Yes: no symptom reported Endocrine: Yes: no symptom reported Physical Exam General Appearance: no apparent distress Skin: warm Respiratory: decreased breath sounds Heart: S1S2 Abdomen: soft, bowel sounds present Genitourinary: bladder flat Extremities: pulses present Neurology: alert, oriented Assessment Assessment IMP GUSTAVO-IMPROVED WITH GOOD UO AND CR STABLE AT 1.7-LAST HD ON 11-27 CARDIAC ARRHYTHMIA MORBID OBESITY CHRONIC TRACH AND HYPERCAPNEA ELEVATED LFTS-BETTER LEFT ARM EDEMA WITH SUPERFICIAL CEPHALIC VEIN THROMBUS DYSURIA WITH NO UTI PLAN CONT TO HOLD OFF HD CONT PO DIURETICS MAINTAIN TRIPLE PORT HD CATHETER FOR IV ACCESS WILL FOLLOW ALO RAYMOND MD Dec 03, 2018 09:39
[2018-12-03 11:00] VITALS: BP 121/48
[2018-12-03] MEDS: DULoxetine HCL 30 MG CAPSULE.DR PO SCH ×2 (12:22→21:35)
[2018-12-03] MEDS: QUEtiapine 25 MG TABLET. PO SCH ×2 (12:22→21:36)
--- NOTE | 2018-12-03 14:44 | PDOC ---
PROGRESS NOTES Chief Complaint Chief Complaint acute Renal failure chronic resp failure, has trach morbid obesity, BMI 83 severe malnutrition, hypoalbumin oral cancer depression, anxiety, uinsomnia weakness and debilitiy, cannot get up, History of Present Illness History of Present Illness 10/ left arm swelling is much ebtter today, US showed superficial vein thrombosis. he reports insomnia and anxiety, we have not been giving him his cymbalta or seroquel. he did not like trazodone last night, gave him a headache will make changes, re-eval. has loomis, will need remvoed, plan tomorrow. Pt seen and examined on 4th medical floor Pt has trach shield present, some sputum still, needs suctioning No acute distress Vitals Vitals Vital Signs Date Time Temp Pulse Resp B/P (MAP) Pulse Ox O2 Delivery O2 Flow Rate FiO2 12/03/18 11:30 97 Tracheal Collar 5.0 12/03/18 11:00 97.7 87 18 121/48 (72) 97.7 Physical Exam General: Alert, Oriented X3, Cooperative, No acute distress Heart: Regular rate, No murmurs Lungs: Clear, Other (decrease bases) Extremities: No clubbing, No cyanosis Skin: No rashes, No breakdown, No significant lesion Labs LABS Laboratory Tests Test 12/02/18 16:59 12/02/18 18:00 12/02/18 21:00 12/03/18 05:00 Glucose (Fingerstick) 134 mg/dL (70-99) 148 mg/dL (70-99) Urine Collection Type U cath Urine Color Yellow Urine Clarity Clear Urine pH 6.5 Urine Specific [place] <=1.005 Urine Protein Negative mg/dL (NEG-TRACE) Urine Glucose (UA) Negative mg/dL (NEG) Urine Ketones (Stick) Negative mg/dL (NEG) Urine Blood Negative (NEG) Urine Nitrite Negative (NEG) Urine Bilirubin Negative (NEG) Urine Urobilinogen Dipstick 0.2 mg/dL (0.2 mg/dL) Urine Leukocyte Esterase Small (NEG) Urine RBC 0 /HPF (0-2) Urine WBC 5-10 /HPF (0-4) Urine Squamous Epithelial Cells Occ /LPF Urine Bacteria 0 /HPF (0-FEW) Urine Mucus Slight /LPF Urine Yeast Present /HPF White Blood Count 6.1 x10^3/uL (4.0-11.0) Red Blood Count 3.54 x10^6/uL (4.30-5.70) Hemoglobin 9.8 g/dL (13.0-17.5) Hematocrit 29.5 % (39.0-53.0) Mean Corpuscular Volume 83 fL (79-100) Mean Corpuscular Hemoglobin 28 pg (25-35) Mean Corpuscular Hemoglobin Concent 33 g/dL (31-37) Red Cell Distribution Width 17.3 % (11.5-14.5) Platelet Count 179 x10^3/uL (140-400) Neutrophils (%) (Auto) 58 % (31-73) Lymphocytes (%) (Auto) 27 % (24-48) Monocytes (%) (Auto) 10 % (0-9) Eosinophils (%) (Auto) 6 % (0-3) Basophils (%) (Auto) 1 % (0-3) Neutrophils # (Auto) 3.5 x10^3/uL (1.8-7.7) Lymphocytes # (Auto) 1.6 x10^3/uL (1.0-4.8) Monocytes # (Auto) 0.6 x10^3/uL (0.0-1.1) Eosinophils # (Auto) 0.3 x10^3/uL (0.0-0.7) Basophils # (Auto) 0.0 x10^3/uL (0.0-0.2) Sodium Level 143 mmol/L (136-145) Potassium Level 4.3 mmol/L (3.5-5.1) Chloride Level 103 mmol/L (98-107) Carbon Dioxide Level 33 mmol/L (21-32) Anion Gap 7 (6-14) Blood Urea Nitrogen 38 mg/dL (8-26) Creatinine 1.7 mg/dL (0.7-1.3) Estimated GFR (Cockcroft-Gault) 41.6 BUN/Creatinine Ratio 22 (6-20) Glucose Level 153 mg/dL (70-99) Calcium Level 9.1 mg/dL (8.5-10.1) Total Bilirubin 0.6 mg/dL (0.2-1.0) Aspartate Amino Transf (AST/SGOT) 41 U/L (15-37) Alanine Aminotransferase (ALT/SGPT) 116 U/L (16-63) Alkaline Phosphatase 70 U/L (46-116) Total Protein 5.8 g/dL (6.4-8.2) Albumin 2.7 g/dL (3.4-5.0) Albumin/Globulin Ratio 0.9 (1.0-1.7) Test 12/03/18 07:54 12/03/18 11:21 Glucose (Fingerstick) 191 mg/dL (70-99) 156 mg/dL (70-99) Comment Review of Relevant I have reviewed the following items bar (where applicable) has been applied. Labs Laboratory Tests Test 12/01/18 16:37 12/01/18 20:34 12/02/18 05:55 12/02/18 07:31 Glucose (Fingerstick) 153 mg/dL (70-99) 142 mg/dL (70-99) 131 mg/dL (70-99) White Blood Count 5.6 x10^3/uL (4.0-11.0) Red Blood Count 3.63 x10^6/uL (4.30-5.70) Hemoglobin 9.9 g/dL (13.0-17.5) Hematocrit 30.4 % (39.0-53.0) Mean Corpuscular Volume 84 fL (79-100) Mean Corpuscular Hemoglobin 27 pg (25-35) Mean Corpuscular Hemoglobin Concent 33 g/dL (31-37) Red Cell Distribution Width 17.1 % (11.5-14.5) Platelet Count 169 x10^3/uL (140-400) Neutrophils (%) (Auto) 56 % (31-73) Lymphocytes (%) (Auto) 27 % (24-48) Monocytes (%) (Auto) 10 % (0-9) Eosinophils (%) (Auto) 7 % (0-3) Basophils (%) (Auto) 0 % (0-3) Neutrophils # (Auto) 3.1 x10^3/uL (1.8-7.7) Lymphocytes # (Auto) 1.5 x10^3/uL (1.0-4.8) Monocytes # (Auto) 0.5 x10^3/uL (0.0-1.1) Eosinophils # (Auto) 0.4 x10^3/uL (0.0-0.7) Basophils # (Auto) 0.0 x10^3/uL (0.0-0.2) Sodium Level 142 mmol/L (136-145) Potassium Level 4.0 mmol/L (3.5-5.1) Chloride Level 106 mmol/L (98-107) Carbon Dioxide Level 31 mmol/L (21-32) Anion Gap 5 (6-14) Blood Urea Nitrogen 44 mg/dL (8-26) Creatinine 1.9 mg/dL (0.7-1.3) Estimated GFR (Cockcroft-Gault) 36.6 BUN/Creatinine Ratio 23 (6-20) Glucose Level 147 mg/dL (70-99) Calcium Level 8.9 mg/dL (8.5-10.1) Total Bilirubin 0.6 mg/dL (0.2-1.0) Aspartate Amino Transf (AST/SGOT) 40 U/L (15-37) Alanine Aminotransferase (ALT/SGPT) 150 U/L (16-63) Alkaline Phosphatase 70 U/L (46-116) Total Protein 5.5 g/dL (6.4-8.2) Albumin 2.5 g/dL (3.4-5.0) Albumin/Globulin Ratio 0.8 (1.0-1.7) Test 12/02/18 12:12 12/02/18 16:59 12/02/18 18:00 12/02/18 21:00 Glucose (Fingerstick) 169 mg/dL (70-99) 134 mg/dL (70-99) 148 mg/dL (70-99) Urine Collection Type U cath Urine Color Yellow Urine Clarity Clear Urine pH 6.5 Urine Specific [place] <=1.005 Urine Protein Negative mg/dL (NEG-TRACE) Urine Glucose (UA) Negative mg/dL (NEG) Urine Ketones (Stick) Negative mg/dL (NEG) Urine Blood Negative (NEG) Urine Nitrite Negative (NEG) Urine Bilirubin Negative (NEG) Urine Urobilinogen Dipstick 0.2 mg/dL (0.2 mg/dL) Urine Leukocyte Esterase Small (NEG) Urine RBC 0 /HPF (0-2) Urine WBC 5-10 /HPF (0-4) Urine Squamous Epithelial Cells Occ /LPF Urine Bacteria 0 /HPF (0-FEW) Urine Mucus Slight /LPF Urine Yeast Present /HPF Test 10/6/19 05:00 12/03/18 07:54 12/03/18 11:21 White Blood Count 6.1 x10^3/uL (4.0-11.0) Red Blood Count 3.54 x10^6/uL (4.30-5.70) Hemoglobin 9.8 g/dL (13.0-17.5) Hematocrit 29.5 % (39.0-53.0) Mean Corpuscular Volume 83 fL (79-100) Mean Corpuscular Hemoglobin 28 pg (25-35) Mean Corpuscular Hemoglobin Concent 33 g/dL (31-37) Red Cell Distribution Width 17.3 % (11.5-14.5) Platelet Count 179 x10^3/uL (140-400) Neutrophils (%) (Auto) 58 % (31-73) Lymphocytes (%) (Auto) 27 % (24-48) Monocytes (%) (Auto) 10 % (0-9) Eosinophils (%) (Auto) 6 % (0-3) Basophils (%) (Auto) 1 % (0-3) Neutrophils # (Auto) 3.5 x10^3/uL (1.8-7.7) Lymphocytes # (Auto) 1.6 x10^3/uL (1.0-4.8) Monocytes # (Auto) 0.6 x10^3/uL (0.0-1.1) Eosinophils # (Auto) 0.3 x10^3/uL (0.0-0.7) Basophils # (Auto) 0.0 x10^3/uL (0.0-0.2) Sodium Level 143 mmol/L (136-145) Potassium Level 4.3 mmol/L (3.5-5.1) Chloride Level 103 mmol/L (98-107) Carbon Dioxide Level 33 mmol/L (21-32) Anion Gap 7 (6-14) Blood Urea Nitrogen 38 mg/dL (8-26) Creatinine 1.7 mg/dL (0.7-1.3) Estimated GFR (Cockcroft-Gault) 41.6 BUN/Creatinine Ratio 22 (6-20) Glucose Level 153 mg/dL (70-99) Calcium Level 9.1 mg/dL (8.5-10.1) Total Bilirubin 0.6 mg/dL (0.2-1.0) Aspartate Amino Transf (AST/SGOT) 41 U/L (15-37) Alanine Aminotransferase (ALT/SGPT) 116 U/L (16-63) Alkaline Phosphatase 70 U/L (46-116) Total Protein 5.8 g/dL (6.4-8.2) Albumin 2.7 g/dL (3.4-5.0) Albumin/Globulin Ratio 0.9 (1.0-1.7) Glucose (Fingerstick) 191 mg/dL (70-99) 156 mg/dL (70-99) Laboratory Tests Test 12/02/18 16:59 12/02/18 18:00 12/02/18 21:00 12/03/18 05:00 Glucose (Fingerstick) 134 mg/dL (70-99) 148 mg/dL (70-99) Urine Collection Type U cath Urine Color Yellow Urine Clarity Clear Urine pH 6.5 Urine Specific [place] <=1.005 Urine Protein Negative mg/dL (NEG-TRACE) Urine Glucose (UA) Negative mg/dL (NEG) Urine Ketones (Stick) Negative mg/dL (NEG) Urine Blood Negative (NEG) Urine Nitrite Negative (NEG) Urine Bilirubin Negative (NEG) Urine Urobilinogen Dipstick 0.2 mg/dL (0.2 mg/dL) Urine Leukocyte Esterase Small (NEG) Urine RBC 0 /HPF (0-2) Urine WBC 5-10 /HPF (0-4) Urine Squamous Epithelial Cells Occ /LPF Urine Bacteria 0 /HPF (0-FEW) Urine Mucus Slight /LPF Urine Yeast Present /HPF White Blood Count 6.1 x10^3/uL (4.0-11.0) Red Blood Count 3.54 x10^6/uL (4.30-5.70) Hemoglobin 9.8 g/dL (13.0-17.5) Hematocrit 29.5 % (39.0-53.0) Mean Corpuscular Volume 83 fL (79-100) Mean Corpuscular Hemoglobin 28 pg (25-35) Mean Corpuscular Hemoglobin Concent 33 g/dL (31-37) Red Cell Distribution Width 17.3 % (11.5-14.5) Platelet Count 179 x10^3/uL (140-400) Neutrophils (%) (Auto) 58 % (31-73) Lymphocytes (%) (Auto) 27 % (24-48) Monocytes (%) (Auto) 10 % (0-9) Eosinophils (%) (Auto) 6 % (0-3) Basophils (%) (Auto) 1 % (0-3) Neutrophils # (Auto) 3.5 x10^3/uL (1.8-7.7) Lymphocytes # (Auto) 1.6 x10^3/uL (1.0-4.8) Monocytes # (Auto) 0.6 x10^3/uL (0.0-1.1) Eosinophils # (Auto) 0.3 x10^3/uL (0.0-0.7) Basophils # (Auto) 0.0 x10^3/uL (0.0-0.2) Sodium Level 143 mmol/L (136-145) Potassium Level 4.3 mmol/L (3.5-5.1) Chloride Level 103 mmol/L (98-107) Carbon Dioxide Level 33 mmol/L (21-32) Anion Gap 7 (6-14) Blood Urea Nitrogen 38 mg/dL (8-26) Creatinine 1.7 mg/dL (0.7-1.3) Estimated GFR (Cockcroft-Gault) 41.6 BUN/Creatinine Ratio 22 (6-20) Glucose Level 153 mg/dL (70-99) Calcium Level 9.1 mg/dL (8.5-10.1) Total Bilirubin 0.6 mg/dL (0.2-1.0) Aspartate Amino Transf (AST/SGOT) 41 U/L (15-37) Alanine Aminotransferase (ALT/SGPT) 116 U/L (16-63) Alkaline Phosphatase 70 U/L (46-116) Total Protein 5.8 g/dL (6.4-8.2) Albumin 2.7 g/dL (3.4-5.0) Albumin/Globulin Ratio 0.9 (1.0-1.7) Test 12/03/18 07:54 12/03/18 11:21 Glucose (Fingerstick) 191 mg/dL (70-99) 156 mg/dL (70-99) Microbiology 11/27/18 - Final, Complete 11/27/18 - Final, Complete 11/27/18 Gram Stain Evaluation - Final, Complete 11/27/18 Sputum Culture - Final, Complete 11/27/18 Sputum Result 1 - Final, Complete Medications Current Medications Norepinephrine Bitartrate 250 ml @ 48.75 mls/ hr CONT PRN IV SEE I/O RECORD Last administered on 11/27/18at 07:37; Start 11/26/18 at 00:15; Stop 11/29/18 at 19:39; Status DC Dextrose (Dextrose 50%-Water Syringe) 25 gm 1X ONCE IV Last administered on 11/26/18at 02:00; Start 11/26/18 at 02:00; Stop 11/26/18 at 02:01; Status DC Insulin Human Regular (HumuLIN R VIAL) 10 unit 1X ONCE IV Last administered on 11/26/18at 02:01; Start 11/26/18 at 02:00; Stop 11/26/18 at 02:01; Status DC Sodium Chloride 1,000 ml @ 100 mls/hr Q10H IV Last administered on 12/03/18at 06:13; Start 11/26/18 at 03:00 Metolazone (Zaroxolyn) 10 mg 1X ONCE PO Last administered on 11/26/18at 02:47; Start 11/26/18 at 03:00; Stop 11/26/18 at 03:01; Status DC Furosemide (Lasix) 40 mg 1X ONCE IVP Last administered on 11/26/18at 02:48; Start 11/26/18 at 03:00; Stop 11/26/18 at 03:01; Status DC Sodium Polystyrene Sulfonate (Kayexalate) 30 gm 1X ONCE PO Last administered on 11/26/18at 02:47; Start 11/26/18 at 03:00; Stop 11/26/18 at 03:01; Status DC Dextrose (Dextrose 50%-Water Syringe) 25 gm 1X ONCE IV Last administered on 11/26/18at 06:28; Start 11/26/18 at 06:30; Stop 11/26/18 at 06:31; Status DC Insulin Human Regular (HumuLIN R VIAL) 5 unit 1X ONCE IV Last administered on 11/26/18at 06:24; Start 11/26/18 at 06:30; Stop 11/26/18 at 06:31; Status DC Calcium Gluconate (Calcium Gluconate) 1,000 mg 1X ONCE IVP Last administered on 11/26/18at 06:28; Start 11/26/18 at 06:30; Stop 11/26/18 at 06:31; Status DC Sodium Bicarbonate (Sodium Bicarb Adult 8.4% Syr) 100 meq 1X ONCE IV Last administered on 11/26/18at 06:28; Start 11/26/18 at 06:30; Stop 11/26/18 at 0 6:31; Status DC Lidocaine/Sodium Bicarbonate (Buffered Lidocaine 1%) 6 ml 1X ONCE INJ Last administered on 11/26/18at 08:51; Start 11/26/18 at 07:30; Stop 11/26/18 at 07:31; Status DC Sodium Chloride 1,000 ml @ 1,000 mls/hr Q1H PRN IV hypotension; Start 11/26/18 at 08:29; Stop 11/26/18 at 14:28; Status DC Albumin Human 200 ml @ 200 mls/hr 1X PRN PRN IV Hypotension; Start 11/26/18 at 08:30; Stop 11/26/18 at 14:29; Status DC Acetaminophen (Tylenol) 500 mg 1X PRN PRN PO MILD PAIN / TEMP; Start 11/26/18 at 08:30; Stop 11/27/18 at 08:29; Status DC Diphenhydramine HCl (Benadryl) 25 mg 1X PRN PRN IV ITCHING; Start 11/26/18 at 08:30; Stop 11/27/18 at 08:29; Status DC Diphenhydramine HCl (Benadryl) 25 mg 1X PRN PRN IV ITCHING; Start 11/26/18 at 08:30; Stop 11/27/18 at 08:29; Status DC Sodium Chloride 1,000 ml @ 400 mls/hr Q2H30M PRN IV PATENCY; Start 11/26/18 at 08:29; Stop 11/26/18 at 20:28; Status DC Info (PHARMACY MONITORING -- do not chart) 1 each PRN DAILY PRN MC SEE COMMENTS; Start 11/26/18 at 08:30; Stop 11/27/18 at 07:51; Status DC Albuterol/ Ipratropium (Duoneb) 3 ml RTQID NEB Last administered on 12/03/18at 11:28; Start 11/26/18 at 16:00 Budesonide (Pulmicort) 0.5 mg RTBID NEB Last administered on 12/03/18at 07:35; Start 11/26/18 at 20:00 Lorazepam (Ativan Inj) 2 mg PRN Q4HRS PRN IV ANXIETY / AGITATION Last administered on 12/02/18at 02:49; Start 11/27/18 at 02:00 Sodium Chloride 1,000 ml @ 1,000 mls/hr Q1H PRN IV hypotension; Start 11/27/18 at 07:45; Stop 11/27/18 at 13:44; Status DC Sodium Chloride 1,000 ml @ 400 mls/hr Q2H30M PRN IV PATENCY; Start 11/27/18 at 07:45; Stop 11/27/18 at 19:44; Status DC Info (PHARMACY MONITORING -- do not chart) 1 each PRN DAILY PRN MC SEE COMMENTS; Start 11/27/18 at 07:45; Stop 11/27/18 at 07:51; Status DC Info (PHARMACY MONITORING -- do not chart) 1 each PRN DAILY PRN MC SEE COMMENTS; Start 11/27/18 at 07:45 Lidocaine HCl (Xylocaine 1% Pf 30ml Vial) 30 ml 1X ONCE INJ ; Start 11/27/18 at 08:30; Stop 11/27/18 at 08:31; Status DC Insulin Human Lispro (HumaLOG) 10 units TIDAC SQ Last administered on 12/03/18at 12:27; Start 11/27/18 at 12:02 Heparin Sodium (Porcine) (Heparin Sodium) 5,000 unit Q8HRS SQ Last administered on 12/02/18at 05:45; Start 11/27/18 at 14:00; Stop 12/02/18 at 11:08; Status DC Doxycycline Hyclate 100 mg/ Dextrose 100 ml @ 50 mls/hr Q12H IV Last administered on 12/02/18at 02:14; Start 11/27/18 at 14:00; Stop 12/02/18 at 11:26; Status DC Dexmedetomidine HCl 400 mcg/ Sodium Chloride 100 ml @ 0 mls/hr CONT PRN IV AGITATION Last administered on 11/28/18at 04:58; Start 11/27/18 at 17:00; Stop 11/30/18 at 16:18; Status DC Sodium Chloride 500 ml @ 500 mls/hr 1X PRN PRN IV HYPOTENSION; Start 11/27/18 at 17:00; Stop 11/30/18 at 16:19; Status DC Atropine Sulfate (ATROPINE 0.5mg SYRINGE) 0.5 mg PRN Q5MIN PRN IV SEE COMMENTS; Start 11/27/18 at 17:00; Stop 11/30/18 at 16:19; Status DC Acetaminophen (Tylenol) 650 mg PRN Q6HRS PRN PO MILD PAIN / TEMP Last administered on 12/03/18at 06:30; Start 11/28/18 at 20:30 Lidocaine (Lidoderm) 1 patch DAILY TD Last administered on 12/03/18 09:17; Start 11/28/18 at 21:00 Miscellaneous (Lidoderm Patch Removal) 1 ea QHS MC Last administered on 12/01/18 21:00; Start 11/28/18 at 21:00 Metoprolol Tartrate (Lopressor) 25 mg BID PO Last administered on 12/03/18at 09:15; Start 11/29/18 at 09:00 Oxycodone HCl (Roxicodone) 5 mg PRN Q6HRS PRN PO SEVERE PAIN 7-10 Last administered on 11/30/18 04:54; Start 11/29/18 at 02:15; Stop 11/30/18 at 09:15; Status DC Metoprolol Tartrate (Lopressor) 25 mg 1X ONCE PO Last administered on 11/29/18 02:30; Start 11/29/18 at 02:30; Stop 11/29/18 at 02:31; Status DC Ondansetron HCl (Zofran) 4 mg PRN Q6HRS PRN IVP NAUSEA/VOMITING Last administered on 11/29/18 08:07; Start 11/29/18 at 07:30 Lactobacillus Rhamnosus (Culturelle) 1 cap BID PO Last administered on 12/03/18 09:14; Start 11/29/18 at 09:00 Influenza Virus Vaccine Quadrival (Afluria Quad 2019-20 (3yr Up) Syringe) 0.5 ml ONCE ONCE VAX IM Last administered on 11/30/18 08:34; Start 11/29/18 at 10:30; Stop 11/29/18 at 10:31; Status DC Al Hydroxide/Mg Hydroxide (Mylanta Plus Xs) 30 ml PRN Q6HRS PRN PO DYSPEPSIA Last administered on 12/02/18 11:19; Start 11/29/18 at 18:30 Throat Lozenges (Cepacol Sore Throat Lozenge) 1 chiquita PRN Q2HRS PRN PO SORE THROAT Last administered on 11/29/18at 22:53; Start 11/29/18 at 22:15 Oxycodone HCl (Roxicodone) 5 mg PRN Q4HRS PRN PO MODERATE TO SEVERE PAIN Last administered on 12/03/18 14:00; Start 11/30/18 at 09:15 Gabapentin (Neurontin) 600 mg TID PO Last administered on 12/03/18 13:59; Start 11/30/18 at 14:15 Nystatin (Nystop) 1 jermain BID TP Last administered on 12/03/18 09:17; Start 11/30/18 at 15:00 Multivitamins (Thera M Plus) 1 tab DAILY PO Last administered on 12/03/18 09:14; Start 12/01/18 at 11:00 Ascorbic Acid (Vitamin C) 500 mg DAILY PO Last administered on 12/03/18 09:14; Start 12/01/18 at 11:00 Furosemide (Lasix) 40 mg [id number] PO Last administered on 12/03/18 13:59; Start 12/02/18 at 11:00 Enoxaparin Sodium (Lovenox Per Pharmacy Treatment Dosing) 1 each PRN DAILY PRN MC SEE COMMENTS; Start 12/02/18 at 11:15; Status UNV Apixaban (Eliquis) 10 mg BID PO Last administered on 12/03/18 09:15; Start 12/02/18 at 11:30; Stop 12/08/18 at 21:01 Apixaban (Eliquis) 5 mg BID PO ; Start 12/09/18 at 09:00 Doxycycline Hyclate (Vibra-Tab) 100 mg BID PO Last administered on 12/03/18 09:16; Start 12/02/18 at 21:00 Apixaban (Eliquis) 10 mg BID PO ; Start 12/02/18 at 11:30; Status UNV Docusate Sodium (Colace) 100 mg DAILY PO Last administered on 12/02/18at 12:31; Start 12/02/18 at 12:00 Docusate Sodium (Colace) 100 mg PRN DAILY PRN PO CONSTIPATION; Start 12/02/18 at 11:30 Polyethylene Glycol (miraLAX PACKET) 17 gm DAILY PO ; Start 12/02/18 at 12:00 Trazodone HCl (Desyrel) 100 mg QHS PO Last administered on 12/02/18at 20:47; Start 12/02/18 at 21:00; Stop 12/03/18 at 11:55; Status DC Zolpidem Tartrate (Ambien) 5 mg PRN QHS PRN PO INSOMNIA, MAY REPEAT IN 1HR; Start 12/02/18 at 12:15; Stop 12/03/18 at 11:55; Status DC Zolpidem Tartrate (Ambien) 5 mg HS PO ; Start 12/03/18 at 21:00 Quetiapine Fumarate (SEROquel) 25 mg BID PO Last administered on 12/03/18at 12:22; Start 12/03/18 at 12:00 Duloxetine HCl (Cymbalta) 30 mg BID PO Last administered on 12/03/18at 12:22; Start 12/03/18 at 12:00 Active Scripts Active Reported Oxycodone Hcl 5 Mg Capsule 5 Mg PO PRN Q6HRS PRN Warfarin Sodium 5 Mg Tablet 5 Mg PO DAILY Mondays and Wednesdays Warfarin Sodium 10 Mg Tablet 10 Mg PO DAILY 5 days per week, T, Th, F, Sat, Sun Tizanidine Hcl 4 Mg Tablet 2 Mg PO PRN TID PRN Novolin R (Insulin Regular, Human) 100 Unit/1 Ml Vial 28 Unit IJ [id number] Novolin R (Insulin Regular, Human) 100 Unit/1 Ml Vial 36 Unit IJ [id number] Novolin N (Nph, Human Insulin Isophane) 100 Unit/1 Ml Vial 50 Unit SQ BID Seroquel (Quetiapine Fumarate) 25 Mg Tablet 25 Mg PO DAILY Probenecid 500 Mg Tablet 500 Mg PO BID Metoprolol Tartrate 25 Mg Tablet 1 Tab PO BID Lisinopril 20 Mg Tablet 1 Tab PO DAILY Pepcid (Famotidine) 20 Mg Tablet 20 Mg PO BID Vitamin D3 (Cholecalciferol (Vitamin D3)) 1,000 Unit Tablet 2 Tab PO DAILY Senna S Tablet (Sennosides/Docusate Sodium) 1 Each Tablet 2 Tab PO HS Cymbalta (Duloxetine Hcl) 60 Mg Capsule.dr 120 Mg PO DAILY Gabapentin 600 Mg Tablet 300 Mg PO BID Aspirin 81 Mg Tab.chew 81 Mg PO DAILY Furosemide 40 Mg Tablet 1 Tab PO DAILY Atorvastatin Calcium 80 Mg Tablet 1 Tab PO HS Vitals/I & O Vital Sign - Last 24 Hours 12/02/18 12/02/18 12/02/18 12/02/18 14:58 15:00 19:00 19:34 Temp 98.0 97.8 98.0 97.8 Pulse 83 94 Resp 24 20 B/P (MAP) 109/59 (76) 124/58 (80) Pulse Ox 97 100 99 97 O2 Delivery Tracheal Collar Room Air Tracheal Collar Tracheal Collar O2 Flow Rate 5.0 5.0 12/02/18 12/02/18 12/02/18 12/02/18 19:34 20:00 20:33 20:34 Pulse 83 Resp 20 B/P (MAP) 109/59 Pulse Ox 97 97 O2 Delivery Tracheal Collar Trach Collar Tracheal Collar O2 Flow Rate 5.0 5.0 5.0 12/02/18 12/02/18 12/03/18 12/03/18 21:34 23:00 01:04 02:04 Temp 98.8 98.8 Pulse 67 Resp 20 20 20 20 B/P (MAP) 125/51 (75) Pulse Ox 98 98 98 O2 Delivery Tracheal Collar Room Air Room Air O2 Flow Rate 8.0 12/03/18 12/03/18 12/03/18 12/03/18 03:00 05:03 06:03 07:00 Temp 97.8 98.2 97.8 98.2 Pulse 79 87 Resp 20 20 20 14 B/P (MAP) 122/61 (81) 125/66 (85) Pulse Ox 97 97 97 98 O2 Delivery Tracheal Collar Tracheal Collar Tracheal Collar Tracheal Collar O2 Flow Rate 8.0 5.0 12/03/18 12/03/18 12/03/18 12/03/18 07:37 08:00 09:15 09:16 Pulse 87 B/P (MAP) 125/66 Pulse Ox 97 O2 Delivery Tracheal Collar Trach Collar Tracheal Collar O2 Flow Rate 5.0 5.0 12/03/18 12/03/18 11:00 11:30 Temp 97.7 97.7 Pulse 87 Resp 18 B/P (MAP) 121/48 (72) Pulse Ox 98 97 O2 Delivery Tracheal Collar Tracheal Collar O2 Flow Rate 5.0 5.0 Intake and Output 12/02/18 12/02/18 12/03/18 15:00 23:00 07:00 Intake Total 400 ml Output Total 4000 ml 3500 ml Balance -3600 ml -3500 ml PENG AVINA MD Dec 03, 2018 14:44
[2018-12-03 15:00] VITALS: BP 121/59
[2018-12-03 19:00] VITALS: BP 101/61
[2018-12-03] MEDS: PATCH REMOVAL. MC SCH (21:00)
[2018-12-03] MEDS: ZOLPIDEM 5 MG TABLET. PO SCH (21:35)
[2018-12-03 23:00] VITALS: BP 102/52
[2018-12-04] MEDS: IV NORMAL SALINE 1000ML BAG 1,000 ML IV SCH ×2 (00:19→11:00)
[2018-12-04] MEDS: oxyCODONE IR 5 MG TABLET PO PRN ×4 (00:20→16:52)
[2018-12-04 03:00] VITALS: BP 114/54
[2018-12-04 05:23] LABS: CALCIUM 9.1 mg/dL (8.5-10.1); CREATININE 1.8 mg/dL (0.7-1.3); GFR 38.8; POTASSIUM 4.3 mmol/L (3.5-5.1)
[2018-12-04 07:00] VITALS: BP 138/60
[2018-12-04] MEDS: IPRATRPIUM/ALBUTEROL 0.5/2.5MG 3 ML NEBU. NEB SCH ×3 (07:08→15:13)
[2018-12-04] MEDS: BUDESONIDE 0.5 MG/2 ML NEBU. NEB SCH (07:08)
[2018-12-04] MEDS: INSULIN LISPRO 300 UNITS/3 ML VIAL. SQ SCH ×3 (07:30→16:58)
[2018-12-04] MEDS: DOCUSATE SODIUM 100 MG CAPSULE. PO SCH (08:06)
[2018-12-04] MEDS: POLYETHYLENE GLYCOL 3350 17 GM PACKET. PO SCH (08:07)
[2018-12-04] MEDS ORDERED: ONDANSETRON PF 4 MG/2 ML VIAL. IVP PRN (08:45)
[2018-12-04] MEDS: LIDOCAINE (700MG/PATCH) PATCH. TD SCH (08:54)
[2018-12-04] MEDS: GABAPENTIN 300 MG CAPSULE. PO SCH ×3 (08:55→20:40)
[2018-12-04] MEDS: APIXABAN 5 MG TABLET. PO SCH ×2 (08:55→20:42)
[2018-12-04] MEDS: ASCORBIC ACID 500 MG TABLET PO SCH (08:55)
[2018-12-04] MEDS: FUROSEMIDE 40 MG TABLET. PO SCH ×2 (08:55→14:19)
[2018-12-04] MEDS: DULoxetine HCL 30 MG CAPSULE.DR PO SCH ×2 (08:55→20:41)
[2018-12-04] MEDS: MULTIVITAMIN with MINERAL TABLET. PO SCH (08:55)
[2018-12-04] MEDS: METOPROLOL TART IMMED RELEASE 25 MG TABLET. PO SCH ×2 (08:55→20:41)
[2018-12-04] MEDS: DOXYCYCLINE HYCLATE 100 MG TABLET PO SCH ×2 (08:55→20:41)
[2018-12-04] MEDS: NYSTATIN TOPICAL POWDER 15GM BOTTLE. TP SCH ×2 (08:56→20:42)
[2018-12-04] MEDS: QUEtiapine 25 MG TABLET. PO SCH ×2 (08:56→20:41)
[2018-12-04] MEDS: LACTOBACILLUS RHAMNOSUS GG 1 CAPSULE. PO SCH ×2 (08:56→20:42)
--- NOTE | 2018-12-04 10:40 | PDOC ---
PROGRESS NOTES Chief Complaint Chief Complaint acute Renal failure s/p short need HD (11/27) - indwelling temp HD cath chronic resp failure, has trach hx orophrayngeal ca s.p flap by ELLEN morbid obesity, BMI 83 severe malnutrition, hypoalbuminemia oral cancer depression, anxiety, uinsomnia weakness and debilitiy, cannot get up, History of Present Illness History of Present Illness Known to me, was at LTAC then dcd to rehab but left ama from rehab (did not like his care) NOW admitted for ARF ( creat 7 ) needing HD temp,- last HD 11/27 NOw CReat 1,8, normal K and bicarb HAs temp HD cath and VERY GOOD uO in [place] HAs gotten 10 bags IVF per renal A bit sleepy today, got his BID seroquel 25 mg dose- dw JEFFERY Omalley PLAN: Dc Ativan IV (giot 10 doses) - sleepy COnt other meds Will defer [place] and iVF to renal - can dc now? Avoid nephrotoxins LTAC peer to peer in the works - dw SW MIght be able to dc HD cath - defer to renal Vitals Vitals Vital Signs Date Time Temp Pulse Resp B/P (MAP) Pulse Ox O2 Delivery O2 Flow Rate FiO2 12/04/18 08:55 91 138/60 12/04/18 07:30 Trach Collar 5.0 12/04/18 07:10 98 12/04/18 07:00 97.6 18 97.6 Physical Exam General: Alert, Oriented X3, Cooperative, No acute distress Heart: Regular rate, No murmurs Lungs: Clear, Other (decrease bases) Extremities: No clubbing, No cyanosis Skin: No rashes, No breakdown, No significant lesion Labs LABS Laboratory Tests Test 12/03/18 11:21 12/03/18 16:39 12/03/18 21:10 12/04/18 05:00 Glucose (Fingerstick) 156 mg/dL (70-99) 150 mg/dL (70-99) 200 mg/dL (70-99) Sodium Level 143 mmol/L (136-145) Potassium Level 4.3 mmol/L (3.5-5.1) Chloride Level 103 mmol/L (98-107) Carbon Dioxide Level 35 mmol/L (21-32) Anion Gap 5 (6-14) Blood Urea Nitrogen 36 mg/dL (8-26) Creatinine 1.8 mg/dL (0.7-1.3) Estimated GFR (Cockcroft-Gault) 38.8 Glucose Level 163 mg/dL (70-99) Calcium Level 9.1 mg/dL (8.5-10.1) Test 12/04/18 07:06 Glucose (Fingerstick) 159 mg/dL (70-99) Review of Systems Review of Systems sleepy - rest of 14 pt neg or limited Assessment and Plan Assessmemt and Plan Problems Medical Problems: (1) Cardiac arrest Status: Acute (2) Severe protein-calorie malnutrition Status: Acute Comment Review of Relevant I have reviewed the following items bar (where applicable) has been applied. Labs Laboratory Tests Test 12/02/18 12:12 12/02/18 16:59 12/02/18 18:00 12/02/18 21:00 Glucose (Fingerstick) 169 mg/dL (70-99) 134 mg/dL (70-99) 148 mg/dL (70-99) Urine Collection Type U cath Urine Color Yellow Urine Clarity Clear Urine pH 6.5 Urine Specific [place] <=1.005 Urine Protein Negative mg/dL (NEG-TRACE) Urine Glucose (UA) Negative mg/dL (NEG) Urine Ketones (Stick) Negative mg/dL (NEG) Urine Blood Negative (NEG) Urine Nitrite Negative (NEG) Urine Bilirubin Negative (NEG) Urine Urobilinogen Dipstick 0.2 mg/dL (0.2 mg/dL) Urine Leukocyte Esterase Small (NEG) Urine RBC 0 /HPF (0-2) Urine WBC 5-10 /HPF (0-4) Urine Squamous Epithelial Cells Occ /LPF Urine Bacteria 0 /HPF (0-FEW) Urine Mucus Slight /LPF Urine Yeast Present /HPF Test 12/03/18 05:00 12/03/18 07:54 12/03/18 11:21 12/03/18 16:39 White Blood Count 6.1 x10^3/uL (4.0-11.0) Red Blood Count 3.54 x10^6/uL (4.30-5.70) Hemoglobin 9.8 g/dL (13.0-17.5) Hematocrit 29.5 % (39.0-53.0) Mean Corpuscular Volume 83 fL (79-100) Mean Corpuscular Hemoglobin 28 pg (25-35) Mean Corpuscular Hemoglobin Concent 33 g/dL (31-37) Red Cell Distribution Width 17.3 % (11.5-14.5) Platelet Count 179 x10^3/uL (140-400) Neutrophils (%) (Auto) 58 % (31-73) Lymphocytes (%) (Auto) 27 % (24-48) Monocytes (%) (Auto) 10 % (0-9) Eosinophils (%) (Auto) 6 % (0-3) Basophils (%) (Auto) 1 % (0-3) Neutrophils # (Auto) 3.5 x10^3/uL (1.8-7.7) Lymphocytes # (Auto) 1.6 x10^3/uL (1.0-4.8) Monocytes # (Auto) 0.6 x10^3/uL (0.0-1.1) Eosinophils # (Auto) 0.3 x10^3/uL (0.0-0.7) Basophils # (Auto) 0.0 x10^3/uL (0.0-0.2) Sodium Level 143 mmol/L (136-145) Potassium Level 4.3 mmol/L (3.5-5.1) Chloride Level 103 mmol/L (98-107) Carbon Dioxide Level 33 mmol/L (21-32) Anion Gap 7 (6-14) Blood Urea Nitrogen 38 mg/dL (8-26) Creatinine 1.7 mg/dL (0.7-1.3) Estimated GFR (Cockcroft-Gault) 41.6 BUN/Creatinine Ratio 22 (6-20) Glucose Level 153 mg/dL (70-99) Calcium Level 9.1 mg/dL (8.5-10.1) Total Bilirubin 0.6 mg/dL (0.2-1.0) Aspartate Amino Transf (AST/SGOT) 41 U/L (15-37) Alanine Aminotransferase (ALT/SGPT) 116 U/L (16-63) Alkaline Phosphatase 70 U/L (46-116) Total Protein 5.8 g/dL (6.4-8.2) Albumin 2.7 g/dL (3.4-5.0) Albumin/Globulin Ratio 0.9 (1.0-1.7) Glucose (Fingerstick) 191 mg/dL (70-99) 156 mg/dL (70-99) 150 mg/dL (70-99) Test 12/03/18 21:10 12/04/18 05:00 12/04/18 07:06 Glucose (Fingerstick) 200 mg/dL (70-99) 159 mg/dL (70-99) Sodium Level 143 mmol/L (136-145) Potassium Level 4.3 mmol/L (3.5-5.1) Chloride Level 103 mmol/L (98-107) Carbon Dioxide Level 35 mmol/L (21-32) Anion Gap 5 (6-14) Blood Urea Nitrogen 36 mg/dL (8-26) Creatinine 1.8 mg/dL (0.7-1.3) Estimated GFR (Cockcroft-Gault) 38.8 Glucose Level 163 mg/dL (70-99) Calcium Level 9.1 mg/dL (8.5-10.1) Laboratory Tests Test 12/03/18 11:21 12/03/18 16:39 12/03/18 21:10 12/04/18 05:00 Glucose (Fingerstick) 156 mg/dL (70-99) 150 mg/dL (70-99) 200 mg/dL (70-99) Sodium Level 143 mmol/L (136-145) Potassium Level 4.3 mmol/L (3.5-5.1) Chloride Level 103 mmol/L (98-107) Carbon Dioxide Level 35 mmol/L (21-32) Anion Gap 5 (6-14) Blood Urea Nitrogen 36 mg/dL (8-26) Creatinine 1.8 mg/dL (0.7-1.3) Estimated GFR (Cockcroft-Gault) 38.8 Glucose Level 163 mg/dL (70-99) Calcium Level 9.1 mg/dL (8.5-10.1) Test 12/04/18 07:06 Glucose (Fingerstick) 159 mg/dL (70-99) Microbiology 11/27/18 - Final, Complete 11/27/18 - Final, Complete 11/27/18 Gram Stain Evaluation - Final, Complete 11/27/18 Sputum Culture - Final, Complete 11/27/18 Sputum Result 1 - Final, Complete Medications Current Medications Norepinephrine Bitartrate 250 ml @ 48.75 mls/ hr CONT PRN IV SEE I/O RECORD Last administered on 11/27/18at 07:37; Start 11/26/18 at 00:15; Stop 11/29/18 at 19:39; Status DC Dextrose (Dextrose 50%-Water Syringe) 25 gm 1X ONCE IV Last administered on 11/26/18at 02:00; Start 11/26/18 at 02:00; Stop 11/26/18 at 02:01; Status DC Insulin Human Regular (HumuLIN R VIAL) 10 unit 1X ONCE IV Last administered on 11/26/18at 02:01; Start 11/26/18 at 02:00; Stop 11/26/18 at 02:01; Status DC Sodium Chloride 1,000 ml @ 100 mls/hr Q10H IV Last administered on 12/04/18at 00:19; Start 11/26/18 at 03:00 Metolazone (Zaroxolyn) 10 mg 1X ONCE PO Last administered on 11/26/18at 02:47; Start 11/26/18 at 03:00; Stop 11/26/18 at 03:01; Status DC Furosemide (Lasix) 40 mg 1X ONCE IVP Last administered on 11/26/18at 02:48; Start 11/26/18 at 03:00; Stop 11/26/18 at 03:01; Status DC Sodium Polystyrene Sulfonate (Kayexalate) 30 gm 1X ONCE PO Last administered on 11/26/18at 02:47; Start 11/26/18 at 03:00; Stop 11/26/18 at 03:01; Status DC Dextrose (Dextrose 50%-Water Syringe) 25 gm 1X ONCE IV Last administered on 11/26/18at 06:28; Start 11/26/18 at 06:30; Stop 11/26/18 at 06:31; Status DC Insulin Human Regular (HumuLIN R VIAL) 5 unit 1X ONCE IV Last administered on 11/26/18at 06:24; Start 11/26/18 at 06:30; Stop 11/26/18 at 06:31; Status DC Calcium Gluconate (Calcium Gluconate) 1,000 mg 1X ONCE IVP Last administered on 11/26/18at 06:28; Start 11/26/18 at 06:30; Stop 11/26/18 at 06:31; Status DC Sodium Bicarbonate (Sodium Bicarb Adult 8.4% Syr) 100 meq 1X ONCE IV Last administered on 11/26/18at 06:28; Start 11/26/18 at 06:30; Stop 11/26/18 at 06:31; Status DC Lidocaine/Sodium Bicarbonate (Buffered Lidocaine 1%) 6 ml 1X ONCE INJ Last administered on 11/26/18at 08:51; Start 11/26/18 at 07:30; Stop 11/26/18 at 07:31; Status DC Sodium Chloride 1,000 ml @ 1,000 mls/hr Q1H PRN IV hypotension; Start 11/26/18 at 08:29; Stop 11/26/18 at 14:28; Status DC Albumin Human 200 ml @ 200 mls/hr 1X PRN PRN IV Hypotension; Start 11/26/18 at 08:30; Stop 11/26/18 at 14:29; Status DC Acetaminophen (Tylenol) 500 mg 1X PRN PRN PO MILD PAIN / TEMP; Start 11/26/18 at 08:30; Stop 11/27/18 at 08:29; Status DC Diphenhydramine HCl (Benadryl) 25 mg 1X PRN PRN IV ITCHING; Start 11/26/18 at 08:30; Stop 11/27/18 at 08:29; Status DC Diphenhydramine HCl (Benadryl) 25 mg 1X PRN PRN IV ITCHING; Start 11/26/18 at 08:30; Stop 11/27/18 at 08:29; Status DC Sodium Chloride 1,000 ml @ 400 mls/hr Q2H30M PRN IV PATENCY; Start 11/26/18 at 08:29; Stop 11/26/18 at 20:28; Status DC Info (PHARMACY MONITORING -- do not chart) 1 each PRN DAILY PRN MC SEE COMMENTS; Start 11/26/18 at 08:30; Stop 11/27/18 at 07:51; Status DC Albuterol/ Ipratropium (Duoneb) 3 ml RTQID NEB Last administered on 12/04/18at 07:08; Start 11/26/18 at 16:00 Budesonide (Pulmicort) 0.5 mg RTBID NEB Last administered on 12/04/18at 07:08; Start 11/26/18 at 20:00 Lorazepam (Ativan Inj) 2 mg PRN Q4HRS PRN IV ANXIETY / AGITATION Last administered on 12/04/18at 01:29; Start 11/27/18 at 02:00 Sodium Chloride 1,000 ml @ 1,000 mls/hr Q1H PRN IV hypotension; Start 11/27/18 at 07:45; Stop 11/27/18 at 13:44; Status DC Sodium Chloride 1,000 ml @ 400 mls/hr Q2H30M PRN IV PATENCY; Start 11/27/18 at 07:45; Stop 11/27/18 at 19:44; Status DC Info (PHARMACY MONITORING -- do not chart) 1 each PRN DAILY PRN MC SEE COMMENTS; Start 11/27/18 at 07:45; Stop 11/27/18 at 07:51; Status DC Info (PHARMACY MONITORING -- do not chart) 1 each PRN DAILY PRN MC SEE COMMENTS; Start 11/27/18 at 07:45 Lidocaine HCl (Xylocaine 1% Pf 30ml Vial) 30 ml 1X ONCE INJ ; Start 11/27/18 at 08:30; Stop 11/27/18 at 08:31; Status DC Insulin Human Lispro (HumaLOG) 10 units TIDAC SQ Last administered on 12/03/18at 17:08; Start 11/27/18 at 12:02 Heparin Sodium (Porcine) (Heparin Sodium) 5,000 unit Q8HRS SQ Last administered on 12/02/18at 05:45; Start 11/27/18 at 14:00; Stop 12/02/18 at 11:08; Status DC Doxycycline Hyclate 100 mg/ Dextrose 100 ml @ 50 mls/hr Q12H IV Last administered on 12/02/18at 02:14; Start 11/27/18 at 14:00; Stop 12/02/18 at 11:26; Status DC Dexmedetomidine HCl 400 mcg/ Sodium Chloride 100 ml @ 0 mls/hr CONT PRN IV AGITATION Last administered on 11/28/18at 04:58; Start 11/27/18 at 17:00; Stop 11/30/18 at 16:18; Status DC Sodium Chloride 500 ml @ 500 mls/hr 1X PRN PRN IV HYPOTENSION; Start 11/27/18 at 17:00; Stop 11/30/18 at 16:19; Status DC Atropine Sulfate (ATROPINE 0.5mg SYRINGE) 0.5 mg PRN Q5MIN PRN IV SEE COMMENTS; Start 11/27/18 at 17:00; Stop 11/30/18 at 16:19; Status DC Acetaminophen (Tylenol) 650 mg PRN Q6HRS PRN PO MILD PAIN / TEMP Last administered on 12/03/18at 06:30; Start 11/28/18 at 20:30 Lidocaine (Lidoderm) 1 patch DAILY TD Last administered on 12/04/18at 08:54; Start 11/28/18 at 21:00 Miscellaneous (Lidoderm Patch Removal) 1 ea QHS MC Last administered on 12/03/18at 21:00; Start 11/28/18 at 21:00 Metoprolol Tartrate (Lopressor) 25 mg BID PO Last administered on 12/04/18at 08:55; Start 11/29/18 at 09:00 Oxycodone HCl (Roxicodone) 5 mg PRN Q6HRS PRN PO SEVERE PAIN 7-10 Last administered on 11/30/18at 04:54; Start 11/29/18 at 02:15; Stop 11/30/18 at 09:15; Status DC Metoprolol Tartrate (Lopressor) 25 mg 1X ONCE PO Last administered on 11/29/18at 02:30; Start 11/29/18 at 02:30; Stop 11/29/18 at 02:31; Status DC Ondansetron HCl (Zofran) 4 mg PRN Q6HRS PRN IVP NAUSEA/VOMITING Last administered on 11/29/18at 08:07; Start 11/29/18 at 07:30; Stop 12/04/18 at 08:40; Status DC Lactobacillus Rhamnosus (Culturelle) 1 cap BID PO Last administered on 12/03/18at 21:35; Start 11/29/18 at 09:00 Influenza Virus Vaccine Quadrival (Afluria Quad 2019-20 (3yr Up) Syringe) 0.5 ml ONCE ONCE VAX IM Last administered on 11/30/18at 08:34; Start 11/29/18 at 10:30; Stop 11/29/18 at 10:31; Status DC Al Hydroxide/Mg Hydroxide (Mylanta Plus Xs) 30 ml PRN Q6HRS PRN PO DYSPEPSIA Last administered on 12/02/18 11:19; Start 11/29/18 at 18:30 Throat Lozenges (Cepacol Sore Throat Lozenge) 1 chiquita PRN Q2HRS PRN PO SORE THROAT Last administered on 11/29/18 22:53; Start 11/29/18 at 22:15 Oxycodone HCl (Roxicodone) 5 mg PRN Q4HRS PRN PO MODERATE TO SEVERE PAIN Last administered on 12/04/18 04:54; Start 11/30/18 at 09:15 Gabapentin (Neurontin) 600 mg TID PO Last administered on 12/04/18 08:55; Start 11/30/18 at 14:15 Nystatin (Nystop) 1 jermain BID TP Last administered on 12/04/18 08:56; Start 11/30/18 at 15:00 Multivitamins (Thera M Plus) 1 tab DAILY PO Last administered on 12/04/18 08:55; Start 12/01/18 at 11:00 Ascorbic Acid (Vitamin C) 500 mg DAILY PO Last administered on 12/04/18 08:55; Start 12/01/18 at 11:00 Furosemide (Lasix) 40 mg BID92 PO Last administered on 12/04/18 08:55; Start 12/02/18 at 11:00 Enoxaparin Sodium (Lovenox Per Pharmacy Treatment Dosing) 1 each PRN DAILY PRN MC SEE COMMENTS; Start 12/02/18 at 11:15; Status UNV Apixaban (Eliquis) 10 mg BID PO Last administered on 12/04/18 08:55; Start 12/02/18 at 11:30; Stop 12/08/18 at 21:01 Apixaban (Eliquis) 5 mg BID PO ; Start 12/09/18 at 09:00 Doxycycline Hyclate (Vibra-Tab) 100 mg BID PO Last administered on 12/04/18 08:55; Start 12/02/18 at 21:00 Apixaban (Eliquis) 10 mg BID PO ; Start 12/02/18 at 11:30; Status UNV Docusate Sodium (Colace) 100 mg DAILY PO Last administered on 12/02/18 12:31; Start 12/02/18 at 12:00 Docusate Sodium (Colace) 100 mg PRN DAILY PRN PO CONSTIPATION; Start 12/02/18 at 11:30 Polyethylene Glycol (miraLAX PACKET) 17 gm DAILY PO ; Start 12/02/18 at 12:00 Trazodone HCl (Desyrel) 100 mg QHS PO Last administered on 12/02/18at 20:47; Start 12/02/18 at 21:00; Stop 12/03/18 at 11:55; Status DC Zolpidem Tartrate (Ambien) 5 mg PRN QHS PRN PO INSOMNIA, MAY REPEAT IN 1HR; Start 12/02/18 at 12:15; Stop 12/03/18 at 11:55; Status DC Zolpidem Tartrate (Ambien) 5 mg HS PO Last administered on 12/03/18at 21:35; Start 12/03/18 at 21:00 Quetiapine Fumarate (SEROquel) 25 mg BID PO Last administered on 12/03/18at 21:36; Start 12/03/18 at 12:00 Duloxetine HCl (Cymbalta) 30 mg BID PO Last administered on 12/04/18at 08:55; Start 12/03/18 at 12:00 Ondansetron HCl (Zofran) 4 mg PRN Q6HRS PRN IVP NAUSEA/VOMITING; Start 12/04/18 at 08:45 Active Scripts Active Reported Oxycodone Hcl 5 Mg Capsule 5 Mg PO PRN Q6HRS PRN Warfarin Sodium 5 Mg Tablet 5 Mg PO DAILY Mondays and Wednesdays Warfarin Sodium 10 Mg Tablet 10 Mg PO DAILY 5 days per week, T, , F, Sat, Sun Tizanidine Hcl 4 Mg Tablet 2 Mg PO PRN TID PRN Novolin R (Insulin Regular, Human) 100 Unit/1 Ml Vial 28 Unit IJ DAILYWSUP Novolin R (Insulin Regular, Human) 100 Unit/1 Ml Vial 36 Unit IJ [id number] Novolin N (Nph, Human Insulin Isophane) 100 Unit/1 Ml Vial 50 Unit SQ BID Seroquel (Quetiapine Fumarate) 25 Mg Tablet 25 Mg PO DAILY Probenecid 500 Mg Tablet 500 Mg PO BID Metoprolol Tartrate 25 Mg Tablet 1 Tab PO BID Lisinopril 20 Mg Tablet 1 Tab PO DAILY Pepcid (Famotidine) 20 Mg Tablet 20 Mg PO BID Vitamin D3 (Cholecalciferol (Vitamin D3)) 1,000 Unit Tablet 2 Tab PO DAILY Senna S Tablet (Sennosides/Docusate Sodium) 1 Each Tablet 2 Tab PO HS Cymbalta (Duloxetine Hcl) 60 Mg Capsule.dr 120 Mg PO DAILY Gabapentin 600 Mg Tablet 300 Mg PO BID Aspirin 81 Mg Tab.chew 81 Mg PO DAILY Furosemide 40 Mg Tablet 1 Tab PO DAILY Atorvastatin Calcium 80 Mg Tablet 1 Tab PO HS Vitals/I & O Vital Sign - Last 24 Hours 12/03/18 12/03/18 12/03/18 12/03/18 11:00 11:30 15:00 15:30 Temp 97.7 98.3 97.7 98.3 Pulse 87 89 Resp 18 18 B/P (MAP) 121/48 (72) 121/59 (79) Pulse Ox 98 97 99 97 O2 Delivery Tracheal Collar Tracheal Collar Tracheal Collar Tracheal Collar O2 Flow Rate 5.0 5.0 5.0 5.0 12/03/18 12/03/18 12/03/18 12/03/18 17:04 19:00 19:07 19:08 Temp 98.8 98.8 Pulse 95 Resp 18 B/P (MAP) 101/61 (74) Pulse Ox 99 97 97 O2 Delivery Tracheal Collar Tracheal Collar Tracheal Collar Tracheal Collar O2 Flow Rate 5.0 5.0 5.0 12/03/18 12/03/18 12/03/18 12/04/18 20:05 21:36 23:00 00:20 Temp 97.9 97.9 Pulse 95 78 Resp 18 18 B/P (MAP) 101/61 102/52 (69) Pulse Ox 96 96 O2 Delivery Trach Collar Tracheal Collar O2 Flow Rate 5.0 5.0 12/04/18 12/04/18 12/04/18 12/04/18 01:24 03:00 04:54 06:22 Temp 97.7 97.7 Pulse 86 Resp 18 18 18 18 B/P (MAP) 114/54 (74) Pulse Ox 96 97 97 97 O2 Delivery Tracheal Collar O2 Flow Rate 5.0 5.0 5.0 12/04/18 12/04/18 12/04/18 12/04/18 07:00 07:10 07:30 08:55 Temp 97.6 97.6 Pulse 91 91 Resp 18 B/P (MAP) 138/60 (86) 138/60 Pulse Ox 98 98 O2 Delivery Tracheal Collar Tracheal Collar Trach Collar O2 Flow Rate 5.0 5.0 Intake and Output 12/03/18 12/03/18 12/04/18 15:00 23:00 07:00 Intake Total 360 ml Output Total 850 ml 2000 ml 5150 ml Balance -850 ml -2000 ml -4790 ml NISHA NAJERA MD Dec 04, 2018 10:40
--- NOTE | 2018-12-04 10:48 | PDOC ---
Renal-Progress Notes Subjective Notes Notes NO NEW COMPLAINTS History of Present Illness Hx of present illness STABLE Vitals Vitals Vital Signs Date Time Temp Pulse Resp B/P (MAP) Pulse Ox O2 Delivery O2 Flow Rate FiO2 12/04/18 08:55 91 138/60 12/04/18 07:30 Trach Collar 5.0 12/04/18 07:10 98 12/04/18 07:00 97.6 18 97.6 Weight Weight [ ] I.O. Intake and Output Intake and Output 12/04/18 07:00 Intake Total 360 ml Output Total 8000 ml Balance -7640 ml Intake Oral 240 ml IV Total 120 ml Output Urine Total 8000 ml Labs Labs Laboratory Tests Test 12/03/18 11:21 12/03/18 16:39 12/03/18 21:10 12/04/18 05:00 Glucose (Fingerstick) 156 mg/dL (70-99) 150 mg/dL (70-99) 200 mg/dL (70-99) Sodium Level 143 mmol/L (136-145) Potassium Level 4.3 mmol/L (3.5-5.1) Chloride Level 103 mmol/L (98-107) Carbon Dioxide Level 35 mmol/L (21-32) Anion Gap 5 (6-14) Blood Urea Nitrogen 36 mg/dL (8-26) Creatinine 1.8 mg/dL (0.7-1.3) Estimated GFR (Cockcroft-Gault) 38.8 Glucose Level 163 mg/dL (70-99) Calcium Level 9.1 mg/dL (8.5-10.1) Test 12/04/18 07:06 Glucose (Fingerstick) 159 mg/dL (70-99) Micro Micro Microbiology 11/27/18 - Final, Complete 11/27/18 - Final, Complete 11/27/18 Gram Stain Evaluation - Final, Complete 11/27/18 Sputum Culture - Final, Complete 11/27/18 Sputum Result 1 - Final, Complete Review of Systems Constitutional: yes: weakness, alert, oriented Ears/Nose/Throat: Yes: no symptom reported Eyes: Yes: no symptom reported Pulmonary: Yes dyspnea Cardiovascular: Yes edema Gastrointestional: Yes: constipation Genitourinary: Yes: no symptom reported Musculoskeletal: Yes: muscle stiffness Skin: Yes no symptom reported Psychiatric/Neurological: Yes: no symptom reported Endocrine: Yes: no symptom reported Physical Exam General Appearance: no apparent distress Skin: warm Respiratory: decreased breath sounds Heart: S1S2 Abdomen: soft, bowel sounds present Genitourinary: bladder flat Extremities: pulses present Neurology: alert, oriented Assessment Assessment IMP GUSTAVO-IMPROVED WITH GOOD UO AND CR STABLE AT 1.-LAST HD ON 11-27 CARDIAC ARRHYTHMIA MORBID OBESITY CHRONIC TRACH AND HYPERCAPNEA ELEVATED LFTS-BETTER LEFT ARM EDEMA WITH SUPERFICIAL CEPHALIC VEIN THROMBUS DYSURIA WITH NO UTI PLAN CONT TO HOLD OFF HD CONT PO DIURETICS MAINTAIN TRIPLE PORT HD CATHETER FOR IV ACCESS D/C CEDILLO WILL FOLLOW ALO RAYMOND MD Dec 04, 2018 10:48
--- NOTE | 2018-12-04 10:49 | NUR ---
SS following up with discharge planning. Peer to peer conducted on 12/01/2018 for LTAC denial by [facility]. [facility] pursuing written appeal at this time. AIR form signed by physician on 12/01/2018. SS phoned and faxed updated clinical to [facility], ; fax [phone], this morning. SS awaiting final determination. PT/OT and physicians recommending LTAC at this time. SS will continue to follow for discharge planning.
[2018-12-04 11:00] VITALS: BP 130/70
[2018-12-04] MEDS ORDERED: ANTI-COAG MONITOR BY PHARMACY. MC PRN (12:30)
[2018-12-04] MEDS ORDERED: MULT1TAB90 PO (14:53)
[2018-12-04] MEDS ORDERED: FURO40TA4 PO (14:53)
[2018-12-04] MEDS ORDERED: DOXY100T PO (14:53)
[2018-12-04] MEDS ORDERED: IPRA3AMP29 NEB (14:53)
--- NOTE | 2018-12-04 14:55 | SNU/HH DC ---
DISCHARGE ORDERS DISCHARGE INFORMATION: DISCHARGE DATE: Dec 04, 2018 FINAL DIAGNOSIS Problems Medical Problems: (1) Cardiac arrest Status: Acute (2) Severe protein-calorie malnutrition Status: Acute CONDITION ON DISCHARGE: Stable CODE STATUS: Code Status: Full GROUP HOME: SNF STAY <30 DAYS: Yes HOSPICE: HOSPICE: No HOSPICE EVAL & TREAT: No LTAC: ADMIT TO LTAC: No POST DISCHARGE ORDERS: ACTIVITY ORDERS: Activity as tolerated WEIGHT BEARING STATUS: As tolerated DIET AFTER DISCHARGE: dysphagia 1 pureed diet with thin liq WOUND/INCISION CARE: No wound care needed CHECKS AFTER DISCHARGE: CHECKS AFTER DISCHARGE: Check blood press - daily, Check blood sugar, ac/hs FOLLOW-UP: PHYSICIAN FOLLOW-UP: pcp upon ltac dc re renal failure TREATMENT/EQUIPMENT ORDERS: ADAPTIVE EQUIPMENT NEEDED: None RESPIRATORY EQUIPMENT NEEDED: Oxygen Physical Therapy For: Evalulation/Treatment Occupational Therapy For: Evaluation/Treatment DISCHARGE MEDICATIONS: Home Meds Active Scripts Multivits,Ca,Minerals/Iron/Fa (THERA-M TABLET) 1 Each Tablet, 1 TAB PO DAILY for mvi, #30 TAB Prov:NISHA NAJERA MD 12/04/18 Ipratropium/Albuterol Sulfate (DUONEB 0.5-3(2.5) MG/3 ML) 3 Ml Ampul.neb, 3 ML NEB RTQID for soa for 30 Days, #120 EACH Prov:NISHA NAJERA MD 12/04/18 Doxycycline Hyclate (DOXYCYCLINE HYCLATE) 100 Mg Tablet, 100 MG PO BID for infection, #14 TAB Prov:NISHA NAJERA MD 12/04/18 Furosemide (FUROSEMIDE) 40 Mg Tablet, 40 MG PO BID92 for renal failure., fluid overload, #60 TAB Prov:NISHA NAJERA MD 12/04/18 Reported Medications Oxycodone Hcl (OXYCODONE HCL) 5 Mg Capsule, 5 MG PO PRN Q6HRS PRN for PAIN, TAB 0 Refills 11/25/18 Warfarin Sodium (WARFARIN SODIUM) 5 Mg Tablet, 5 MG PO DAILY for afib, #30 TAB Mondays and Wednesdays11/25/18 Warfarin Sodium (WARFARIN SODIUM) 10 Mg Tablet, 10 MG PO DAILY for afib, TAB 5 days per week, , , F, Sat, Sun 9/28/19 Tizanidine Hcl (TIZANIDINE HCL) 4 Mg Tablet, 2 MG PO PRN TID PRN for MUSCLE SPASMS, #60 TAB 11/07/18 Insulin Regular, Human (NOVOLIN R) 100 Unit/1 Ml Vial, 28 UNIT IJ DAILYWSUP for DM, EACH 11/07/18 Insulin Regular, Human (NOVOLIN R) 100 Unit/1 Ml Vial, 36 UNIT IJ DAILYWBKFT for DM, EACH 11/07/18 Nph, Human Insulin Isophane (NOVOLIN N) 100 Unit/1 Ml Vial, 50 UNIT SQ BID for DM, VIAL 11/07/18 Quetiapine Fumarate (SEROQUEL) 25 Mg Tablet, 25 MG PO DAILY for mood , TAB 11/07/18 Probenecid (PROBENECID) 500 Mg Tablet, 500 MG PO BID for Gout, TAB 11/07/18 Metoprolol Tartrate (METOPROLOL TARTRATE) 25 Mg Tablet, 1 TAB PO BID for HTN, #180 TAB 1 Refill 11/07/18 Lisinopril (LISINOPRIL) 20 Mg Tablet, 1 TAB PO DAILY for HTN, #30 TAB 5 Refills 11/07/18 Famotidine (PEPCID) 20 Mg Tablet, 20 MG PO BID for GERD, TAB 11/07/18 Cholecalciferol (Vitamin D3) (VITAMIN D3) 1,000 Unit Tablet, 2 TAB PO DAILY for supplement, #30 TAB 5 Refills 11/07/18 Sennosides/Docusate Sodium (SENNA S TABLET) 1 Each Tablet, 2 TAB PO HS for constipation , TAB 11/07/18 Duloxetine Hcl (CYMBALTA) 60 Mg Capsule.dr, 120 MG PO DAILY for MDD, CAP 11/07/18 Gabapentin (GABAPENTIN) 600 Mg Tablet, 300 MG PO BID for NEUROGENIC PAIN, TAB 11/07/18 Aspirin (ASPIRIN) 81 Mg Tab.chew, 81 MG PO DAILY for hyperlipidemia, TAB.CHEW 11/07/18 Furosemide (FUROSEMIDE) 40 Mg Tablet, 1 TAB PO DAILY for CHF, TAB 09/27/18 Atorvastatin Calcium (ATORVASTATIN CALCIUM) 80 Mg Tablet, 1 TAB PO HS for Cholestoral, TAB 09/27/18 NISHA NAJERA MD Dec 04, 2018 14:55
--- NOTE | 2018-12-04 14:59 | PDOC3 ---
Discharge Summary Visit Information Date of Admission: Nov 25, 2018 Date of Discharge: Dec 04, 2018 Admitting Diagnosis Comment: acute Renal failure s/p short need HD (11/27) - indwelling temp HD cath chronic resp failure, has trach hx orophrayngeal ca s.p flap by ELLEN morbid obesity, BMI 83 severe malnutrition, hypoalbuminemia oral cancer depression, anxiety, uinsomnia weakness and debilitiy, cannot get up, Final Diagnosis Problems Medical Problems: (1) Cardiac arrest Status: Acute (2) Severe protein-calorie malnutrition Status: Acute Brief Hospital Course Allergies Allergies Coded Allergies Type Severity Reaction Last Updated Verified Penicillins Allergy Intermediate 09/26/18 Yes allopurinol Allergy Intermediate 09/26/18 Yes azithromycin Allergy Intermediate 09/26/18 Yes I S O L A T I O N *CONTACT* Allergy Unknown 10/02/18 Yes Vital Signs Vital Signs Date Time Temp Pulse Resp B/P (MAP) Pulse Ox O2 Delivery O2 Flow Rate FiO2 12/04/18 11:54 Tracheal Collar 5.0 12/04/18 11:02 98 12/04/18 11:00 97.4 65 16 130/70 (90) 97.4 Lab Results Laboratory Tests Test 12/02/18 16:59 12/02/18 18:00 12/02/18 21:00 12/03/18 05:00 Glucose (Fingerstick) 134 mg/dL (70-99) 148 mg/dL (70-99) Urine Collection Type U cath Urine Color Yellow Urine Clarity Clear Urine pH 6.5 Urine Specific Ramona <=1.005 Urine Protein Negative mg/dL (NEG-TRACE) Urine Glucose (UA) Negative mg/dL (NEG) Urine Ketones (Stick) Negative mg/dL (NEG) Urine Blood Negative (NEG) Urine Nitrite Negative (NEG) Urine Bilirubin Negative (NEG) Urine Urobilinogen Dipstick 0.2 mg/dL (0.2 mg/dL) Urine Leukocyte Esterase Small (NEG) Urine RBC 0 /HPF (0-2) Urine WBC 5-10 /HPF (0-4) Urine Squamous Epithelial Cells Occ /LPF Urine Bacteria 0 /HPF (0-FEW) Urine Mucus Slight /LPF Urine Yeast Present /HPF White Blood Count 6.1 x10^3/uL (4.0-11.0) Red Blood Count 3.54 x10^6/uL (4.30-5.70) Hemoglobin 9.8 g/dL (13.0-17.5) Hematocrit 29.5 % (39.0-53.0) Mean Corpuscular Volume 83 fL (79-100) Mean Corpuscular Hemoglobin 28 pg (25-35) Mean Corpuscular Hemoglobin Concent 33 g/dL (31-37) Red Cell Distribution Width 17.3 % (11.5-14.5) Platelet Count 179 x10^3/uL (140-400) Neutrophils (%) (Auto) 58 % (31-73) Lymphocytes (%) (Auto) 27 % (24-48) Monocytes (%) (Auto) 10 % (0-9) Eosinophils (%) (Auto) 6 % (0-3) Basophils (%) (Auto) 1 % (0-3) Neutrophils # (Auto) 3.5 x10^3/uL (1.8-7.7) Lymphocytes # (Auto) 1.6 x10^3/uL (1.0-4.8) Monocytes # (Auto) 0.6 x10^3/uL (0.0-1.1) Eosinophils # (Auto) 0.3 x10^3/uL (0.0-0.7) Basophils # (Auto) 0.0 x10^3/uL (0.0-0.2) Sodium Level 143 mmol/L (136-145) Potassium Level 4.3 mmol/L (3.5-5.1) Chloride Level 103 mmol/L (98-107) Carbon Dioxide Level 33 mmol/L (21-32) Anion Gap 7 (6-14) Blood Urea Nitrogen 38 mg/dL (8-26) Creatinine 1.7 mg/dL (0.7-1.3) Estimated GFR (Cockcroft-Gault) 41.6 BUN/Creatinine Ratio 22 (6-20) Glucose Level 153 mg/dL (70-99) Calcium Level 9.1 mg/dL (8.5-10.1) Total Bilirubin 0.6 mg/dL (0.2-1.0) Aspartate Amino Transf (AST/SGOT) 41 U/L (15-37) Alanine Aminotransferase (ALT/SGPT) 116 U/L (16-63) Alkaline Phosphatase 70 U/L (46-116) Total Protein 5.8 g/dL (6.4-8.2) Albumin 2.7 g/dL (3.4-5.0) Albumin/Globulin Ratio 0.9 (1.0-1.7) Test 12/03/18 07:54 12/03/18 11:21 12/03/18 16:39 12/03/18 21:10 Glucose (Fingerstick) 191 mg/dL (70-99) 156 mg/dL (70-99) 150 mg/dL (70-99) 200 mg/dL (70-99) Test 12/04/18 05:00 12/04/18 07:06 12/04/18 11:38 Sodium Level 143 mmol/L (136-145) Potassium Level 4.3 mmol/L (3.5-5.1) Chloride Level 103 mmol/L (98-107) Carbon Dioxide Level 35 mmol/L (21-32) Anion Gap 5 (6-14) Blood Urea Nitrogen 36 mg/dL (8-26) Creatinine 1.8 mg/dL (0.7-1.3) Estimated GFR (Cockcroft-Gault) 38.8 Glucose Level 163 mg/dL (70-99) Calcium Level 9.1 mg/dL (8.5-10.1) Glucose (Fingerstick) 159 mg/dL (70-99) 175 mg/dL (70-99) Laboratory Tests Test 12/03/18 16:39 12/03/18 21:10 12/04/18 05:00 12/04/18 07:06 Glucose (Fingerstick) 150 mg/dL (70-99) 200 mg/dL (70-99) 159 mg/dL (70-99) Sodium Level 143 mmol/L (136-145) Potassium Level 4.3 mmol/L (3.5-5.1) Chloride Level 103 mmol/L (98-107) Carbon Dioxide Level 35 mmol/L (21-32) Anion Gap 5 (6-14) Blood Urea Nitrogen 36 mg/dL (8-26) Creatinine 1.8 mg/dL (0.7-1.3) Estimated GFR (Cockcroft-Gault) 38.8 Glucose Level 163 mg/dL (70-99) Calcium Level 9.1 mg/dL (8.5-10.1) Test 12/04/18 11:38 Glucose (Fingerstick) 175 mg/dL (70-99) Brief Hospital Course Mr. Butler is a 58 old known to me, he has oropharyngeal CA s.p flap sx at [facility], he has chronci a fib on warf (not eliquis) he came in at [facility] in full blown renal failure with creat 7, needing HD, LAst HD 11/27, no more since then with good uO, Was on lasix 40 PO qD at [facility] and lisinopril,. We have stopped deandre inhib, lasix actually inc to BID per renal. OK for ltac today FULL CODE Some sleepiness today, got his seroquel BID home dose, MONItor this 2 notes today ConsultsL renal: PRoc; HD also PO doxy by colleague - prophylactic? will allow it to finish its course Discharge Information Condition at Discharge: Improved, Stable Disposition/Orders: Other (ltac) Scheduled Aspirin (Aspirin) 81 Mg Tab.chew, 81 MG PO DAILY for hyperlipidemia, (Reported) Entered as Reported by: FANNIE HARDING on 11/07/18 0036 Atorvastatin Calcium (Atorvastatin Calcium) 80 Mg Tablet, 1 TAB PO HS for Cholestoral, (Reported) Entered as Reported by: UBALDO BOWEN, RN on 09/27/18 0133 Cholecalciferol (Vitamin D3) (Vitamin D3) 1,000 Unit Tablet, 2 TAB PO DAILY for supplement, #30 Ref 5 (Reported) Entered as Reported by: WILBER OLIVIER on 11/07/18 1214 Doxycycline Hyclate (Doxycycline Hyclate) 100 Mg Tablet, 100 MG PO BID for infection, #14 Prescribed by: NISHA NAJERA on 12/04/18 1453 Duloxetine Hcl (Cymbalta) 60 Mg Capsule.dr, 120 MG PO DAILY for MDD, (Reported) Entered as Reported by: FANNIE HARDING on 11/07/18 0036 Famotidine (Pepcid) 20 Mg Tablet, 20 MG PO BID for GERD, (Reported) Entered as Reported by: WILBER OLIVIER on 11/07/18 1214 Furosemide (Furosemide) 40 Mg Tablet, 40 MG PO BID92 for renal failure., fluid overload, #60 Prescribed by: NISHA NAJERA on 12/04/18 1453 Gabapentin (Gabapentin) 600 Mg Tablet, 300 MG PO BID for NEUROGENIC PAIN, (Reported) Entered as Reported by: FANNIE HARDING on 11/07/18 0036 Insulin Regular, Human (Novolin R) 100 Unit/1 Ml Vial, 36 UNIT IJ [id number] for DM, (Reported) Entered as Reported by: WILBER OLIVIER on 11/07/181213 Insulin Regular, Human (Novolin R) 100 Unit/1 Ml Vial, 28 UNIT IJ DAILYWSUP for DM, (Reported) Entered as Reported by: WILBER OLIVIER on 11/07/181213 Ipratropium/Albuterol Sulfate (Duoneb 0.5-3(2.5) Mg/3 Ml) 3 Ml Ampul.neb, 3 ML NEB RTQID for soa for 30 Days, #120 Prescribed by: NISHA NAJERA on 12/04/18 1453 Metoprolol Tartrate (Metoprolol Tartrate) 25 Mg Tablet, 1 TAB PO BID for HTN, #180 Ref 1 (Reported) Entered as Reported by: WILBER OLIVIER on 11/07/181213 Last Action: Continued on 11/29/18 0204 by TALYA FISH Multivits,Ca,Minerals/Iron/Fa (Thera-M Tablet) 1 Each Tablet, 1 TAB PO DAILY for mvi, #30 Prescribed by: NISHA NAJERA on 12/04/18 1453 Nph, Human Insulin Isophane (Novolin N) 100 Unit/1 Ml Vial, 50 UNIT SQ BID for DM, (Reported) Entered as Reported by: WILBER OLIVIER on 11/07/181213 Probenecid (Probenecid) 500 Mg Tablet, 500 MG PO BID for Gout, (Reported) Entered as Reported by: WILBER OLIVIER on 11/07/181213 Quetiapine Fumarate (Seroquel) 25 Mg Tablet, 25 MG PO DAILY for mood , (Reported) Entered as Reported by: WILBER OLIVIER on 11/07/181213 Last Action: Edited on 11/25/18 2303 by Tavo French Sennosides/Docusate Sodium (Senna S Tablet) 1 Each Tablet, 2 TAB PO HS for cons tipation , (Reported) Entered as Reported by: WILBER OLIVIER on 11/07/181213 Warfarin Sodium (Warfarin Sodium) 10 Mg Tablet, 10 MG PO DAILY for afib, (Reported) 5 days per week, T, Th, F, Sat, Sun Entered as Reported by: Tavo French on 11/25/182302 Last Action: New Order on 11/25/182302 by Tavo French Warfarin Sodium (Warfarin Sodium) 5 Mg Tablet, 5 MG PO DAILY for afib, #30 (Reported) Mondays and Wednesdays Entered as Reported by: Tavo French on 11/25/182302 Last Action: New Order on 11/25/182302 by Tavo French Scheduled PRN Oxycodone Hcl (Oxycodone Hcl) 5 Mg Capsule, 5 MG PO PRN Q6HRS PRN for PAIN, Ref 0 (Reported) Entered as Reported by: Tavo French on 11/25/182302 Last Action: Converted on 11/29/18203 by TALYA ROMEO Tizanidine Hcl (Tizanidine Hcl) 4 Mg Tablet, 2 MG PO PRN TID PRN for MUSCLE SPASMS, #60 (Reported) Entered as Reported by: WILBER OLIVIER on 11/07/181214 Discontinued Medications Furosemide (Furosemide) 40 Mg Tablet, 1 TAB PO DAILY for CHF, (Reported) Entered as Reported by: UBALDO BOWEN RN on 09/27/18132 Lisinopril (Lisinopril) 20 Mg Tablet, 1 TAB PO DAILY for HTN, #30 Ref 5 (Reported) Entered as Reported by: WILBER OLIVIER on 11/07/181213 NISHA NAJERA MD Dec 04, 2018 14:59
[2018-12-04 15:00] VITALS: BP 105/51
--- NOTE | 2018-12-04 15:33 | NUR ---
SS following up with discharge planning. Insurance approved pt for [facility]. Bed available at 1930. SS phoned and faxed discharge orders to [facility], ; fax [phone]. Pt will discharge today and go to [facility] at 1930 via [facility] transport. Pt and pt's RN notified.
--- NOTE | 2018-12-04 17:15 | NUR ---
Attempt made to call report to [facility]. [facility] stated nurse would return call for report.
--- NOTE | 2018-12-04 19:06 | NUR ---
[facility] on [facility] phone, stating they do not have pt's bed ready and asking can transportation due at 1930 be delayed until 2099. Spoke with JEFFERY Juan nursing breakfast supervisor who advised to inform [facility] to contact [facility] to rearrange transportation when they are ready for pickle maker for tonight. [facility] stated they would contact [facility] and return call when transportation was arranged.
[2018-12-04 20:41] VITALS: BP 105/51
[2018-12-04] MEDS: ZOLPIDEM 5 MG TABLET. PO SCH (20:41)
[2018-12-04] MEDS: PATCH REMOVAL. MC SCH (20:42)
--- NOTE | 2018-12-04 22:56 | NUR ---
Pt. left floor with [facility] at [facility].
[2018-12-09] MEDS ORDERED: APIXABAN 5 MG TABLET. PO SCH (09:00)
== END 2018-12-04 21:31 | DRG 682 ==
LOC: 1 WEST ICU 18:58 → 4 NORTH 11-29 18:35
PROVIDERS: ADMIT Internal Medicine; ATTEND Internal Medicine
PROC: 5A1D70Z Performance of Urinary Filtration, Intermittent, Less than 6 Hours Per Day (ICD-10-PCS; 2018-11-26)
PROC: 5A09457 Assistance with Respiratory Ventilation, 24-96 Consecutive Hours, Continuous Positive Airway Pressure (ICD-10-PCS; 2018-11-26)
PROC: 5A1D70Z Performance of Urinary Filtration, Intermittent, Less than 6 Hours Per Day (ICD-10-PCS; principal; 2018-11-27)
PROC: 5A09357 Assistance with Respiratory Ventilation, Less than 24 Consecutive Hours, Continuous Positive Airway Pressure (ICD-10-PCS; 2018-11-29)
DX: N17.0 Acute kidney failure with tubular necrosis (principal); J96.22 Acute and chronic respiratory failure with hypercapnia; E43 Unspecified severe protein-calorie malnutrition; E87.4 Mixed disorder of acid-base balance; I47.2 Ventricular tachycardia; I13.2 Hypertensive heart and chronic kidney disease with heart failure and with stage 5 chronic kidney disease, or end stage renal disease; Z68.45 Body mass index [BMI] 70 or greater, adult; I82.612 Acute embolism and thrombosis of superficial veins of left upper extremity; N18.6 End stage renal disease; E87.5 Hyperkalemia; M10.9 Gout, unspecified; K59.00 Constipation, unspecified; K21.9 Gastro-esophageal reflux disease without esophagitis; F41.9 Anxiety disorder, unspecified; F32.9 Major depressive disorder, single episode, unspecified; I50.9 Heart failure, unspecified; E78.5 Hyperlipidemia, unspecified; E11.65 Type 2 diabetes mellitus with hyperglycemia; C06.9 Malignant neoplasm of mouth, unspecified; E11.22 Type 2 diabetes mellitus with diabetic chronic kidney disease; I48.91 Unspecified atrial fibrillation; G47.00 Insomnia, unspecified; G47.33 Obstructive sleep apnea (adult) (pediatric); Z99.2 Dependence on renal dialysis; Z82.49 Family history of ischemic heart disease and other diseases of the circulatory system; Z93.0 Tracheostomy status; Z86.79 Personal history of other diseases of the circulatory system; Z88.1 Allergy status to other antibiotic agents; Z88.0 Allergy status to penicillin; Z88.8 Allergy status to other drugs, medicaments and biological substances; Z79.899 Other long term (current) drug therapy; Z79.4 Long term (current) use of insulin; Z79.82 Long term (current) use of aspirin; Z85.818 Personal history of malignant neoplasm of other sites of lip, oral cavity, and pharynx; Z87.891 Personal history of nicotine dependence
CPT/HCPCS: 36415; 36556; 36600; 70450; 71045; 76937; 80048; 80053; 81001; 82805; 82962; 83605; 85007; 85025; 86704; 87070; 87086; 87205; 87340; 87641; 90471; 90686; 93005; 93971; 94640; 94660; 94760; A4215; C1892; J0610; J1644; J1815; J1940; J2060; J2405; J3490; J7030; J7042; J7620; J7626; 92526; 92610; 97116; 97530; G0378